=== PATIENT | male | born 1930 | race Two or more races ===

== ENCOUNTER 2017-05-11 15:54 | Inpatient (IN) | payer BC, MEDICARE ==
[2017-05-11] MEDS ORDERED: Sodium Chloride 0.9% 1,000 ML IV ONE (16:26)
--- NOTE | 2017-05-11 16:26 | ED Physician Chart ---
ED Chief Complaint/HPI - Patient Information Date Seen:: 05/11/17 Time Seen:: 16:00 Chief Complaint:: Syncope History of Present Illness:: onset x 3 days of syncope, frequent falls, poor oral intake, and hematochezia; no report of H/As, neck pain, C/P, SOB, Abd. Pain, cough, N/V/D/C, fever, chills , melena, hematemesis, or urinary s/s Allergies:: Allergies Allergy/AdvReac Type Severity Reaction Status Date / Time No Known Allergies Allergy Verified 05/11/17 16:00 Vitals:: Vital Signs - 8 hr 05/11/17 16:01 Temp 97.4 F HR 94 RR 17 BP 125/62 O2 Sat % 95 Historian:: Patient, Family Member Review:: Nurse's Note Reviewed ED Review of Systems - Review of Systems General/Constitutional: No fever, No chills, No weight loss, No weakness, No diaphoresis, No edema, No loss of appetite Skin: No skin lesions, No rash, No bruising Head: No headache, No light-headedness Eyes: No loss of vision, No pain, No diplopia ENT: No earache, No nasal drainage, No sore throat, No tinnitus Neck: No neck pain, No swelling, No thyromegaly, No stiffness, No mass noted Cardio Vascular: No chest pain, No palpitations, No PND, No orthopnea, No edema Pulmonary: No SOB, No cough, No sputum, No wheezing GI: No nausea, No vomiting, No diarrhea, No pain, Melena, Hematochezia, No constipation, No hematemesis G/U: No dysuria, No frequency, No hematuria, No nacturia Musculoskeletal: No bone or joint pain, No back pain, No muscle pain Endocrine: No polyuria, No polydipsia Psychiatric: No prior psych history, No depression, No anxiety, No suicidal ideation, No homicidal ideation, No auditory hallucination, No visual hallucination Hematopoietic: No bruising, No lymphadenopathy Allergic/Immuno: No urticaria, No angioedema Neurological: Syncope, No focal symptoms, No weakness, No paresthesia, No headache, No seizure, Dizziness, No confusion, Vertigo ED Past Medical History - Past Medical History Obtainable: Yes Past Medical History: HTN, Asthma/COPD, Dyslipidemia, Arthritis Family History: HTN Social History: Non Smoker, No Alcohol, No Drug Use, Single Surgical History: None Psychiatricy History: None Medication: Reviewed ED Physical Exam - Physical Examination General/Constitutional: Awake, Well-developed, well-nourished, Alert, No distress, GCS 15, Non-toxic appearing, Ambulatory Head: Atraumatic Eyes: Lids, conjuctiva normal, PERRL, EOMI Skin: Nl inspection, No rash, No skin lesions, No ecchymosis, Well hydrated, No lymphadenopathy ENMT: External ears, nose nl, Nasal exam nl, Lips, teeth, gums nl Neck: Nontender, Full ROM w/o pain, No JVD, No nuchal rigidity, No bruit, No mass, No stridor Respiratory: Nl effort/Exclusion Other Respiratory comments:: Lungs: + Rales and Rhonchi Cardio Vascular: RRR, No murmur, gallop, rubs, NL S1 S2, Carotid/Femoral/Distal pulses equal bilaterally GI: No tenderness/rebounding/guarding, No organomegaly, No hernia, Normal BS's, Nondistended, No mass/bruits, No McBurney tenderness : No CVA tenderness Extremities: No tenderness or effusion, Full ROM, normal strength in all extremities, No edema, Normal digits & nails Neuro/Psych: Alert/oriented, DTR's symmetric, Normal sensory exam, Normal motor strength, Judgement/insight normal, Mood normal, Normal gait, No focal deficits Misc: Normal back, No paraspinal tenderness ED Labs/Radiology/EKG Results - Lab Results Comments:: WBC: 15.0; Lipase: 109; - Radiology Results Comments:: CXR: + Patchy Infiltrate; COPD - EKG Interpretations EKG Time:: 16:44 Rate & Rhythm: 83; NSR Comments:: non-specific st-t changes ED Septic Shock - . Is Septic Shock (SBP<90, OR Lactate>4 mmol\L) present?: No - <6hrs of presentation: Vital Signs: Vital Signs - 8 hr 05/11/17 16:01 Temp 97.4 F HR 94 RR 17 BP 125/62 O2 Sat % 95 ED Reassessment (Disposition) - Reassessment Reassessment Condition:: Improved - Diagnosis Diagnosis:: Leukocytosis; Pancreatitis; PNA; Sepsis; Syncope; S/P Falls; Poor Oral Intake - Aftercare/Follow up Instructions Aftercare/Follow-Up Instructions:: Counseled pt regarding lab results/diagnosis & need follow up, Counseled pt & family regarding lab results/diagnosis & need follow up - Patient Disposition Discharge/Transfer:: Acute Care w/in this hosp Accepting Physician:: Dr. Cedeno Time Called:: [id number] Time Responded:: 17:50 Admitted to:: Med/Surg Spoke to:: Dr. Cedeno Admitting Medical Physician:: Dr. Cedeno Condition at Disposition:: Stable, Improved
[2017-05-11 16:41] LABS: % EOSINOPHILS 0.7 % (0.0-5.0); EOSINOPHILE ABSOLUTE 0.1 Th/cmm (0.1-0.4)
[2017-05-11 16:44] LABS: % BASOPHILS 2.5 % (0.0-2.0); % LYMPHOCYTES 5.2 % (20.0-50.0); % MONOCYTES 4.7 % (2.0-10.0); % NEUTROPHILS 86.9 % (40.0-80.0); BASOPHILE ABSOLUTE 0.4 Th/cumm (0-0.2); HEMATOCRIT 39.8 % (41.0-60); HEMOGLOBIN 13.5 gm/dL (12-16); LYMPHOCYTE ABSOLUTE 0.8 Th/cmm (1.5-3.0); MEAN CELL VOLUME 96.8 fl (80-99); MEAN CORPUSCULAR HEMOGLOBIN 32.9 pg (27.0-31.0); MEAN PLATELET VOLUME 8.1 fl; MONOCYTE ABSOLUTE 0.7 Th/cmm (0.3-1.0); PLATELET COUNT 257 Th/cmm (150-400); RED BLOOD COUNT 4.12 Mil/cmm (3.80-5.80)
[2017-05-11 16:54] LABS: INR 1.02 (0.5-1.4); PROTHROMBIN TIME (TEST) 10.6 SECONDS (9.5-11.5)
[2017-05-11 17:02] LABS: AMYLASE SERUM 70 U/L (29-103); LIPASE 109 U/L (11-82)
[2017-05-11 18:05] LABS: URINE MICROSCOPIC INDICATED? YES; URINE SOURCE CLEAN C
[2017-05-11 18:07] LABS: URINE BILIRUBIN MODERATE (NEGATIVE); URINE BLOOD TRACE (NEGATIVE); URINE GLUCOSE (UA) NEGATIVE (NEGATIVE); URINE KETONE >=80 mg/dL (NEGATIVE); URINE LEUKOCYTE ESTERASE NEGATIVE (NEGATIVE); URINE NITRATE NEGATIVE (NEGATIVE); URINE PROTEIN TRACE mg/dL (NEGATIVE)
[2017-05-11 18:27] LABS: URINE CLARITY CLEAR (CLEAR); URINE COLOR YELLOW
[2017-05-11 18:28] LABS: URINE BACTERIA NONE SEEN /hpf (NONE SEEN); URINE EPITHELIAL CELLS NONE SEEN /lpf (FEW); URINE WBC NONE SEEN /hpf (0-5)
[2017-05-11 18:39] LABS: SODIUM SERUM 136 mEq/L (136-145)
[2017-05-11 18:40] LABS: ANION GAP 17.3 (7.0-16.0); BUN - UREA NITROGEN 28 mg/dL (7-25); CALCIUM SERUM 8.8 mg/dL (8.6-10.3); CARBON DIOXIDE 27.5 mEq/L (21.0-31.0); CHLORIDE 94 mEq/L (98-107); CREATININE - SERUM 0.6 mg/dL (0.7-1.3); GLUCOSE 82 mg/dL (70-105); POTASSIUM SERUM 2.8 mEq/L (3.5-5.1)
[2017-05-11 18:41] LABS: ALB/GLOB RATIO 0.8 (1.0-1.8); ALBUMIN 2.9 gm/dL (4.2-5.5); ALKALINE PHOSPHATASE 82 U/L (34-104); BILIRUBIN,TOTAL 1.2 mg/dL (0.3-1.0); CHOLESTEROL 84 mg/dL (<200); SGOT 7 U/L (13-39); SGPT/ALT 3 U/L (7-52); TOTAL PROTEIN,SERUM 6.5 gm/dL (6.0-8.3); TRIGLYCERIDES 112 mg/dL (<150)
[2017-05-11] MEDS ORDERED: Levofloxacin 500mg/100mL 500 MG/100 ML BAG IV ONE ×2 (18:41→18:45)
[2017-05-11 18:42] LABS: CREATININE KINASE 34 U/L (30-223); HDL -HIGH DENSITY LIPOPROTEIN 18 mg/dL (23-92)
[2017-05-11] MEDS ORDERED: Morphine Sulfate 2 mg/mL 1mL Syr IVP PRN (18:42)
[2017-05-11] MEDS ORDERED: Mag Sulfate 2gm/50mL Premix 2 GM/50 ML BAG IV PRN (18:42)
[2017-05-11] MEDS ORDERED: Potassium Chloride 20 mEq ER Tab PO ONE ×2 (18:48→18:58)
[2017-05-11] MEDS ORDERED: IOHEXOL 300mgI/mL 100 ML VIAL ONE (20:14)
[2017-05-11] MEDS: Sodium Chloride 0.9% 1,000 ML IV SCH (21:06)
[2017-05-11 23:38] VITALS: BP 116/54
[2017-05-12] MEDS ORDERED: Pneumococcal Vaccine 0.5 mL Vial IM ONE (00:20)
[2017-05-12 06:46] LABS: EOSINOPHILE ABSOLUTE 0.1 Th/cmm (0.1-0.4); HEMATOCRIT 36.4 % (41.0-60); HEMOGLOBIN 12.1 gm/dL (12-16); LYMPHOCYTE ABSOLUTE 0.7 Th/cmm (1.5-3.0); MEAN CELL VOLUME 98.1 fl (80-99); MEAN CORPUSCULAR HEMOGLOBIN 32.5 pg (27.0-31.0); MEAN CORPUSCULAR HGB CONC 33.2 pg (28.0-36.0); MEAN PLATELET VOLUME 8.6 fl; MONOCYTE ABSOLUTE 0.5 Th/cmm (0.3-1.0); NEUTROPHILE ABSOLUTE 13.7 Th/cmm (1.8-8.0); PLATELET COUNT 231 Th/cmm (150-400); RED BLOOD COUNT 3.71 Mil/cmm (3.80-5.80); RED CELL DISTRIBUTION WIDTH 14.1 % (11.5-20.0)
[2017-05-12 06:57] LABS: % BASOPHILS 0.1 % (0.0-2.0); % LYMPHOCYTES 4.5 % (20.0-50.0); % MONOCYTES 3.4 % (2.0-10.0)
[2017-05-12 06:59] LABS: ANION GAP 15.3 (7.0-16.0); BUN - UREA NITROGEN 17 mg/dL (7-25); CALCIUM SERUM 8.1 mg/dL (8.6-10.3); CARBON DIOXIDE 24.8 mEq/L (21.0-31.0); CHLORIDE 102 mEq/L (98-107); CREATININE - SERUM 0.5 mg/dL (0.7-1.3); GLUCOSE 62 mg/dL (70-105); POTASSIUM SERUM 3.1 mEq/L (3.5-5.1); SODIUM SERUM 139 mEq/L (136-145)
--- NOTE | 2017-05-12 07:39 | Diagnostic Imaging Report ---
CHEST X-RAY: AP view INDICATION: pain COMPARISON: None FINDINGS: Extensive chronic lung changes are seen with emphysematous changes. There is interstitial chronic changes are most pronounced within the lung bases. No definite pneumothorax is identified. Heart size is normal. Tortuous aorta is noted. Atherosclerosis is noted. Degenerative changes of the spine are noted. IMPRESSION: Extensive chronic lung changes most pronounced within the left lower lung zone. Faint infiltrate is this region is considered less likely but cannot be completely excluded. Please correlate with clinical findings. Atherosclerotic vascular disease and tortuous aorta.
--- NOTE | 2017-05-12 07:48 | Diagnostic Imaging Report ---
Head CT with intravenous contrast Indication: pain Comparison: None Technique: Axial images were obtained from the vertex to the skull base following administration of IV contrast. Coronal reconstructions were made. Total DLP: 662, [id number] FINDINGS: Assessment for hemorrhage is limited due to contrast administration. No gross hemorrhage is identified. The sy-white matter differentiation is preserved. Mild atrophy noted. The ventricles and basal cisterns are patent. No mass effect or midline shift. No evidence of a skull fracture or focal soft tissue swelling. The visualized paranasal sinuses are clear. Atherosclerosis is noted. IMPRESSION: No evidence of acute intracranial abnormality. No enhancing mass lesions identified. Mild atrophy. Atherosclerotic vascular disease.
--- NOTE | 2017-05-12 08:59 | History & Physical ---
ADMIT DATE: 05/11/2017 CHIEF COMPLAINT: Confusion, falls, and syncope. HISTORY OF PRESENT ILLNESS: The patient is a confused 86-year-old male. He presents from home with episodes of falls. He has been experiencing multiple syncopal episodes apparently; however, they were unwitnessed. Also, there were reports of multiple falls, worsening confusion and decreased oral intake. The patient presents to the ER where he was found to have hypokalemia along with possible sepsis and pneumonia as well. PAST MEDICAL HISTORY: Significant for asthma, hypertension, dyslipidemia, arthritis. SOCIAL HISTORY: No history of alcohol, tobacco, or drug abuse. FAMILY HISTORY: Noncontributory. ALLERGIES: No known drug allergies. SOCIAL HISTORY: No documented history of alcohol, tobacco, or drug abuse. MEDICATIONS: Home medications reviewed and reconciled. REVIEW OF SYSTEMS: GENERAL: Positive recent fatigue, worsening confusion and decreased appetite. HEENT: No recent head trauma or change in vision, taste, hearing, or smell. NEUROLOGIC: Possibly syncopal episode x 3 in the last week or so. No history of stroke or seizure, but positive history of syncope and worsening confusion. NECK: No recent tracheal deviation. CARDIOVASCULAR: No history of chest pain. No recent palpitations. SKIN: No recent rashes. PSYCHIATRIC: No history of psychosis or hallucinations. MUSCULOSKELETAL: Positive for unsteady gait and falls recently. RESPIRATORY: Positive for asthma, shortness of breath, and decreased O2 saturations as well. GENITOURINARY: No recent dysuria or hematuria, but possibly increased urinary frequency. ABDOMEN: No recent pain or distention. PHYSICAL EXAMINATION: VITAL SIGNS: Temperature 97.9 degrees, heart rate , respirations 18, blood pressure 125/57. Currently, no pain. His O2 saturations have been in the low 90s. GENERAL: No acute distress. He is awake, but confused and looks very lethargic and almost cachectic appearing. HEENT: No acute issues. NECK: No JVD. CARDIOVASCULAR: Regular rate and rhythm. ABDOMEN: Nontender, nondistended. SKIN: No rashes. RESPIRATORY: Decreased breath sounds bilaterally with rales and congestions. EXTREMITIES: No edema. MUSCULOSKELETAL: The patient has decreased muscle strength and decreased muscle mass as well. NEUROLOGIC: No evidence of acute stroke or seizure activity. LABORATORY DATA: UA shows moderate bilirubin. Urobilinogen is 4.0. Ketones are greater than 80, rbc's 2-5, white count is 15, hemoglobin is 13.5, platelet count is 257,000. INR is 1.02. Sodium 136, potassium 2.8, chloride , bicarbonate 27.5, BUN 20 and creatinine 0.6, total bilirubin is 1.2, AST is 7, ALT is 3. Troponin less than 0.01. Chest x-ray shows left-sided infiltrate and severe COPD changes as well. ASSESSMENT: 1. Hypokalemia. 2. 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 3. Mechanical fall. 4. Unsteady gait. 5. Moderate malnutrition with decreased appetite and muscle wasting. 6. Asthma. 7. Metabolic encephalopathy. 8. Sepsis secondary to aspiration pneumonia. 9. Chronic obstructive pulmonary disease with exacerbation. PLAN: The patient will be placed on breathing treatments. I will follow up on the chest x-ray, but the initial report is infiltrate and extensive chronic lung changes as well. Continue regular diet. O2 has been set up. I will get an ABG on room air as well. CT of the head and ultrasound of the carotids has been ordered for the syncope. Abdominal ultrasound has been ordered for the very low LFTs. Continue heparin for DVT prophylaxis and IV fluids. Follow up on CBC and chemistry panel. I will start the patient on IV Zosyn for his aspiration pneumonia. Prognosis is guarded. JOB# [id number]
[2017-05-12] MEDS: Piperacillin/Tazobact 2.25 gm in 0.9% NS 50 ML IV SCH ×3 (09:17→17:27)
[2017-05-12 09:20] LABS: pH 7.38 (7.35-7.45)
[2017-05-12] MEDS: Albuterol/Ipratropium Neb 3 ML AERS HHN PRN ×2 (09:58→19:25)
[2017-05-12] MEDS: Sodium Chloride 0.9% 1,000 ML IV SCH (10:12)
--- NOTE | 2017-05-12 10:53 | Diagnostic Imaging Report ---
Bilateral carotid Doppler ultrasound exam HISTORY: Syncope Sonographic sector images were obtained to the carotid bifurcation regions bilaterally. Associated Doppler data was obtained. The exam of the right side demonstrates generalized intimal thickening through the bifurcation region. Mild diffuse atherosclerotic plaque extends from the carotid bulb region into the proximal portion of the right internal carotid artery. No significant narrowing or stenosis. Antegrade vertebral artery flow. The ICA/CCA flow ratio is normal (1.2). The left side demonstrates generalized intimal thickening. Mild diffuse plaque noted in the proximal portion of the left internal and sterile carotid arteries. The ICA/CCA flow is normal (1.2). IMPRESSION: 1. Evidence of mild bilateral atherosclerotic changes that do not appear to be hemodynamically significant.
[2017-05-12] MEDS: Potassium Chloride 40 MEQ, Lidocaine 1% 20mL Vial 25 MG in Sodium Chloride 0.9% 250 ML IV PRN (10:57)
--- NOTE | 2017-05-12 14:52 | Diagnostic Imaging Report ---
Ultrasound abdomen HISTORY: Abnormal liver function tests COMPARISON: None Technique: Sonography of the abdomen was performed in multiple planes. FINDINGS: Exam is limited due to bowel gas and body habitus. The liver demonstrates slight increased echogenicity and measures 17 cm. No evidence of focal lesions. There is distention of the gallbladder with diffuse gallbladder sludge. The gallbladder wall measures 5 mm. Echogenic foci are seen along the gallbladder wall. The common bile duct is difficult to visualize. The common bile duct measures 3 mm. Evaluation of the pancreas is limited due to bowel gas. The right kidney measures 10.5 x 4.1 cm. The left kidney measures 11.0 x 5.5 cm. No evidence of focal lesions or hydronephrosis. The spleen measures 10.6 cm. 5 mm echogenic focus of the spleen is noted possibly a calcification. The visualized portions of the abdominal aorta is grossly unremarkable. IMPRESSION: Limited exam due to body habitus and bowel gas. Distended gallbladder is seen with diffuse sludge and small echogenic foci adjacent to the gallbladder wall, possibly representing small stones. Gallbladder wall thickening is also noted. Please correlate clinically for possible cholecystitis. Recommend further assessment with nuclear medicine HIDA scan. Mild hepatomegaly with mild increased echogenicity which may reflect underlying hepatocellular disease. Questionable small nonspecific calcification of the spleen.
[2017-05-12 16:24] LABS: A1C % 4.9 % (4.0-6.0)
[2017-05-13] MEDS: Piperacillin/Tazobact 2.25 gm in 0.9% NS 50 ML IV SCH ×5 (00:23→23:25)
[2017-05-13 06:20] LABS: HEMATOCRIT 33.9 % (41.0-60); HEMOGLOBIN 11.6 gm/dL (12-16); MEAN CORPUSCULAR HEMOGLOBIN 33.1 pg (27.0-31.0); MEAN CORPUSCULAR HGB CONC 34.1 pg (28.0-36.0); MEAN PLATELET VOLUME 8.2 fl; PLATELET COUNT 230 Th/cmm (150-400); RED BLOOD COUNT 3.49 Mil/cmm (3.80-5.80); RED CELL DISTRIBUTION WIDTH 14.4 % (11.5-20.0)
[2017-05-13 06:24] LABS: MANUAL DIFF REQUIRED? YES; WHITE BLOOD COUNT 12.9 Th/cmm (4.8-10.8)
[2017-05-13] MEDS: Sodium Chloride 0.9% 1,000 ML IV SCH (06:37)
[2017-05-13 06:44] LABS: ANION GAP 12.8 (7.0-16.0); BUN - UREA NITROGEN 11 mg/dL (7-25); CALCIUM SERUM 7.9 mg/dL (8.6-10.3); CARBON DIOXIDE 25.4 mEq/L (21.0-31.0); CHLORIDE 106 mEq/L (98-107); CREATININE - SERUM 0.5 mg/dL (0.7-1.3); GLUCOSE 73 mg/dL (70-105); POTASSIUM SERUM 3.2 mEq/L (3.5-5.1); SODIUM SERUM 141 mEq/L (136-145)
[2017-05-13 07:22] LABS: BAND NEUTROPHILE 1 % (0-10); NEUTROPHILS 86 % (40-80); TOTAL CELLS COUNTED 100
[2017-05-13 07:23] LABS: EOSINOPHIL 2 % (0-5); LYMPHOCYTE 6 % (20-50); MONOCYTE 5 % (2-10); PLATELET ESTIMATE ADEQUATE (NORMAL)
--- NOTE | 2017-05-13 08:42 | General Progress Note ---
Subjective - Review of Systems Service Date: 05/13/17 Subjective: Pt seen and eval. In bed. Has some discomfort at times. No n,v,d or fevers. No chills. No cough. No dysuria. No falls or sz. No headaches. Objective - Results Result Diagrams: 05/13/17 06:05 05/13/17 06:05 Recent Labs: Laboratory Last Values WBC 12.9 Th/cmm (4.8-10.8) H 05/13/17 06:05 RBC 3.49 Mil/cmm (3.80-5.80) L 05/13/17 06:05 Hgb 11.6 gm/dL (12-16) L 05/13/17 06:05 Hct 33.9 % (41.0-60) L 05/13/17 06:05 MCV 97.0 fl (80-99) 05/13/17 06:05 MCH 33.1 pg (27.0-31.0) H 05/13/17 06:05 MCHC Differential 34.1 pg (28.0-36.0) 05/13/17 06:05 RDW 14.4 % (11.5-20.0) 05/13/17 06:05 Plt Count 230 Th/cmm (150-400) 05/13/17 06:05 MPV 8.2 fl 05/13/17 06:05 Neutrophils % 91.0 % (40.0-80.0) H 05/12/17 06:00 Band Neutrophils % 1 % (0-10) 05/13/17 06:05 Lymphocytes % 4.5 % (20.0-50.0) L 05/12/17 06:00 Monocytes % 3.4 % (2.0-10.0) 05/12/17 06:00 Eosinophils % 1.0 % (0.0-5.0) 05/12/17 06:00 Basophils % 0.1 % (0.0-2.0) 05/12/17 06:00 Neutrophils (Manual) 86 % (40-80) H 05/13/17 06:05 Lymphocytes 6 % (20-50) L 05/13/17 06:05 Monocytes 5 % (2-10) 05/13/17 06:05 Eosinophils 2 % (0-5) 05/13/17 06:05 Platelet Estimate ADEQUATE (NORMAL) 05/13/17 06:05 PT 10.6 SECONDS (9.5-11.5) 05/11/17 16:40 INR 1.02 (0.5-1.4) 05/11/17 16:40 Specimen Source Arterial 05/12/17 08:50 Sample Site RB 05/12/17 08:50 pH 7.38 (7.35-7.45) 05/12/17 08:50 pCO2 46.0 mmHg (35.0-45.0) H 05/12/17 08:50 pO2 86.0 mmHg (80.0-100.0) 05/12/17 08:50 HCO3 26.1 mEq/L (20.0-26.0) H 05/12/17 08:50 Base Excess 1.6 mEq/L (-3.0-3.0) 05/12/17 08:50 O2 Saturation 96.0 % (92.0-100.0) 05/12/17 08:50 Idris Test NA 05/12/17 08:50 Vent Rate NA 05/12/17 08:50 Inspired O2 28 05/12/17 08:50 Tidal Volume NA 05/12/17 08:50 PEEP NA 05/12/17 08:50 Pressure (ins/psv/peep) NA 05/12/17 08:50 Critical Value E.MCPHERSON 05/12/17 08:50 Sodium 141 mEq/L (136-145) 05/13/17 06:05 Potassium 3.2 mEq/L (3.5-5.1) L 05/13/17 06:05 Chloride 106 mEq/L (98-107) 05/13/17 06:05 Carbon Dioxide 25.4 mEq/L (21.0-31.0) 05/13/17 06:05 Anion Gap 12.8 (7.0-16.0) 05/13/17 06:05 BUN 11 mg/dL (7-25) 05/13/17 06:05 Creatinine 0.5 mg/dL (0.7-1.3) L 05/13/17 06:05 Est GFR ( Amer) TNP 05/13/17 06:05 Est GFR (Non-Af Amer) TNP 05/13/17 06:05 BUN/Creatinine Ratio 22.0 05/13/17 06:05 Glucose 73 mg/dL (70-105) 05/13/17 06:05 Hemoglobin A1c % 4.9 % (4.0-6.0) 05/11/17 16:40 Whole Bld Lactic Acid 1.00 mmol/L (0.60-1.99) 05/11/17 16:40 Calcium 7.9 mg/dL (8.6-10.3) L 05/13/17 06:05 Magnesium 1.9 mg/dL (1.9-2.7) 05/11/17 16:40 Total Bilirubin 1.2 mg/dL (0.3-1.0) H 05/11/17 16:40 AST 7 U/L (13-39) L 05/11/17 16:40 ALT 3 U/L (7-52) L 05/11/17 16:40 Alkaline Phosphatase 82 U/L (34-104) 05/11/17 16:40 Creatine Kinase 34 U/L (30-223) 05/11/17 16:40 Troponin I < 0.01 ng/mL (0.01-0.05) L 05/11/17 16:40 B-Natriuretic Peptide 120.0 pg/mL (5.0-100.0) H 05/11/17 16:40 Total Protein 6.5 gm/dL (6.0-8.3) 05/11/17 16:40 Albumin 2.9 gm/dL (4.2-5.5) L 05/11/17 16:40 Globulin 3.6 gm/dL 05/11/17 16:40 Albumin/Globulin Ratio 0.8 (1.0-1.8) L 05/11/17 16:40 Triglycerides 112 mg/dL (<150) 05/11/17 16:40 Cholesterol 84 mg/dL (<200) 05/11/17 16:40 LDL Cholesterol Direct 57 mg/dL (75-193) L 05/11/17 16:40 HDL Cholesterol 18 mg/dL (23-92) L 05/11/17 16:40 Amylase 70 U/L (29-103) 05/11/17 16:40 Lipase 109 U/L (11-82) H 05/11/17 16:40 Urine Source CLEAN C 05/11/17 17:15 Urine Color YELLOW 03/27/18 17:15 Urine Clarity CLEAR (CLEAR) 05/11/17 17:15 Urine pH 6.0 (4.6 - 8.0) 05/11/17 17:15 Ur Specific [place] 1.015 (1.005-1.030) 05/11/17 17:15 Urine Protein TRACE mg/dL (NEGATIVE) 05/11/17 17:15 Urine Glucose (UA) NEGATIVE mg/dL (NEGATIVE) 05/11/17 17:15 Urine Ketones >=80 mg/dL (NEGATIVE) H 05/11/17 17:15 Urine Blood TRACE (NEGATIVE) 05/11/17 17:15 Urine Nitrate NEGATIVE (NEGATIVE) 05/11/17 17:15 Urine Bilirubin MODERATE (NEGATIVE) H 05/11/17 17:15 Urine Urobilinogen 4.0 E.U./dL (0.2 - 1.0) H 05/11/17 17:15 Ur Leukocyte Esterase NEGATIVE (NEGATIVE) 05/11/17 17:15 Urine RBC 2-5 /hpf (0-5) H 05/11/17 17:15 Urine WBC NONE SEEN /hpf (0-5) 05/11/17 17:15 Ur Epithelial Cells NONE SEEN /lpf (FEW) 05/11/17 17:15 Urine Bacteria NONE SEEN /hpf (NONE SEEN) 05/11/17 17:15 - Physical Exam Vitals and I&O: Vital Signs Temp 97.6 F 05/13/17 04:00 Pulse 100 05/13/17 04:00 Resp 20 05/13/17 04:00 BP 112/80 05/13/17 04:00 Pulse Ox 100 05/13/17 04:00 Intake & Output 05/12/17 05/13/17 05/13/17 18:59 06:59 18:59 Intake Total 1372.5 1050 Balance 1372.5 1050 Weight (lbs) 48.081 kg 48.081 kg Intake: Intake, IV Amount 1132.5 1050 Piperacillin Sodium/ 150 50 Tazobact 2.25 gm In Sodium Chloride 0.9% 50 ml @ 100 mls/hr IV Q6HR [facility] Rx#:[id number] Sodium Chloride 0.9% 1, 982.5 1000 000 ml @ 75 mls/hr IV . [id number] [facility] Rx#:[id number] Oral 240 Other: # Voids 4 5 # Bowel Movements 0 Weight Source Estimated Bedscale Active Medications: Current Medications Acetaminophen (Tylenol) 650 mg PO Q6H PRN PRN Reason: HEADACHE/TEMP ABOVE 100F Stop: 07/10/17 18:41 Albuterol/Ipratropium (Duoneb Neb) 3 ml HHN Q4HRT PRN PRN Reason: sob Stop: 07/11/17 10:59 Last Admin: 05/12/17 19:25 Dose: 3 ml Docusate Sodium (Colace) 100 mg PO BID PRN PRN Reason: Constipation Stop: 07/10/17 18:41 Heparin Sodium (Porcine) (Heparin) 5,000 units SUBQ Q12HR [facility] Stop: 07/10/17 20:59 Last Admin: 05/12/17 20:55 Dose: 5,000 units Potassium Chloride 40 meq/Lidocaine HCl 25 mg/ Sodium Chloride 272.5 mls @ 68 mls/hr IV DAILY PRN PRN Reason: k level less than 3.2 Stop: 07/10/17 18:41 Last Admin: 05/12/17 10:57 Dose: 68 mls/hr Magnesium Sulfate (Magnesium Sulfate Premix) 2 gm in 50 mls @ 25 mls/hr IV DAILY PRN PRN Reason: Magnesium level less than 1.6 Stop: 07/10/17 18:41 Sodium Chloride (Nacl 0.9%) 1,000 mls @ 75 mls/hr IV .[id number] [facility] Stop: 07/10/17 18:44 Last Admin: 05/13/17 06:37 Dose: 75 mls/hr Piperacillin Sod/Tazobactam (Sod 2.25 gm/ Sodium Chloride) 50 mls @ 100 mls/hr IV Q6HR [facility] Stop: 07/11/17 08:44 Last Admin: 05/13/17 06:37 Dose: 100 mls/hr Lorazepam (Ativan) 1 mg IVP Q4HR PRN; Protocol PRN Reason: Anxiety Stop: 07/10/17 18:41 Magnesium Oxide (Mag-Oxide) 400 mg PO BID PRN PRN Reason: Mg less than 1.9 Stop: 07/10/17 18:41 Miscellaneous (Zosyn Iv Per Pharmacy) 1 ea MC PRN PRN PRN Reason: PROTOCOL Stop: 07/11/17 07:44 Morphine Sulfate (Morphine) 1 mg IVP Q4HR PRN PRN Reason: Severe Pain Stop: 07/10/17 18:41 Ondansetron HCl (Zofran) 4 mg IVP Q6H PRN PRN Reason: Nausea / Vomiting Stop: 07/10/17 18:41 Potassium Chloride (Klor-Con) 40 meq PO DAILY PRN PRN Reason: k level less than 3.5 Stop: 07/10/17 18:41 General: Cooperative, Mild distress HEENT: Atraumatic, PERRLA, EOMI Neck: Supple, no JVD, no Thyromegaly Cardiovascular: Regular rate, Normal S1, Normal S2 Lungs: Other (has rales bl) Abdomen: Soft, Other (has some tenderness) Assessment/Plan - Problem List Patient Problems: All Active Problems FREQUENT FALLS WITH POOR APPETITE (Acute) - Assessment Assessment: Asp PNA Possible Cholecystitis Hypokalemia D/O of ANS due to syncope Mech fall Mod malnut Asthma ME Sepsis due to Asp Pna COPD Exac - Plan Plan: Pt is on IV Zosyn and breathing tx. Replenish K today. Sx and GI consulted for possible cholecystitis. Fall prec. Nutritional Asmnt/Malnutr-PDOC - Dietary Evaluation Malnutrition Findings (Please click <Entered> for more info): Nutritional Asmnt/Malnutrition Start: 05/12/17 17: 42 Text: Status: Complete Freq: Document 05/12/17 17:43 LCHENG (Rec: 05/12/17 17:59 LCHENG [id number]) Nutritional Asmnt/Malnutrition Patient General Information Nutritional Screening High Risk Consult Diagnosis syncope Pertinent Medical Hx/Surgical Hx asthma, HTN, dyslipidemia, arthritis Subjective Information Consult received for no appetite to eat. Pt seen lying in bed at time of visit, awake and alert. Pt reported appetite has been poor d/t sick and it was little bit better today. Pt denied chewing problem. Food preference provided. Per RN, pt had no PO intake in the past 5 days, spited out food according to pt . Pt only had fruit and juice for breakfast. Pt was now on NPO during lunch time for U/S. Current Diet Order/ Nutrition Support regular Pertinent Medications colace, piperacillin, nacl 0.9 % Pertinent Labs 05/12 Na 139, K 3.1, Cl 102, BUN 17, Cr 0.5, glucose 62 Ca 8.1 05/11 a1c 4.9 Nutritional Hx/Data Height 1.65 m Height (Calculated Centimeters) 165.1 Current Weight (lbs) 48.081 kg Weight (Calculated Kilograms) 48.1 Weight (Calculated Grams) 51660.8 [place] Body Weight 136 Body Mass Index (BMI) 17.6 Weight Status Underweight GI Symptoms GI Symptoms None Last BM none Difficult in: None Skin Integrity/Comment: bruise to left hip and left upper arm Estimated Nutritional Goals BEE in Kcals: Using Current wt Calories/Kcals/Kg 30-35 Kcals Calculated 8221-1210 Protein: Using Current wt Protein g/k.2-1.4 Protein Calculated 58-67 Fluid: ml 1440-1680ml (1ml/kcal) Nutritional Problem 1. Problem Problem inadequate food intake Etiology poor appetite Signs/Symptoms: poor PO intake x 6 days Intervention/Recommendation Comments 1. Continue with current diet as ordered. If PO continue new , consider adding Boost BID to increased nutrition intake. 2. Monitor PO intake, wt, labs and skin integrity 3. F/U as high risk in 2-3 days, 05/14-05/15 Expected Outcomes/Goals Expected Outcomes/Goals 1. PO intake to meet at least 75% of nutritional needs. 2. Wt stability, skin to remain intact, labs to approach WNL.
[2017-05-13] MEDS: Potassium Chloride 20 mEq ER Tab PO PRN (08:50)
[2017-05-13 09:46] LABS: ALB/GLOB RATIO 0.8 (1.0-1.8); ALBUMIN 2.3 gm/dL (4.2-5.5); BILIRUBIN,DIRECT 0.44 mg/dL (0.0-0.2); BILIRUBIN,TOTAL 0.9 mg/dL (0.3-1.0); TOTAL PROTEIN,SERUM 5.2 gm/dL (6.0-8.3)
--- NOTE | 2017-05-13 12:53 | Consultation ---
DATE OF CONSULTATION: 05/12/[address] Cedeno. Thank you very much Dr. Cedeno for this consultation. HISTORY OF PRESENT ILLNESS: This is an 86-year-old male, who presented after a fall. Workup and neurological workup is in progress. The patient was found to have some wheezing and congestion. The patient has history of COPD, said he uses inhalers at home. He is a smoker for many years, quit years ago, cannot quantify the years or the amount of cigarettes he used. He denies any shortness of breath, some congestion on and off. PAST MEDICAL HISTORY: As above. SOCIAL HISTORY: As above. REVIEW OF SYSTEMS: GENERAL: Weakness and fatigue. CARDIOVASCULAR: No chest pain or palpitations. RESPIRATORY: No shortness of breath, minimal congestion. GASTROINTESTINAL: No nausea or vomiting. PHYSICAL EXAMINATION: GENERAL: Awake, alert, not in acute distress. VITAL SIGNS: Temperature 98.7, pulse 92, respirations are 18, blood pressure , saturation 99%. HEENT: Atraumatic, normocephalic. Pupils are reactive to light and accommodation. Ears, nose, and throat normal. NECK: Supple. No JVD. CHEST: There are rhonchi in bases, fair air entry, minimal wheezing. HEART: Regular rate and rhythm. ABDOMEN: Soft. EXTREMITIES: No edema. LABORATORY DATA AND DIAGNOSTIC STUDIES: ABGs: pH 7.38, pCO2 46, pO2 86, bicarb 26, saturation 96%. WBC is 15.0, hemoglobin 12.1, hematocrit 36.4, and platelets are 231. Sodium 139, potassium 3.1, BUN 17, and creatinine 0.5. Troponin is negative. BNP is 120. Chest x-ray; some hyperinflation, COPD changes. IMPRESSION: 1. This is an 86-year-old male with chronic obstructive pulmonary disease, was little bit symptomatic. 2. Status post fall. 3. Leukocytosis, rule out any infection. PLAN: 1. Nebulizer. 2. Antibiotics. 3. Add Pulmicort nebulizer. 4. Neurology workup in progress. We will follow the patient with you. JOB# [id number]
[2017-05-13] MEDS ORDERED: Probiotic Screen MC PRN (13:00)
--- NOTE | 2017-05-13 13:12 | Operative Report ---
DATE OF SURGERY: 05/13/2017 INPATIENT GI CONSULTATION CONSULTING PHYSICIAN: Dr. Cedeno. REASON FOR CONSULTATION: Vomiting, distended gallbladder on imaging. HISTORY OF PRESENT ILLNESS: The patient is an 86-year-old male who was admitted to the hospital with falls at home and possible syncopal episodes. However, the patient also notes that he has been vomiting for about a week now; most of the food that he has been trying to eat. He denies any abdominal pain with this, and he says he has had several bowel movements over the past week. Denies any bleeding or hematochezia or melena. On ER evaluation, he was seen to have a distended gallbladder with gallbladder wall thickening on the ultrasound and thus, GI consult was placed. PAST MEDICAL HISTORY: Asthma, hypertension, dyslipidemia, and arthritis. PAST SURGICAL HISTORY: The patient denies any abdominal surgeries. FAMILY HISTORY: Noncontributory. SOCIAL HISTORY: No documented history of alcohol or tobacco or drug use. ALLERGIES: No known drug allergies. CURRENT MEDICATIONS: Include Tylenol as needed, albuterol, Colace, heparin subcutaneously, Ativan as needed, magnesium oxide, and Zofran as needed. REVIEW OF SYSTEMS: A 12-point review of systems performed with the patient and is negative other than the pertinent positives are mentioned in the history of present illness. PHYSICAL EXAMINATION: VITAL SIGNS: Blood pressure is 112/88, pulse 100 beats per minute, temperature 97.6, and oxygenation 100%. GENERAL: The patient is lying in bed at 30 degrees. Alert and oriented x3. HEAD, EARS, EYES, NOSE, AND THROAT: Normocephalic, atraumatic-appearing head. Pupils are equal and reactive to light. Extraocular muscles are intact. Moist mucous membranes. NECK: Supple. No JVD or thyromegaly. CARDIOVASCULAR: S1, S2 present. Regular rate and rhythm. ABDOMEN: Soft. There is tenderness to deep palpation on the right side. No guarding, no rebound. Mild distention. EXTREMITIES: No pitting edema. Pulses are present. SKIN: No obvious jaundice or cyanosis. LABORATORY DATA: White blood cell count is 12.9, hemoglobin 11.6, and platelet count is 230. INR 1.02. AST is 9, ALT 4, total bilirubin 0.9. IMAGING: An abdominal ultrasound was performed and shows distended gallbladder with diffuse sludge and small echogenic foci adjacent to the gallbladder wall. The gallbladder wall thickening is noted. IMPRESSION: This is an 86-year-old male with asthma, hypertension, and dyslipidemia, who comes to the hospital with 1-week of vomiting and syncope and falls at home, found to have leukocytosis and distended gallbladder with thickening of the wall on imaging. 1. Thickened wall of the gallbladder. 2. Distended gallbladder. 3. Nausea and vomiting. 4. Leukocytosis. 5. Positive physical exam Cowan sign. DISCUSSION: It appears likely this patient has acute cholecystitis given the leukocytosis and ultrasound findings. A HIDA scan can be performed to help confirm this diagnosis. As always, acute cholecystitis is a surgical disease and the surgeon needs to be consulted to manage this as the appropriate therapy is cholecystectomy. RECOMMENDATIONS: 1. Surgical consultation for evaluation of acute cholecystectomy. 2. Follow up with the HIDA scan. 3. We will start the patient on antibiotics given that he is presenting with acute cholecystitis. We will continue Zosyn, which has already been started. 4. The patient can be n.p.o. for the HIDA scan, but then can likely be on clears after this until he is seen by surgeon and the plan is made. Thank you for allowing me to participate in the care of this patient. Please call with any further questions. JOB# [id number]
--- NOTE | 2017-05-13 15:31 | General Progress Note ---
Subjective - Review of Systems Service Date: 05/13/17 Events since last encounter: chart reviewed has GB stones HIDA in progress Objective - Results Result Diagrams: 05/13/17 06:05 05/13/17 06:05 Recent Labs: Laboratory Last Values WBC 12.9 Th/cmm (4.8-10.8) H 05/13/17 06:05 RBC 3.49 Mil/cmm (3.80-5.80) L 05/13/17 06:05 Hgb 11.6 gm/dL (12-16) L 05/13/17 06:05 Hct 33.9 % (41.0-60) L 05/13/17 06:05 MCV 97.0 fl (80-99) 05/13/17 06:05 MCH 33.1 pg (27.0-31.0) H 05/13/17 06:05 MCHC Differential 34.1 pg (28.0-36.0) 05/13/17 06:05 RDW 14.4 % (11.5-20.0) 05/13/17 06:05 Plt Count 230 Th/cmm (150-400) 05/13/17 06:05 MPV 8.2 fl 05/13/17 06:05 Neutrophils % 91.0 % (40.0-80.0) H 05/12/17 06:00 Band Neutrophils % 1 % (0-10) 05/13/17 06:05 Lymphocytes % 4.5 % (20.0-50.0) L 05/12/17 06:00 Monocytes % 3.4 % (2.0-10.0) 05/12/17 06:00 Eosinophils % 1.0 % (0.0-5.0) 05/12/17 06:00 Basophils % 0.1 % (0.0-2.0) 05/12/17 06:00 Neutrophils (Manual) 86 % (40-80) H 05/13/17 06:05 Lymphocytes 6 % (20-50) L 05/13/17 06:05 Monocytes 5 % (2-10) 05/13/17 06:05 Eosinophils 2 % (0-5) 05/13/17 06:05 Platelet Estimate ADEQUATE (NORMAL) 05/13/17 06:05 PT 10.6 SECONDS (9.5-11.5) 05/11/17 16:40 INR 1.02 (0.5-1.4) 05/11/17 16:40 Specimen Source Arterial 05/12/17 08:50 Sample Site RB 05/12/17 08:50 pH 7.38 (7.35-7.45) 05/12/17 08:50 pCO2 46.0 mmHg (35.0-45.0) H 05/12/17 08:50 pO2 86.0 mmHg (80.0-100.0) 05/12/17 08:50 HCO3 26.1 mEq/L (20.0-26.0) H 05/12/17 08:50 Base Excess 1.6 mEq/L (-3.0-3.0) 05/12/17 08:50 O2 Saturation 96.0 % (92.0-100.0) 05/12/17 08:50 Idris Test NA 05/12/17 08:50 Vent Rate NA 05/12/17 08:50 Inspired O2 28 05/12/17 08:50 Tidal Volume NA 05/12/17 08:50 PEEP NA 05/12/17 08:50 Pressure (ins/psv/peep) NA 05/12/17 08:50 Critical Value E.MCPHERSON 05/12/17 08:50 Sodium 141 mEq/L (136-145) 05/13/17 06:05 Potassium 3.2 mEq/L (3.5-5.1) L 05/13/17 06:05 Chloride 106 mEq/L (98-107) 05/13/17 06:05 Carbon Dioxide 25.4 mEq/L (21.0-31.0) 05/13/17 06:05 Anion Gap 12.8 (7.0-16.0) 05/13/17 06:05 BUN 11 mg/dL (7-25) 05/13/17 06:05 Creatinine 0.5 mg/dL (0.7-1.3) L 05/13/17 06:05 Est GFR ( Amer) TNP 05/13/17 06:05 Est GFR (Non-Af Amer) TNP 05/13/17 06:05 BUN/Creatinine Ratio 22.0 05/13/17 06:05 Glucose 73 mg/dL (70-105) 05/13/17 06:05 Hemoglobin A1c % 4.9 % (4.0-6.0) 05/11/17 16:40 Whole Bld Lactic Acid 1.00 mmol/L (0.60-1.99) 05/11/17 16:40 Calcium 7.9 mg/dL (8.6-10.3) L 05/13/17 06:05 Magnesium 1.9 mg/dL (1.9-2.7) 05/11/17 16:40 Total Bilirubin 0.9 mg/dL (0.3-1.0) 05/13/17 06:05 Direct Bilirubin 0.44 mg/dL (0.0-0.2) H 05/13/17 06:05 AST 9 U/L (13-39) L 05/13/17 06:05 ALT 4 U/L (7-52) L 05/13/17 06:05 Alkaline Phosphatase 66 U/L (34-104) 05/13/17 06:05 Creatine Kinase 34 U/L (30-223) 05/11/17 16:40 Troponin I < 0.01 ng/mL (0.01-0.05) L 05/11/17 16:40 B-Natriuretic Peptide 120.0 pg/mL (5.0-100.0) H 05/11/17 16:40 Total Protein 5.2 gm/dL (6.0-8.3) L 05/13/17 06:05 Albumin 2.3 gm/dL (4.2-5.5) L 05/13/17 06:05 Globulin 2.9 gm/dL 05/13/17 06:05 Albumin/Globulin Ratio 0.8 (1.0-1.8) L 05/13/17 06:05 Triglycerides 112 mg/dL (<150) 05/11/17 16:40 Cholesterol 84 mg/dL (<200) 05/11/17 16:40 LDL Cholesterol Direct 57 mg/dL (75-193) L 05/11/17 16:40 HDL Cholesterol 18 mg/dL (23-92) L 05/11/17 16:40 Amylase 70 U/L (29-103) 05/11/17 16:40 Lipase 109 U/L (11-82) H 05/11/17 16:40 Urine Source CLEAN C 05/11/17 17:15 Urine Color YELLOW 05/11/17 17:15 Urine Clarity CLEAR (CLEAR) 05/11/17 17:15 Urine pH 6.0 (4.6 - 8.0) 05/11/17 17:15 Ur Specific [place] 1.015 (1.005-1.030) 05/11/17 17:15 Urine Protein TRACE mg/dL (NEGATIVE) 05/11/17 17:15 Urine Glucose (UA) NEGATIVE mg/dL (NEGATIVE) 05/11/17 17:15 Urine Ketones >=80 mg/dL (NEGATIVE) H 05/11/17 17:15 Urine Blood TRACE (NEGATIVE) 05/11/17 17:15 Urine Nitrate NEGATIVE (NEGATIVE) 05/11/17 17:15 Urine Bilirubin MODERATE (NEGATIVE) H 05/11/17 17:15 Urine Urobilinogen 4.0 E.U./dL (0.2 - 1.0) H 05/11/17 17:15 Ur Leukocyte Esterase NEGATIVE (NEGATIVE) 05/11/17 17:15 Urine RBC 2-5 /hpf (0-5) H 05/11/17 17:15 Urine WBC NONE SEEN /hpf (0-5) 05/11/17 17:15 Ur Epithelial Cells NONE SEEN /lpf (FEW) 05/11/17 17:15 Urine Bacteria NONE SEEN /hpf (NONE SEEN) 05/11/17 17:15 - Physical Exam Vitals and I&O: Vital Signs Temp 98.1 F 05/13/17 08:00 Pulse 110 05/13/17 14:25 Resp 18 05/13/17 14:25 BP 102/56 05/13/17 08:00 Pulse Ox 98 05/13/17 14:25 Intake & Output 05/12/17 05/13/17 05/13/17 18:59 06:59 18:59 Intake Total 1372.5 1050 50 Balance 1372.5 1050 50 Weight (lbs) 48.081 kg 48.081 kg Intake: Intake, IV Amount 1132.5 1050 50 Piperacillin Sodium/ 150 50 50 Tazobact 2.25 gm In Sodium Chloride 0.9% 50 ml @ 100 mls/hr IV Q6HR [facility] Rx#:[id number] Sodium Chloride 0.9% 1, 982.5 1000 000 ml @ 75 mls/hr IV . [id number] [facility] Rx#:[id number] Oral 240 Other: # Voids 4 5 # Bowel Movements 0 Weight Source Estimated Bedscale Active Medications: Current Medications Acetaminophen (Tylenol) 650 mg PO Q6H PRN PRN Reason: HEADACHE/TEMP ABOVE 100F Stop: 07/10/17 18:41 Albuterol/Ipratropium (Duoneb Neb) 3 ml HHN Q4HRT PRN PRN Reason: sob Stop: 07/11/17 10:59 Last Admin: 05/12/17 19:25 Dose: 3 ml Docusate Sodium (Colace) 100 mg PO BID PRN PRN Reason: Constipation Stop: 07/10/17 18:41 Heparin Sodium (Porcine) (Heparin) 5,000 units SUBQ Q12HR [facility] Stop: 07/10/17 20:59 Last Admin: 05/13/17 08:50 Dose: 5,000 units Potassium Chloride 40 meq/Lidocaine HCl 25 mg/ Sodium Chloride 272.5 mls @ 68 mls/hr IV DAILY PRN PRN Reason: k level less than 3.2 Stop: 07/10/17 18:41 Last Admin: 05/12/17 10:57 Dose: 68 mls/hr Magnesium Sulfate (Magnesium Sulfate Premix) 2 gm in 50 mls @ 25 mls/hr IV DAILY PRN PRN Reason: Magnesium level less than 1.6 Stop: 07/10/17 18:41 Sodium Chloride (Nacl 0.9%) 1,000 mls @ 75 mls/hr IV .[id number] [facility] Stop: 07/10/17 18:44 Last Admin: 05/13/17 06:37 Dose: 75 mls/hr Piperacillin Sod/Tazobactam (Sod 2.25 gm/ Sodium Chloride) 50 mls @ 100 mls/hr IV Q6HR [facility] Stop: 07/11/17 08:44 Last Admin: 05/13/17 11:57 Dose: 100 mls/hr Lactobacillus Rhamnosus (Culturelle 15b) 1 each PO DAILY [facility] Stop: 07/13/17 08:59 Lorazepam (Ativan) 1 mg IVP Q4HR PRN; Protocol PRN Reason: Anxiety Stop: 07/10/17 18:41 Magnesium Oxide (Mag-Oxide) 400 mg PO BID PRN PRN Reason: Mg less than 1.9 Stop: 07/10/17 18:41 Miscellaneous (Zosyn Iv Per Pharmacy) 1 ea PRN PRN PRN Reason: PROTOCOL Stop: 07/11/17 07:44 Miscellaneous (Probiotic Screen) 1 ea PRN PRN PRN Reason: PROTOCOL Stop: 07/12/17 12:59 Morphine Sulfate (Morphine) 1 mg IVP Q4HR PRN PRN Reason: Severe Pain Stop: 07/10/17 18:41 Ondansetron HCl (Zofran) 4 mg IVP Q6H PRN PRN Reason: Nausea / Vomiting Stop: 07/10/17 18:41 Potassium Chloride (Klor-Con) 40 meq PO DAILY PRN PRN Reason: k level less than 3.5 Stop: 07/10/17 18:41 Last Admin: 05/13/17 08:50 Dose: 40 meq General: Cooperative, Mild distress HEENT: Atraumatic, PERRLA, EOMI Neck: Supple, no JVD, no Thyromegaly Cardiovascular: Regular rate, Normal S1, Normal S2 Lungs: Other (has rales bl) Abdomen: Soft, Other (has some tenderness) Assessment/Plan - Problem List Patient Problems: All Active Problems FREQUENT FALLS WITH POOR APPETITE (Acute) Nutritional Asmnt/Malnutr-PDOC - Dietary Evaluation Malnutrition Findings (Please click <Entered> for more info): Nutritional Asmnt/Malnutrition Start: 05/12/17 17: 42 Text: Status: Complete Freq: Document 05/12/17 17:43 LCHENG (Rec: 05/12/17 17:59 [email or web address] [id number]) Nutritional Asmnt/Malnutrition Patient General Information Nutritional Screening High Risk Consult Diagnosis syncope Pertinent Medical Hx/Surgical Hx asthma, HTN, dyslipidemia, arthritis Subjective Information Consult received for no appetite to eat. Pt seen lying in bed at time of visit, awake and alert. Pt reported appetite has been poor d/t sick and it was little bit better today. Pt denied chewing problem. Food preference provided. Per RN, pt had no PO intake in the past 5 days, spited out food according to pt . Pt only had fruit and juice for breakfast. Pt was now on NPO during lunch time for U/S. Current Diet Order/ Nutrition Support regular Pertinent Medications colace, piperacillin, nacl 0.9 % Pertinent Labs 05/12 Na 139, K 3.1, Cl 102, BUN 17, Cr 0.5, glucose 62 Ca 8.1 05/11 a1c 4.9 Nutritional Hx/Data Height 1.65 m Height (Calculated Centimeters) 165.1 Current Weight (lbs) 48.081 kg Weight (Calculated Kilograms) 48.1 Weight (Calculated Grams) 36338.8 [place] Body Weight 136 Body Mass Index (BMI) 17.6 Weight Status Underweight GI Symptoms GI Symptoms None Last BM none Difficult in: None Skin Integrity/Comment: bruise to left hip and left upper arm Estimated Nutritional Goals BEE in Kcals: Using Current wt Calories/Kcals/Kg 30-35 Kcals Calculated 4083-9222 Protein: Using Current wt Protein g/k.2-1.4 Protein Calculated 58-67 Fluid: ml 1440-1680ml (1ml/kcal) Nutritional Problem 1. Problem Problem inadequate food intake Etiology poor appetite Signs/Symptoms: poor PO intake x 6 days Intervention/Recommendation Comments 1. Continue with current diet as ordered. If PO continue new , consider adding Boost BID to increased nutrition intake. 2. Monitor PO intake, wt, labs and skin integrity 3. F/U as high risk in 2-3 days, 05/14-05/15 Expected Outcomes/Goals Expected Outcomes/Goals 1. PO intake to meet at least 75% of nutritional needs. 2. Wt stability, skin to remain intact, labs to approach WNL.
[2017-05-14] MEDS: Sodium Chloride 0.9% 1,000 ML IV SCH (03:36)
[2017-05-14 06:18] LABS: % EOSINOPHILS 2.3 % (0.0-5.0); % LYMPHOCYTES 6.6 % (20.0-50.0); % MONOCYTES 6.6 % (2.0-10.0); % NEUTROPHILS 84.5 % (40.0-80.0); EOSINOPHILE ABSOLUTE 0.3 Th/cmm (0.1-0.4); HEMOGLOBIN 11.2 gm/dL (12-16); LYMPHOCYTE ABSOLUTE 0.9 Th/cmm (1.5-3.0); MEAN CORPUSCULAR HEMOGLOBIN 33.1 pg (27.0-31.0); MEAN CORPUSCULAR HGB CONC 33.8 pg (28.0-36.0); MEAN PLATELET VOLUME 7.9 fl; MONOCYTE ABSOLUTE 0.9 Th/cmm (0.3-1.0); NEUTROPHILE ABSOLUTE 11.4 Th/cmm (1.8-8.0); PLATELET COUNT 250 Th/cmm (150-400); RED BLOOD COUNT 3.37 Mil/cmm (3.80-5.80); RED CELL DISTRIBUTION WIDTH 14.1 % (11.5-20.0); WHITE BLOOD COUNT 13.5 Th/cmm (4.8-10.8)
[2017-05-14] MEDS: Piperacillin/Tazobact 2.25 gm in 0.9% NS 50 ML IV SCH ×3 (06:49→17:09)
[2017-05-14 06:52] LABS: ANION GAP 12.4 (7.0-16.0); BUN - UREA NITROGEN 7 mg/dL (7-25); CALCIUM SERUM 7.7 mg/dL (8.6-10.3); CARBON DIOXIDE 28.7 mEq/L (21.0-31.0); CHLORIDE 103 mEq/L (98-107); CREATININE - SERUM 0.5 mg/dL (0.7-1.3); GLUCOSE 90 mg/dL (70-105); POTASSIUM SERUM 3.1 mEq/L (3.5-5.1); SODIUM SERUM 141 mEq/L (136-145)
--- NOTE | 2017-05-14 08:23 | GI Progress Note ---
Subjective - Review of Systems Service Date: 05/14/17 Subjective: No events, feels well this morning Objective - Results Result Diagrams: 05/14/17 06:00 05/14/17 06:00 Recent Labs: Laboratory Last Values WBC 13.5 Th/cmm (4.8-10.8) H 05/14/17 06:00 RBC 3.37 Mil/cmm (3.80-5.80) L 05/14/17 06:00 Hgb 11.2 gm/dL (12-16) L 05/14/17 06:00 Hct 33.0 % (41.0-60) L 05/14/17 06:00 MCV 98.0 fl (80-99) 05/14/17 06:00 MCH 33.1 pg (27.0-31.0) H 05/14/17 06:00 MCHC Differential 33.8 pg (28.0-36.0) 05/14/17 06:00 RDW 14.1 % (11.5-20.0) 05/14/17 06:00 Plt Count 250 Th/cmm (150-400) 05/14/17 06:00 MPV 7.9 fl 05/14/17 06:00 Neutrophils % 84.5 % (40.0-80.0) H 05/14/17 06:00 Band Neutrophils % 1 % (0-10) 05/13/17 06:05 Lymphocytes % 6.6 % (20.0-50.0) L 05/14/17 06:00 Monocytes % 6.6 % (2.0-10.0) 05/14/17 06:00 Eosinophils % 2.3 % (0.0-5.0) 05/14/17 06:00 Basophils % 0.0 % (0.0-2.0) 05/14/17 06:00 Neutrophils (Manual) 86 % (40-80) H 05/13/17 06:05 Lymphocytes 6 % (20-50) L 05/13/17 06:05 Monocytes 5 % (2-10) 05/13/17 06:05 Eosinophils 2 % (0-5) 05/13/17 06:05 Platelet Estimate ADEQUATE (NORMAL) 05/13/17 06:05 PT 10.6 SECONDS (9.5-11.5) 05/11/17 16:40 INR 1.02 (0.5-1.4) 05/11/17 16:40 Specimen Source Arterial 05/12/17 08:50 Sample Site RB 05/12/17 08:50 pH 7.38 (7.35-7.45) 05/12/17 08:50 pCO2 46.0 mmHg (35.0-45.0) H 05/12/17 08:50 pO2 86.0 mmHg (80.0-100.0) 05/12/17 08:50 HCO3 26.1 mEq/L (20.0-26.0) H 05/12/17 08:50 Base Excess 1.6 mEq/L (-3.0-3.0) 05/12/17 08:50 O2 Saturation 96.0 % (92.0-100.0) 05/12/17 08:50 Idris Test NA 05/12/17 08:50 Vent Rate NA 05/12/17 08:50 Inspired O2 28 05/12/17 08:50 Tidal Volume NA 05/12/17 08:50 PEEP NA 05/12/17 08:50 Pressure (ins/psv/peep) NA 05/12/17 08:50 Critical Value E.MCPHERSON 05/12/17 08:50 Sodium 141 mEq/L (136-145) 05/14/17 06:00 Potassium 3.1 mEq/L (3.5-5.1) L 05/14/17 06:00 Chloride 103 mEq/L (98-107) 05/14/17 06:00 Carbon Dioxide 28.7 mEq/L (21.0-31.0) 05/14/17 06:00 Anion Gap 12.4 (7.0-16.0) 05/14/17 06:00 BUN 7 mg/dL (7-25) 05/14/17 06:00 Creatinine 0.5 mg/dL (0.7-1.3) L 05/14/17 06:00 Est GFR ( Amer) TNP 05/14/17 06:00 Est GFR (Non-Af Amer) TNP 05/14/17 06:00 BUN/Creatinine Ratio 14.0 05/14/17 06:00 Glucose 90 mg/dL (70-105) 05/14/17 06:00 Hemoglobin A1c % 4.9 % (4.0-6.0) 05/11/17 16:40 Whole Bld Lactic Acid 1.00 mmol/L (0.60-1.99) 05/11/17 16:40 Calcium 7.7 mg/dL (8.6-10.3) L 05/14/17 06:00 Magnesium 1.9 mg/dL (1.9-2.7) 05/11/17 16:40 Total Bilirubin 0.9 mg/dL (0.3-1.0) 05/13/17 06:05 Direct Bilirubin 0.44 mg/dL (0.0-0.2) H 05/13/17 06:05 AST 9 U/L (13-39) L 05/13/17 06:05 ALT 4 U/L (7-52) L 05/13/17 06:05 Alkaline Phosphatase 66 U/L (34-104) 05/13/17 06:05 Creatine Kinase 34 U/L (30-223) 05/11/17 16:40 Troponin I < 0.01 ng/mL (0.01-0.05) L 05/11/17 16:40 B-Natriuretic Peptide 120.0 pg/mL (5.0-100.0) H 05/11/17 16:40 Total Protein 5.2 gm/dL (6.0-8.3) L 05/13/17 06:05 Albumin 2.3 gm/dL (4.2-5.5) L 05/13/17 06:05 Globulin 2.9 gm/dL 05/13/17 06:05 Albumin/Globulin Ratio 0.8 (1.0-1.8) L 05/13/17 06:05 Triglycerides 112 mg/dL (<150) 05/11/17 16:40 Cholesterol 84 mg/dL (<200) 05/11/17 16:40 LDL Cholesterol Direct 57 mg/dL (75-193) L 05/11/17 16:40 HDL Cholesterol 18 mg/dL (23-92) L 05/11/17 16:40 Amylase 70 U/L (29-103) 05/11/17 16:40 Lipase 109 U/L (11-82) H 05/11/17 16:40 Urine Source CLEAN C 05/11/17 17:15 Urine Color YELLOW 05/11/17 17:15 Urine Clarity CLEAR (CLEAR) 05/11/17 17:15 Urine pH 6.0 (4.6 - 8.0) 05/11/17 17:15 Ur Specific [place] 1.015 (1.005-1.030) 05/11/17 17:15 Urine Protein TRACE mg/dL (NEGATIVE) 05/11/17 17:15 Urine Glucose (UA) NEGATIVE mg/dL (NEGATIVE) 05/11/17 17:15 Urine Ketones >=80 mg/dL (NEGATIVE) H 05/11/17 17:15 Urine Blood TRACE (NEGATIVE) 05/11/17 17:15 Urine Nitrate NEGATIVE (NEGATIVE) 05/11/17 17:15 Urine Bilirubin MODERATE (NEGATIVE) H 05/11/17 17:15 Urine Urobilinogen 4.0 E.U./dL (0.2 - 1.0) H 05/11/17 17:15 Ur Leukocyte Esterase NEGATIVE (NEGATIVE) 05/11/17 17:15 Urine RBC 2-5 /hpf (0-5) H 05/11/17 17:15 Urine WBC NONE SEEN /hpf (0-5) 05/11/17 17:15 Ur Epithelial Cells NONE SEEN /lpf (FEW) 05/11/17 17:15 Urine Bacteria NONE SEEN /hpf (NONE SEEN) 05/11/17 17:15 - Physical Exam Vitals and I&O: Vital Signs Temp 98.5 F 05/13/17 16:00 Pulse 105 05/13/17 22:05 Resp 18 05/13/17 22:05 BP 116/64 05/13/17 16:00 Pulse Ox 98 05/13/17 22:05 Intake & Output 05/13/17 05/14/17 05/14/17 18:59 06:59 18:59 Intake Total 100 1100 Balance 100 1100 Weight (lbs) 48.081 kg Intake: Intake, IV Amount 100 1100 Piperacillin Sodium/ 100 100 Tazobact 2.25 gm In Sodium Chloride 0.9% 50 ml @ 100 mls/hr IV Q6HR [facility] Rx#:[id number] Sodium Chloride 0.9% 1, 1000 000 ml @ 75 mls/hr IV . [id number] [facility] Rx#:[id number] Other: # Voids 4 # Bowel Movements 0 Weight Source Estimated Active Medications: Current Medications Acetaminophen (Tylenol) 650 mg PO Q6H PRN PRN Reason: HEADACHE/TEMP ABOVE 100F Stop: 07/10/17 18:41 Albuterol/Ipratropium (Duoneb Neb) 3 ml HHN Q4HRT PRN PRN Reason: sob Stop: 07/11/17 10:59 Last Admin: 05/12/17 19:25 Dose: 3 ml Docusate Sodium (Colace) 100 mg PO BID PRN PRN Reason: Constipation Stop: 07/10/17 18:41 Heparin Sodium (Porcine) (Heparin) 5,000 units SUBQ Q12HR [facility] Stop: 07/10/17 20:59 Last Admin: 05/13/17 23:23 Dose: 5,000 units Potassium Chloride 40 meq/Lidocaine HCl 25 mg/ Sodium Chloride 272.5 mls @ 68 mls/hr IV DAILY PRN PRN Reason: k level less than 3.2 Stop: 07/10/17 18:41 Last Admin: 05/12/17 10:57 Dose: 68 mls/hr Magnesium Sulfate (Magnesium Sulfate Premix) 2 gm in 50 mls @ 25 mls/hr IV DAILY PRN PRN Reason: Magnesium level less than 1.6 Stop: 07/10/17 18:41 Sodium Chloride (Nacl 0.9%) 1,000 mls @ 75 mls/hr IV .[id number] [facility] Stop: 07/10/17 18:44 Last Admin: 05/14/17 03:36 Dose: 75 mls/hr Piperacillin Sod/Tazobactam (Sod 2.25 gm/ Sodium Chloride) 50 mls @ 100 mls/hr IV Q6HR [facility] Stop: 07/11/17 08:44 Last Admin: 05/14/17 06:49 Dose: 100 mls/hr Lactobacillus Rhamnosus (Culturelle 15b) 1 each PO DAILY [facility] Stop: 07/13/17 08:59 Lorazepam (Ativan) 1 mg IVP Q4HR PRN; Protocol PRN Reason: Anxiety Stop: 07/10/17 18:41 Magnesium Oxide (Mag-Oxide) 400 mg PO BID PRN PRN Reason: Mg less than 1.9 Stop: 07/10/17 18:41 Miscellaneous (Zosyn Iv Per Pharmacy) 1 ea [facility] PRN PRN PRN Reason: PROTOCOL Stop: 07/11/17 07:44 Miscellaneous (Probiotic Screen) 1 ea [facility] PRN PRN PRN Reason: PROTOCOL Stop: 07/12/17 12:59 Morphine Sulfate (Morphine) 1 mg IVP Q4HR PRN PRN Reason: Severe Pain Stop: 07/10/17 18:41 Ondansetron HCl (Zofran) 4 mg IVP Q6H PRN PRN Reason: Nausea / Vomiting Stop: 07/10/17 18:41 Potassium Chloride (Klor-Con) 40 meq PO DAILY PRN PRN Reason: k level less than 3.5 Stop: 07/10/17 18:41 Last Admin: 05/13/17 08:50 Dose: 40 meq General: Cooperative, Mild distress HEENT: Atraumatic, PERRLA, EOMI Neck: Supple, no JVD, no Thyromegaly Cardiovascular: Regular rate Lungs: Other (has rales bl) Abdomen: Soft, Other (has some tenderness, no guard or rebound) Neurological: Normal speech Assessment/Plan - Problem List Patient Problems: All Active Problems FREQUENT FALLS WITH POOR APPETITE (Acute) - Assessment Assessment: # Nausea # Abd pain # thickened GB wall on US # Cholelithiasis Likely acute or chronic cholecystitis based on US findings. Dr Marquez following, and awaiting HIDA scan Plan: - f/u HIDA scan, consider cholecystectomy if cystic duct obstruction - clears for now - abx
--- NOTE | 2017-05-14 08:52 | Diagnostic Imaging Report ---
Nuclear medicine HIDA scan HISTORY: Pain, , gallbladder wall thickening assess for possible cholecystitis COMPARISON: Ultrasound abdomen 05/12/2017 Technique/procedure: 5.3 mCi of technetium labeled Choletec was administered intravenously and multiple scintigraphic images were obtained for up to 2 hours FINDINGS: Prompt hepatic uptake is seen. Small bowel uptake is seen after 15 minutes. Images obtained from to 2 hours demonstrate no evidence of gallbladder uptake. IMPRESSION: No evidence of gallbladder uptake after 2 hours. Findings may be due to cystic duct obstruction and cholecystitis. Clinical correlation and follow-up is recommended.
[2017-05-14] MEDS: Lactobacillus Rhamnosus GG 15 Billion CFU CAP.SPRINK PO SCH (08:54)
--- NOTE | 2017-05-14 09:01 | General Progress Note ---
Subjective - Review of Systems Service Date: 05/14/17 Subjective: Pt seen and eval. In bed. Has some abd pain at times. No n,v,d or fevers. No chills. No cough. No dysuria. No falls or sz. No headaches. Objective - Results Result Diagrams: 05/14/17 06:00 05/14/17 06:00 Recent Labs: Laboratory Last Values WBC 13.5 Th/cmm (4.8-10.8) H 05/14/17 06:00 RBC 3.37 Mil/cmm (3.80-5.80) L 05/14/17 06:00 Hgb 11.2 gm/dL (12-16) L 05/14/17 06:00 Hct 33.0 % (41.0-60) L 05/14/17 06:00 MCV 98.0 fl (80-99) 05/14/17 06:00 MCH 33.1 pg (27.0-31.0) H 05/14/17 06:00 MCHC Differential 33.8 pg (28.0-36.0) 05/14/17 06:00 RDW 14.1 % (11.5-20.0) 05/14/17 06:00 Plt Count 250 Th/cmm (150-400) 05/14/17 06:00 MPV 7.9 fl 05/14/17 06:00 Neutrophils % 84.5 % (40.0-80.0) H 05/14/17 06:00 Band Neutrophils % 1 % (0-10) 05/13/17 06:05 Lymphocytes % 6.6 % (20.0-50.0) L 05/14/17 06:00 Monocytes % 6.6 % (2.0-10.0) 05/14/17 06:00 Eosinophils % 2.3 % (0.0-5.0) 05/14/17 06:00 Basophils % 0.0 % (0.0-2.0) 05/14/17 06:00 Neutrophils (Manual) 86 % (40-80) H 05/13/17 06:05 Lymphocytes 6 % (20-50) L 05/13/17 06:05 Monocytes 5 % (2-10) 05/13/17 06:05 Eosinophils 2 % (0-5) 05/13/17 06:05 Platelet Estimate ADEQUATE (NORMAL) 05/13/17 06:05 PT 10.6 SECONDS (9.5-11.5) 05/11/17 16:40 INR 1.02 (0.5-1.4) 05/11/17 16:40 Specimen Source Arterial 05/12/17 08:50 Sample Site RB 05/12/17 08:50 pH 7.38 (7.35-7.45) 05/12/17 08:50 pCO2 46.0 mmHg (35.0-45.0) H 05/12/17 08:50 pO2 86.0 mmHg (80.0-100.0) 05/12/17 08:50 HCO3 26.1 mEq/L (20.0-26.0) H 05/12/17 08:50 Base Excess 1.6 mEq/L (-3.0-3.0) 05/12/17 08:50 O2 Saturation 96.0 % (92.0-100.0) 05/12/17 08:50 Idris Test NA 05/12/17 08:50 Vent Rate NA 05/12/17 08:50 Inspired O2 28 05/12/17 08:50 Tidal Volume NA 05/12/17 08:50 PEEP NA 05/12/17 08:50 Pressure (ins/psv/peep) NA 05/12/17 08:50 Critical Value E.MCPHERSON 05/12/17 08:50 Sodium 141 mEq/L (136-145) 05/14/17 06:00 Potassium 3.1 mEq/L (3.5-5.1) L 05/14/17 06:00 Chloride 103 mEq/L (98-107) 05/14/17 06:00 Carbon Dioxide 28.7 mEq/L (21.0-31.0) 05/14/17 06:00 Anion Gap 12.4 (7.0-16.0) 05/14/17 06:00 BUN 7 mg/dL (7-25) 05/14/17 06:00 Creatinine 0.5 mg/dL (0.7-1.3) L 05/14/17 06:00 Est GFR ( Amer) TNP 05/14/17 06:00 Est GFR (Non-Af Amer) TNP 05/14/17 06:00 BUN/Creatinine Ratio 14.0 05/14/17 06:00 Glucose 90 mg/dL (70-105) 05/14/17 06:00 Hemoglobin A1c % 4.9 % (4.0-6.0) 05/11/17 16:40 Whole Bld Lactic Acid 1.00 mmol/L (0.60-1.99) 05/11/17 16:40 Calcium 7.7 mg/dL (8.6-10.3) L 05/14/17 06:00 Magnesium 1.9 mg/dL (1.9-2.7) 05/11/17 16:40 Total Bilirubin 0.9 mg/dL (0.3-1.0) 05/13/17 06:05 Direct Bilirubin 0.44 mg/dL (0.0-0.2) H 05/13/17 06:05 AST 9 U/L (13-39) L 05/13/17 06:05 ALT 4 U/L (7-52) L 05/13/17 06:05 Alkaline Phosphatase 66 U/L (34-104) 05/13/17 06:05 Creatine Kinase 34 U/L (30-223) 05/11/17 16:40 Troponin I < 0.01 ng/mL (0.01-0.05) L 05/11/17 16:40 B-Natriuretic Peptide 120.0 pg/mL (5.0-100.0) H 05/11/17 16:40 Total Protein 5.2 gm/dL (6.0-8.3) L 05/13/17 06:05 Albumin 2.3 gm/dL (4.2-5.5) L 05/13/17 06:05 Globulin 2.9 gm/dL 05/13/17 06:05 Albumin/Globulin Ratio 0.8 (1.0-1.8) L 05/13/17 06:05 Triglycerides 112 mg/dL (<150) 05/11/17 16:40 Cholesterol 84 mg/dL (<200) 05/11/17 16:40 LDL Cholesterol Direct 57 mg/dL (75-193) L 05/11/17 16:40 HDL Cholesterol 18 mg/dL (23-92) L 05/11/17 16:40 Amylase 70 U/L (29-103) 05/11/17 16:40 Lipase 109 U/L (11-82) H 05/11/17 16:40 Urine Source CLEAN C 05/11/17 17:15 Urine Color YELLOW 05/11/17 17:15 Urine Clarity CLEAR (CLEAR) 05/11/17 17:15 Urine pH 6.0 (4.6 - 8.0) 05/11/17 17:15 Ur Specific [place] 1.015 (1.005-1.030) 05/11/17 17:15 Urine Protein TRACE mg/dL (NEGATIVE) 05/11/17 17:15 Urine Glucose (UA) NEGATIVE mg/dL (NEGATIVE) 05/11/17 17:15 Urine Ketones >=80 mg/dL (NEGATIVE) H 05/11/17 17:15 Urine Blood TRACE (NEGATIVE) 05/11/17 17:15 Urine Nitrate NEGATIVE (NEGATIVE) 05/11/17 17:15 Urine Bilirubin MODERATE (NEGATIVE) H 05/11/17 17:15 Urine Urobilinogen 4.0 E.U./dL (0.2 - 1.0) H 05/11/17 17:15 Ur Leukocyte Esterase NEGATIVE (NEGATIVE) 05/11/17 17:15 Urine RBC 2-5 /hpf (0-5) H 05/11/17 17:15 Urine WBC NONE SEEN /hpf (0-5) 05/11/17 17:15 Ur Epithelial Cells NONE SEEN /lpf (FEW) 05/11/17 17:15 Urine Bacteria NONE SEEN /hpf (NONE SEEN) 05/11/17 17:15 - Physical Exam Vitals and I&O: Vital Signs Temp 98.5 F 05/13/17 16:00 Pulse 102 05/14/17 08:44 Resp 20 05/14/17 08:44 BP 116/64 05/13/17 16:00 Pulse Ox 97 05/14/17 08:44 Intake & Output 05/13/17 05/14/17 05/14/17 18:59 06:59 18:59 Intake Total 100 1100 Balance 100 1100 Weight (lbs) 48.081 kg Intake: Intake, IV Amount 100 1100 Piperacillin Sodium/ 100 100 Tazobact 2.25 gm In Sodium Chloride 0.9% 50 ml @ 100 mls/hr IV Q6HR [facility] Rx#:[id number] Sodium Chloride 0.9% 1, 1000 000 ml @ 75 mls/hr IV . [id number] [facility] Rx#:[id number] Other: # Voids 4 # Bowel Movements 0 Weight Source Estimated Active Medications: Current Medications Acetaminophen (Tylenol) 650 mg PO Q6H PRN PRN Reason: HEADACHE/TEMP ABOVE 100F Stop: 07/10/17 18:41 Albuterol/Ipratropium (Duoneb Neb) 3 ml HHN Q4HRT PRN PRN Reason: sob Stop: 07/11/17 10:59 Last Admin: 05/12/17 19:25 Dose: 3 ml Docusate Sodium (Colace) 100 mg PO BID PRN PRN Reason: Constipation Stop: 07/10/17 18:41 Heparin Sodium (Porcine) (Heparin) 5,000 units SUBQ Q12HR [facility] Stop: 07/10/17 20:59 Last Admin: 05/13/17 23:23 Dose: 5,000 units Potassium Chloride 40 meq/Lidocaine HCl 25 mg/ Sodium Chloride 272.5 mls @ 68 mls/hr IV DAILY PRN PRN Reason: k level less than 3.2 Stop: 07/10/17 18:41 Last Admin: 05/12/17 10:57 Dose: 68 mls/hr Magnesium Sulfate (Magnesium Sulfate Premix) 2 gm in 50 mls @ 25 mls/hr IV DAILY PRN PRN Reason: Magnesium level less than 1.6 Stop: 07/10/17 18:41 Sodium Chloride (Nacl 0.9%) 1,000 mls @ 75 mls/hr IV .[id number] [facility] Stop: 07/10/17 18:44 Last Admin: 05/14/17 03:36 Dose: 75 mls/hr Piperacillin Sod/Tazobactam (Sod 2.25 gm/ Sodium Chloride) 50 mls @ 100 mls/hr IV Q6HR [facility] Stop: 07/11/17 08:44 Last Admin: 05/14/17 06:49 Dose: 100 mls/hr Lactobacillus Rhamnosus (Culturelle 15b) 1 each PO DAILY [facility] Stop: 07/13/17 08:59 Last Admin: 05/14/17 08:54 Dose: 1 each Lorazepam (Ativan) 1 mg IVP Q4HR PRN; Protocol PRN Reason: Anxiety Stop: 07/10/17 18:41 Magnesium Oxide (Mag-Oxide) 400 mg PO BID PRN PRN Reason: Mg less than 1.9 Stop: 07/10/17 18:41 Miscellaneous (Zosyn Iv Per Pharmacy) 1 ea MC PRN PRN PRN Reason: PROTOCOL Stop: 07/11/17 07:44 Miscellaneous (Probiotic Screen) 1 ea MC PRN PRN PRN Reason: PROTOCOL Stop: 07/12/17 12:59 Morphine Sulfate (Morphine) 1 mg IVP Q4HR PRN PRN Reason: Severe Pain Stop: 07/10/17 18:41 Ondansetron HCl (Zofran) 4 mg IVP Q6H PRN PRN Reason: Nausea / Vomiting Stop: 07/10/17 18:41 Potassium Chloride (Klor-Con) 40 meq PO DAILY PRN PRN Reason: k level less than 3.5 Stop: 07/10/17 18:41 Last Admin: 05/13/17 08:50 Dose: 40 meq General: Alert, Cooperative, Mild distress HEENT: Atraumatic, PERRLA, EOMI Neck: Supple, no JVD, no Thyromegaly Cardiovascular: Regular rate, Normal S1 Lungs: Other (has rales bl) Abdomen: Soft, Other (has some tenderness, no guard or rebound) Neurological: Normal speech Assessment/Plan - Problem List Patient Problems: All Active Problems FREQUENT FALLS WITH POOR APPETITE (Acute) - Assessment Assessment: Asp PNA Acute Cholecystitis Hypokalemia D/O of ANS due to syncope Mech fall Mod malnut Asthma ME Sepsis due to Asp Pna COPD Exac - Plan Plan: Pt is on IV Zosyn and breathing tx. Replenish K today. Sx and GI consulted for cholecystitis. Fall prec. FU on cbc. HIDA done. Nutritional Asmnt/Malnutr-PDOC - Dietary Evaluation Malnutrition Findings (Please click <Entered> for more info): Nutritional Asmnt/Malnutrition Start: 05/12/17 17: 42 Text: Status: Complete Freq: Document 05/12/17 17:43 LCMAIRAG (Rec: 05/12/17 17:59 LCMAIRAG [id number]) Nutritional Asmnt/Malnutrition Patient General Information Nutritional Screening High Risk Consult Diagnosis syncope Pertinent Medical Hx/Surgical Hx asthma, HTN, dyslipidemia, arthritis Subjective Information Consult received for no appetite to eat. Pt seen lying in bed at time of visit, awake and alert. Pt reported appetite has been poor d/t sick and it was little bit better today. Pt denied chewing problem. Food preference provided. Per RN, pt had no PO intake in the past 5 days, spited out food according to pt . Pt only had fruit and juice for breakfast. Pt was now on NPO during lunch time for U/S. Current Diet Order/ Nutrition Support regular Pertinent Medications colace, piperacillin, nacl 0.9 % Pertinent Labs 05/12 Na 139, K 3.1, Cl 102, BUN 17, Cr 0.5, glucose 62 Ca 8.1 05/11 a1c 4.9 Nutritional Hx/Data Height 1.65 m Height (Calculated Centimeters) 165.1 Current Weight (lbs) 48.081 kg Weight (Calculated Kilograms) 48.1 Weight (Calculated Grams) 78601.8 [place] Body Weight 136 Body Mass Index (BMI) 17.6 Weight Status Underweight GI Symptoms GI Symptoms None Last BM none Difficult in: None Skin Integrity/Comment: bruise to left hip and left upper arm Estimated Nutritional Goals BEE in Kcals: Using Current wt Calories/Kcals/Kg 30-35 Kcals Calculated 0471-8632 Protein: Using Current wt Protein g/k.2-1.4 Protein Calculated 58-67 Fluid: ml 1440-1680ml (1ml/kcal) Nutritional Problem 1. Problem Problem inadequate food intake Etiology poor appetite Signs/Symptoms: poor PO intake x 6 days Intervention/Recommendation Comments 1. Continue with current diet as ordered. If PO continue new , consider adding Boost BID to increased nutrition intake. 2. Monitor PO intake, wt, labs and skin integrity 3. F/U as high risk in 2-3 days, 05/14-05/15 Expected Outcomes/Goals Expected Outcomes/Goals 1. PO intake to meet at least 75% of nutritional needs. 2. Wt stability, skin to remain intact, labs to approach WNL.
[2017-05-14] MEDS: Potassium Chloride 40 MEQ, Lidocaine 1% 20mL Vial 25 MG in Sodium Chloride 0.9% 250 ML IV PRN (12:03)
--- NOTE | 2017-05-14 12:33 | General Progress Note ---
Subjective - Review of Systems Service Date: 05/14/17 Events since last encounter: discussed informed consent with patient and Claus non-viz of [facility] OR on Wednesday Objective - Results Result Diagrams: 05/14/17 06:00 05/14/17 06:00 Recent Labs: Laboratory Last Values WBC 13.5 Th/cmm (4.8-10.8) H 05/14/17 06:00 RBC 3.37 Mil/cmm (3.80-5.80) L 05/14/17 06:00 Hgb 11.2 gm/dL (12-16) L 05/14/17 06:00 Hct 33.0 % (41.0-60) L 05/14/17 06:00 MCV 98.0 fl (80-99) 05/14/17 06:00 MCH 33.1 pg (27.0-31.0) H 05/14/17 06:00 MCHC Differential 33.8 pg (28.0-36.0) 05/14/17 06:00 RDW 14.1 % (11.5-20.0) 05/14/17 06:00 Plt Count 250 Th/cmm (150-400) 05/14/17 06:00 MPV 7.9 fl 05/14/17 06:00 Neutrophils % 84.5 % (40.0-80.0) H 05/14/17 06:00 Band Neutrophils % 1 % (0-10) 05/13/17 06:05 Lymphocytes % 6.6 % (20.0-50.0) L 05/14/17 06:00 Monocytes % 6.6 % (2.0-10.0) 05/14/17 06:00 Eosinophils % 2.3 % (0.0-5.0) 05/14/17 06:00 Basophils % 0.0 % (0.0-2.0) 05/14/17 06:00 Neutrophils (Manual) 86 % (40-80) H 05/13/17 06:05 Lymphocytes 6 % (20-50) L 05/13/17 06:05 Monocytes 5 % (2-10) 05/13/17 06:05 Eosinophils 2 % (0-5) 05/13/17 06:05 Platelet Estimate ADEQUATE (NORMAL) 05/13/17 06:05 PT 10.6 SECONDS (9.5-11.5) 05/11/17 16:40 INR 1.02 (0.5-1.4) 05/11/17 16:40 Specimen Source Arterial 05/12/17 08:50 Sample Site RB 05/12/17 08:50 pH 7.38 (7.35-7.45) 05/12/17 08:50 pCO2 46.0 mmHg (35.0-45.0) H 05/12/17 08:50 pO2 86.0 mmHg (80.0-100.0) 05/12/17 08:50 HCO3 26.1 mEq/L (20.0-26.0) H 05/12/17 08:50 Base Excess 1.6 mEq/L (-3.0-3.0) 05/12/17 08:50 O2 Saturation 96.0 % (92.0-100.0) 05/12/17 08:50 Idris Test NA 05/12/17 08:50 Vent Rate NA 05/12/17 08:50 Inspired O2 28 05/12/17 08:50 Tidal Volume NA 05/12/17 08:50 PEEP NA 05/12/17 08:50 Pressure (ins/psv/peep) NA 05/12/17 08:50 Critical Value E.MCPHERSON 05/12/17 08:50 Sodium 141 mEq/L (136-145) 05/14/17 06:00 Potassium 3.1 mEq/L (3.5-5.1) L 05/14/17 06:00 Chloride 103 mEq/L (98-107) 05/14/17 06:00 Carbon Dioxide 28.7 mEq/L (21.0-31.0) 05/14/17 06:00 Anion Gap 12.4 (7.0-16.0) 05/14/17 06:00 BUN 7 mg/dL (7-25) 05/14/17 06:00 Creatinine 0.5 mg/dL (0.7-1.3) L 05/14/17 06:00 Est GFR ( Amer) TNP 05/14/17 06:00 Est GFR (Non-Af Amer) TNP 05/14/17 06:00 BUN/Creatinine Ratio 14.0 05/14/17 06:00 Glucose 90 mg/dL (70-105) 05/14/17 06:00 Hemoglobin A1c % 4.9 % (4.0-6.0) 05/11/17 16:40 Whole Bld Lactic Acid 1.00 mmol/L (0.60-1.99) 05/11/17 16:40 Calcium 7.7 mg/dL (8.6-10.3) L 05/14/17 06:00 Magnesium 1.9 mg/dL (1.9-2.7) 05/11/17 16:40 Total Bilirubin 0.9 mg/dL (0.3-1.0) 05/13/17 06:05 Direct Bilirubin 0.44 mg/dL (0.0-0.2) H 05/13/17 06:05 AST 9 U/L (13-39) L 05/13/17 06:05 ALT 4 U/L (7-52) L 05/13/17 06:05 Alkaline Phosphatase 66 U/L (34-104) 05/13/17 06:05 Creatine Kinase 34 U/L (30-223) 05/11/17 16:40 Troponin I < 0.01 ng/mL (0.01-0.05) L 05/11/17 16:40 B-Natriuretic Peptide 120.0 pg/mL (5.0-100.0) H 05/11/17 16:40 Total Protein 5.2 gm/dL (6.0-8.3) L 05/13/17 06:05 Albumin 2.3 gm/dL (4.2-5.5) L 05/13/17 06:05 Globulin 2.9 gm/dL 05/13/17 06:05 Albumin/Globulin Ratio 0.8 (1.0-1.8) L 05/13/17 06:05 Triglycerides 112 mg/dL (<150) 05/11/17 16:40 Cholesterol 84 mg/dL (<200) 05/11/17 16:40 LDL Cholesterol Direct 57 mg/dL (75-193) L 05/11/17 16:40 HDL Cholesterol 18 mg/dL (23-92) L 05/11/17 16:40 Amylase 70 U/L (29-103) 05/11/17 16:40 Lipase 109 U/L (11-82) H 05/11/17 16:40 Urine Source CLEAN C 05/11/17 17:15 Urine Color YELLOW 05/11/17 17:15 Urine Clarity CLEAR (CLEAR) 05/11/17 17:15 Urine pH 6.0 (4.6 - 8.0) 05/11/17 17:15 Ur Specific [place] 1.015 (1.005-1.030) 05/11/17 17:15 Urine Protein TRACE mg/dL (NEGATIVE) 05/11/17 17:15 Urine Glucose (UA) NEGATIVE mg/dL (NEGATIVE) 05/11/17 17:15 Urine Ketones >=80 mg/dL (NEGATIVE) H 05/11/17 17:15 Urine Blood TRACE (NEGATIVE) 05/11/17 17:15 Urine Nitrate NEGATIVE (NEGATIVE) 05/11/17 17:15 Urine Bilirubin MODERATE (NEGATIVE) H 05/11/17 17:15 Urine Urobilinogen 4.0 E.U./dL (0.2 - 1.0) H 05/11/17 17:15 Ur Leukocyte Esterase NEGATIVE (NEGATIVE) 05/11/17 17:15 Urine RBC 2-5 /hpf (0-5) H 05/11/17 17:15 Urine WBC NONE SEEN /hpf (0-5) 05/11/17 17:15 Ur Epithelial Cells NONE SEEN /lpf (FEW) 05/11/17 17:15 Urine Bacteria NONE SEEN /hpf (NONE SEEN) 05/11/17 17:15 - Physical Exam Vitals and I&O: Vital Signs Temp 98.5 F 05/13/17 16:00 Pulse 102 05/14/17 08:44 Resp 20 05/14/17 08:44 BP 116/64 05/13/17 16:00 Pulse Ox 97 05/14/17 08:44 Intake & Output 05/13/17 05/14/17 05/14/17 18:59 06:59 18:59 Intake Total 100 1100 50 Balance 100 1100 50 Weight (lbs) 48.081 kg Intake: Intake, IV Amount 100 1100 50 Piperacillin Sodium/ 100 100 50 Tazobact 2.25 gm In Sodium Chloride 0.9% 50 ml @ 100 mls/hr IV Q6HR [facility] Rx#:[id number] Sodium Chloride 0.9% 1, 1000 000 ml @ 75 mls/hr IV . [id number] [facility] Rx#:[id number] Other: # Voids 4 # Bowel Movements 0 Weight Source Estimated Active Medications: Current Medications Acetaminophen (Tylenol) 650 mg PO Q6H PRN PRN Reason: HEADACHE/TEMP ABOVE 100F Stop: 07/10/17 18:41 Albuterol/Ipratropium (Duoneb Neb) 3 ml HHN Q4HRT PRN PRN Reason: sob Stop: 07/11/17 10:59 Last Admin: 05/12/17 19:25 Dose: 3 ml Docusate Sodium (Colace) 100 mg PO BID PRN PRN Reason: Constipation Stop: 07/10/17 18:41 Heparin Sodium (Porcine) (Heparin) 5,000 units SUBQ Q12HR [facility] Stop: 07/10/17 20:59 Last Admin: 05/14/17 08:54 Dose: 5,000 units Potassium Chloride 40 meq/Lidocaine HCl 25 mg/ Sodium Chloride 272.5 mls @ 68 mls/hr IV DAILY PRN PRN Reason: k level less than 3.2 Stop: 07/10/17 18:41 Last Admin: 05/14/17 12:03 Dose: 68 mls/hr Magnesium Sulfate (Magnesium Sulfate Premix) 2 gm in 50 mls @ 25 mls/hr IV DAILY PRN PRN Reason: Magnesium level less than 1.6 Stop: 07/10/17 18:41 Sodium Chloride (Nacl 0.9%) 1,000 mls @ 75 mls/hr IV .[id number] [facility] Stop: 07/10/17 18:44 Last Admin: 05/14/17 03:36 Dose: 75 mls/hr Piperacillin Sod/Tazobactam (Sod 2.25 gm/ Sodium Chloride) 50 mls @ 100 mls/hr IV Q6HR [facility] Stop: 07/11/17 08:44 Last Admin: 05/14/17 12:11 Dose: 100 mls/hr Lactobacillus Rhamnosus (Culturelle 15b) 1 each PO DAILY [facility] Stop: 07/13/17 08:59 Last Admin: 05/14/17 08:54 Dose: 1 each Lorazepam (Ativan) 1 mg IVP Q4HR PRN; Protocol PRN Reason: Anxiety Stop: 07/10/17 18:41 Magnesium Oxide (Mag-Oxide) 400 mg PO BID PRN PRN Reason: Mg less than 1.9 Stop: 07/10/17 18:41 Miscellaneous (Zosyn Iv Per Pharmacy) 1 ea PRN PRN PRN Reason: PROTOCOL Stop: 07/11/17 07:44 Miscellaneous (Probiotic Screen) 1 ea PRN PRN PRN Reason: PROTOCOL Stop: 07/12/17 12:59 Morphine Sulfate (Morphine) 1 mg IVP Q4HR PRN PRN Reason: Severe Pain Stop: 07/10/17 18:41 Ondansetron HCl (Zofran) 4 mg IVP Q6H PRN PRN Reason: Nausea / Vomiting Stop: 07/10/17 18:41 Potassium Chloride (Klor-Con) 40 meq PO DAILY PRN PRN Reason: k level less than 3.5 Stop: 07/10/17 18:41 Last Admin: 05/13/17 08:50 Dose: 40 meq General: Alert, Cooperative, Mild distress HEENT: Atraumatic, PERRLA, EOMI Neck: Supple, no JVD, no Thyromegaly Cardiovascular: Regular rate, Normal S1 Lungs: Other (has rales bl) Abdomen: Soft, Other (has some tenderness, no guard or rebound) Neurological: Normal speech Assessment/Plan - Problem List Patient Problems: All Active Problems FREQUENT FALLS WITH POOR APPETITE (Acute) Nutritional Asmnt/Malnutr-PDOC - Dietary Evaluation Malnutrition Findings (Please click <Entered> for more info): Nutritional Asmnt/Malnutrition Start: 05/12/17 17: 42 Text: Status: Complete Freq: Document 05/12/17 17:43 LCHENG (Rec: 05/12/17 17:59 LCHENG [facility] [email or web address]) Nutritional Asmnt/Malnutrition Patient General Information Nutritional Screening High Risk Consult Diagnosis syncope Pertinent Medical Hx/Surgical Hx asthma, HTN, dyslipidemia, arthritis Subjective Information Consult received for no appetite to eat. Pt seen lying in bed at time of visit, awake and alert. Pt reported appetite has been poor d/t sick and it was little bit better today. Pt denied chewing problem. Food preference provided. Per RN, pt had no PO intake in the past 5 days, spited out food according to pt . Pt only had fruit and juice for breakfast. Pt was now on NPO during lunch time for U/S. Current Diet Order/ Nutrition Support regular Pertinent Medications colace, piperacillin, nacl 0.9 % Pertinent Labs 05/12 Na 139, K 3.1, Cl 102, BUN 17, Cr 0.5, glucose 62 Ca 8.1 05/11 a1c 4.9 Nutritional Hx/Data Height 1.65 m Height (Calculated Centimeters) 165.1 Current Weight (lbs) 48.081 kg Weight (Calculated Kilograms) 48.1 Weight (Calculated Grams) 03627.8 [place] Body Weight 136 Body Mass Index (BMI) 17.6 Weight Status Underweight GI Symptoms GI Symptoms None Last BM none Difficult in: None Skin Integrity/Comment: bruise to left hip and left upper arm Estimated Nutritional Goals BEE in Kcals: Using Current wt Calories/Kcals/Kg 30-35 Kcals Calculated 0388-7071 Protein: Using Current wt Protein g/k.2-1.4 Protein Calculated 58-67 Fluid: ml 1440-1680ml (1ml/kcal) Nutritional Problem 1. Problem Problem inadequate food intake Etiology poor appetite Signs/Symptoms: poor PO intake x 6 days Intervention/Recommendation Comments 1. Continue with current diet as ordered. If PO continue new , consider adding Boost BID to increased nutrition intake. 2. Monitor PO intake, wt, labs and skin integrity 3. F/U as high risk in 2-3 days, 05/14-05/15 Expected Outcomes/Goals Expected Outcomes/Goals 1. PO intake to meet at least 75% of nutritional needs. 2. Wt stability, skin to remain intact, labs to approach WNL.
[2017-05-15] MEDS: Piperacillin/Tazobact 2.25 gm in 0.9% NS 50 ML IV SCH ×5 (00:11→23:28)
[2017-05-15 06:52] LABS: HEMOGLOBIN 10.8 gm/dL (12-16); MEAN CELL VOLUME 97.7 fl (80-99); MEAN CORPUSCULAR HGB CONC 33.8 pg (28.0-36.0); PLATELET COUNT 228 Th/cmm (150-400); RED BLOOD COUNT 3.27 Mil/cmm (3.80-5.80); RED CELL DISTRIBUTION WIDTH 13.8 % (11.5-20.0); WHITE BLOOD COUNT 11.6 Th/cmm (4.8-10.8)
[2017-05-15 06:57] LABS: ANION GAP 7.7 (7.0-16.0); BUN - UREA NITROGEN 6 mg/dL (7-25); CALCIUM SERUM 7.5 mg/dL (8.6-10.3); CARBON DIOXIDE 33.4 mEq/L (21.0-31.0); CHLORIDE 101 mEq/L (98-107); CREATININE - SERUM 0.4 mg/dL (0.7-1.3); GLUCOSE 81 mg/dL (70-105); POTASSIUM SERUM 3.1 mEq/L (3.5-5.1); SODIUM SERUM 139 mEq/L (136-145)
[2017-05-15 08:07] LABS: MANUAL DIFF REQUIRED? YES
[2017-05-15 08:08] LABS: EOSINOPHIL 1 % (0-5); LYMPHOCYTE 6 % (20-50); MONOCYTE 5 % (2-10); NEUTROPHILS 88 % (40-80); PLATELET ESTIMATE ADEQUATE (NORMAL); TOTAL CELLS COUNTED 100
[2017-05-15] MEDS: Potassium Chloride 40 MEQ, Lidocaine 1% 20mL Vial 25 MG in Sodium Chloride 0.9% 250 ML IV PRN (08:47)
--- NOTE | 2017-05-15 08:48 | GI Progress Note ---
Subjective - Review of Systems Subjective: HIDA is positive, scheduled for lap braden Wednesday Objective - Results Result Diagrams: 05/15/17 05:30 05/15/17 05:30 Recent Labs: Laboratory Last Values WBC 11.6 Th/cmm (4.8-10.8) H 05/15/17 05:30 RBC 3.27 Mil/cmm (3.80-5.80) L 05/15/17 05:30 Hgb 10.8 gm/dL (12-16) L 05/15/17 05:30 Hct 32.0 % (41.0-60) L 05/15/17 05:30 MCV 97.7 fl (80-99) 05/15/17 05:30 MCH 33.0 pg (27.0-31.0) H 05/15/17 05:30 MCHC Differential 33.8 pg (28.0-36.0) 05/15/17 05:30 RDW 13.8 % (11.5-20.0) 05/15/17 05:30 Plt Count 228 Th/cmm (150-400) 05/15/17 05:30 MPV 8.0 fl 05/15/17 05:30 Neutrophils % MARITIME GUARD 05/15/17 05:30 Band Neutrophils % 1 % (0-10) 05/13/17 06:05 Lymphocytes % MARITIME GUARD 05/15/17 05:30 Monocytes % MARITIME GUARD 05/15/17 05:30 Eosinophils % MARITIME GUARD 05/15/17 05:30 Basophils % MARITIME GUARD 05/15/17 05:30 Neutrophils (Manual) 88 % (40-80) H 05/15/17 05:30 Lymphocytes 6 % (20-50) L 05/15/17 05:30 Monocytes 5 % (2-10) 05/15/17 05:30 Eosinophils 1 % (0-5) 05/15/17 05:30 Platelet Estimate ADEQUATE (NORMAL) 05/15/17 05:30 PT 10.6 SECONDS (9.5-11.5) 05/11/17 16:40 INR 1.02 (0.5-1.4) 05/11/17 16:40 Specimen Source Arterial 05/12/17 08:50 Sample Site RB 05/12/17 08:50 pH 7.38 (7.35-7.45) 05/12/17 08:50 pCO2 46.0 mmHg (35.0-45.0) H 05/12/17 08:50 pO2 86.0 mmHg (80.0-100.0) 05/12/17 08:50 HCO3 26.1 mEq/L (20.0-26.0) H 05/12/17 08:50 Base Excess 1.6 mEq/L (-3.0-3.0) 05/12/17 08:50 O2 Saturation 96.0 % (92.0-100.0) 05/12/17 08:50 Idris Test NA 05/12/17 08:50 Vent Rate NA 05/12/17 08:50 Inspired O2 28 05/12/17 08:50 Tidal Volume NA 05/12/17 08:50 PEEP NA 05/12/17 08:50 Pressure (ins/psv/peep) NA 05/12/17 08:50 Critical Value E.MCPHERSON 05/12/17 08:50 Sodium 139 mEq/L (136-145) 05/15/17 05:30 Potassium 3.1 mEq/L (3.5-5.1) L 05/15/17 05:30 Chloride 101 mEq/L (98-107) 05/15/17 05:30 Carbon Dioxide 33.4 mEq/L (21.0-31.0) H 05/15/17 05:30 Anion Gap 7.7 (7.0-16.0) 05/15/17 05:30 BUN 6 mg/dL (7-25) L 05/15/17 05:30 Creatinine 0.4 mg/dL (0.7-1.3) L 05/15/17 05:30 Est GFR ( Amer) TNP 05/15/17 05:30 Est GFR (Non-Af Amer) TNP 05/15/17 05:30 BUN/Creatinine Ratio 15.0 05/15/17 05:30 Glucose 81 mg/dL (70-105) 05/15/17 05:30 Hemoglobin A1c % 4.9 % (4.0-6.0) 05/11/17 16:40 Whole Bld Lactic Acid 1.00 mmol/L (0.60-1.99) 05/11/17 16:40 Calcium 7.5 mg/dL (8.6-10.3) L 05/15/17 05:30 Magnesium 1.9 mg/dL (1.9-2.7) 05/11/17 16:40 Total Bilirubin 0.9 mg/dL (0.3-1.0) 05/13/17 06:05 Direct Bilirubin 0.44 mg/dL (0.0-0.2) H 05/13/17 06:05 AST 9 U/L (13-39) L 05/13/17 06:05 ALT 4 U/L (7-52) L 05/13/17 06:05 Alkaline Phosphatase 66 U/L (34-104) 05/13/17 06:05 Creatine Kinase 34 U/L (30-223) 05/11/17 16:40 Troponin I < 0.01 ng/mL (0.01-0.05) L 05/11/17 16:40 B-Natriuretic Peptide 120.0 pg/mL (5.0-100.0) H 05/11/17 16:40 Total Protein 5.2 gm/dL (6.0-8.3) L 05/13/17 06:05 Albumin 2.3 gm/dL (4.2-5.5) L 05/13/17 06:05 Globulin 2.9 gm/dL 05/13/17 06:05 Albumin/Globulin Ratio 0.8 (1.0-1.8) L 05/13/17 06:05 Triglycerides 112 mg/dL (<150) 05/11/17 16:40 Cholesterol 84 mg/dL (<200) 05/11/17 16:40 LDL Cholesterol Direct 57 mg/dL (75-193) L 05/11/17 16:40 HDL Cholesterol 18 mg/dL (23-92) L 05/11/17 16:40 Amylase 70 U/L (29-103) 05/11/17 16:40 Lipase 109 U/L (11-82) H 05/11/17 16:40 Urine Source CLEAN C 05/11/17 17:15 Urine Color YELLOW 05/11/17 17:15 Urine Clarity CLEAR (CLEAR) 05/11/17 17:15 Urine pH 6.0 (4.6 - 8.0) 05/11/17 17:15 Ur Specific [place] 1.015 (1.005-1.030) 05/11/17 17:15 Urine Protein TRACE mg/dL (NEGATIVE) 05/11/17 17:15 Urine Glucose (UA) NEGATIVE mg/dL (NEGATIVE) 05/11/17 17:15 Urine Ketones >=80 mg/dL (NEGATIVE) H 05/11/17 17:15 Urine Blood TRACE (NEGATIVE) 05/11/17 17:15 Urine Nitrate NEGATIVE (NEGATIVE) 05/11/17 17:15 Urine Bilirubin MODERATE (NEGATIVE) H 05/11/17 17:15 Urine Urobilinogen 4.0 E.U./dL (0.2 - 1.0) H 05/11/17 17:15 Ur Leukocyte Esterase NEGATIVE (NEGATIVE) 05/11/17 17:15 Urine RBC 2-5 /hpf (0-5) H 05/11/17 17:15 Urine WBC NONE SEEN /hpf (0-5) 05/11/17 17:15 Ur Epithelial Cells NONE SEEN /lpf (FEW) 05/11/17 17:15 Urine Bacteria NONE SEEN /hpf (NONE SEEN) 05/11/17 17:15 - Physical Exam Vitals and I&O: Vital Signs Temp 98.1 F 05/15/17 04:00 Pulse 80 05/15/17 04:00 Resp 20 05/15/17 04:00 BP 111/56 05/15/17 04:00 Pulse Ox 99 05/15/17 04:00 Intake & Output 05/14/17 05/15/17 05/15/17 18:59 06:59 18:59 Intake Total 950 150 Output Total 850 Balance 100 150 Weight (lbs) 48.081 kg 49.895 kg Intake: Intake, IV Amount 150 50 Piperacillin Sodium/ 150 50 Tazobact 2.25 gm In Sodium Chloride 0.9% 50 ml @ 100 mls/hr IV Q6HR REPLACED BY [facility] Rx#:[id number] Oral 800 100 Output: Urine 850 Other: # Voids 3 5 # Bowel Movements 1 0 Stool Characteristics Formed Weight Source Bedscale Bedscale Active Medications: Current Medications Acetaminophen (Tylenol) 650 mg PO Q6H PRN PRN Reason: HEADACHE/TEMP ABOVE 100F Stop: 07/10/17 18:41 Albuterol/Ipratropium (Duoneb Neb) 3 ml HHN Q4HRT PRN PRN Reason: sob Stop: 07/11/17 10:59 Last Admin: 05/12/17 19:25 Dose: 3 ml Docusate Sodium (Colace) 100 mg PO BID PRN PRN Reason: Constipation Stop: 07/10/17 18:41 Heparin Sodium (Porcine) (Heparin) 5,000 units SUBQ Q12HR REPLACED BY [facility] Stop: 07/10/17 20:59 Last Admin: 05/14/17 20:50 Dose: 5,000 units Potassium Chloride 40 meq/Lidocaine HCl 25 mg/ Sodium Chloride 272.5 mls @ 68 mls/hr IV DAILY PRN PRN Reason: k level less than 3.2 Stop: 07/10/17 18:41 Last Admin: 05/14/17 12:03 Dose: 68 mls/hr Magnesium Sulfate (Magnesium Sulfate Premix) 2 gm in 50 mls @ 25 mls/hr IV DAILY PRN PRN Reason: Magnesium level less than 1.6 Stop: 07/10/17 18:41 Sodium Chloride (Nacl 0.9%) 1,000 mls @ 75 mls/hr IV .[id number] REPLACED BY [facility] Stop: 07/10/17 18:44 Last Admin: 05/14/17 03:36 Dose: 75 mls/hr Piperacillin Sod/Tazobactam (Sod 2.25 gm/ Sodium Chloride) 50 mls @ 100 mls/hr IV Q6HR REPLACED BY [facility] Stop: 07/11/17 08:44 Last Admin: 05/15/17 05:37 Dose: 100 mls/hr Lactobacillus Rhamnosus (Culturelle 15b) 1 each PO DAILY REPLACED BY [facility] Stop: 07/13/17 08:59 Last Admin: 05/14/17 08:54 Dose: 1 each Lorazepam (Ativan) 1 mg IVP Q4HR PRN; Protocol PRN Reason: Anxiety Stop: 07/10/17 18:41 Magnesium Oxide (Mag-Oxide) 400 mg PO BID PRN PRN Reason: Mg less than 1.9 Stop: 07/10/17 18:41 Miscellaneous (Zosyn Iv Per Pharmacy) 1 ea PRN PRN PRN Reason: PROTOCOL Stop: 07/11/17 07:44 Miscellaneous (Probiotic Screen) 1 ea MC PRN PRN PRN Reason: PROTOCOL Stop: 07/12/17 12:59 Morphine Sulfate (Morphine) 1 mg IVP Q4HR PRN PRN Reason: Severe Pain Stop: 07/10/17 18:41 Ondansetron HCl (Zofran) 4 mg IVP Q6H PRN PRN Reason: Nausea / Vomiting Stop: 07/10/17 18:41 Potassium Chloride (Klor-Con) 40 meq PO DAILY PRN PRN Reason: k level less than 3.5 Stop: 07/10/17 18:41 Last Admin: 05/13/17 08:50 Dose: 40 meq General: Alert, Cooperative, Mild distress HEENT: Atraumatic, PERRLA, EOMI Neck: Supple, no JVD, no Thyromegaly Cardiovascular: Regular rate, Normal S1 Lungs: Other (has rales bl) Abdomen: Soft, Other (has some tenderness, no guard or rebound) Neurological: Normal speech Assessment/Plan - Problem List Patient Problems: All Active Problems FREQUENT FALLS WITH POOR APPETITE (Acute) - Assessment Assessment: # Nausea # Abd pain # thickened GB wall on US # Cholelithiasis Likely acute or chronic cholecystitis based on US findings. Dr Marquez following, HIDDandre positive. Oren feliciano scheduled for Wednesday with Dr Marquez Plan: - agree with oren feliciano with Dr Marquez Wednesday - post op care as per Dr Marquez - abx GI to see as needed, please call with questions
--- NOTE | 2017-05-15 09:05 | General Progress Note ---
Subjective - Review of Systems Service Date: 05/15/17 Subjective: Pt seen and eval. In bed. Has some abd pain at times. No n,v,d or fevers. No chills. No cough. No dysuria. No falls or sz. No headaches. Being seen by GI and Sx. Objective - Results Result Diagrams: 05/15/17 05:30 05/15/17 05:30 Recent Labs: Laboratory Last Values WBC 11.6 Th/cmm (4.8-10.8) H 05/15/17 05:30 RBC 3.27 Mil/cmm (3.80-5.80) L 05/15/17 05:30 Hgb 10.8 gm/dL (12-16) L 05/15/17 05:30 Hct 32.0 % (41.0-60) L 05/15/17 05:30 MCV 97.7 fl (80-99) 05/15/17 05:30 MCH 33.0 pg (27.0-31.0) H 05/15/17 05:30 MCHC Differential 33.8 pg (28.0-36.0) 05/15/17 05:30 RDW 13.8 % (11.5-20.0) 05/15/17 05:30 Plt Count 228 Th/cmm (150-400) 05/15/17 05:30 MPV 8.0 fl 05/15/17 05:30 Neutrophils % WIRE DRAWING MACHINE OPERATOR 05/15/17 05:30 Band Neutrophils % 1 % (0-10) 05/13/17 06:05 Lymphocytes % WIRE DRAWING MACHINE OPERATOR 05/15/17 05:30 Monocytes % WIRE DRAWING MACHINE OPERATOR 05/15/17 05:30 Eosinophils % WIRE DRAWING MACHINE OPERATOR 05/15/17 05:30 Basophils % WIRE DRAWING MACHINE OPERATOR 05/15/17 05:30 Neutrophils (Manual) 88 % (40-80) H 05/15/17 05:30 Lymphocytes 6 % (20-50) L 05/15/17 05:30 Monocytes 5 % (2-10) 05/15/17 05:30 Eosinophils 1 % (0-5) 05/15/17 05:30 Platelet Estimate ADEQUATE (NORMAL) 05/15/17 05:30 PT 10.6 SECONDS (9.5-11.5) 05/11/17 16:40 INR 1.02 (0.5-1.4) 05/11/17 16:40 Specimen Source Arterial 05/12/17 08:50 Sample Site RB 05/12/17 08:50 pH 7.38 (7.35-7.45) 05/12/17 08:50 pCO2 46.0 mmHg (35.0-45.0) H 05/12/17 08:50 pO2 86.0 mmHg (80.0-100.0) 05/12/17 08:50 HCO3 26.1 mEq/L (20.0-26.0) H 05/12/17 08:50 Base Excess 1.6 mEq/L (-3.0-3.0) 05/12/17 08:50 O2 Saturation 96.0 % (92.0-100.0) 05/12/17 08:50 Idris Test NA 05/12/17 08:50 Vent Rate NA 05/12/17 08:50 Inspired O2 28 05/12/17 08:50 Tidal Volume NA 05/12/17 08:50 PEEP NA 05/12/17 08:50 Pressure (ins/psv/peep) NA 05/12/17 08:50 Critical Value E.MCPHERSON 05/12/17 08:50 Sodium 139 mEq/L (136-145) 05/15/17 05:30 Potassium 3.1 mEq/L (3.5-5.1) L 05/15/17 05:30 Chloride 101 mEq/L (98-107) 05/15/17 05:30 Carbon Dioxide 33.4 mEq/L (21.0-31.0) H 05/15/17 05:30 Anion Gap 7.7 (7.0-16.0) 05/15/17 05:30 BUN 6 mg/dL (7-25) L 05/15/17 05:30 Creatinine 0.4 mg/dL (0.7-1.3) L 05/15/17 05:30 Est GFR ( Amer) TNP 05/15/17 05:30 Est GFR (Non-Af Amer) TNP 05/15/17 05:30 BUN/Creatinine Ratio 15.0 05/15/17 05:30 Glucose 81 mg/dL (70-105) 05/15/17 05:30 Hemoglobin A1c % 4.9 % (4.0-6.0) 05/11/17 16:40 Whole Bld Lactic Acid 1.00 mmol/L (0.60-1.99) 05/11/17 16:40 Calcium 7.5 mg/dL (8.6-10.3) L 05/15/17 05:30 Magnesium 1.9 mg/dL (1.9-2.7) 05/11/17 16:40 Total Bilirubin 0.9 mg/dL (0.3-1.0) 05/13/17 06:05 Direct Bilirubin 0.44 mg/dL (0.0-0.2) H 05/13/17 06:05 AST 9 U/L (13-39) L 05/13/17 06:05 ALT 4 U/L (7-52) L 05/13/17 06:05 Alkaline Phosphatase 66 U/L (34-104) 05/13/17 06:05 Creatine Kinase 34 U/L (30-223) 05/11/17 16:40 Troponin I < 0.01 ng/mL (0.01-0.05) L 05/11/17 16:40 B-Natriuretic Peptide 120.0 pg/mL (5.0-100.0) H 05/11/17 16:40 Total Protein 5.2 gm/dL (6.0-8.3) L 05/13/17 06:05 Albumin 2.3 gm/dL (4.2-5.5) L 05/13/17 06:05 Globulin 2.9 gm/dL 05/13/17 06:05 Albumin/Globulin Ratio 0.8 (1.0-1.8) L 05/13/17 06:05 Triglycerides 112 mg/dL (<150) 05/11/17 16:40 Cholesterol 84 mg/dL (<200) 05/11/17 16:40 LDL Cholesterol Direct 57 mg/dL (75-193) L 05/11/17 16:40 HDL Cholesterol 18 mg/dL (23-92) L 05/11/17 16:40 Amylase 70 U/L (29-103) 05/11/17 16:40 Lipase 109 U/L (11-82) H 05/11/17 16:40 Urine Source CLEAN C 05/11/17 17:15 Urine Color YELLOW 05/11/17 17:15 Urine Clarity CLEAR (CLEAR) 05/11/17 17:15 Urine pH 6.0 (4.6 - 8.0) 05/11/17 17:15 Ur Specific [place] 1.015 (1.005-1.030) 05/11/17 17:15 Urine Protein TRACE mg/dL (NEGATIVE) 05/11/17 17:15 Urine Glucose (UA) NEGATIVE mg/dL (NEGATIVE) 05/11/17 17:15 Urine Ketones >=80 mg/dL (NEGATIVE) H 05/11/17 17:15 Urine Blood TRACE (NEGATIVE) 05/11/17 17:15 Urine Nitrate NEGATIVE (NEGATIVE) 05/11/17 17:15 Urine Bilirubin MODERATE (NEGATIVE) H 05/11/17 17:15 Urine Urobilinogen 4.0 E.U./dL (0.2 - 1.0) H 05/11/17 17:15 Ur Leukocyte Esterase NEGATIVE (NEGATIVE) 05/11/17 17:15 Urine RBC 2-5 /hpf (0-5) H 05/11/17 17:15 Urine WBC NONE SEEN /hpf (0-5) 05/11/17 17:15 Ur Epithelial Cells NONE SEEN /lpf (FEW) 05/11/17 17:15 Urine Bacteria NONE SEEN /hpf (NONE SEEN) 05/11/17 17:15 - Physical Exam Vitals and I&O: Vital Signs Temp 98.1 F 05/15/17 04:00 Pulse 80 05/15/17 04:00 Resp 20 05/15/17 04:00 BP 111/56 05/15/17 04:00 Pulse Ox 99 05/15/17 04:00 Intake & Output 05/14/17 05/15/17 05/15/17 18:59 06:59 18:59 Intake Total 1222.5 150 Output Total 850 Balance 372.5 150 Weight (lbs) 48.081 kg 49.895 kg Intake: Intake, IV Amount 422.5 50 Piperacillin Sodium/ 150 50 Tazobact 2.25 gm In Sodium Chloride 0.9% 50 ml @ 100 mls/hr IV Q6HR [facility] Rx#:[id number] Potassium Chloride 40 meq 272.5 Lidocaine 1% 20mL Vial 25 mg In Sodium Chloride 0.9% 250 ml @ 68 mls/hr IV DAILY PRN Rx#: [id number] Oral 800 100 Output: Urine 850 Other: # Voids 3 5 # Bowel Movements 1 0 Stool Characteristics Formed Weight Source Bedscale Bedscale Active Medications: Current Medications Acetaminophen (Tylenol) 650 mg PO Q6H PRN PRN Reason: HEADACHE/TEMP ABOVE 100F Stop: 07/10/17 18:41 Albuterol/Ipratropium (Duoneb Neb) 3 ml HHN Q4HRT PRN PRN Reason: sob Stop: 07/11/17 10:59 Last Admin: 05/12/17 19:25 Dose: 3 ml Docusate Sodium (Colace) 100 mg PO BID PRN PRN Reason: Constipation Stop: 07/10/17 18:41 Heparin Sodium (Porcine) (Heparin) 5,000 units SUBQ Q12HR [facility] Stop: 07/10/17 20:59 Last Admin: 05/15/17 09:03 Dose: Not Given Potassium Chloride 40 meq/Lidocaine HCl 25 mg/ Sodium Chloride 272.5 mls @ 68 mls/hr IV DAILY PRN PRN Reason: k level less than 3.2 Stop: 07/10/17 18:41 Last Admin: 05/15/17 08:47 Dose: 68 mls/hr Magnesium Sulfate (Magnesium Sulfate Premix) 2 gm in 50 mls @ 25 mls/hr IV DAILY PRN PRN Reason: Magnesium level less than 1.6 Stop: 07/10/17 18:41 Sodium Chloride (Nacl 0.9%) 1,000 mls @ 75 mls/hr IV .[id number] [facility] Stop: 07/10/17 18:44 Last Admin: 05/14/17 03:36 Dose: 75 mls/hr Piperacillin Sod/Tazobactam (Sod 2.25 gm/ Sodium Chloride) 50 mls @ 100 mls/hr IV Q6HR [facility] Stop: 07/11/17 08:44 Last Admin: 05/15/17 05:37 Dose: 100 mls/hr Lactobacillus Rhamnosus (Culturelle 15b) 1 each PO DAILY [facility] Stop: 07/13/17 08:59 Last Admin: 05/14/17 08:54 Dose: 1 each Lorazepam (Ativan) 1 mg IVP Q4HR PRN; Protocol PRN Reason: Anxiety Stop: 07/10/17 18:41 Magnesium Oxide (Mag-Oxide) 400 mg PO BID PRN PRN Reason: Mg less than 1.9 Stop: 07/10/17 18:41 Miscellaneous (Zosyn Iv Per Pharmacy) 1 ea MC PRN PRN PRN Reason: PROTOCOL Stop: 07/11/17 07:44 Miscellaneous (Probiotic Screen) 1 ea MC PRN PRN PRN Reason: PROTOCOL Stop: 07/12/17 12:59 Morphine Sulfate (Morphine) 1 mg IVP Q4HR PRN PRN Reason: Severe Pain Stop: 07/10/17 18:41 Ondansetron HCl (Zofran) 4 mg IVP Q6H PRN PRN Reason: Nausea / Vomiting Stop: 07/10/17 18:41 Potassium Chloride (Klor-Con) 40 meq PO DAILY PRN PRN Reason: k level less than 3.5 Stop: 07/10/17 18:41 Last Admin: 05/13/17 08:50 Dose: 40 meq General: Alert, Cooperative, Mild distress HEENT: Atraumatic, PERRLA, EOMI Neck: Supple, no JVD, no Thyromegaly Cardiovascular: Regular rate, Normal S1 Lungs: Other (has rales bl) Abdomen: Soft, Other (has some tenderness, no guard or rebound) Neurological: Normal speech Assessment/Plan - Problem List Patient Problems: All Active Problems FREQUENT FALLS WITH POOR APPETITE (Acute) - Assessment Assessment: Asp PNA Acute Cholecystitis Hypokalemia D/O of ANS due to syncope Mech fall Mod malnut Asthma ME Sepsis due to Asp Pna COPD Exac - Plan Plan: Pt is on IV Zosyn and breathing tx. Replenish K today-Pt getting K rider now. Sx and GI consulted for cholecystitis. Possible Sx Wednesday. Fall prec. FU on cbc. HIDA done. Swallow eval. Nutritional Asmnt/Malnutr-PDOC - Dietary Evaluation Malnutrition Findings (Please click <Entered> for more info): Nutritional Asmnt/Malnutrition Start: 05/12/17 17: 42 Text: Status: Complete Freq: Document 05/12/17 17:43 LCMAIRAG (Rec: 05/12/17 17:59 [email or web address] [id number]) Nutritional Asmnt/Malnutrition Patient General Information Nutritional Screening High Risk Consult Diagnosis syncope Pertinent Medical Hx/Surgical Hx asthma, HTN, dyslipidemia, arthritis Subjective Information Consult received for no appetite to eat. Pt seen lying in bed at time of visit, awake and alert. Pt reported appetite has been poor d/t sick and it was little bit better today. Pt denied chewing problem. Food preference provided. Per RN, pt had no PO intake in the past 5 days, spited out food according to pt . Pt only had fruit and juice for breakfast. Pt was now on NPO during lunch time for U/S. Current Diet Order/ Nutrition Support regular Pertinent Medications colace, piperacillin, nacl 0.9 % Pertinent Labs 05/12 Na 139, K 3.1, Cl 102, BUN 17, Cr 0.5, glucose 62 Ca 8.1 05/11 a1c 4.9 Nutritional Hx/Data Height 1.65 m Height (Calculated Centimeters) 165.1 Current Weight (lbs) 48.081 kg Weight (Calculated Kilograms) 48.1 Weight (Calculated Grams) 80056.8 [place] Body Weight 136 Body Mass Index (BMI) 17.6 Weight Status Underweight GI Symptoms GI Symptoms None Last BM none Difficult in: None Skin Integrity/Comment: bruise to left hip and left upper arm Estimated Nutritional Goals BEE in Kcals: Using Current wt Calories/Kcals/Kg 30-35 Kcals Calculated [id number] Protein: Using Current wt Protein g/k.2-1.4 Protein Calculated 58-67 Fluid: ml 1440-1680ml (1ml/kcal) Nutritional Problem 1. Problem Problem inadequate food intake Etiology poor appetite Signs/Symptoms: poor PO intake x 6 days Intervention/Recommendation Comments 1. Continue with current diet as ordered. If PO continue new , consider adding Boost BID to increased nutrition intake. 2. Monitor PO intake, wt, labs and skin integrity 3. F/U as high risk in 2-3 days, 05/14-05/15 Expected Outcomes/Goals Expected Outcomes/Goals 1. PO intake to meet at least 75% of nutritional needs. 2. Wt stability, skin to remain intact, labs to approach WNL.
[2017-05-15] MEDS: Lactobacillus Rhamnosus GG 15 Billion CFU CAP.SPRINK PO SCH (09:46)
[2017-05-15] MEDS: Potassium Chloride 20 mEq ER Tab PO PRN (13:20)
--- NOTE | 2017-05-15 13:52 | General Progress Note ---
Subjective - Review of Systems Service Date: 05/15/17 Events since last encounter: had colon resection for CA years ago has midline scar might require open cholecystectomy Objective - Results Result Diagrams: 05/15/17 05:30 05/15/17 05:30 Recent Labs: Laboratory Last Values WBC 11.6 Th/cmm (4.8-10.8) H 05/15/17 05:30 RBC 3.27 Mil/cmm (3.80-5.80) L 05/15/17 05:30 Hgb 10.8 gm/dL (12-16) L 05/15/17 05:30 Hct 32.0 % (41.0-60) L 05/15/17 05:30 MCV 97.7 fl (80-99) 05/15/17 05:30 MCH 33.0 pg (27.0-31.0) H 05/15/17 05:30 MCHC Differential 33.8 pg (28.0-36.0) 05/15/17 05:30 RDW 13.8 % (11.5-20.0) 05/15/17 05:30 Plt Count 228 Th/cmm (150-400) 05/15/17 05:30 MPV 8.0 fl 05/15/17 05:30 Neutrophils % SOLUTIONS ARCHITECT 05/15/17 05:30 Band Neutrophils % 1 % (0-10) 05/13/17 06:05 Lymphocytes % SOLUTIONS ARCHITECT 05/15/17 05:30 Monocytes % SOLUTIONS ARCHITECT 05/15/17 05:30 Eosinophils % SOLUTIONS ARCHITECT 05/15/17 05:30 Basophils % SOLUTIONS ARCHITECT 05/15/17 05:30 Neutrophils (Manual) 88 % (40-80) H 05/15/17 05:30 Lymphocytes 6 % (20-50) L 05/15/17 05:30 Monocytes 5 % (2-10) 05/15/17 05:30 Eosinophils 1 % (0-5) 05/15/17 05:30 Platelet Estimate ADEQUATE (NORMAL) 05/15/17 05:30 PT 10.6 SECONDS (9.5-11.5) 05/11/17 16:40 INR 1.02 (0.5-1.4) 05/11/17 16:40 Specimen Source Arterial 05/12/17 08:50 Sample Site RB 05/12/17 08:50 pH 7.38 (7.35-7.45) 05/12/17 08:50 pCO2 46.0 mmHg (35.0-45.0) H 05/12/17 08:50 pO2 86.0 mmHg (80.0-100.0) 05/12/17 08:50 HCO3 26.1 mEq/L (20.0-26.0) H 05/12/17 08:50 Base Excess 1.6 mEq/L (-3.0-3.0) 05/12/17 08:50 O2 Saturation 96.0 % (92.0-100.0) 05/12/17 08:50 Idris Test NA 05/12/17 08:50 Vent Rate NA 05/12/17 08:50 Inspired O2 28 05/12/17 08:50 Tidal Volume NA 05/12/17 08:50 PEEP NA 05/12/17 08:50 Pressure (ins/psv/peep) NA 05/12/17 08:50 Critical Value E.MCPHERSON 05/12/17 08:50 Sodium 139 mEq/L (136-145) 05/15/17 05:30 Potassium 3.1 mEq/L (3.5-5.1) L 05/15/17 05:30 Chloride 101 mEq/L (98-107) 05/15/17 05:30 Carbon Dioxide 33.4 mEq/L (21.0-31.0) H 05/15/17 05:30 Anion Gap 7.7 (7.0-16.0) 05/15/17 05:30 BUN 6 mg/dL (7-25) L 05/15/17 05:30 Creatinine 0.4 mg/dL (0.7-1.3) L 05/15/17 05:30 Est GFR ( Amer) TNP 05/15/17 05:30 Est GFR (Non-Af Amer) TNP 05/15/17 05:30 BUN/Creatinine Ratio 15.0 05/15/17 05:30 Glucose 81 mg/dL (70-105) 05/15/17 05:30 Hemoglobin A1c % 4.9 % (4.0-6.0) 05/11/17 16:40 Whole Bld Lactic Acid 1.00 mmol/L (0.60-1.99) 05/11/17 16:40 Calcium 7.5 mg/dL (8.6-10.3) L 05/15/17 05:30 Magnesium 1.9 mg/dL (1.9-2.7) 05/11/17 16:40 Total Bilirubin 0.9 mg/dL (0.3-1.0) 05/13/17 06:05 Direct Bilirubin 0.44 mg/dL (0.0-0.2) H 05/13/17 06:05 AST 9 U/L (13-39) L 05/13/17 06:05 ALT 4 U/L (7-52) L 05/13/17 06:05 Alkaline Phosphatase 66 U/L (34-104) 05/13/17 06:05 Creatine Kinase 34 U/L (30-223) 05/11/17 16:40 Troponin I < 0.01 ng/mL (0.01-0.05) L 05/11/17 16:40 B-Natriuretic Peptide 120.0 pg/mL (5.0-100.0) H 05/11/17 16:40 Total Protein 5.2 gm/dL (6.0-8.3) L 05/13/17 06:05 Albumin 2.3 gm/dL (4.2-5.5) L 05/13/17 06:05 Globulin 2.9 gm/dL 05/13/17 06:05 Albumin/Globulin Ratio 0.8 (1.0-1.8) L 05/13/17 06:05 Triglycerides 112 mg/dL (<150) 05/11/17 16:40 Cholesterol 84 mg/dL (<200) 05/11/17 16:40 LDL Cholesterol Direct 57 mg/dL (75-193) L 05/11/17 16:40 HDL Cholesterol 18 mg/dL (23-92) L 05/11/17 16:40 Amylase 70 U/L (29-103) 05/11/17 16:40 Lipase 109 U/L (11-82) H 05/11/17 16:40 Urine Source CLEAN C 05/11/17 17:15 Urine Color YELLOW 05/11/17 17:15 Urine Clarity CLEAR (CLEAR) 05/11/17 17:15 Urine pH 6.0 (4.6 - 8.0) 05/11/17 17:15 Ur Specific [place] 1.015 (1.005-1.030) 05/11/17 17:15 Urine Protein TRACE mg/dL (NEGATIVE) 05/11/17 17:15 Urine Glucose (UA) NEGATIVE mg/dL (NEGATIVE) 05/11/17 17:15 Urine Ketones >=80 mg/dL (NEGATIVE) H 05/11/17 17:15 Urine Blood TRACE (NEGATIVE) 05/11/17 17:15 Urine Nitrate NEGATIVE (NEGATIVE) 05/11/17 17:15 Urine Bilirubin MODERATE (NEGATIVE) H 05/11/17 17:15 Urine Urobilinogen 4.0 E.U./dL (0.2 - 1.0) H 05/11/17 17:15 Ur Leukocyte Esterase NEGATIVE (NEGATIVE) 05/11/17 17:15 Urine RBC 2-5 /hpf (0-5) H 05/11/17 17:15 Urine WBC NONE SEEN /hpf (0-5) 05/11/17 17:15 Ur Epithelial Cells NONE SEEN /lpf (FEW) 05/11/17 17:15 Urine Bacteria NONE SEEN /hpf (NONE SEEN) 05/11/17 17:15 - Physical Exam Vitals and I&O: Vital Signs Temp 97.4 F 05/15/17 08:00 Pulse 83 05/15/17 09:30 Resp 20 05/15/17 09:35 BP 142/70 05/15/17 08:00 Pulse Ox 95 05/15/17 09:30 Intake & Output 05/14/17 05/15/17 05/15/17 18:59 06:59 18:59 Intake Total 1222.5 200 Output Total 850 Balance 372.5 200 Weight (lbs) 48.081 kg 49.895 kg Intake: Intake, IV Amount 422.5 100 Piperacillin Sodium/ 150 100 Tazobact 2.25 gm In Sodium Chloride 0.9% 50 ml @ 100 mls/hr IV Q6HR [facility] Rx#:[id number] Potassium Chloride 40 meq 272.5 Lidocaine 1% 20mL Vial 25 mg In Sodium Chloride 0.9% 250 ml @ 68 mls/hr IV DAILY PRN Rx#: [id number] Oral 800 100 Output: Urine 850 Other: # Voids 3 5 # Bowel Movements 1 0 Stool Characteristics Formed Weight Source Bedscale Bedscale Active Medications: Current Medications Acetaminophen (Tylenol) 650 mg PO Q6H PRN PRN Reason: HEADACHE/TEMP ABOVE 100F Stop: 07/10/17 18:41 Albuterol/Ipratropium (Duoneb Neb) 3 ml HHN Q4HRT PRN PRN Reason: sob Stop: 07/11/17 10:59 Last Admin: 05/12/17 19:25 Dose: 3 ml Docusate Sodium (Colace) 100 mg PO BID PRN PRN Reason: Constipation Stop: 07/10/17 18:41 Potassium Chloride 40 meq/Lidocaine HCl 25 mg/ Sodium Chloride 272.5 mls @ 68 mls/hr IV DAILY PRN PRN Reason: k level less than 3.2 Stop: 07/10/17 18:41 Last Admin: 05/15/17 08:47 Dose: 68 mls/hr Magnesium Sulfate (Magnesium Sulfate Premix) 2 gm in 50 mls @ 25 mls/hr IV DAILY PRN PRN Reason: Magnesium level less than 1.6 Stop: 07/10/17 18:41 Sodium Chloride (Nacl 0.9%) 1,000 mls @ 75 mls/hr IV .[id number] [facility] Stop: 07/10/17 18:44 Last Admin: 05/14/17 03:36 Dose: 75 mls/hr Piperacillin Sod/Tazobactam (Sod 2.25 gm/ Sodium Chloride) 50 mls @ 100 mls/hr IV Q6HR [facility] Stop: 07/11/17 08:44 Last Admin: 05/15/17 13:19 Dose: 100 mls/hr Lactobacillus Rhamnosus (Culturelle 15b) 1 each PO DAILY [facility] Stop: 07/13/17 08:59 Last Admin: 05/15/17 09:46 Dose: 1 each Lorazepam (Ativan) 1 mg IVP Q4HR PRN; Protocol PRN Reason: Anxiety Stop: 07/10/17 18:41 Magnesium Oxide (Mag-Oxide) 400 mg PO BID PRN PRN Reason: Mg less than 1.9 Stop: 07/10/17 18:41 Miscellaneous (Zosyn Iv Per Pharmacy) 1 ea PRN PRN PRN Reason: PROTOCOL Stop: 07/11/17 07:44 Miscellaneous (Probiotic Screen) 1 ea PRN PRN PRN Reason: PROTOCOL Stop: 07/12/17 12:59 Morphine Sulfate (Morphine) 1 mg IVP Q4HR PRN PRN Reason: Severe Pain Stop: 07/10/17 18:41 Ondansetron HCl (Zofran) 4 mg IVP Q6H PRN PRN Reason: Nausea / Vomiting Stop: 07/10/17 18:41 Potassium Chloride (Klor-Con) 40 meq PO DAILY PRN PRN Reason: k level less than 3.5 Stop: 07/10/17 18:41 Last Admin: 05/15/17 13:20 Dose: 40 meq General: Alert, Cooperative, Mild distress HEENT: Atraumatic, PERRLA, EOMI Neck: Supple, no JVD, no Thyromegaly Cardiovascular: Regular rate, Normal S1 Lungs: Other (has rales bl) Abdomen: Soft, Other (has some tenderness, no guard or rebound) Neurological: Normal speech Assessment/Plan - Problem List Patient Problems: All Active Problems FREQUENT FALLS WITH POOR APPETITE (Acute) Nutritional Asmnt/Malnutr-PDOC - Dietary Evaluation Malnutrition Findings (Please click <Entered> for more info): Nutritional Asmnt/Malnutrition Start: 05/12/17 17: 42 Text: Status: Complete Freq: Document 05/12/17 17:43 LCHENG (Rec: 05/12/17 17:59 LCHENG [id number]) Nutritional Asmnt/Malnutrition Patient General Information Nutritional Screening High Risk Consult Diagnosis syncope Pertinent Medical Hx/Surgical Hx asthma, HTN, dyslipidemia, arthritis Subjective Information Consult received for no appetite to eat. Pt seen lying in bed at time of visit, awake and alert. Pt reported appetite has been poor d/t sick and it was little bit better today. Pt denied chewing problem. Food preference provided. Per RN, pt had no PO intake in the past 5 days, spited out food according to pt . Pt only had fruit and juice for breakfast. Pt was now on NPO during lunch time for U/S. Current Diet Order/ Nutrition Support regular Pertinent Medications colace, piperacillin, nacl 0.9 % Pertinent Labs 05/12 Na 139, K 3.1, Cl 102, BUN 17, Cr 0.5, glucose 62 Ca 8.1 05/11 a1c 4.9 Nutritional Hx/Data Height 1.65 m Height (Calculated Centimeters) 165.1 Current Weight (lbs) 48.081 kg Weight (Calculated Kilograms) 48.1 Weight (Calculated Grams) 80344.8 [place] Body Weight 136 Body Mass Index (BMI) 17.6 Weight Status Underweight GI Symptoms GI Symptoms None Last BM none Difficult in: None Skin Integrity/Comment: bruise to left hip and left upper arm Estimated Nutritional Goals BEE in Kcals: Using Current wt Calories/Kcals/Kg 30-35 Kcals Calculated 0801-7522 Protein: Using Current wt Protein g/k.2-1.4 Protein Calculated 58-67 Fluid: ml 1440-1680ml (1ml/kcal) Nutritional Problem 1. Problem Problem inadequate food intake Etiology poor appetite Signs/Symptoms: poor PO intake x 6 days Intervention/Recommendation Comments 1. Continue with current diet as ordered. If PO continue new , consider adding Boost BID to increased nutrition intake. 2. Monitor PO intake, wt, labs and skin integrity 3. F/U as high risk in 2-3 days, 05/14-05/15 Expected Outcomes/Goals Expected Outcomes/Goals 1. PO intake to meet at least 75% of nutritional needs. 2. Wt stability, skin to remain intact, labs to approach WNL.
--- NOTE | 2017-05-15 16:18 | Consultation ---
DATE OF CONSULTATION: 05/14/2017 SURGICAL CONSULTATION REFERRING PHYSICIAN: Dr. Cedeno. REASON FOR CONSULTATION: Gallstones. Thank you for referring this patient to me. HISTORY OF PRESENT ILLNESS: This is an 86-year-old male admitted with syncopal episodes. Additionally, he had abdominal pain, nausea and vomiting about 1 week prior to admission. DIAGNOSTIC STUDIES: The head CT showed no evidence of acute intracranial abnormality. Carotid ultrasound was done and this did not show any significant hemodynamic stenosis. Ultrasound of the gallbladder showed stones and a HIDA scan showed nonvisualization of the gallbladder. The patient speaks Yi and understands well. The is at bedside. He has tenderness in the right upper quadrant. Abdomen is otherwise flat and soft. LABORATORY STUDIES: The WBC was 15,000 on admission. This has since gone down to 13,500 and hemoglobin is 11.2. The liver function tests are within normal limits. IMPRESSION: 1. Calculous cholecystitis. 2. No carotid stenosis. PLAN: We will need a medical clearance for surgery as patient has comorbidities, which is age related as well as chronic obstructive lung disease and metabolic encephalopathy. We will schedule for surgery. JOB# [id number]
[2017-05-16] MEDS: Piperacillin/Tazobact 2.25 gm in 0.9% NS 50 ML IV SCH ×3 (05:36→17:13)
[2017-05-16 06:44] LABS: % BASOPHILS 0.1 % (0.0-2.0); % EOSINOPHILS 2.6 % (0.0-5.0); % MONOCYTES 10.1 % (2.0-10.0); % NEUTROPHILS 75.2 % (40.0-80.0); EOSINOPHILE ABSOLUTE 0.2 Th/cmm (0.1-0.4); HEMATOCRIT 33.5 % (41.0-60); HEMOGLOBIN 11.3 gm/dL (12-16); LYMPHOCYTE ABSOLUTE 1.1 Th/cmm (1.5-3.0); MEAN CELL VOLUME 97.2 fl (80-99); MEAN CORPUSCULAR HEMOGLOBIN 32.8 pg (27.0-31.0); MEAN CORPUSCULAR HGB CONC 33.7 pg (28.0-36.0); MEAN PLATELET VOLUME 8.1 fl; MONOCYTE ABSOLUTE 0.9 Th/cmm (0.3-1.0); NEUTROPHILE ABSOLUTE 6.9 Th/cmm (1.8-8.0); PLATELET COUNT 243 Th/cmm (150-400); RED BLOOD COUNT 3.44 Mil/cmm (3.80-5.80); RED CELL DISTRIBUTION WIDTH 14.1 % (11.5-20.0); WHITE BLOOD COUNT 9.1 Th/cmm (4.8-10.8)
[2017-05-16 06:58] LABS: ALB/GLOB RATIO 0.7 (1.0-1.8); ALBUMIN 2.3 gm/dL (4.2-5.5); ALKALINE PHOSPHATASE 64 U/L (34-104); ANION GAP 9.1 (7.0-16.0); BILIRUBIN,TOTAL 0.7 mg/dL (0.3-1.0); BUN - UREA NITROGEN 5 mg/dL (7-25); CALCIUM SERUM 7.6 mg/dL (8.6-10.3); CARBON DIOXIDE 34.5 mEq/L (21.0-31.0); CHLORIDE 100 mEq/L (98-107); CREATININE - SERUM 0.5 mg/dL (0.7-1.3); GLUCOSE 86 mg/dL (70-105); POTASSIUM SERUM 3.6 mEq/L (3.5-5.1); SGOT 13 U/L (13-39); SGPT/ALT 4 U/L (7-52); SODIUM SERUM 140 mEq/L (136-145); TOTAL PROTEIN,SERUM 5.5 gm/dL (6.0-8.3)
[2017-05-16] MEDS: Lactobacillus Rhamnosus GG 15 Billion CFU CAP.SPRINK PO SCH (08:45)
--- NOTE | 2017-05-16 09:42 | General Progress Note ---
Subjective - Review of Systems Service Date: 05/16/17 Subjective: Pt seen and eval. In bed. Has some abd pain at times. No n,v,d or fevers. No chills. No cough. No dysuria. No falls or sz. No headaches. Being seen by GI and Sx. Objective - Results Result Diagrams: 05/16/17 05:49 05/16/17 05:49 Recent Labs: Laboratory Last Values WBC 9.1 Th/cmm (4.8-10.8) 05/16/17 05:49 RBC 3.44 Mil/cmm (3.80-5.80) L 05/16/17 05:49 Hgb 11.3 gm/dL (12-16) L 05/16/17 05:49 Hct 33.5 % (41.0-60) L 05/16/17 05:49 MCV 97.2 fl (80-99) 05/16/17 05:49 MCH 32.8 pg (27.0-31.0) H 05/16/17 05:49 MCHC Differential 33.7 pg (28.0-36.0) 05/16/17 05:49 RDW 14.1 % (11.5-20.0) 05/16/17 05:49 Plt Count 243 Th/cmm (150-400) 05/16/17 05:49 MPV 8.1 fl 05/16/17 05:49 Neutrophils % 75.2 % (40.0-80.0) 05/16/17 05:49 Band Neutrophils % 1 % (0-10) 05/13/17 06:05 Lymphocytes % 12.0 % (20.0-50.0) L 05/16/17 05:49 Monocytes % 10.1 % (2.0-10.0) H 05/16/17 05:49 Eosinophils % 2.6 % (0.0-5.0) 05/16/17 05:49 Basophils % 0.1 % (0.0-2.0) 05/16/17 05:49 Neutrophils (Manual) 88 % (40-80) H 05/15/17 05:30 Lymphocytes 6 % (20-50) L 05/15/17 05:30 Monocytes 5 % (2-10) 05/15/17 05:30 Eosinophils 1 % (0-5) 05/15/17 05:30 Platelet Estimate ADEQUATE (NORMAL) 05/15/17 05:30 PT 10.6 SECONDS (9.5-11.5) 05/11/17 16:40 INR 1.02 (0.5-1.4) 05/11/17 16:40 Specimen Source Arterial 05/12/17 08:50 Sample Site RB 05/12/17 08:50 pH 7.38 (7.35-7.45) 05/12/17 08:50 pCO2 46.0 mmHg (35.0-45.0) H 05/12/17 08:50 pO2 86.0 mmHg (80.0-100.0) 05/12/17 08:50 HCO3 26.1 mEq/L (20.0-26.0) H 05/12/17 08:50 Base Excess 1.6 mEq/L (-3.0-3.0) 05/12/17 08:50 O2 Saturation 96.0 % (92.0-100.0) 05/12/17 08:50 Idris Test NA 05/12/17 08:50 Vent Rate NA 05/12/17 08:50 Inspired O2 28 05/12/17 08:50 Tidal Volume NA 05/12/17 08:50 PEEP NA 05/12/17 08:50 Pressure (ins/psv/peep) NA 05/12/17 08:50 Critical Value E.MCPHERSON 05/12/17 08:50 Sodium 140 mEq/L (136-145) 05/16/17 05:49 Potassium 3.6 mEq/L (3.5-5.1) 05/16/17 05:49 Chloride 100 mEq/L (98-107) 05/16/17 05:49 Carbon Dioxide 34.5 mEq/L (21.0-31.0) H 05/16/17 05:49 Anion Gap 9.1 (7.0-16.0) 05/16/17 05:49 BUN 5 mg/dL (7-25) L 05/16/17 05:49 Creatinine 0.5 mg/dL (0.7-1.3) L 05/16/17 05:49 Est GFR ( Amer) TNP 05/16/17 05:49 Est GFR (Non-Af Amer) TNP 05/16/17 05:49 BUN/Creatinine Ratio 10.0 05/16/17 05:49 Glucose 86 mg/dL (70-105) 05/16/17 05:49 Hemoglobin A1c % 4.9 % (4.0-6.0) 05/11/17 16:40 Whole Bld Lactic Acid 1.00 mmol/L (0.60-1.99) 05/11/17 16:40 Calcium 7.6 mg/dL (8.6-10.3) L 05/16/17 05:49 Magnesium 1.9 mg/dL (1.9-2.7) 05/11/17 16:40 Total Bilirubin 0.7 mg/dL (0.3-1.0) 05/16/17 05:49 Direct Bilirubin 0.44 mg/dL (0.0-0.2) H 05/13/17 06:05 AST 13 U/L (13-39) 05/16/17 05:49 ALT 4 U/L (7-52) L 05/16/17 05:49 Alkaline Phosphatase 64 U/L (34-104) 05/16/17 05:49 Creatine Kinase 34 U/L (30-223) 05/11/17 16:40 Troponin I < 0.01 ng/mL (0.01-0.05) L 05/11/17 16:40 B-Natriuretic Peptide 120.0 pg/mL (5.0-100.0) H 05/11/17 16:40 Total Protein 5.5 gm/dL (6.0-8.3) L 05/16/17 05:49 Albumin 2.3 gm/dL (4.2-5.5) L 05/16/17 05:49 Globulin 3.2 gm/dL 05/16/17 05:49 Albumin/Globulin Ratio 0.7 (1.0-1.8) L 05/16/17 05:49 Triglycerides 112 mg/dL (<150) 05/11/17 16:40 Cholesterol 84 mg/dL (<200) 05/11/17 16:40 LDL Cholesterol Direct 57 mg/dL (75-193) L 05/11/17 16:40 HDL Cholesterol 18 mg/dL (23-92) L 05/11/17 16:40 Amylase 70 U/L (29-103) 05/11/17 16:40 Lipase 109 U/L (11-82) H 05/11/17 16:40 Urine Source CLEAN C 05/11/17 17:15 Urine Color YELLOW 05/11/17 17:15 Urine Clarity CLEAR (CLEAR) 05/11/17 17:15 Urine pH 6.0 (4.6 - 8.0) 05/11/17 17:15 Ur Specific [place] 1.015 (1.005-1.030) 05/11/17 17:15 Urine Protein TRACE mg/dL (NEGATIVE) 05/11/17 17:15 Urine Glucose (UA) NEGATIVE mg/dL (NEGATIVE) 05/11/17 17:15 Urine Ketones >=80 mg/dL (NEGATIVE) H 05/11/17 17:15 Urine Blood TRACE (NEGATIVE) 05/11/17 17:15 Urine Nitrate NEGATIVE (NEGATIVE) 05/11/17 17:15 Urine Bilirubin MODERATE (NEGATIVE) H 05/11/17 17:15 Urine Urobilinogen 4.0 E.U./dL (0.2 - 1.0) H 05/11/17 17:15 Ur Leukocyte Esterase NEGATIVE (NEGATIVE) 05/11/17 17:15 Urine RBC 2-5 /hpf (0-5) H 05/11/17 17:15 Urine WBC NONE SEEN /hpf (0-5) 05/11/17 17:15 Ur Epithelial Cells NONE SEEN /lpf (FEW) 05/11/17 17:15 Urine Bacteria NONE SEEN /hpf (NONE SEEN) 05/11/17 17:15 - Physical Exam Vitals and I&O: Vital Signs Temp 98.0 F 05/16/17 04:25 Pulse 76 05/16/17 07:30 Resp 20 05/16/17 07:30 BP 117/57 05/16/17 04:25 Pulse Ox 99 05/16/17 07:30 Intake & Output 05/15/17 05/16/17 05/16/17 18:59 06:59 18:59 Intake Total 100 50 Balance 100 50 Intake: Intake, IV Amount 100 50 Piperacillin Sodium/ 100 50 Tazobact 2.25 gm In Sodium Chloride 0.9% 50 ml @ 100 mls/hr IV Q6HR [facility] Rx#:[id number] Other: Stool Characteristics Soft Formed Active Medications: Current Medications Acetaminophen (Tylenol) 650 mg PO Q6H PRN PRN Reason: HEADACHE/TEMP ABOVE 100F Stop: 07/10/17 18:41 Albuterol/Ipratropium (Duoneb Neb) 3 ml HHN Q4HRT PRN PRN Reason: sob Stop: 07/11/17 10:59 Last Admin: 05/12/17 19:25 Dose: 3 ml Docusate Sodium (Colace) 100 mg PO BID PRN PRN Reason: Constipation Stop: 07/10/17 18:41 Potassium Chloride 40 meq/Lidocaine HCl 25 mg/ Sodium Chloride 272.5 mls @ 68 mls/hr IV DAILY PRN PRN Reason: k level less than 3.2 Stop: 07/10/17 18:41 Last Admin: 05/15/17 08:47 Dose: 68 mls/hr Magnesium Sulfate (Magnesium Sulfate Premix) 2 gm in 50 mls @ 25 mls/hr IV DAILY PRN PRN Reason: Magnesium level less than 1.6 Stop: 07/10/17 18:41 Sodium Chloride (Nacl 0.9%) 1,000 mls @ 75 mls/hr IV .[id number] [facility] Stop: 07/10/17 18:44 Last Admin: 05/14/17 03:36 Dose: 75 mls/hr Piperacillin Sod/Tazobactam (Sod 2.25 gm/ Sodium Chloride) 50 mls @ 100 mls/hr IV Q6HR [facility] Stop: 07/11/17 08:44 Last Admin: 05/16/17 05:36 Dose: 100 mls/hr Lactobacillus Rhamnosus (Culturelle 15b) 1 each PO DAILY [facility] Stop: 07/13/17 08:59 Last Admin: 05/16/17 08:45 Dose: 1 each Lorazepam (Ativan) 1 mg IVP Q4HR PRN; Protocol PRN Reason: Anxiety Stop: 07/10/17 18:41 Magnesium Oxide (Mag-Oxide) 400 mg PO BID PRN PRN Reason: Mg less than 1.9 Stop: 07/10/17 18:41 Miscellaneous (Zosyn Iv Per Pharmacy) 1 ea PRN PRN PRN Reason: PROTOCOL Stop: 07/11/17 07:44 Miscellaneous (Probiotic Screen) 1 ea PRN PRN PRN Reason: PROTOCOL Stop: 07/12/17 12:59 Morphine Sulfate (Morphine) 1 mg IVP Q4HR PRN PRN Reason: Severe Pain Stop: 07/10/17 18:41 Ondansetron HCl (Zofran) 4 mg IVP Q6H PRN PRN Reason: Nausea / Vomiting Stop: 07/10/17 18:41 Potassium Chloride (Klor-Con) 40 meq PO DAILY PRN PRN Reason: k level less than 3.5 Stop: 07/10/17 18:41 Last Admin: 05/15/17 13:20 Dose: 40 meq General: Alert, Cooperative, Mild distress HEENT: Atraumatic, PERRLA, EOMI Neck: Supple, no JVD, no Thyromegaly Cardiovascular: Regular rate, Normal S1 Lungs: Other (has rales bl) Abdomen: Soft, Other (has some tenderness, no guard or rebound) Neurological: Normal speech Assessment/Plan - Problem List Patient Problems: All Active Problems FREQUENT FALLS WITH POOR APPETITE (Acute) - Assessment Assessment: Asp PNA Acute Cholecystitis Hypokalemia D/O of ANS due to syncope Mech fall Mod malnut Asthma ME Sepsis due to Asp Pna COPD Exac - Plan Plan: Pt is on IV Zosyn and breathing tx. Replenish K today-Pt getting K rider now. Sx and GI consulted for cholecystitis. Possible Sx Wednesday. Fall prec. FU on cbc. HIDA done Swallow eval to be done on 05/17/17 Cardio consulted for sx clearance. Nutritional Asmnt/Malnutr-PDOC - Dietary Evaluation Malnutrition Findings (Please click <Entered> for more info): Nutritional Asmnt/Malnutrition Start: 05/12/17 17: 42 Text: Status: Complete Freq: Document 05/12/17 17:43 LCHENG (Rec: 05/12/17 17:59 LCHENG [id number]) Nutritional Asmnt/Malnutrition Patient General Information Nutritional Screening High Risk Consult Diagnosis syncope Pertinent Medical Hx/Surgical Hx asthma, HTN, dyslipidemia, arthritis Subjective Information Consult received for no appetite to eat. Pt seen lying in bed at time of visit, awake and alert. Pt reported appetite has been poor d/t sick and it was little bit better today. Pt denied chewing problem. Food preference provided. Per RN, pt had no PO intake in the past 5 days, spited out food according to pt . Pt only had fruit and juice for breakfast. Pt was now on NPO during lunch time for U/S. Current Diet Order/ Nutrition Support regular Pertinent Medications colace, piperacillin, nacl 0.9 % Pertinent Labs 05/12 Na 139, K 3.1, Cl 102, BUN 17, Cr 0.5, glucose 62 Ca 8.1 05/11 a1c 4.9 Nutritional Hx/Data Height 1.65 m Height (Calculated Centimeters) 165.1 Current Weight (lbs) 48.081 kg Weight (Calculated Kilograms) 48.1 Weight (Calculated Grams) 83019.8 [place] Body Weight 136 Body Mass Index (BMI) 17.6 Weight Status Underweight GI Symptoms GI Symptoms None Last BM none Difficult in: None Skin Integrity/Comment: bruise to left hip and left upper arm Estimated Nutritional Goals BEE in Kcals: Using Current wt Calories/Kcals/Kg 30-35 Kcals Calculated 9100-9442 Protein: Using Current wt Protein g/k.2-1.4 Protein Calculated 58-67 Fluid: ml 1440-1680ml (1ml/kcal) Nutritional Problem 1. Problem Problem inadequate food intake Etiology poor appetite Signs/Symptoms: poor PO intake x 6 days Intervention/Recommendation Comments 1. Continue with current diet as ordered. If PO continue new , consider adding Boost BID to increased nutrition intake. 2. Monitor PO intake, wt, labs and skin integrity 3. F/U as high risk in 2-3 days, 05/14-05/15 Expected Outcomes/Goals Expected Outcomes/Goals 1. PO intake to meet at least 75% of nutritional needs. 2. Wt stability, skin to remain intact, labs to approach WNL.
--- NOTE | 2017-05-16 09:55 | General Progress Note ---
Subjective - Review of Systems Service Date: 05/16/17 Events since last encounter: patient wants to proceed with surgery, minimal tenderness today previous colon resection could result in open cholecystectomy Objective - Results Result Diagrams: 05/16/17 05:49 05/16/17 05:49 Recent Labs: Laboratory Last Values WBC 9.1 Th/cmm (4.8-10.8) 05/16/17 05:49 RBC 3.44 Mil/cmm (3.80-5.80) L 05/16/17 05:49 Hgb 11.3 gm/dL (12-16) L 05/16/17 05:49 Hct 33.5 % (41.0-60) L 05/16/17 05:49 MCV 97.2 fl (80-99) 05/16/17 05:49 MCH 32.8 pg (27.0-31.0) H 05/16/17 05:49 MCHC Differential 33.7 pg (28.0-36.0) 05/16/17 05:49 RDW 14.1 % (11.5-20.0) 05/16/17 05:49 Plt Count 243 Th/cmm (150-400) 05/16/17 05:49 MPV 8.1 fl 05/16/17 05:49 Neutrophils % 75.2 % (40.0-80.0) 05/16/17 05:49 Band Neutrophils % 1 % (0-10) 05/13/17 06:05 Lymphocytes % 12.0 % (20.0-50.0) L 05/16/17 05:49 Monocytes % 10.1 % (2.0-10.0) H 05/16/17 05:49 Eosinophils % 2.6 % (0.0-5.0) 05/16/17 05:49 Basophils % 0.1 % (0.0-2.0) 05/16/17 05:49 Neutrophils (Manual) 88 % (40-80) H 05/15/17 05:30 Lymphocytes 6 % (20-50) L 05/15/17 05:30 Monocytes 5 % (2-10) 05/15/17 05:30 Eosinophils 1 % (0-5) 05/15/17 05:30 Platelet Estimate ADEQUATE (NORMAL) 05/15/17 05:30 PT 10.6 SECONDS (9.5-11.5) 05/11/17 16:40 INR 1.02 (0.5-1.4) 05/11/17 16:40 Specimen Source Arterial 05/12/17 08:50 Sample Site RB 05/12/17 08:50 pH 7.38 (7.35-7.45) 05/12/17 08:50 pCO2 46.0 mmHg (35.0-45.0) H 05/12/17 08:50 pO2 86.0 mmHg (80.0-100.0) 05/12/17 08:50 HCO3 26.1 mEq/L (20.0-26.0) H 05/12/17 08:50 Base Excess 1.6 mEq/L (-3.0-3.0) 05/12/17 08:50 O2 Saturation 96.0 % (92.0-100.0) 05/12/17 08:50 Idris Test NA 05/12/17 08:50 Vent Rate NA 05/12/17 08:50 Inspired O2 28 05/12/17 08:50 Tidal Volume NA 05/12/17 08:50 PEEP NA 05/12/17 08:50 Pressure (ins/psv/peep) NA 05/12/17 08:50 Critical Value E.MCPHERSON 05/12/17 08:50 Sodium 140 mEq/L (136-145) 05/16/17 05:49 Potassium 3.6 mEq/L (3.5-5.1) 05/16/17 05:49 Chloride 100 mEq/L (98-107) 05/16/17 05:49 Carbon Dioxide 34.5 mEq/L (21.0-31.0) H 05/16/17 05:49 Anion Gap 9.1 (7.0-16.0) 05/16/17 05:49 BUN 5 mg/dL (7-25) L 05/16/17 05:49 Creatinine 0.5 mg/dL (0.7-1.3) L 05/16/17 05:49 Est GFR ( Amer) TNP 05/16/17 05:49 Est GFR (Non-Af Amer) TNP 05/16/17 05:49 BUN/Creatinine Ratio 10.0 05/16/17 05:49 Glucose 86 mg/dL (70-105) 05/16/17 05:49 Hemoglobin A1c % 4.9 % (4.0-6.0) 05/11/17 16:40 Whole Bld Lactic Acid 1.00 mmol/L (0.60-1.99) 05/11/17 16:40 Calcium 7.6 mg/dL (8.6-10.3) L 05/16/17 05:49 Magnesium 1.9 mg/dL (1.9-2.7) 05/11/17 16:40 Total Bilirubin 0.7 mg/dL (0.3-1.0) 05/16/17 05:49 Direct Bilirubin 0.44 mg/dL (0.0-0.2) H 05/13/17 06:05 AST 13 U/L (13-39) 05/16/17 05:49 ALT 4 U/L (7-52) L 05/16/17 05:49 Alkaline Phosphatase 64 U/L (34-104) 05/16/17 05:49 Creatine Kinase 34 U/L (30-223) 05/11/17 16:40 Troponin I < 0.01 ng/mL (0.01-0.05) L 05/11/17 16:40 B-Natriuretic Peptide 120.0 pg/mL (5.0-100.0) H 05/11/17 16:40 Total Protein 5.5 gm/dL (6.0-8.3) L 05/16/17 05:49 Albumin 2.3 gm/dL (4.2-5.5) L 05/16/17 05:49 Globulin 3.2 gm/dL 05/16/17 05:49 Albumin/Globulin Ratio 0.7 (1.0-1.8) L 05/16/17 05:49 Triglycerides 112 mg/dL (<150) 05/11/17 16:40 Cholesterol 84 mg/dL (<200) 05/11/17 16:40 LDL Cholesterol Direct 57 mg/dL (75-193) L 05/11/17 16:40 HDL Cholesterol 18 mg/dL (23-92) L 05/11/17 16:40 Amylase 70 U/L (29-103) 05/11/17 16:40 Lipase 109 U/L (11-82) H 05/11/17 16:40 Urine Source CLEAN C 05/11/17 17:15 Urine Color YELLOW 05/11/17 17:15 Urine Clarity CLEAR (CLEAR) 05/11/17 17:15 Urine pH 6.0 (4.6 - 8.0) 05/11/17 17:15 Ur Specific [place] 1.015 (1.005-1.030) 05/11/17 17:15 Urine Protein TRACE mg/dL (NEGATIVE) 05/11/17 17:15 Urine Glucose (UA) NEGATIVE mg/dL (NEGATIVE) 05/11/17 17:15 Urine Ketones >=80 mg/dL (NEGATIVE) H 05/11/17 17:15 Urine Blood TRACE (NEGATIVE) 05/11/17 17:15 Urine Nitrate NEGATIVE (NEGATIVE) 05/11/17 17:15 Urine Bilirubin MODERATE (NEGATIVE) H 05/11/17 17:15 Urine Urobilinogen 4.0 E.U./dL (0.2 - 1.0) H 05/11/17 17:15 Ur Leukocyte Esterase NEGATIVE (NEGATIVE) 05/11/17 17:15 Urine RBC 2-5 /hpf (0-5) H 05/11/17 17:15 Urine WBC NONE SEEN /hpf (0-5) 05/11/17 17:15 Ur Epithelial Cells NONE SEEN /lpf (FEW) 05/11/17 17:15 Urine Bacteria NONE SEEN /hpf (NONE SEEN) 05/11/17 17:15 - Physical Exam Vitals and I&O: Vital Signs Temp 98.0 F 05/16/17 04:25 Pulse 76 05/16/17 07:30 Resp 20 05/16/17 07:30 BP 117/57 05/16/17 04:25 Pulse Ox 99 05/16/17 07:30 Intake & Output 05/15/17 05/16/17 05/16/17 18:59 06:59 18:59 Intake Total 100 50 Balance 100 50 Intake: Intake, IV Amount 100 50 Piperacillin Sodium/ 100 50 Tazobact 2.25 gm In Sodium Chloride 0.9% 50 ml @ 100 mls/hr IV Q6HR [facility] Rx#:[id number] Other: Stool Characteristics Soft Formed Active Medications: Current Medications Acetaminophen (Tylenol) 650 mg PO Q6H PRN PRN Reason: HEADACHE/TEMP ABOVE 100F Stop: 07/10/17 18:41 Albuterol/Ipratropium (Duoneb Neb) 3 ml HHN Q4HRT PRN PRN Reason: sob Stop: 07/11/17 10:59 Last Admin: 05/12/17 19:25 Dose: 3 ml Docusate Sodium (Colace) 100 mg PO BID PRN PRN Reason: Constipation Stop: 07/10/17 18:41 Potassium Chloride 40 meq/Lidocaine HCl 25 mg/ Sodium Chloride 272.5 mls @ 68 mls/hr IV DAILY PRN PRN Reason: k level less than 3.2 Stop: 07/10/17 18:41 Last Admin: 05/15/17 08:47 Dose: 68 mls/hr Magnesium Sulfate (Magnesium Sulfate Premix) 2 gm in 50 mls @ 25 mls/hr IV DAILY PRN PRN Reason: Magnesium level less than 1.6 Stop: 07/10/17 18:41 Sodium Chloride (Nacl 0.9%) 1,000 mls @ 75 mls/hr IV .[id number] [facility] Stop: 07/10/17 18:44 Last Admin: 05/14/17 03:36 Dose: 75 mls/hr Piperacillin Sod/Tazobactam (Sod 2.25 gm/ Sodium Chloride) 50 mls @ 100 mls/hr IV Q6HR [facility] Stop: 07/11/17 08:44 Last Admin: 05/16/17 05:36 Dose: 100 mls/hr Lactobacillus Rhamnosus (Culturelle 15b) 1 each PO DAILY [facility] Stop: 07/13/17 08:59 Last Admin: 05/16/17 08:45 Dose: 1 each Lorazepam (Ativan) 1 mg IVP Q4HR PRN; Protocol PRN Reason: Anxiety Stop: 07/10/17 18:41 Magnesium Oxide (Mag-Oxide) 400 mg PO BID PRN PRN Reason: Mg less than 1.9 Stop: 07/10/17 18:41 Miscellaneous (Zosyn Iv Per Pharmacy) 1 ea PRN PRN PRN Reason: PROTOCOL Stop: 07/11/17 07:44 Miscellaneous (Probiotic Screen) 1 ea PRN PRN PRN Reason: PROTOCOL Stop: 07/12/17 12:59 Morphine Sulfate (Morphine) 1 mg IVP Q4HR PRN PRN Reason: Severe Pain Stop: 07/10/17 18:41 Ondansetron HCl (Zofran) 4 mg IVP Q6H PRN PRN Reason: Nausea / Vomiting Stop: 07/10/17 18:41 Potassium Chloride (Klor-Con) 40 meq PO DAILY PRN PRN Reason: k level less than 3.5 Stop: 07/10/17 18:41 Last Admin: 05/15/17 13:20 Dose: 40 meq General: Alert, Cooperative, Mild distress HEENT: Atraumatic, PERRLA, EOMI Neck: Supple, no JVD, no Thyromegaly Cardiovascular: Regular rate, Normal S1 Lungs: Other (has rales bl) Abdomen: Soft, Other (has some tenderness, no guard or rebound) Neurological: Normal speech Assessment/Plan - Problem List Patient Problems: All Active Problems FREQUENT FALLS WITH POOR APPETITE (Acute) Nutritional Asmnt/Malnutr-PDOC - Dietary Evaluation Malnutrition Findings (Please click <Entered> for more info): Nutritional Asmnt/Malnutrition Start: 05/12/17 17: 42 Text: Status: Complete Freq: Document 05/12/17 17:43 [facility] (Rec: 05/12/17 17:59 LCHEN [email or web address]) Nutritional Asmnt/Malnutrition Patient General Information Nutritional Screening High Risk Consult Diagnosis syncope Pertinent Medical Hx/Surgical Hx asthma, HTN, dyslipidemia, arthritis Subjective Information Consult received for no appetite to eat. Pt seen lying in bed at time of visit, awake and alert. Pt reported appetite has been poor d/t sick and it was little bit better today. Pt denied chewing problem. Food preference provided. Per RN, pt had no PO intake in the past 5 days, spited out food according to pt . Pt only had fruit and juice for breakfast. Pt was now on NPO during lunch time for U/S. Current Diet Order/ Nutrition Support regular Pertinent Medications colace, piperacillin, nacl 0.9 % Pertinent Labs 05/12 Na 139, K 3.1, Cl 102, BUN 17, Cr 0.5, glucose 62 Ca 8.1 05/11 a1c 4.9 Nutritional Hx/Data Height 1.65 m Height (Calculated Centimeters) 165.1 Current Weight (lbs) 48.081 kg Weight (Calculated Kilograms) 48.1 Weight (Calculated Grams) 34962.8 Chloe Body Weight 136 Body Mass Index (BMI) 17.6 Weight Status Underweight GI Symptoms GI Symptoms None Last BM none Difficult in: None Skin Integrity/Comment: bruise to left hip and left upper arm Estimated Nutritional Goals BEE in Kcals: Using Current wt Calories/Kcals/Kg 30-35 Kcals Calculated 0923-4044 Protein: Using Current wt Protein g/k.2-1.4 Protein Calculated 58-67 Fluid: ml 1440-1680ml (1ml/kcal) Nutritional Problem 1. Problem Problem inadequate food intake Etiology poor appetite Signs/Symptoms: poor PO intake x 6 days Intervention/Recommendation Comments 1. Continue with current diet as ordered. If PO continue new , consider adding Boost BID to increased nutrition intake. 2. Monitor PO intake, wt, labs and skin integrity 3. F/U as high risk in 2-3 days, 05/14-05/15 Expected Outcomes/Goals Expected Outcomes/Goals 1. PO intake to meet at least 75% of nutritional needs. 2. Wt stability, skin to remain intact, labs to approach WNL.
[2017-05-16] MEDS: Sodium Chloride 0.9% 1,000 ML IV SCH (15:29)
[2017-05-17] MEDS: Piperacillin/Tazobact 2.25 gm in 0.9% NS 50 ML IV SCH ×4 (00:28→18:45)
[2017-05-17] MEDS: Sodium Chloride 0.9% 1,000 ML IV SCH (00:29)
--- NOTE | 2017-05-17 00:29 | Consultation ---
DATE OF CONSULTATION: 05/14/[address] Cedeno. HISTORY OF PRESENT ILLNESS: This is an 86-year-old male patient who has frequent falls. Following this, the patient was brought to the Emergency Room. The patient had a CT scan, which showed no intracranial hemorrhage. The patient developed abdominal pain and the patient had ultrasound, which showed calculus cholecystitis. The patient at the present time is seen by a surgical consult and medical clearance requested for surgery. PAST MEDICAL HISTORY: Dementia, COPD, nicotine dependence, hypertension, hyperlipidemia, arthritis, asthma, and protein calorie malnutrition. FAMILY HISTORY: Unremarkable. SOCIAL HISTORY: No history of smoking, alcohol abuse. ALLERGIES: No known allergies. PHYSICAL EXAMINATION: VITAL SIGNS: Blood pressure 130/80, pulse 70, and respirations 20. HEAD: Normocephalic. No lumps or bumps. EYES: Pupils equal, reactive to light. Fundi showing AV nicking, sclerae white, conjunctivae pink. NECK: Carotid 2+. Normal upstroke. JVD flat. Thyroid not palpable. Lymph nodes not palpable. CHEST: Shows increased AP diameter. No kyphosis, scoliosis. LUNGS: Bilateral bronchovesicular breath sounds. Occasional wheeze. No rales. HEART: PMI fifth intercostal space with lateral to midclavicular line. S1, S2. No S3, S4, soft systolic murmur. ABDOMEN: Soft. Liver, spleen not palpable. No organomegaly. Bowel sounds active. NEUROLOGIC: Unremarkable. EXTREMITIES: Peripheral pulses 2+. No pedal edema. CLINICAL IMPRESSION: Calculus cholecystitis, chronic obstructive pulmonary disease, nicotine dependence, hypertension, hyperlipidemia, arthritis, asthma, and protein calorie malnutrition. PLAN: The patient to continue present care. The patient is cleared for surgery. JOB# [id number]
[2017-05-17 06:12] LABS: % BASOPHILS 0.6 % (0.0-2.0); % EOSINOPHILS 2.2 % (0.0-5.0); % LYMPHOCYTES 7.8 % (20.0-50.0); % MONOCYTES 8.1 % (2.0-10.0); % NEUTROPHILS 81.3 % (40.0-80.0); BASOPHILE ABSOLUTE 0.1 Th/cumm (0-0.2); EOSINOPHILE ABSOLUTE 0.2 Th/cmm (0.1-0.4); HEMATOCRIT 34.7 % (41.0-60); HEMOGLOBIN 11.7 gm/dL (12-16); LYMPHOCYTE ABSOLUTE 0.8 Th/cmm (1.5-3.0); MEAN CELL VOLUME 96.4 fl (80-99); MEAN CORPUSCULAR HEMOGLOBIN 32.6 pg (27.0-31.0); MEAN CORPUSCULAR HGB CONC 33.8 pg (28.0-36.0); MEAN PLATELET VOLUME 7.9 fl; MONOCYTE ABSOLUTE 0.8 Th/cmm (0.3-1.0); NEUTROPHILE ABSOLUTE 7.9 Th/cmm (1.8-8.0); PLATELET COUNT 238 Th/cmm (150-400); RED CELL DISTRIBUTION WIDTH 13.9 % (11.5-20.0); WHITE BLOOD COUNT 9.8 Th/cmm (4.8-10.8)
[2017-05-17 06:19] LABS: ALB/GLOB RATIO 0.7 (1.0-1.8); ALBUMIN 2.3 gm/dL (4.2-5.5); ALKALINE PHOSPHATASE 61 U/L (34-104); ANION GAP 9.4 (7.0-16.0); BILIRUBIN,TOTAL 0.7 mg/dL (0.3-1.0); BUN - UREA NITROGEN 5 mg/dL (7-25); CALCIUM SERUM 7.2 mg/dL (8.6-10.3); CHLORIDE 98 mEq/L (98-107); CREATININE - SERUM 0.4 mg/dL (0.7-1.3); GLUCOSE 83 mg/dL (70-105); POTASSIUM SERUM 3.4 mEq/L (3.5-5.1); SGOT 18 U/L (13-39); SGPT/ALT 5 U/L (7-52); SODIUM SERUM 138 mEq/L (136-145); TOTAL PROTEIN,SERUM 5.5 gm/dL (6.0-8.3)
[2017-05-17 06:20] LABS: INR 1.05 (0.5-1.4); PROTHROMBIN TIME (TEST) 10.9 SECONDS (9.5-11.5)
[2017-05-17] MEDS: D5-0.9%NS 1,000 ML IV SCH (06:38)
[2017-05-17] MEDS ORDERED: Gelatin Sponge 100cm Spg TP ONE (07:15)
[2017-05-17] MEDS ORDERED: fentaNYL Citrate 100 mcg/2mL Vial ONE (07:46)
[2017-05-17] MEDS ORDERED: Propofol **SURGERY USE ONLY** 20 ML IV ONE (07:51)
[2017-05-17] MEDS ORDERED: Neostigmine 10mg/10mL Vial ONE (07:52)
[2017-05-17] MEDS ORDERED: Thrombin, Bovine 5,000 IU Vial TP ONE (08:54)
--- NOTE | 2017-05-17 09:03 | General Progress Note ---
Subjective - Review of Systems Service Date: 05/17/17 Subjective: Pt seen and eval. In bed. Has some abd pain at times. No n,v,d or fevers. No chills. No cough. No dysuria. No falls or sz. No headaches. Being seen by GI and Sx. Sx today. Had loose stools last night. On IV D5NS now, and C Diff test ordered. Objective - Results Result Diagrams: 05/17/17 05:45 05/17/17 05:45 Recent Labs: Laboratory Last Values WBC 9.8 Th/cmm (4.8-10.8) 05/17/17 05:45 RBC 3.60 Mil/cmm (3.80-5.80) L 05/17/17 05:45 Hgb 11.7 gm/dL (12-16) L 05/17/17 05:45 Hct 34.7 % (41.0-60) L 05/17/17 05:45 MCV 96.4 fl (80-99) 05/17/17 05:45 MCH 32.6 pg (27.0-31.0) H 05/17/17 05:45 MCHC Differential 33.8 pg (28.0-36.0) 05/17/17 05:45 RDW 13.9 % (11.5-20.0) 05/17/17 05:45 Plt Count 238 Th/cmm (150-400) 05/17/17 05:45 MPV 7.9 fl 05/17/17 05:45 Neutrophils % 81.3 % (40.0-80.0) H 05/17/17 05:45 Band Neutrophils % 1 % (0-10) 05/13/17 06:05 Lymphocytes % 7.8 % (20.0-50.0) L 05/17/17 05:45 Monocytes % 8.1 % (2.0-10.0) 05/17/17 05:45 Eosinophils % 2.2 % (0.0-5.0) 05/17/17 05:45 Basophils % 0.6 % (0.0-2.0) 05/17/17 05:45 Neutrophils (Manual) 88 % (40-80) H 05/15/17 05:30 Lymphocytes 6 % (20-50) L 05/15/17 05:30 Monocytes 5 % (2-10) 05/15/17 05:30 Eosinophils 1 % (0-5) 05/15/17 05:30 Platelet Estimate ADEQUATE (NORMAL) 05/15/17 05:30 PT 10.9 SECONDS (9.5-11.5) 05/17/17 05:45 INR 1.05 (0.5-1.4) 05/17/17 05:45 PTT (Actin FS) 29.6 SECONDS (26.0-38.0) 05/17/17 05:45 Specimen Source Arterial 05/12/17 08:50 Sample Site RB 05/12/17 08:50 pH 7.38 (7.35-7.45) 05/12/17 08:50 pCO2 46.0 mmHg (35.0-45.0) H 05/12/17 08:50 pO2 86.0 mmHg (80.0-100.0) 05/12/17 08:50 HCO3 26.1 mEq/L (20.0-26.0) H 05/12/17 08:50 Base Excess 1.6 mEq/L (-3.0-3.0) 05/12/17 08:50 O2 Saturation 96.0 % (92.0-100.0) 05/12/17 08:50 Idris Test NA 05/12/17 08:50 Vent Rate NA 05/12/17 08:50 Inspired O2 28 05/12/17 08:50 Tidal Volume NA 05/12/17 08:50 PEEP NA 05/12/17 08:50 Pressure (ins/psv/peep) NA 05/12/17 08:50 Critical Value E.MCPHERSON 05/12/17 08:50 Sodium 138 mEq/L (136-145) 05/17/17 05:45 Potassium 3.4 mEq/L (3.5-5.1) L 05/17/17 05:45 Chloride 98 mEq/L (98-107) 05/17/17 05:45 Carbon Dioxide 34.0 mEq/L (21.0-31.0) H 05/17/17 05:45 Anion Gap 9.4 (7.0-16.0) 05/17/17 05:45 BUN 5 mg/dL (7-25) L 05/17/17 05:45 Creatinine 0.4 mg/dL (0.7-1.3) L 05/17/17 05:45 Est GFR ( Amer) TNP 05/17/17 05:45 Est GFR (Non-Af Amer) TNP 05/17/17 05:45 BUN/Creatinine Ratio 12.5 05/17/17 05:45 Glucose 83 mg/dL (70-105) 05/17/17 05:45 POC Glucose 72 MG/DL (70 - 105) 05/17/17 06:31 Hemoglobin A1c % 4.9 % (4.0-6.0) 05/11/17 16:40 Whole Bld Lactic Acid 1.00 mmol/L (0.60-1.99) 05/11/17 16:40 Calcium 7.2 mg/dL (8.6-10.3) L 05/17/17 05:45 Magnesium 1.9 mg/dL (1.9-2.7) 05/11/17 16:40 Total Bilirubin 0.7 mg/dL (0.3-1.0) 05/17/17 05:45 Direct Bilirubin 0.44 mg/dL (0.0-0.2) H 05/13/17 06:05 AST 18 U/L (13-39) 05/17/17 05:45 ALT 5 U/L (7-52) L 05/17/17 05:45 Alkaline Phosphatase 61 U/L (34-104) 05/17/17 05:45 Creatine Kinase 34 U/L (30-223) 05/11/17 16:40 Troponin I < 0.01 ng/mL (0.01-0.05) L 05/11/17 16:40 B-Natriuretic Peptide 120.0 pg/mL (5.0-100.0) H 05/11/17 16:40 Total Protein 5.5 gm/dL (6.0-8.3) L 05/17/17 05:45 Albumin 2.3 gm/dL (4.2-5.5) L 05/17/17 05:45 Globulin 3.2 gm/dL 05/17/17 05:45 Albumin/Globulin Ratio 0.7 (1.0-1.8) L 05/17/17 05:45 Triglycerides 112 mg/dL (<150) 05/11/17 16:40 Cholesterol 84 mg/dL (<200) 05/11/17 16:40 LDL Cholesterol Direct 57 mg/dL (75-193) L 05/11/17 16:40 HDL Cholesterol 18 mg/dL (23-92) L 05/11/17 16:40 Amylase 70 U/L (29-103) 05/11/17 16:40 Lipase 109 U/L (11-82) H 05/11/17 16:40 Urine Source CLEAN C 05/11/17 17:15 Urine Color YELLOW 05/11/17 17:15 Urine Clarity CLEAR (CLEAR) 05/11/17 17:15 Urine pH 6.0 (4.6 - 8.0) 05/11/17 17:15 Ur Specific [place] 1.015 (1.005-1.030) 05/11/17 17:15 Urine Protein TRACE mg/dL (NEGATIVE) 05/11/17 17:15 Urine Glucose (UA) NEGATIVE mg/dL (NEGATIVE) 05/11/17 17:15 Urine Ketones >=80 mg/dL (NEGATIVE) H 05/11/17 17:15 Urine Blood TRACE (NEGATIVE) 05/11/17 17:15 Urine Nitrate NEGATIVE (NEGATIVE) 05/11/17 17:15 Urine Bilirubin MODERATE (NEGATIVE) H 05/11/17 17:15 Urine Urobilinogen 4.0 E.U./dL (0.2 - 1.0) H 05/11/17 17:15 Ur Leukocyte Esterase NEGATIVE (NEGATIVE) 05/11/17 17:15 Urine RBC 2-5 /hpf (0-5) H 05/11/17 17:15 Urine WBC NONE SEEN /hpf (0-5) 05/11/17 17:15 Ur Epithelial Cells NONE SEEN /lpf (FEW) 05/11/17 17:15 Urine Bacteria NONE SEEN /hpf (NONE SEEN) 05/11/17 17:15 - Physical Exam Vitals and I&O: Vital Signs Temp 97.8 F 05/17/17 04:00 Pulse 77 05/17/17 04:00 Resp 18 05/17/17 04:00 BP 126/60 05/17/17 04:00 Pulse Ox 98 05/17/17 04:00 Intake & Output 05/16/17 05/17/17 05/17/17 18:59 06:59 18:59 Intake Total 303.75 831.25 107.333 Output Total 700 Balance 303.75 131.25 107.333 Weight (lbs) 49.895 kg 49.895 kg Intake: Intake, IV Amount 303.75 571.25 107.333 D5-0.9%Ns 1,000 ml @ 70 107.333 mls/hr IV .[id number] [facility] Rx #:[id number] Piperacillin Sodium/ 100 100 Tazobact 2.25 gm In Sodium Chloride 0.9% 50 ml @ 100 mls/hr IV Q6HR [facility] Rx#:[id number] Sodium Chloride 0.9% 1, 203.75 471.25 000 ml @ 75 mls/hr IV . [id number] [facility] Rx#:[id number] Oral 200 Other 60 Output: Urine 700 Other: # Voids 5 # Bowel Movements 1 5 Stool Characteristics Soft Soft Brown Brown Weight Source Bedscale Bedscale Active Medications: Current Medications Acetaminophen (Tylenol) 650 mg PO Q6H PRN PRN Reason: HEADACHE/TEMP ABOVE 100F Stop: 07/10/17 18:41 Albuterol/Ipratropium (Duoneb Neb) 3 ml HHN Q4HRT PRN PRN Reason: sob Stop: 07/11/17 10:59 Last Admin: 05/12/17 19:25 Dose: 3 ml Docusate Sodium (Colace) 100 mg PO BID PRN PRN Reason: Constipation Stop: 07/10/17 18:41 Potassium Chloride 40 meq/Lidocaine HCl 25 mg/ Sodium Chloride 272.5 mls @ 68 mls/hr IV DAILY PRN PRN Reason: k level less than 3.2 Stop: 07/10/17 18:41 Last Admin: 05/15/17 08:47 Dose: 68 mls/hr Magnesium Sulfate (Magnesium Sulfate Premix) 2 gm in 50 mls @ 25 mls/hr IV DAILY PRN PRN Reason: Magnesium level less than 1.6 Stop: 07/10/17 18:41 Piperacillin Sod/Tazobactam (Sod 2.25 gm/ Sodium Chloride) 50 mls @ 100 mls/hr IV Q6HR [facility] Stop: 07/11/17 08:44 Last Infusion: 05/17/17 06:05 Dose: Infused Dextrose/Sodium Chloride (D5-0.9%Ns) 1,000 mls @ 70 mls/hr IV .[id number] [facility] Stop: 07/16/17 05:07 Last Infusion: 05/17/17 08:10 Dose: 0 mls/hr Lactobacillus Rhamnosus (Culturelle 15b) 1 each PO DAILY [facility] Stop: 07/13/17 08:59 Last Admin: 05/16/17 08:45 Dose: 1 each Lorazepam (Ativan) 1 mg IVP Q4HR PRN; Protocol PRN Reason: Anxiety Stop: 07/10/17 18:41 Magnesium Oxide (Mag-Oxide) 400 mg PO BID PRN PRN Reason: Mg less than 1.9 Stop: 07/10/17 18:41 Miscellaneous (Zosyn Iv Per Pharmacy) 1 ea PRN PRN PRN Reason: PROTOCOL Stop: 07/11/17 07:44 Miscellaneous (Probiotic Screen) 1 ea PRN PRN PRN Reason: PROTOCOL Stop: 07/12/17 12:59 Morphine Sulfate (Morphine) 1 mg IVP Q4HR PRN PRN Reason: Severe Pain Stop: 07/10/17 18:41 Ondansetron HCl (Zofran) 4 mg IVP Q6H PRN PRN Reason: Nausea / Vomiting Stop: 07/10/17 18:41 Potassium Chloride (Klor-Con) 40 meq PO DAILY PRN PRN Reason: k level less than 3.5 Stop: 07/10/17 18:41 Last Admin: 05/15/17 13:20 Dose: 40 meq General: Alert, Cooperative, Mild distress HEENT: Atraumatic, PERRLA, EOMI Neck: Supple, no JVD, no Thyromegaly Cardiovascular: Regular rate, Normal S1 Lungs: Other (has rales bl) Abdomen: Soft, Other (has some tenderness, no guard or rebound) Neurological: Normal speech Assessment/Plan - Problem List Patient Problems: All Active Problems FREQUENT FALLS WITH POOR APPETITE (Acute) - Assessment Assessment: Asp PNA Acute Cholecystitis Hypokalemia D/O of ANS due to syncope Mech fall Mod malnut Asthma ME Sepsis due to Asp Pna COPD Exac - Plan Plan: Pt is on IV Zosyn and breathing tx. Replenish K today-Pt getting K rider now. Sx and GI consulted for cholecystitis. Possible Sx Wednesday. Fall prec. FU on cbc. HIDA done Swallow eval to be done today, 05/17/17 Cardio consulted for sx clearance. Had loose stools last night. On IV D5NS now, and C Diff test ordered. Nutritional Asmnt/Malnutr-PDOC - Dietary Evaluation Malnutrition Findings (Please click <Entered> for more info): Nutritional Asmnt/Malnutrition Start: 05/12/17 17: 42 Text: Status: Complete Freq: Document 05/12/17 17:[address] [facility] (Rec: 05/12/17 17:59 LCHEN [id number]) Nutritional Asmnt/Malnutrition Patient General Information Nutritional Screening High Risk Consult Diagnosis syncope Pertinent Medical Hx/Surgical Hx asthma, HTN, dyslipidemia, arthritis Subjective Information Consult received for no appetite to eat. Pt seen lying in bed at time of visit, awake and alert. Pt reported appetite has been poor d/t sick and it was little bit better today. Pt denied chewing problem. Food preference provided. Per RN, pt had no PO intake in the past 5 days, spited out food according to pt . Pt only had fruit and juice for breakfast. Pt was now on NPO during lunch time for U/S. Current Diet Order/ Nutrition Support regular Pertinent Medications colace, piperacillin, nacl 0.9 % Pertinent Labs 05/12 Na 139, K 3.1, Cl 102, BUN 17, Cr 0.5, glucose 62 Ca 8.1 05/11 a1c 4.9 Nutritional Hx/Data Height 1.65 m Height (Calculated Centimeters) 165.1 Current Weight (lbs) 48.081 kg Weight (Calculated Kilograms) 48.1 Weight (Calculated Grams) 81410.8 Telephone Body Weight 136 Body Mass Index (BMI) 17.6 Weight Status Underweight GI Symptoms GI Symptoms None Last BM none Difficult in: None Skin Integrity/Comment: bruise to left hip and left upper arm Estimated Nutritional Goals BEE in Kcals: Using Current wt Calories/Kcals/Kg 30-35 Kcals Calculated 8572-7381 Protein: Using Current wt Protein g/k.2-1.4 Protein Calculated 58-67 Fluid: ml 1440-1680ml (1ml/kcal) Nutritional Problem 1. Problem Problem inadequate food intake Etiology poor appetite Signs/Symptoms: poor PO intake x 6 days Intervention/Recommendation Comments 1. Continue with current diet as ordered. If PO continue new , consider adding Boost BID to increased nutrition intake. 2. Monitor PO intake, wt, labs and skin integrity 3. F/U as high risk in 2-3 days, 05/14-05/15 Expected Outcomes/Goals Expected Outcomes/Goals 1. PO intake to meet at least 75% of nutritional needs. 2. Wt stability, skin to remain intact, labs to approach WNL.
--- NOTE | 2017-05-17 09:54 | Operative Report ---
DATE OF SURGERY: 05/17/2017 PREOPERATIVE DIAGNOSES: 1. Calculous cholecystitis. 2. Syncopal episode. 3. Hypertension. 4. Asthma. 5. Hyperlipidemia. 6. Status post colon resection for cancer. POSTOPERATIVE DIAGNOSES: 1. Gangrenous gallbladder. 2. Dense adhesions from previous surgery. SURGEON: Matt Marquez MD ANESTHESIA: General anesthesia. ANESTHESIOLOGIST: Pee. ESTIMATED BLOOD LOSS: 100 mL. OPERATION DONE: 1. Open cholecystectomy. 2. Lysis of dense adhesions. 3. Washout of infection, abdominal cavity. OPERATIVE FINDINGS: Gangrenous gallbladder with markedly dilated gallbladder and adhesions in the anterior abdominal wall and the gallbladder to the small bowel. DESCRIPTION OF PROCEDURE: The patient was given general anesthesia. The abdomen was prepped with ChloraPrep and draped in appropriate manner. Because of the previous colon surgery, it was decided to open the abdomen following the old scar. There were dense adhesions. These were lysed sharply with cautery. Exposure was then made. The gallbladder was markedly dilated and gangrenous with adhesions to the small bowel. These were lysed bluntly and sharply to finally exposed the gallbladder. Immediately on exposing the gallbladder, there was a leak of the gallbladder contents and cultures were taken. It was decided to remove the gallbladder in retrograde fashion leaving the serosa against the liver bed. This dissection was carried with blunt and sharp dissection until the infundibulum was reached. Because of the severe inflammatory response in this area, it was decided to amputate the gallbladder at the infundibulum. This was done and the stump was sutured, closed with 3-0 silk in a running fashion. Cautery was used for further hemostasis and irrigation with antibiotic solution was carried out. Gelfoam and thrombin was applied and Surgicel and finally the bleeding subsided. A Orion drain was then placed in the subhepatic space. The abdominal incision was closed with running suture of #1 PDS. Subcutaneous tissues were closed with 4-0 Vicryl. The patient tolerated the procedure well and will be sent to telemetry for further observation. JOB# [id number]
[2017-05-17] MEDS: Lactobacillus Rhamnosus GG 15 Billion CFU CAP.SPRINK PO SCH (10:15)
[2017-05-17] MEDS: Morphine Sulfate 4 mg/mL 1mL Syr IVP PRN ×2 (15:25→23:16)
[2017-05-17 19:15] LABS: HEMATOCRIT 33.7 % (41.0-60); HEMOGLOBIN 11.7 gm/dL (12-16); MANUAL DIFF REQUIRED? YES; MEAN CELL VOLUME 96.2 fl (80-99); MEAN CORPUSCULAR HEMOGLOBIN 33.4 pg (27.0-31.0); MEAN CORPUSCULAR HGB CONC 34.7 pg (28.0-36.0); MEAN PLATELET VOLUME 8.6 fl; RED CELL DISTRIBUTION WIDTH 13.9 % (11.5-20.0)
[2017-05-17 19:38] LABS: PLATELET COUNT 441 Th/cmm (150-400); WHITE BLOOD COUNT 47.2 Th/cmm (4.8-10.8)
[2017-05-17 19:44] LABS: BAND NEUTROPHILE 3 % (0-10); BASOPHIL 0 % (0-3); EOSINOPHIL 0 % (0-5); LYMPHOCYTE 2 % (20-50); MONOCYTE 2 % (2-10); NEUTROPHILS 93 % (40-80); TOTAL CELLS COUNTED 100
[2017-05-18] MEDS: Piperacillin/Tazobact 2.25 gm in 0.9% NS 50 ML IV SCH ×5 (00:28→23:11)
[2017-05-18] MEDS: D5-0.9%NS 1,000 ML IV SCH ×2 (04:57→23:00)
[2017-05-18 07:14] LABS: HEMATOCRIT 32.4 % (41.0-60); HEMOGLOBIN 11.1 gm/dL (12-16); LYMPHOCYTE ABSOLUTE 0.6 Th/cmm (1.5-3.0); MEAN CELL VOLUME 96.2 fl (80-99); MEAN CORPUSCULAR HEMOGLOBIN 32.9 pg (27.0-31.0); MEAN CORPUSCULAR HGB CONC 34.2 pg (28.0-36.0); MEAN PLATELET VOLUME 8.4 fl; MONOCYTE ABSOLUTE 1.3 Th/cmm (0.3-1.0); NEUTROPHILE ABSOLUTE 30.3 Th/cmm (1.8-8.0); RED BLOOD COUNT 3.36 Mil/cmm (3.80-5.80); RED CELL DISTRIBUTION WIDTH 14.6 % (11.5-20.0)
[2017-05-18 07:18] LABS: ALB/GLOB RATIO 0.7 (1.0-1.8); ALBUMIN 2.1 gm/dL (4.2-5.5); ALKALINE PHOSPHATASE 51 U/L (34-104); ANION GAP 11.3 (7.0-16.0); BILIRUBIN,TOTAL 0.8 mg/dL (0.3-1.0); BUN - UREA NITROGEN 10 mg/dL (7-25); CALCIUM SERUM 6.4 mg/dL (8.6-10.3); CHLORIDE 100 mEq/L (98-107); CREATININE - SERUM 0.7 mg/dL (0.7-1.3); GLUCOSE 183 mg/dL (70-105); POTASSIUM SERUM 3.3 mEq/L (3.5-5.1); SGOT 86 U/L (13-39); SGPT/ALT 26 U/L (7-52); SODIUM SERUM 139 mEq/L (136-145)
[2017-05-18 07:25] LABS: % EOSINOPHILS 0.1 % (0.0-5.0); % LYMPHOCYTES 1.9 % (20.0-50.0); % MONOCYTES 3.9 % (2.0-10.0); % NEUTROPHILS 94.1 % (40.0-80.0)
[2017-05-18 07:26] LABS: PLATELET COUNT 321 Th/cmm (150-400); WHITE BLOOD COUNT 32.2 Th/cmm (4.8-10.8)
--- NOTE | 2017-05-18 08:59 | Diagnostic Imaging Report ---
Portable chest x-ray HISTORY: Shortness of breath Compared with the prior exam of 05/11/2017, there has developed mild density in the right and left costophrenic angle regions consistent with small effusions. There remains generalized accentuation of the lower interstitial lung markings which appears chronic. The heart size remains normal. IMPRESSION: 1. Findings suggesting new small bilateral pleural effusions
--- NOTE | 2017-05-18 09:14 | General Progress Note ---
Subjective - Review of Systems Service Date: 05/18/17 Subjective: Pt seen and eval. In bed. Has some abd pain at times. No n,v,d or fevers. No chills. No cough. No dysuria. No falls or sz. No headaches. Being seen by GI and Sx. Loose stools resolved. Colace held. POD # 1 for gangrenous cholecycstitis-open braden. Objective - Results Result Diagrams: 05/18/17 06:30 05/18/17 06:30 Recent Labs: Laboratory Last Values WBC 32.2 Th/cmm (4.8-10.8) H* D 05/18/17 06:30 RBC 3.36 Mil/cmm (3.80-5.80) L 05/18/17 06:30 Hgb 11.1 gm/dL (12-16) L 05/18/17 06:30 Hct 32.4 % (41.0-60) L 05/18/17 06:30 MCV 96.2 fl (80-99) 05/18/17 06:30 MCH 32.9 pg (27.0-31.0) H 05/18/17 06:30 MCHC Differential 34.2 pg (28.0-36.0) 05/18/17 06:30 RDW 14.6 % (11.5-20.0) 05/18/17 06:30 Plt Count 321 Th/cmm (150-400) D 05/18/17 06:30 MPV 8.4 fl 05/18/17 06:30 Neutrophils % 94.1 % (40.0-80.0) H 05/18/17 06:30 Band Neutrophils % 3 % (0-10) 05/17/17 18:55 Lymphocytes % 1.9 % (20.0-50.0) L 05/18/17 06:30 Monocytes % 3.9 % (2.0-10.0) 05/18/17 06:30 Eosinophils % 0.1 % (0.0-5.0) 05/18/17 06:30 Basophils % 0.0 % (0.0-2.0) 05/18/17 06:30 Neutrophils (Manual) 93 % (40-80) H 05/17/17 18:55 Lymphocytes 2 % (20-50) L 05/17/17 18:55 Monocytes 2 % (2-10) 05/17/17 18:55 Eosinophils 0 % (0-5) 05/17/17 18:55 Basophils 0 % (0-3) 05/17/17 18:55 Platelet Estimate ADEQUATE (NORMAL) 05/15/17 05:30 PT 10.9 SECONDS (9.5-11.5) 05/17/17 05:45 INR 1.05 (0.5-1.4) 05/17/17 05:45 PTT (Actin FS) 29.6 SECONDS (26.0-38.0) 05/17/17 05:45 Specimen Source Arterial 05/12/17 08:50 Sample Site RB 05/12/17 08:50 pH 7.38 (7.35-7.45) 05/12/17 08:50 pCO2 46.0 mmHg (35.0-45.0) H 05/12/17 08:50 pO2 86.0 mmHg (80.0-100.0) 05/12/17 08:50 HCO3 26.1 mEq/L (20.0-26.0) H 05/12/17 08:50 Base Excess 1.6 mEq/L (-3.0-3.0) 05/12/17 08:50 O2 Saturation 96.0 % (92.0-100.0) 05/12/17 08:50 Idris Test NA 05/12/17 08:50 Vent Rate NA 05/12/17 08:50 Inspired O2 28 05/12/17 08:50 Tidal Volume NA 05/12/17 08:50 PEEP NA 05/12/17 08:50 Pressure (ins/psv/peep) NA 05/12/17 08:50 Critical Value E.MCPHERSON 05/12/17 08:50 Sodium 139 mEq/L (136-145) 05/18/17 06:30 Potassium 3.3 mEq/L (3.5-5.1) L 05/18/17 06:30 Chloride 100 mEq/L (98-107) 05/18/17 06:30 Carbon Dioxide 31.0 mEq/L (21.0-31.0) 05/18/17 06:30 Anion Gap 11.3 (7.0-16.0) 05/18/17 06:30 BUN 10 mg/dL (7-25) 05/18/17 06:30 Creatinine 0.7 mg/dL (0.7-1.3) 05/18/17 06:30 Est GFR ( Amer) TNP 05/18/17 06:30 Est GFR (Non-Af Amer) TNP 05/18/17 06:30 BUN/Creatinine Ratio 14.3 05/18/17 06:30 Glucose 183 mg/dL (70-105) H 05/18/17 06:30 POC Glucose 72 MG/DL (70 - 105) 05/17/17 06:31 Hemoglobin A1c % 4.9 % (4.0-6.0) 05/11/17 16:40 Whole Bld Lactic Acid 1.00 mmol/L (0.60-1.99) 05/11/17 16:40 Calcium 6.4 mg/dL (8.6-10.3) L 05/18/17 06:30 Magnesium 1.9 mg/dL (1.9-2.7) 05/11/17 16:40 Total Bilirubin 0.8 mg/dL (0.3-1.0) 05/18/17 06:30 Direct Bilirubin 0.44 mg/dL (0.0-0.2) H 05/13/17 06:05 AST 86 U/L (13-39) H 05/18/17 06:30 ALT 26 U/L (7-52) 05/18/17 06:30 Alkaline Phosphatase 51 U/L (34-104) 05/18/17 06:30 Creatine Kinase 34 U/L (30-223) 05/11/17 16:40 Troponin I < 0.01 ng/mL (0.01-0.05) L 05/11/17 16:40 B-Natriuretic Peptide 120.0 pg/mL (5.0-100.0) H 05/11/17 16:40 Total Protein 5.0 gm/dL (6.0-8.3) L 05/18/17 06:30 Albumin 2.1 gm/dL (4.2-5.5) L 05/18/17 06:30 Globulin 2.9 gm/dL 05/18/17 06:30 Albumin/Globulin Ratio 0.7 (1.0-1.8) L 05/18/17 06:30 Triglycerides 112 mg/dL (<150) 05/11/17 16:40 Cholesterol 84 mg/dL (<200) 05/11/17 16:40 LDL Cholesterol Direct 57 mg/dL (75-193) L 05/11/17 16:40 HDL Cholesterol 18 mg/dL (23-92) L 05/11/17 16:40 Amylase 70 U/L (29-103) 05/11/17 16:40 Lipase 109 U/L (11-82) H 05/11/17 16:40 Urine Source CLEAN C 05/11/17 17:15 Urine Color YELLOW 05/11/17 17:15 Urine Clarity CLEAR (CLEAR) 05/11/17 17:15 Urine pH 6.0 (4.6 - 8.0) 05/11/17 17:15 Ur Specific [place] 1.015 (1.005-1.030) 05/11/17 17:15 Urine Protein TRACE mg/dL (NEGATIVE) 05/11/17 17:15 Urine Glucose (UA) NEGATIVE mg/dL (NEGATIVE) 05/11/17 17:15 Urine Ketones >=80 mg/dL (NEGATIVE) H 05/11/17 17:15 Urine Blood TRACE (NEGATIVE) 05/11/17 17:15 Urine Nitrate NEGATIVE (NEGATIVE) 05/11/17 17:15 Urine Bilirubin MODERATE (NEGATIVE) H 05/11/17 17:15 Urine Urobilinogen 4.0 E.U./dL (0.2 - 1.0) H 05/11/17 17:15 Ur Leukocyte Esterase NEGATIVE (NEGATIVE) 05/11/17 17:15 Urine RBC 2-5 /hpf (0-5) H 05/11/17 17:15 Urine WBC NONE SEEN /hpf (0-5) 05/11/17 17:15 Ur Epithelial Cells NONE SEEN /lpf (FEW) 05/11/17 17:15 Urine Bacteria NONE SEEN /hpf (NONE SEEN) 05/11/17 17:15 - Physical Exam Vitals and I&O: Vital Signs Temp 97.3 F 05/18/17 04:00 Pulse 101 05/18/17 04:00 Resp 18 05/18/17 04:00 BP 110/73 05/18/17 04:00 Pulse Ox 95 05/18/17 04:00 Intake & Output 05/17/17 05/18/1718 18:59 06:59 18:59 Intake Total 429.256 5038.667 Output Total 275 Balance 157.333 767.667 Weight (lbs) 52.526 kg Intake: Intake, IV Amount 157.333 992.667 D5-0.9%Ns 1,000 ml @ 70 107.333 892.667 mls/hr IV .[id number] [facility] Rx #:[id number] Piperacillin Sodium/ 50 100 Tazobact 2.25 gm In Sodium Chloride 0.9% 50 ml @ 100 mls/hr IV Q6HR [facility] Rx#:[id number] Oral 50 Output: Drainage 275 Abdomen 275 Other: # Voids 1 Weight Source Bedscale Active Medications: Current Medications Acetaminophen (Tylenol) 650 mg PO Q6H PRN PRN Reason: HEADACHE/TEMP ABOVE 100F Stop: 07/10/17 18:41 Albuterol/Ipratropium (Duoneb Neb) 3 ml HHN Q4HRT PRN PRN Reason: sob Stop: 07/11/17 10:59 Last Admin: 05/12/17 19:25 Dose: 3 ml Potassium Chloride 40 meq/Lidocaine HCl 25 mg/ Sodium Chloride 272.5 mls @ 68 mls/hr IV DAILY PRN PRN Reason: k level less than 3.2 Stop: 07/10/17 18:41 Last Admin: 05/15/17 08:47 Dose: 68 mls/hr Piperacillin Sod/Tazobactam (Sod 2.25 gm/ Sodium Chloride) 50 mls @ 100 mls/hr IV Q6HR [facility] Stop: 07/11/17 08:44 Last Admin: 05/18/17 05:00 Dose: 100 mls/hr Dextrose/Sodium Chloride (D5-0.9%Ns) 1,000 mls @ 70 mls/hr IV .[id number] [facility] Stop: 07/16/17 05:07 Last Admin: 05/18/17 04:57 Dose: 70 mls/hr Lorazepam (Ativan) 1 mg IVP Q4HR PRN; Protocol PRN Reason: Anxiety Stop: 07/10/17 18:41 Magnesium Oxide (Mag-Oxide) 400 mg PO BID PRN PRN Reason: Mg less than 1.9 Stop: 07/10/17 18:41 Miscellaneous (Zosyn Iv Per Pharmacy) 1 ea PRN PRN PRN Reason: PROTOCOL Stop: 07/11/17 07:44 Miscellaneous (Probiotic Screen) 1 ea MC PRN PRN PRN Reason: PROTOCOL Stop: 07/12/17 12:59 Morphine Sulfate (Morphine) 1 mg IVP Q4HR PRN PRN Reason: Severe Pain Stop: 07/10/17 18:41 Last Admin: 05/17/17 23:16 Dose: 1 mg Ondansetron HCl (Zofran) 4 mg IVP Q6H PRN PRN Reason: Nausea / Vomiting Stop: 07/10/17 18:41 Last Admin: 05/17/17 23:16 Dose: 4 mg Potassium Chloride (Klor-Con) 40 meq PO DAILY PRN PRN Reason: k level less than 3.5 Stop: 07/10/17 18:41 Last Admin: 05/15/17 13:20 Dose: 40 meq General: Alert, Cooperative, Mild distress HEENT: Atraumatic, PERRLA, EOMI Neck: Supple, no JVD, no Thyromegaly Cardiovascular: Regular rate, Normal S1 Lungs: Other (has rales bl) Abdomen: Soft, Tender, Other (has some tenderness, no guard or rebound) Neurological: Normal speech - Procedures Procedures: Procedures Procedure Code Date REMOVAL OF GALLBLADDER 59155 05/11/17 RESECTION OF GALLBLADDER, OPEN APPROACH [id number] 05/11/17 Assessment/Plan - Problem List Patient Problems: All Active Problems FREQUENT FALLS WITH POOR APPETITE (Acute) - Assessment Assessment: Asp PNA Acute Cholecystitis-gangrenous Hypokalemia D/O of ANS due to syncope Mech fall Mod malnut Asthma ME Sepsis due to Asp Pna COPD Exac - Plan Plan: Pt is on IV Zosyn and breathing tx. Sx and GI consulted for cholecystitis. Pt is POD # 1, open cholecystectomy. Fall prec. FU on cbc. Cardio consulted for sx clearance. Loose stools resolved. Nutritional Asmnt/Malnutr-PDOC - Dietary Evaluation Malnutrition Findings (Please click <Entered> for more info): Nutritional Asmnt/Malnutrition Start: 05/12/17 17: 42 Text: Status: Complete Freq: Document 05/12/17 17:43 LCHENG (Rec: 05/12/17 17:59 LCHENG [email or web address]) Nutritional Asmnt/Malnutrition Patient General Information Nutritional Screening High Risk Consult Diagnosis syncope Pertinent Medical Hx/Surgical Hx asthma, HTN, dyslipidemia, arthritis Subjective Information Consult received for no appetite to eat. Pt seen lying in bed at time of visit, awake and alert. Pt reported appetite has been poor d/t sick and it was little bit better today. Pt denied chewing problem. Food preference provided. Per RN, pt had no PO intake in the past 5 days, spited out food according to pt . Pt only had fruit and juice for breakfast. Pt was now on NPO during lunch time for U/S. Current Diet Order/ Nutrition Support regular Pertinent Medications colace, piperacillin, nacl 0.9 % Pertinent Labs 05/12 Na 139, K 3.1, Cl 102, BUN 17, Cr 0.5, glucose 62 Ca 8.1 05/11 a1c 4.9 Nutritional Hx/Data Height 1.65 m Height (Calculated Centimeters) 165.1 Current Weight (lbs) 48.081 kg Weight (Calculated Kilograms) 48.1 Weight (Calculated Grams) 25050.8 [place] Body Weight 136 Body Mass Index (BMI) 17.6 Weight Status Underweight GI Symptoms GI Symptoms None Last BM none Difficult in: None Skin Integrity/Comment: bruise to left hip and left upper arm Estimated Nutritional Goals BEE in Kcals: Using Current wt Calories/Kcals/Kg 30-35 Kcals Calculated 6870-1155 Protein: Using Current wt Protein g/k.2-1.4 Protein Calculated 58-67 Fluid: ml 1440-1680ml (1ml/kcal) Nutritional Problem 1. Problem Problem inadequate food intake Etiology poor appetite Signs/Symptoms: poor PO intake x 6 days Intervention/Recommendation Comments 1. Continue with current diet as ordered. If PO continue new , consider adding Boost BID to increased nutrition intake. 2. Monitor PO intake, wt, labs and skin integrity 3. F/U as high risk in 2-3 days, 05/14-05/15 Expected Outcomes/Goals Expected Outcomes/Goals 1. PO intake to meet at least 75% of nutritional needs. 2. Wt stability, skin to remain intact, labs to approach WNL.
--- NOTE | 2017-05-18 10:44 | General Progress Note ---
Subjective - Review of Systems Service Date: 05/18/17 Events since last encounter: labs noted clear to full liquids Objective - Results Result Diagrams: 05/18/17 06:30 05/18/17 06:30 Recent Labs: Laboratory Last Values WBC 32.2 Th/cmm (4.8-10.8) H* D 05/18/17 06:30 RBC 3.36 Mil/cmm (3.80-5.80) L 05/18/17 06:30 Hgb 11.1 gm/dL (12-16) L 05/18/17 06:30 Hct 32.4 % (41.0-60) L 05/18/17 06:30 MCV 96.2 fl (80-99) 05/18/17 06:30 MCH 32.9 pg (27.0-31.0) H 05/18/17 06:30 MCHC Differential 34.2 pg (28.0-36.0) 05/18/17 06:30 RDW 14.6 % (11.5-20.0) 05/18/17 06:30 Plt Count 321 Th/cmm (150-400) D 05/18/17 06:30 MPV 8.4 fl 05/18/17 06:30 Neutrophils % 94.1 % (40.0-80.0) H 05/18/17 06:30 Band Neutrophils % 3 % (0-10) 05/17/17 18:55 Lymphocytes % 1.9 % (20.0-50.0) L 05/18/17 06:30 Monocytes % 3.9 % (2.0-10.0) 05/18/17 06:30 Eosinophils % 0.1 % (0.0-5.0) 05/18/17 06:30 Basophils % 0.0 % (0.0-2.0) 05/18/17 06:30 Neutrophils (Manual) 93 % (40-80) H 05/17/17 18:55 Lymphocytes 2 % (20-50) L 05/17/17 18:55 Monocytes 2 % (2-10) 05/17/17 18:55 Eosinophils 0 % (0-5) 05/17/17 18:55 Basophils 0 % (0-3) 05/17/17 18:55 Platelet Estimate ADEQUATE (NORMAL) 05/15/17 05:30 PT 10.9 SECONDS (9.5-11.5) 05/17/17 05:45 INR 1.05 (0.5-1.4) 05/17/17 05:45 PTT (Actin FS) 29.6 SECONDS (26.0-38.0) 05/17/17 05:45 Specimen Source Arterial 05/12/17 08:50 Sample Site RB 05/12/17 08:50 pH 7.38 (7.35-7.45) 05/12/17 08:50 pCO2 46.0 mmHg (35.0-45.0) H 05/12/17 08:50 pO2 86.0 mmHg (80.0-100.0) 05/12/17 08:50 HCO3 26.1 mEq/L (20.0-26.0) H 05/12/17 08:50 Base Excess 1.6 mEq/L (-3.0-3.0) 05/12/17 08:50 O2 Saturation 96.0 % (92.0-100.0) 05/12/17 08:50 Idris Test NA 05/12/17 08:50 Vent Rate NA 05/12/17 08:50 Inspired O2 28 05/12/17 08:50 Tidal Volume NA 05/12/17 08:50 PEEP NA 05/12/17 08:50 Pressure (ins/psv/peep) NA 05/12/17 08:50 Critical Value E.MCPHERSON 05/12/17 08:50 Sodium 139 mEq/L (136-145) 05/18/17 06:30 Potassium 3.3 mEq/L (3.5-5.1) L 05/18/17 06:30 Chloride 100 mEq/L (98-107) 05/18/17 06:30 Carbon Dioxide 31.0 mEq/L (21.0-31.0) 05/18/17 06:30 Anion Gap 11.3 (7.0-16.0) 05/18/17 06:30 BUN 10 mg/dL (7-25) 05/18/17 06:30 Creatinine 0.7 mg/dL (0.7-1.3) 05/18/17 06:30 Est GFR ( Amer) TNP 05/18/17 06:30 Est GFR (Non-Af Amer) TNP 05/18/17 06:30 BUN/Creatinine Ratio 14.3 05/18/17 06:30 Glucose 183 mg/dL (70-105) H 05/18/17 06:30 POC Glucose 72 MG/DL (70 - 105) 05/17/17 06:31 Hemoglobin A1c % 4.9 % (4.0-6.0) 05/11/17 16:40 Whole Bld Lactic Acid 1.00 mmol/L (0.60-1.99) 05/11/17 16:40 Calcium 6.4 mg/dL (8.6-10.3) L 05/18/17 06:30 Magnesium 1.9 mg/dL (1.9-2.7) 05/11/17 16:40 Total Bilirubin 0.8 mg/dL (0.3-1.0) 05/18/17 06:30 Direct Bilirubin 0.44 mg/dL (0.0-0.2) H 05/13/17 06:05 AST 86 U/L (13-39) H 05/18/17 06:30 ALT 26 U/L (7-52) 05/18/17 06:30 Alkaline Phosphatase 51 U/L (34-104) 05/18/17 06:30 Creatine Kinase 34 U/L (30-223) 05/11/17 16:40 Troponin I < 0.01 ng/mL (0.01-0.05) L 05/11/17 16:40 B-Natriuretic Peptide 120.0 pg/mL (5.0-100.0) H 05/11/17 16:40 Total Protein 5.0 gm/dL (6.0-8.3) L 05/18/17 06:30 Albumin 2.1 gm/dL (4.2-5.5) L 05/18/17 06:30 Globulin 2.9 gm/dL 05/18/17 06:30 Albumin/Globulin Ratio 0.7 (1.0-1.8) L 05/18/17 06:30 Triglycerides 112 mg/dL (<150) 05/11/17 16:40 Cholesterol 84 mg/dL (<200) 05/11/17 16:40 LDL Cholesterol Direct 57 mg/dL (75-193) L 05/11/17 16:40 HDL Cholesterol 18 mg/dL (23-92) L 05/11/17 16:40 Amylase 70 U/L (29-103) 05/11/17 16:40 Lipase 109 U/L (11-82) H 05/11/17 16:40 Urine Source CLEAN C 05/11/17 17:15 Urine Color YELLOW 05/11/17 17:15 Urine Clarity CLEAR (CLEAR) 05/11/17 17:15 Urine pH 6.0 (4.6 - 8.0) 05/11/17 17:15 Ur Specific [place] 1.015 (1.005-1.030) 05/11/17 17:15 Urine Protein TRACE mg/dL (NEGATIVE) 05/11/17 17:15 Urine Glucose (UA) NEGATIVE mg/dL (NEGATIVE) 05/11/17 17:15 Urine Ketones >=80 mg/dL (NEGATIVE) H 05/11/17 17:15 Urine Blood TRACE (NEGATIVE) 05/11/17 17:15 Urine Nitrate NEGATIVE (NEGATIVE) 05/11/17 17:15 Urine Bilirubin MODERATE (NEGATIVE) H 05/11/17 17:15 Urine Urobilinogen 4.0 E.U./dL (0.2 - 1.0) H 05/11/17 17:15 Ur Leukocyte Esterase NEGATIVE (NEGATIVE) 05/11/17 17:15 Urine RBC 2-5 /hpf (0-5) H 05/11/17 17:15 Urine WBC NONE SEEN /hpf (0-5) 05/11/17 17:15 Ur Epithelial Cells NONE SEEN /lpf (FEW) 05/11/17 17:15 Urine Bacteria NONE SEEN /hpf (NONE SEEN) 05/11/17 17:15 - Physical Exam Vitals and I&O: Vital Signs Temp 97.3 F 05/18/17 04:00 Pulse 101 05/18/17 04:00 Resp 18 05/18/17 04:00 BP 110/73 05/18/17 04:00 Pulse Ox 95 05/18/17 04:00 Intake & Output 05/17/17 05/18/17 05/18/17 18:59 06:59 18:59 Intake Total 755.423 7134.667 Output Total 275 Balance 157.333 767.667 Weight (lbs) 52.526 kg Intake: Intake, IV Amount 157.333 992.667 D5-0.9%Ns 1,000 ml @ 70 107.333 892.667 mls/hr IV .[id number] [facility] Rx #:[id number] Piperacillin Sodium/ 50 100 Tazobact 2.25 gm In Sodium Chloride 0.9% 50 ml @ 100 mls/hr IV Q6HR [facility] Rx#:[id number] Oral 50 Output: Drainage 275 Abdomen 275 Other: # Voids 1 Weight Source Bedscale Active Medications: Current Medications Acetaminophen (Tylenol) 650 mg PO Q6H PRN PRN Reason: HEADACHE/TEMP ABOVE 100F Stop: 07/10/17 18:41 Albuterol/Ipratropium (Duoneb Neb) 3 ml HHN Q4HRT PRN PRN Reason: sob Stop: 07/11/17 10:59 Last Admin: 05/12/17 19:25 Dose: 3 ml Potassium Chloride 40 meq/Lidocaine HCl 25 mg/ Sodium Chloride 272.5 mls @ 68 mls/hr IV DAILY PRN PRN Reason: k level less than 3.2 Stop: 07/10/17 18:41 Last Admin: 05/15/17 08:47 Dose: 68 mls/hr Piperacillin Sod/Tazobactam (Sod 2.25 gm/ Sodium Chloride) 50 mls @ 100 mls/hr IV Q6HR [facility] Stop: 07/11/17 08:44 Last Admin: 05/18/17 05:00 Dose: 100 mls/hr Dextrose/Sodium Chloride (D5-0.9%Ns) 1,000 mls @ 70 mls/hr IV .[id number] [facility] Stop: 07/16/17 05:07 Last Admin: 05/18/17 04:57 Dose: 70 mls/hr Lorazepam (Ativan) 1 mg IVP Q4HR PRN; Protocol PRN Reason: Anxiety Stop: 07/10/17 18:41 Magnesium Oxide (Mag-Oxide) 400 mg PO BID PRN PRN Reason: Mg less than 1.9 Stop: 07/10/17 18:41 Miscellaneous (Zosyn Iv Per Pharmacy) 1 ea MC PRN PRN PRN Reason: PROTOCOL Stop: 07/11/17 07:44 Miscellaneous (Probiotic Screen) 1 ea MC PRN PRN PRN Reason: PROTOCOL Stop: 07/12/17 12:59 Morphine Sulfate (Morphine) 1 mg IVP Q4HR PRN PRN Reason: Severe Pain Stop: 07/10/17 18:41 Last Admin: 05/17/17 23:16 Dose: 1 mg Ondansetron HCl (Zofran) 4 mg IVP Q6H PRN PRN Reason: Nausea / Vomiting Stop: 07/10/17 18:41 Last Admin: 05/17/17 23:16 Dose: 4 mg Potassium Chloride (Klor-Con) 40 meq PO DAILY PRN PRN Reason: k level less than 3.5 Stop: 07/10/17 18:41 Last Admin: 05/15/17 13:20 Dose: 40 meq General: Alert, Cooperative, Mild distress HEENT: Atraumatic, PERRLA, EOMI Neck: Supple, no JVD, no Thyromegaly Cardiovascular: Regular rate, Normal S1 Lungs: Other (has rales bl) Abdomen: Soft, Tender, Other (has some tenderness, no guard or rebound) Neurological: Normal speech - Procedures Procedures: Procedures Procedure Code Date REMOVAL OF GALLBLADDER 10496 05/11/17 RESECTION OF GALLBLADDER, OPEN APPROACH [id number] 05/11/17 Assessment/Plan - Problem List Patient Problems: All Active Problems FREQUENT FALLS WITH POOR APPETITE (Acute) Nutritional Asmnt/Malnutr-PDOC - Dietary Evaluation Malnutrition Findings (Please click <Entered> for more info): Nutritional Asmnt/Malnutrition Start: 05/12/17 17: 42 Text: Status: Complete Freq: Document 05/12/17 17:43 LCHENG (Rec: 05/12/17 17:59 LCHENG [email or web address]) Nutritional Asmnt/Malnutrition Patient General Information Nutritional Screening High Risk Consult Diagnosis syncope Pertinent Medical Hx/Surgical Hx asthma, HTN, dyslipidemia, arthritis Subjective Information Consult received for no appetite to eat. Pt seen lying in bed at time of visit, awake and alert. Pt reported appetite has been poor d/t sick and it was little bit better today. Pt denied chewing problem. Food preference provided. Per RN, pt had no PO intake in the past 5 days, spited out food according to pt . Pt only had fruit and juice for breakfast. Pt was now on NPO during lunch time for U/S. Current Diet Order/ Nutrition Support regular Pertinent Medications colace, piperacillin, nacl 0.9 % Pertinent Labs 05/12 Na 139, K 3.1, Cl 102, BUN 17, Cr 0.5, glucose 62 Ca 8.1 05/11 a1c 4.9 Nutritional Hx/Data Height 1.65 m Height (Calculated Centimeters) 165.1 Current Weight (lbs) 48.081 kg Weight (Calculated Kilograms) 48.1 Weight (Calculated Grams) 91273.8 [place] Body Weight 136 Body Mass Index (BMI) 17.6 Weight Status Underweight GI Symptoms GI Symptoms None Last BM none Difficult in: None Skin Integrity/Comment: bruise to left hip and left upper arm Estimated Nutritional Goals BEE in Kcals: Using Current wt Calories/Kcals/Kg 30-35 Kcals Calculated 4787-5240 Protein: Using Current wt Protein g/k.2-1.4 Protein Calculated 58-67 Fluid: ml 1440-1680ml (1ml/kcal) Nutritional Problem 1. Problem Problem inadequate food intake Etiology poor appetite Signs/Symptoms: poor PO intake x 6 days Intervention/Recommendation Comments 1. Continue with current diet as ordered. If PO continue new , consider adding Boost BID to increased nutrition intake. 2. Monitor PO intake, wt, labs and skin integrity 3. F/U as high risk in 2-3 days, 05/14-05/15 Expected Outcomes/Goals Expected Outcomes/Goals 1. PO intake to meet at least 75% of nutritional needs. 2. Wt stability, skin to remain intact, labs to approach WNL.
--- NOTE | 2017-05-18 15:33 | Pathology Report ---
[id number] Collection Date: 05/17/2017 Surgeon: Dr. Oliverio Marquez Specimen Description: Gallbladder Gross Description: Received in formalin is a 10 x 4.5 x 2.5 cm enlarged gallbladder showing fibrous adhesions on the outer surface of the specimen. Opening the gallbladder shows multiple dark green gallstones, measuring up to 0.6 cm. The gallbladder wall ranges from 0.4 to 1.2 cm in thickness and shows diffuse mucosal ulceration with inflammatory exudate. [employer] sections are submitted in two cassettes labeled A1 and A2. Microscopic Description: The histologic sections show gallbladder wall with extensive mucosal ulceration and acute and chronic inflammation, consisting of increased numbers of neutrophils admixed with lymphocytes and plasma cells, with areas of necrosis also appreciated. Diagnosis: Acute cholecystitis with extensive mucosal ulceration and necrosis. [facility]# [id number] [id number]
[2017-05-19] MEDS: Piperacillin/Tazobact 2.25 gm in 0.9% NS 50 ML IV SCH ×4 (06:01→23:57)
[2017-05-19 06:56] LABS: HEMATOCRIT 27.8 % (41.0-60); HEMOGLOBIN 9.4 gm/dL (12-16); MEAN CELL VOLUME 97.3 fl (80-99); MEAN CORPUSCULAR HEMOGLOBIN 32.9 pg (27.0-31.0); MEAN CORPUSCULAR HGB CONC 33.8 pg (28.0-36.0); MEAN PLATELET VOLUME 8.5 fl; PLATELET COUNT 328 Th/cmm (150-400); RED BLOOD COUNT 2.85 Mil/cmm (3.80-5.80); RED CELL DISTRIBUTION WIDTH 14.5 % (11.5-20.0)
[2017-05-19 07:06] LABS: % EOSINOPHILS 0.2 % (0.0-5.0); % MONOCYTES 4.1 % (2.0-10.0); % NEUTROPHILS 92.7 % (40.0-80.0); EOSINOPHILE ABSOLUTE 0.1 Th/cmm (0.1-0.4); LYMPHOCYTE ABSOLUTE 0.9 Th/cmm (1.5-3.0); MONOCYTE ABSOLUTE 1.2 Th/cmm (0.3-1.0); NEUTROPHILE ABSOLUTE 27.9 Th/cmm (1.8-8.0); WHITE BLOOD COUNT 30.1 Th/cmm (4.8-10.8)
[2017-05-19 07:16] LABS: ALB/GLOB RATIO 0.7 (1.0-1.8); ALBUMIN 2.1 gm/dL (4.2-5.5); ALKALINE PHOSPHATASE 61 U/L (34-104); ANION GAP 9.9 (7.0-16.0); BILIRUBIN,TOTAL 0.6 mg/dL (0.3-1.0); BUN - UREA NITROGEN 12 mg/dL (7-25); CALCIUM SERUM 6.5 mg/dL (8.6-10.3); CARBON DIOXIDE 31.2 mEq/L (21.0-31.0); CHLORIDE 102 mEq/L (98-107); CREATININE - SERUM 0.6 mg/dL (0.7-1.3); GLUCOSE 130 mg/dL (70-105); POTASSIUM SERUM 3.1 mEq/L (3.5-5.1); SGOT 33 U/L (13-39); SGPT/ALT 19 U/L (7-52); SODIUM SERUM 140 mEq/L (136-145)
[2017-05-19] MEDS: Potassium Chloride 40 MEQ, Lidocaine 1% 20mL Vial 25 MG in Sodium Chloride 0.9% 250 ML IV PRN (08:50)
--- NOTE | 2017-05-19 09:12 | General Progress Note ---
Subjective - Review of Systems Service Date: 05/19/17 Events since last encounter: WBC down, consult ID - DFam Avalos tolerating diet Objective - Results Result Diagrams: 05/19/17 06:30 05/19/17 06:30 Recent Labs: Laboratory Last Values WBC 30.1 Th/cmm (4.8-10.8) H* 05/19/17 06:30 RBC 2.85 Mil/cmm (3.80-5.80) L 05/19/17 06:30 Hgb 9.4 gm/dL (12-16) L 05/19/17 06:30 Hct 27.8 % (41.0-60) L 05/19/17 06:30 MCV 97.3 fl (80-99) 05/19/17 06:30 MCH 32.9 pg (27.0-31.0) H 05/19/17 06:30 MCHC Differential 33.8 pg (28.0-36.0) 05/19/17 06:30 RDW 14.5 % (11.5-20.0) 05/19/17 06:30 Plt Count 328 Th/cmm (150-400) 05/19/17 06:30 MPV 8.5 fl 05/19/17 06:30 Neutrophils % 92.7 % (40.0-80.0) H 05/19/17 06:30 Band Neutrophils % 3 % (0-10) 05/17/17 18:55 Lymphocytes % 3.0 % (20.0-50.0) L 05/19/17 06:30 Monocytes % 4.1 % (2.0-10.0) 05/19/17 06:30 Eosinophils % 0.2 % (0.0-5.0) 05/19/17 06:30 Basophils % 0.0 % (0.0-2.0) 05/19/17 06:30 Neutrophils (Manual) 93 % (40-80) H 05/17/17 18:55 Lymphocytes 2 % (20-50) L 05/17/17 18:55 Monocytes 2 % (2-10) 05/17/17 18:55 Eosinophils 0 % (0-5) 05/17/17 18:55 Basophils 0 % (0-3) 05/17/17 18:55 Platelet Estimate ADEQUATE (NORMAL) 05/15/17 05:30 PT 10.9 SECONDS (9.5-11.5) 05/17/17 05:45 INR 1.05 (0.5-1.4) 05/17/17 05:45 PTT (Actin FS) 29.6 SECONDS (26.0-38.0) 05/17/17 05:45 Specimen Source Arterial 05/12/17 08:50 Sample Site RB 05/12/17 08:50 pH 7.38 (7.35-7.45) 05/12/17 08:50 pCO2 46.0 mmHg (35.0-45.0) H 05/12/17 08:50 pO2 86.0 mmHg (80.0-100.0) 05/12/17 08:50 HCO3 26.1 mEq/L (20.0-26.0) H 05/12/17 08:50 Base Excess 1.6 mEq/L (-3.0-3.0) 05/12/17 08:50 O2 Saturation 96.0 % (92.0-100.0) 05/12/17 08:50 Idris Test NA 05/12/17 08:50 Vent Rate NA 05/12/17 08:50 Inspired O2 28 05/12/17 08:50 Tidal Volume NA 05/12/17 08:50 PEEP NA 05/12/17 08:50 Pressure (ins/psv/peep) NA 05/12/17 08:50 Critical Value E.MCPHERSON 05/12/17 08:50 Sodium 140 mEq/L (136-145) 05/19/17 06:30 Potassium 3.1 mEq/L (3.5-5.1) L 05/19/17 06:30 Chloride 102 mEq/L (98-107) 05/19/17 06:30 Carbon Dioxide 31.2 mEq/L (21.0-31.0) H 05/19/17 06:30 Anion Gap 9.9 (7.0-16.0) 05/19/17 06:30 BUN 12 mg/dL (7-25) 05/19/17 06:30 Creatinine 0.6 mg/dL (0.7-1.3) L 05/19/17 06:30 Est GFR ( Amer) TNP 05/19/17 06:30 Est GFR (Non-Af Amer) TNP 05/19/17 06:30 BUN/Creatinine Ratio 20.0 05/19/17 06:30 Glucose 130 mg/dL (70-105) H 05/19/17 06:30 POC Glucose 72 MG/DL (70 - 105) 05/17/17 06:31 Hemoglobin A1c % 4.9 % (4.0-6.0) 05/11/17 16:40 Whole Bld Lactic Acid 1.00 mmol/L (0.60-1.99) 05/11/17 16:40 Calcium 6.5 mg/dL (8.6-10.3) L 05/19/17 06:30 Magnesium 1.9 mg/dL (1.9-2.7) 05/11/17 16:40 Total Bilirubin 0.6 mg/dL (0.3-1.0) 05/19/17 06:30 Direct Bilirubin 0.44 mg/dL (0.0-0.2) H 05/13/17 06:05 AST 33 U/L (13-39) 05/19/17 06:30 ALT 19 U/L (7-52) 05/19/17 06:30 Alkaline Phosphatase 61 U/L (34-104) 05/19/17 06:30 Creatine Kinase 34 U/L (30-223) 05/11/17 16:40 Troponin I < 0.01 ng/mL (0.01-0.05) L 05/11/17 16:40 B-Natriuretic Peptide 120.0 pg/mL (5.0-100.0) H 05/11/17 16:40 Total Protein 5.0 gm/dL (6.0-8.3) L 05/19/17 06:30 Albumin 2.1 gm/dL (4.2-5.5) L 05/19/17 06:30 Globulin 2.9 gm/dL 05/19/17 06:30 Albumin/Globulin Ratio 0.7 (1.0-1.8) L 05/19/17 06:30 Triglycerides 112 mg/dL (<150) 05/11/17 16:40 Cholesterol 84 mg/dL (<200) 05/11/17 16:40 LDL Cholesterol Direct 57 mg/dL (75-193) L 05/11/17 16:40 HDL Cholesterol 18 mg/dL (23-92) L 05/11/17 16:40 Amylase 70 U/L (29-103) 05/11/17 16:40 Lipase 109 U/L (11-82) H 05/11/17 16:40 Urine Source CLEAN C 05/11/17 17:15 Urine Color YELLOW 05/11/17 17:15 Urine Clarity CLEAR (CLEAR) 05/11/17 17:15 Urine pH 6.0 (4.6 - 8.0) 05/11/17 17:15 Ur Specific [place] 1.015 (1.005-1.030) 05/11/17 17:15 Urine Protein TRACE mg/dL (NEGATIVE) 05/11/17 17:15 Urine Glucose (UA) NEGATIVE mg/dL (NEGATIVE) 05/11/17 17:15 Urine Ketones >=80 mg/dL (NEGATIVE) H 05/11/17 17:15 Urine Blood TRACE (NEGATIVE) 05/11/17 17:15 Urine Nitrate NEGATIVE (NEGATIVE) 05/11/17 17:15 Urine Bilirubin MODERATE (NEGATIVE) H 05/11/17 17:15 Urine Urobilinogen 4.0 E.U./dL (0.2 - 1.0) H 05/11/17 17:15 Ur Leukocyte Esterase NEGATIVE (NEGATIVE) 05/11/17 17:15 Urine RBC 2-5 /hpf (0-5) H 05/11/17 17:15 Urine WBC NONE SEEN /hpf (0-5) 05/11/17 17:15 Ur Epithelial Cells NONE SEEN /lpf (FEW) 05/11/17 17:15 Urine Bacteria NONE SEEN /hpf (NONE SEEN) 05/11/17 17:15 - Physical Exam Vitals and I&O: Vital Signs Temp 97.6 F 05/19/17 04:00 Pulse 99 05/19/17 07:38 Resp 20 05/19/17 07:38 BP 127/60 05/19/17 04:00 Pulse Ox 96 05/19/17 07:38 Intake & Output 05/18/17 05/19/17 05/19/17 18:59 06:59 18:59 Intake Total 100 1100 Output Total 25 Balance 100 1075 Weight (lbs) 52.163 kg Intake: Intake, IV Amount 100 1050 D5-0.9%Ns 1,000 ml @ 70 1000 mls/hr IV .[id number] [facility] Rx #:[id number] Piperacillin Sodium/ 100 50 Tazobact 2.25 gm In Sodium Chloride 0.9% 50 ml @ 100 mls/hr IV Q6HR [facility] Rx#:[id number] Oral 50 Output: Drainage 25 Abdomen 25 Other: # Voids 4 # Bowel Movements 0 Weight Source Bedscale Active Medications: Current Medications Acetaminophen (Tylenol) 650 mg PO Q6H PRN PRN Reason: HEADACHE/TEMP ABOVE 100F Stop: 07/10/17 18:41 Last Admin: 05/19/17 08:55 Dose: 650 mg Albuterol/Ipratropium (Duoneb Neb) 3 ml HHN Q4HRT PRN PRN Reason: sob Stop: 07/11/17 10:59 Last Admin: 05/12/17 19:25 Dose: 3 ml Potassium Chloride 40 meq/Lidocaine HCl 25 mg/ Sodium Chloride 272.5 mls @ 68 mls/hr IV DAILY PRN PRN Reason: k level less than 3.2 Stop: 07/10/17 18:41 Last Admin: 05/19/17 08:50 Dose: 68 mls/hr Piperacillin Sod/Tazobactam (Sod 2.25 gm/ Sodium Chloride) 50 mls @ 100 mls/hr IV Q6HR [facility] Stop: 07/11/17 08:44 Last Admin: 05/19/17 06:01 Dose: 100 mls/hr Dextrose/Sodium Chloride (D5-0.9%Ns) 1,000 mls @ 70 mls/hr IV .[id number] [facility] Stop: 07/16/17 05:07 Last Admin: 05/18/17 23:00 Dose: 70 mls/hr Magnesium Oxide (Mag-Oxide) 400 mg PO BID PRN PRN Reason: Mg less than 1.9 Stop: 07/10/17 18:41 Miscellaneous (Zosyn Iv Per Pharmacy) 1 ea PRN PRN PRN Reason: PROTOCOL Stop: 07/11/17 07:44 Miscellaneous (Probiotic Screen) 1 ea MC PRN PRN PRN Reason: PROTOCOL Stop: 07/12/17 12:59 Morphine Sulfate (Morphine) 1 mg IVP Q4HR PRN PRN Reason: Severe Pain Stop: 07/10/17 18:41 Last Admin: 05/17/17 23:16 Dose: 1 mg Ondansetron HCl (Zofran) 4 mg IVP Q6H PRN PRN Reason: Nausea / Vomiting Stop: 07/10/17 18:41 Last Admin: 05/17/17 23:16 Dose: 4 mg Potassium Chloride (Klor-Con) 40 meq PO DAILY PRN PRN Reason: k level less than 3.5 Stop: 07/10/17 18:41 Last Admin: 05/15/17 13:20 Dose: 40 meq General: Alert, Cooperative, Mild distress HEENT: Atraumatic, PERRLA, EOMI Neck: Supple, no JVD, no Thyromegaly Cardiovascular: Regular rate, Normal S1 Lungs: Other (has rales bl) Abdomen: Soft, Tender, Other (has some tenderness, no guard or rebound) Neurological: Normal speech - Procedures Procedures: Procedures Procedure Code Date REMOVAL OF GALLBLADDER 95008 05/11/17 RESECTION OF GALLBLADDER, OPEN APPROACH [id number] 05/11/17 Assessment/Plan - Problem List Patient Problems: All Active Problems FREQUENT FALLS WITH POOR APPETITE (Acute) Nutritional Asmnt/Malnutr-PDOC - Dietary Evaluation Malnutrition Findings (Please click <Entered> for more info): Nutritional Asmnt/Malnutrition Start: 05/12/17 17: 42 Text: Status: Complete Freq: Document 05/12/17 17:43 LCHENG (Rec: 05/12/17 17:59 LCHENG [email or web address]) Nutritional Asmnt/Malnutrition Patient General Information Nutritional Screening High Risk Consult Diagnosis syncope Pertinent Medical Hx/Surgical Hx asthma, HTN, dyslipidemia, arthritis Subjective Information Consult received for no appetite to eat. Pt seen lying in bed at time of visit, awake and alert. Pt reported appetite has been poor d/t sick and it was little bit better today. Pt denied chewing problem. Food preference provided. Per RN, pt had no PO intake in the past 5 days, spited out food according to pt . Pt only had fruit and juice for breakfast. Pt was now on NPO during lunch time for U/S. Current Diet Order/ Nutrition Support regular Pertinent Medications colace, piperacillin, nacl 0.9 % Pertinent Labs 05/12 Na 139, K 3.1, Cl 102, BUN 17, Cr 0.5, glucose 62 Ca 8.1 05/11 a1c 4.9 Nutritional Hx/Data Height 1.65 m Height (Calculated Centimeters) 165.1 Current Weight (lbs) 48.081 kg Weight (Calculated Kilograms) 48.1 Weight (Calculated Grams) 76350.8 [place] Body Weight 136 Body Mass Index (BMI) 17.6 Weight Status Underweight GI Symptoms GI Symptoms None Last BM none Difficult in: None Skin Integrity/Comment: bruise to left hip and left upper arm Estimated Nutritional Goals BEE in Kcals: Using Current wt Calories/Kcals/Kg 30-35 Kcals Calculated 3813-7788 Protein: Using Current wt Protein g/k.2-1.4 Protein Calculated 58-67 Fluid: ml 1440-1680ml (1ml/kcal) Nutritional Problem 1. Problem Problem inadequate food intake Etiology poor appetite Signs/Symptoms: poor PO intake x 6 days Intervention/Recommendation Comments 1. Continue with current diet as ordered. If PO continue new , consider adding Boost BID to increased nutrition intake. 2. Monitor PO intake, wt, labs and skin integrity 3. F/U as high risk in 2-3 days, 05/14-05/15 Expected Outcomes/Goals Expected Outcomes/Goals 1. PO intake to meet at least 75% of nutritional needs. 2. Wt stability, skin to remain intact, labs to approach WNL.
--- NOTE | 2017-05-19 09:32 | General Progress Note ---
Subjective - Review of Systems Service Date: 05/19/17 Subjective: Pt seen and eval. In bed. Has some abd pain at times. No n,v,d or fevers. No chills. No cough. No dysuria. No falls or sz. No headaches. Being seen by GI and Sx. Loose stools resolved. Colace held. POD # 2 for gangrenous cholecycstitis-open braden. Objective - Results Result Diagrams: 05/19/17 06:30 05/19/17 06:30 Recent Labs: Laboratory Last Values WBC 30.1 Th/cmm (4.8-10.8) H* 05/19/17 06:30 RBC 2.85 Mil/cmm (3.80-5.80) L 05/19/17 06:30 Hgb 9.4 gm/dL (12-16) L 05/19/17 06:30 Hct 27.8 % (41.0-60) L 05/19/17 06:30 MCV 97.3 fl (80-99) 05/19/17 06:30 MCH 32.9 pg (27.0-31.0) H 05/19/17 06:30 MCHC Differential 33.8 pg (28.0-36.0) 05/19/17 06:30 RDW 14.5 % (11.5-20.0) 05/19/17 06:30 Plt Count 328 Th/cmm (150-400) 05/19/17 06:30 MPV 8.5 fl 05/19/17 06:30 Neutrophils % 92.7 % (40.0-80.0) H 05/19/17 06:30 Band Neutrophils % 3 % (0-10) 05/17/17 18:55 Lymphocytes % 3.0 % (20.0-50.0) L 05/19/17 06:30 Monocytes % 4.1 % (2.0-10.0) 05/19/17 06:30 Eosinophils % 0.2 % (0.0-5.0) 05/19/17 06:30 Basophils % 0.0 % (0.0-2.0) 05/19/17 06:30 Neutrophils (Manual) 93 % (40-80) H 05/17/17 18:55 Lymphocytes 2 % (20-50) L 05/17/17 18:55 Monocytes 2 % (2-10) 05/17/17 18:55 Eosinophils 0 % (0-5) 05/17/17 18:55 Basophils 0 % (0-3) 05/17/17 18:55 Platelet Estimate ADEQUATE (NORMAL) 05/15/17 05:30 PT 10.9 SECONDS (9.5-11.5) 05/17/17 05:45 INR 1.05 (0.5-1.4) 05/17/17 05:45 PTT (Actin FS) 29.6 SECONDS (26.0-38.0) 05/17/17 05:45 Specimen Source Arterial 05/12/17 08:50 Sample Site RB 05/12/17 08:50 pH 7.38 (7.35-7.45) 05/12/17 08:50 pCO2 46.0 mmHg (35.0-45.0) H 05/12/17 08:50 pO2 86.0 mmHg (80.0-100.0) 05/12/17 08:50 HCO3 26.1 mEq/L (20.0-26.0) H 05/12/17 08:50 Base Excess 1.6 mEq/L (-3.0-3.0) 05/12/17 08:50 O2 Saturation 96.0 % (92.0-100.0) 05/12/17 08:50 Idris Test NA 05/12/17 08:50 Vent Rate NA 05/12/17 08:50 Inspired O2 28 05/12/17 08:50 Tidal Volume NA 05/12/17 08:50 PEEP NA 05/12/17 08:50 Pressure (ins/psv/peep) NA 05/12/17 08:50 Critical Value E.MCPHERSON 05/12/17 08:50 Sodium 140 mEq/L (136-145) 05/19/17 06:30 Potassium 3.1 mEq/L (3.5-5.1) L 05/19/17 06:30 Chloride 102 mEq/L (98-107) 05/19/17 06:30 Carbon Dioxide 31.2 mEq/L (21.0-31.0) H 05/19/17 06:30 Anion Gap 9.9 (7.0-16.0) 05/19/17 06:30 BUN 12 mg/dL (7-25) 05/19/17 06:30 Creatinine 0.6 mg/dL (0.7-1.3) L 05/19/17 06:30 Est GFR ( Amer) TNP 05/19/17 06:30 Est GFR (Non-Af Amer) TNP 05/19/17 06:30 BUN/Creatinine Ratio 20.0 05/19/17 06:30 Glucose 130 mg/dL (70-105) H 05/19/17 06:30 POC Glucose 72 MG/DL (70 - 105) 05/17/17 06:31 Hemoglobin A1c % 4.9 % (4.0-6.0) 05/11/17 16:40 Whole Bld Lactic Acid 1.00 mmol/L (0.60-1.99) 05/11/17 16:40 Calcium 6.5 mg/dL (8.6-10.3) L 05/19/17 06:30 Magnesium 1.9 mg/dL (1.9-2.7) 05/11/17 16:40 Total Bilirubin 0.6 mg/dL (0.3-1.0) 05/19/17 06:30 Direct Bilirubin 0.44 mg/dL (0.0-0.2) H 05/13/17 06:05 AST 33 U/L (13-39) 05/19/17 06:30 ALT 19 U/L (7-52) 05/19/17 06:30 Alkaline Phosphatase 61 U/L (34-104) 05/19/17 06:30 Creatine Kinase 34 U/L (30-223) 05/11/17 16:40 Troponin I < 0.01 ng/mL (0.01-0.05) L 05/11/17 16:40 B-Natriuretic Peptide 120.0 pg/mL (5.0-100.0) H 05/11/17 16:40 Total Protein 5.0 gm/dL (6.0-8.3) L 05/19/17 06:30 Albumin 2.1 gm/dL (4.2-5.5) L 05/19/17 06:30 Globulin 2.9 gm/dL 05/19/17 06:30 Albumin/Globulin Ratio 0.7 (1.0-1.8) L 05/19/17 06:30 Triglycerides 112 mg/dL (<150) 05/11/17 16:40 Cholesterol 84 mg/dL (<200) 05/11/17 16:40 LDL Cholesterol Direct 57 mg/dL (75-193) L 05/11/17 16:40 HDL Cholesterol 18 mg/dL (23-92) L 05/11/17 16:40 Amylase 70 U/L (29-103) 05/11/17 16:40 Lipase 109 U/L (11-82) H 05/11/17 16:40 Urine Source CLEAN C 05/11/17 17:15 Urine Color YELLOW 05/11/17 17:15 Urine Clarity CLEAR (CLEAR) 05/11/17 17:15 Urine pH 6.0 (4.6 - 8.0) 05/11/17 17:15 Ur Specific [place] 1.015 (1.005-1.030) 05/11/17 17:15 Urine Protein TRACE mg/dL (NEGATIVE) 05/11/17 17:15 Urine Glucose (UA) NEGATIVE mg/dL (NEGATIVE) 05/11/17 17:15 Urine Ketones >=80 mg/dL (NEGATIVE) H 05/11/17 17:15 Urine Blood TRACE (NEGATIVE) 05/11/17 17:15 Urine Nitrate NEGATIVE (NEGATIVE) 05/11/17 17:15 Urine Bilirubin MODERATE (NEGATIVE) H 05/11/17 17:15 Urine Urobilinogen 4.0 E.U./dL (0.2 - 1.0) H 05/11/17 17:15 Ur Leukocyte Esterase NEGATIVE (NEGATIVE) 05/11/17 17:15 Urine RBC 2-5 /hpf (0-5) H 05/11/17 17:15 Urine WBC NONE SEEN /hpf (0-5) 05/11/17 17:15 Ur Epithelial Cells NONE SEEN /lpf (FEW) 05/11/17 17:15 Urine Bacteria NONE SEEN /hpf (NONE SEEN) 05/11/17 17:15 - Physical Exam Vitals and I&O: Vital Signs Temp 97.6 F 05/19/17 04:00 Pulse 99 05/19/17 07:38 Resp 20 05/19/17 07:38 BP 127/60 05/19/17 04:00 Pulse Ox 96 05/19/17 07:38 Intake & Output 05/18/17 05/19/17 05/19/17 18:59 06:59 18:59 Intake Total 100 1100 Output Total 25 Balance 100 1075 Weight (lbs) 52.163 kg Intake: Intake, IV Amount 100 1050 D5-0.9%Ns 1,000 ml @ 70 1000 mls/hr IV .[id number] [facility] Rx #:[id number] Piperacillin Sodium/ 100 50 Tazobact 2.25 gm In Sodium Chloride 0.9% 50 ml @ 100 mls/hr IV Q6HR [facility] Rx#:[id number] Oral 50 Output: Drainage 25 Abdomen 25 Other: # Voids 4 # Bowel Movements 0 Weight Source Bedscale Active Medications: Current Medications Acetaminophen (Tylenol) 650 mg PO Q6H PRN PRN Reason: HEADACHE/TEMP ABOVE 100F Stop: 07/10/17 18:41 Last Admin: 05/19/17 08:55 Dose: 650 mg Albuterol/Ipratropium (Duoneb Neb) 3 ml HHN Q4HRT PRN PRN Reason: sob Stop: 07/11/17 10:59 Last Admin: 05/12/17 19:25 Dose: 3 ml Potassium Chloride 40 meq/Lidocaine HCl 25 mg/ Sodium Chloride 272.5 mls @ 68 mls/hr IV DAILY PRN PRN Reason: k level less than 3.2 Stop: 07/10/17 18:41 Last Admin: 05/19/17 08:50 Dose: 68 mls/hr Piperacillin Sod/Tazobactam (Sod 2.25 gm/ Sodium Chloride) 50 mls @ 100 mls/hr IV Q6HR [facility] Stop: 07/11/17 08:44 Last Admin: 05/19/17 06:01 Dose: 100 mls/hr Dextrose/Sodium Chloride (D5-0.9%Ns) 1,000 mls @ 70 mls/hr IV .[id number] [facility] Stop: 07/16/17 05:07 Last Admin: 05/18/17 23:00 Dose: 70 mls/hr Magnesium Oxide (Mag-Oxide) 400 mg PO BID PRN PRN Reason: Mg less than 1.9 Stop: 07/10/17 18:41 Miscellaneous (Zosyn Iv Per Pharmacy) 1 ea MC PRN PRN PRN Reason: PROTOCOL Stop: 07/11/17 07:44 Miscellaneous (Probiotic Screen) 1 ea PRN PRN PRN Reason: PROTOCOL Stop: 07/12/17 12:59 Miscellaneous (Vancomycin Iv Per Pharmacy) 1 ea PRN PRN PRN Reason: PROTOCOL Stop: 07/18/17 09:29 Morphine Sulfate (Morphine) 1 mg IVP Q4HR PRN PRN Reason: Severe Pain Stop: 07/10/17 18:41 Last Admin: 05/17/17 23:16 Dose: 1 mg Ondansetron HCl (Zofran) 4 mg IVP Q6H PRN PRN Reason: Nausea / Vomiting Stop: 07/10/17 18:41 Last Admin: 05/17/17 23:16 Dose: 4 mg Potassium Chloride (Klor-Con) 40 meq PO DAILY PRN PRN Reason: k level less than 3.5 Stop: 07/10/17 18:41 Last Admin: 05/15/17 13:20 Dose: 40 meq General: Alert, Cooperative, No acute distress HEENT: Atraumatic, PERRLA, EOMI Neck: Supple, no JVD, no Thyromegaly Cardiovascular: Regular rate, Normal S1 Lungs: Other (has rales bl) Abdomen: Soft, Tender, Other (has some tenderness, no guard or rebound) Neurological: Normal speech - Procedures Procedures: Procedures Procedure Code Date REMOVAL OF GALLBLADDER 01128 05/11/17 RESECTION OF GALLBLADDER, OPEN APPROACH [id number] 05/11/17 Assessment/Plan - Problem List Patient Problems: All Active Problems FREQUENT FALLS WITH POOR APPETITE (Acute) - Assessment Assessment: Asp PNA Acute Cholecystitis-gangrenous Hypokalemia D/O of ANS due to syncope Mech fall Mod malnut Asthma ME Sepsis due to Asp Pna and gangrenous cholecystitis COPD Exac - Plan Plan: Pt is on IV Zosyn. Added Vanco. Dr. Avalos consulted for ID. Continue breathing tx. Sx and GI consulted for cholecystitis. Pt is POD # 2, open cholecystectomy. Fall prec. FU on cbc. Cardio consulted for sx clearance. Loose stools resolved. Nutritional Asmnt/Malnutr-PDOC - Dietary Evaluation Malnutrition Findings (Please click <Entered> for more info): Nutritional Asmnt/Malnutrition Start: 05/12/17 17: 42 Text: Status: Complete Freq: Document 05/12/17 17:43 LCHENG (Rec: 03/28/18 17:59 [facility] [id number]) Nutritional Asmnt/Malnutrition Patient General Information Nutritional Screening High Risk Consult Diagnosis syncope Pertinent Medical Hx/Surgical Hx asthma, HTN, dyslipidemia, arthritis Subjective Information Consult received for no appetite to eat. Pt seen lying in bed at time of visit, awake and alert. Pt reported appetite has been poor d/t sick and it was little bit better today. Pt denied chewing problem. Food preference provided. Per RN, pt had no PO intake in the past 5 days, spited out food according to pt . Pt only had fruit and juice for breakfast. Pt was now on NPO during lunch time for U/S. Current Diet Order/ Nutrition Support regular Pertinent Medications colace, piperacillin, nacl 0.9 % Pertinent Labs 05/12 Na 139, K 3.1, Cl 102, BUN 17, Cr 0.5, glucose 62 Ca 8.1 05/11 a1c 4.9 Nutritional Hx/Data Height 1.65 m Height (Calculated Centimeters) 165.1 Current Weight (lbs) 48.081 kg Weight (Calculated Kilograms) 48.1 Weight (Calculated Grams) 91104.8 [place] Body Weight 136 Body Mass Index (BMI) 17.6 Weight Status Underweight GI Symptoms GI Symptoms None Last BM none Difficult in: None Skin Integrity/Comment: bruise to left hip and left upper arm Estimated Nutritional Goals BEE in Kcals: Using Current wt Calories/Kcals/Kg 30-35 Kcals Calculated 9711-4326 Protein: Using Current wt Protein g/k.2-1.4 Protein Calculated 58-67 Fluid: ml 1440-1680ml (1ml/kcal) Nutritional Problem 1. Problem Problem inadequate food intake Etiology poor appetite Signs/Symptoms: poor PO intake x 6 days Intervention/Recommendation Comments 1. Continue with current diet as ordered. If PO continue new , consider adding Boost BID to increased nutrition intake. 2. Monitor PO intake, wt, labs and skin integrity 3. F/U as high risk in 2-3 days, 05/14-05/15 Expected Outcomes/Goals Expected Outcomes/Goals 1. PO intake to meet at least 75% of nutritional needs. 2. Wt stability, skin to remain intact, labs to approach WNL.
--- NOTE | 2017-05-19 23:29 | Consultation ---
Consult Note - Consult Note Service Date: 05/19/17 Referring Physician: Genny Cedeno Consult Note: PHYSICIAN Consultation Note: Date of Admission: 05/11/17 Purpose of Consultation: leukocytosis. Chief Complaint: Patient WINDY NUNO was admitted to location Medical[facility] Unit I with SYNCOPE. History of Present Illness: 86 year old malw with history of Protein zaina malnutrition COPD, hyperlipidemia, presented to the the er for syncope and frequent falls for last few days. On initial evaluation, his temperature was 97.4 degree F and WBC Count was 15,000. Baseline study revealed abnormal liver function test, furhter radiological studies revealed cholecystitis. Open cholecystectomy was performed as he had gangrenous cholecystitis, and GB was was stuck to the liver. Next day of surgery, the WBC count went up 47,000. Antivbiotics were cahnged to vanco IV and Zosyn. ID copnsult was called for antibiotic management. Past Medical History: Protein zaina malnutrition COPD, hyperlipidemia Diagnoses SEPSIS, UNSPECIFIED ORGANISM (05/11/17) MODERATE PROTEIN-CALORIE MALNUTRITION (05/11/17) HYPERLIPIDEMIA, UNSPECIFIED (05/11/17) HYPOKALEMIA (05/11/17) NICOTINE DEPENDENCE, CIGARETTES, UNCOMPLICATED (05/11/17) METABOLIC ENCEPHALOPATHY (05/11/17) CHRONIC OBSTRUCTIVE PULMONARY DISEASE W (ACUTE) EXACERBATION (05/11/17) UNSPECIFIED ASTHMA, UNCOMPLICATED (05/11/17) PNEUMONITIS DUE TO INHALATION OF FOOD AND VOMIT (05/11/17) CALCULUS OF GALLBLADDER W ACUTE CHOLECYST W/O OBSTRUCTION (05/11/17) UNSPECIFIED OSTEOARTHRITIS, UNSPECIFIED SITE (05/11/17) UNSTEADINESS ON FEET (05/11/17) SYNCOPE AND COLLAPSE (05/11/17) UNSPECIFIED FALL, INITIAL ENCOUNTER (05/11/17) DO NOT RESUSCITATE (05/11/17) Allergies Allergy/AdvReac Type Severity Reaction Status Date / Time No Known Allergies Allergy Verified 05/11/17 16:00 Vital Signs Temp 97 F 05/19/17 20:08 Pulse 88 05/19/17 20:08 Resp 18 05/19/17 20:08 BP 123/62 05/19/17 20:08 Pulse Ox 95 05/19/17 20:08 Intake & Output 05/19/17 05/19/17 05/20/17 06:59 18:59 06:59 Intake Total 1150 1310.167 Output Total 25 Balance 1125 1310.167 Weight (lbs) 52.163 kg Intake: Intake, IV Amount 1100 1310.167 D5-0.9%Ns 1,000 ml @ 70 1000 960.167 mls/hr IV .[id number] [facility] Rx #:[id number] Piperacillin Sodium/ 100 100 Tazobact 2.25 gm In Sodium Chloride 0.9% 50 ml @ 100 mls/hr IV Q6HR [facility] Rx#:[id number] Vancomycin HCl 1 gm In 250 Sodium Chloride 0.9% 250 ml @ 165 mls/hr IV Q24H [facility] Rx#:[id number] Oral 50 Output: Drainage 25 Abdomen 25 Other: # Voids 4 # Bowel Movements 0 Weight Source Bedscale Laboratory Results - last 24 hr 05/19/17 05/19/17 06:30 06:30 WBC 30.1 H* RBC 2.85 L Hgb 9.4 L Hct 27.8 L MCV 97.3 MCH 32.9 H MCHC Differential 33.8 RDW 14.5 Plt Count 328 MPV 8.5 Neutrophils % 92.7 H Lymphocytes % 3.0 L Monocytes % 4.1 Eosinophils % 0.2 Basophils % 0.0 Sodium 140 Potassium 3.1 L Chloride 102 Carbon Dioxide 31.2 H Anion Gap 9.9 BUN 12 Creatinine 0.6 L Est GFR ( Amer) TNP Est GFR (Non-Af Amer) TNP BUN/Creatinine Ratio 20.0 Glucose 130 H Calcium 6.5 L Total Bilirubin 0.6 AST 33 ALT 19 Alkaline Phosphatase 61 Total Protein 5.0 L Albumin 2.1 L Globulin 2.9 Albumin/Globulin Ratio 0.7 L Home Medication Medication Instructions Recorded Type Antihypercholesterolemia 1 tab PO HS 05/11/17 History Antihypertensive 1 tab PO DAILY 05/11/17 History Current Medications Generic Name Dose Route Start Last Admin Trade Name Freq PRN Reason Stop Dose Admin Acetaminophen 650 mg 05/11/17 18:42 05/19/17 08:55 Tylenol PO 07/10/17 18:41 650 mg Q6H PRN Administration HEADACHE/TEMP ABOVE 100F Albuterol/Ipratropium 3 ml 05/12/17 07:45 05/12/17 19:25 Duoneb Neb HHN 07/11/17 10:59 3 ml Q4HRT PRN Administration sob Potassium Chloride 40 meq/ 272.5 mls @ 68 mls/hr 05/11/17 18:42 05/19/17 08: 50 Lidocaine HCl 25 mg/ Sodium IV 07/10/17 18:41 68 mls/hr Chloride DAILY PRN Administration k level less than 3.2 Piperacillin Sod/Tazobactam 50 mls @ 100 mls/hr 05/12/17 08:45 05/19/17 18:00 Sod 2.25 gm/ Sodium Chloride IV 07/11/17 08:44 Infused Q6HR [facility] Infusion Dextrose/Sodium Chloride 1,000 mls @ 70 mls/hr 05/17/17 05:08 05/19/17 12:43 D5-0.9%Ns IV 07/16/17 05:07 0 mls/hr .[id number] [facility] Infusion Vancomycin HCl 1 gm/ Sodium 250 mls @ 165 mls/hr 05/19/17 12:00 05/19/17 14: 15 Chloride IV 07/18/17 11:59 Infused Q24H [facility] In[facility] Magnesium Oxide 400 mg 05/11/17 18:42 Mag-Oxide PO 07/10/17 18:41 BID PRN Mg less than 1.9 Miscellaneous 1 05/12/17 07:45 Zosyn Iv Per Pharmacy 07/11/17 07:44 PRN PRN PROTOCOL Miscellaneous 1 05/13/17 13:00 Probiotic Screen 07/12/17 12:59 PRN PRN PROTOCOL Miscellaneous 1 05/19/17 09:30 Vancomycin Iv Per Pharmacy 07/18/17 09:29 PRN PRN PROTOCOL Morphine Sulfate 1 mg 05/17/17 15:07 05/17/17 23:16 Morphine IVP 07/10/17 18:41 1 mg Q4HR PRN Administration Severe Pain Ondansetron HCl 4 mg 05/11/17 18:42 05/19/17 11:51 Zofran IVP 07/10/17 18:41 4 mg Q6H PRN Administration Nausea / Vomiting Potassium Chloride 40 meq 05/11/17 18:42 05/15/17 13:20 Klor-Con PO 07/10/17 18:41 40 meq DAILY PRN Administration k level less than 3.5 Review of Systems: A 12 point ROS was reviewed with the pertinent positive and negatives noted in the HPI. Social History Smoking Status Unknown if ever smoked Drug Use No Alcohol Use No Family Medical History Family Medical History Start: 05/11/17 20: 47 Freq: ONCE Status: Active Document 05/11/17 20:47 ANDRÉS (Rec: 05/12/17 00:20 ANDRÉS [id number]) Family Medical History Mother History Unknown Yes Ethnicity Living Status Unknown Hx Family Cancer UNKNOWN Hx Family Coronary Artery Disease No: UNKNOWN Hx Family Congestive Heart Failure UNKNOWN Hx Family Hypertension UNKNOWN Hx Family Stroke UNKNOWN Hx Family Diabetes UNKNOWN Hx Family Seizures UNKNOWN Hx Family Dementia UNKNOWN Hx Family AIDS UNKNOWN Hx Family COPD UNKNOWN Hx Family Hepatitis UNKNOWN Hx Family Psychiatric Problems UNKNOWN Hx Family Tuberculosis UNKNOWN Other Medical History UNKNOWN Physical Exam: General: Comfortable. HEENT: Head: NC NT. Oral cavity moist pin tongue, Oral cavity moist pink tongue. Pupil PERRLA. EOMI. Neck: Supple, no JVD, no carotid bruit. Cardio: S1 and S2 WNL, regular rhythm. Genital/Urinary: Extremities: NCCE Neurological: AAOx3. Assessment: 1. peritonitis 2. sp cholecytitis, 3. Leukocytosis, likely reactive, sepsis, 3. Gangrenous Cholecystitis 5. E coli infection. Plan: CONITNUE ZOSYN AND VANCOMYCIN. If there is an improvement in his WBC Count will dc vancO IV and one or two days. Thank you, Dr Marquez and Dr Cedeno for involving in taking care of this patient. Luis Miguel, Joseph Avalos M.D. [id number]
[2017-05-19] MEDS: D5-0.9%NS 1,000 ML IV SCH (23:58)
[2017-05-20] MEDS: Piperacillin/Tazobact 2.25 gm in 0.9% NS 50 ML IV SCH ×3 (06:06→18:22)
[2017-05-20 07:14] LABS: BASOPHILE ABSOLUTE 0.1 Th/cumm (0-0.2); EOSINOPHILE ABSOLUTE 0.1 Th/cmm (0.1-0.4); HEMOGLOBIN 8.8 gm/dL (12-16); MANUAL DIFF REQUIRED? YES; MEAN CELL VOLUME 96.7 fl (80-99); MEAN CORPUSCULAR HEMOGLOBIN 32.8 pg (27.0-31.0); MEAN CORPUSCULAR HGB CONC 33.9 pg (28.0-36.0); MEAN PLATELET VOLUME 8.3 fl; MONOCYTE ABSOLUTE 0.9 Th/cmm (0.3-1.0); NEUTROPHILE ABSOLUTE 27.6 Th/cmm (1.8-8.0); PLATELET COUNT 343 Th/cmm (150-400); RED BLOOD COUNT 2.69 Mil/cmm (3.80-5.80); RED CELL DISTRIBUTION WIDTH 14.5 % (11.5-20.0)
[2017-05-20 07:22] LABS: ANION GAP 8.9 (7.0-16.0); BUN - UREA NITROGEN 12 mg/dL (7-25); CALCIUM SERUM 6.4 mg/dL (8.6-10.3); CARBON DIOXIDE 30.4 mEq/L (21.0-31.0); CHLORIDE 104 mEq/L (98-107); CREATININE - SERUM 0.6 mg/dL (0.7-1.3); GLUCOSE 114 mg/dL (70-105); POTASSIUM SERUM 3.3 mEq/L (3.5-5.1); SODIUM SERUM 140 mEq/L (136-145)
[2017-05-20 07:27] LABS: WHITE BLOOD COUNT 29.7 Th/cmm (4.8-10.8)
[2017-05-20 08:22] LABS: LYMPHOCYTE 5 % (20-50); MONOCYTE 1 % (2-10); NEUTROPHILS 94 % (40-80); PLATELET ESTIMATE ADEQUATE (NORMAL); TOTAL CELLS COUNTED 100
--- NOTE | 2017-05-20 08:31 | General Progress Note ---
Subjective - Review of Systems Service Date: 05/20/17 Subjective: Pt seen and eval. In bed. Has some abd pain at times. No n,v,d or fevers. No chills. No cough. No dysuria. No falls or sz. No headaches. Being seen by GI and Sx. Loose stools resolved. Colace held. POD # 3 for gangrenous cholecycstitis-open braden. On Vanco and Zosyn now. WBC trending down. Objective - Results Result Diagrams: 05/20/17 06:26 05/20/17 06:26 Recent Labs: Laboratory Last Values WBC 29.7 Th/cmm (4.8-10.8) H* 05/20/17 06:26 RBC 2.69 Mil/cmm (3.80-5.80) L 05/20/17 06:26 Hgb 8.8 gm/dL (12-16) L 05/20/17 06:26 Hct 26.0 % (41.0-60) L 05/20/17 06:26 MCV 96.7 fl (80-99) 05/20/17 06:26 MCH 32.8 pg (27.0-31.0) H 05/20/17 06:26 MCHC Differential 33.9 pg (28.0-36.0) 05/20/17 06:26 RDW 14.5 % (11.5-20.0) 05/20/17 06:26 Plt Count 343 Th/cmm (150-400) 05/20/17 06:26 MPV 8.3 fl 05/20/17 06:26 Neutrophils % 92.7 % (40.0-80.0) H 05/19/17 06:30 Band Neutrophils % 3 % (0-10) 05/17/17 18:55 Lymphocytes % 3.0 % (20.0-50.0) L 05/19/17 06:30 Monocytes % 4.1 % (2.0-10.0) 05/19/17 06:30 Eosinophils % 0.2 % (0.0-5.0) 05/19/17 06:30 Basophils % 0.0 % (0.0-2.0) 05/19/17 06:30 Neutrophils (Manual) 94 % (40-80) H 05/20/17 06:26 Lymphocytes 5 % (20-50) L 05/20/17 06:26 Monocytes 1 % (2-10) L 05/20/17 06:26 Eosinophils 0 % (0-5) 05/17/17 18:55 Basophils 0 % (0-3) 05/17/17 18:55 Platelet Estimate ADEQUATE (NORMAL) 05/20/17 06:26 PT 10.9 SECONDS (9.5-11.5) 05/17/17 05:45 INR 1.05 (0.5-1.4) 05/17/17 05:45 PTT (Actin FS) 29.6 SECONDS (26.0-38.0) 05/17/17 05:45 Specimen Source Arterial 05/12/17 08:50 Sample Site RB 05/12/17 08:50 pH 7.38 (7.35-7.45) 05/12/17 08:50 pCO2 46.0 mmHg (35.0-45.0) H 05/12/17 08:50 pO2 86.0 mmHg (80.0-100.0) 05/12/17 08:50 HCO3 26.1 mEq/L (20.0-26.0) H 05/12/17 08:50 Base Excess 1.6 mEq/L (-3.0-3.0) 05/12/17 08:50 O2 Saturation 96.0 % (92.0-100.0) 05/12/17 08:50 Idris Test NA 05/12/17 08:50 Vent Rate NA 05/12/17 08:50 Inspired O2 28 05/12/17 08:50 Tidal Volume NA 05/12/17 08:50 PEEP NA 05/12/17 08:50 Pressure (ins/psv/peep) NA 05/12/17 08:50 Critical Value E.MCPHERSON 05/12/17 08:50 Sodium 140 mEq/L (136-145) 05/20/17 06:26 Potassium 3.3 mEq/L (3.5-5.1) L 05/20/17 06:26 Chloride 104 mEq/L (98-107) 05/20/17 06:26 Carbon Dioxide 30.4 mEq/L (21.0-31.0) 05/20/17 06:26 Anion Gap 8.9 (7.0-16.0) 05/20/17 06:26 BUN 12 mg/dL (7-25) 05/20/17 06:26 Creatinine 0.6 mg/dL (0.7-1.3) L 05/20/17 06:26 Est GFR ( Amer) TNP 05/20/17 06:26 Est GFR (Non-Af Amer) TNP 05/20/17 06:26 BUN/Creatinine Ratio 20.0 05/20/17 06:26 Glucose 114 mg/dL (70-105) H 05/20/17 06:26 POC Glucose 72 MG/DL (70 - 105) 05/17/17 06:31 Hemoglobin A1c % 4.9 % (4.0-6.0) 05/11/17 16:40 Whole Bld Lactic Acid 1.00 mmol/L (0.60-1.99) 05/11/17 16:40 Calcium 6.4 mg/dL (8.6-10.3) L 05/20/17 06:26 Magnesium 1.9 mg/dL (1.9-2.7) 05/11/17 16:40 Total Bilirubin 0.6 mg/dL (0.3-1.0) 05/19/17 06:30 Direct Bilirubin 0.44 mg/dL (0.0-0.2) H 05/13/17 06:05 AST 33 U/L (13-39) 05/19/17 06:30 ALT 19 U/L (7-52) 05/19/17 06:30 Alkaline Phosphatase 61 U/L (34-104) 05/19/17 06:30 Creatine Kinase 34 U/L (30-223) 05/11/17 16:40 Troponin I < 0.01 ng/mL (0.01-0.05) L 05/11/17 16:40 B-Natriuretic Peptide 120.0 pg/mL (5.0-100.0) H 05/11/17 16:40 Total Protein 5.0 gm/dL (6.0-8.3) L 05/19/17 06:30 Albumin 2.1 gm/dL (4.2-5.5) L 05/19/17 06:30 Globulin 2.9 gm/dL 05/19/17 06:30 Albumin/Globulin Ratio 0.7 (1.0-1.8) L 05/19/17 06:30 Triglycerides 112 mg/dL (<150) 05/11/17 16:40 Cholesterol 84 mg/dL (<200) 05/11/17 16:40 LDL Cholesterol Direct 57 mg/dL (75-193) L 05/11/17 16:40 HDL Cholesterol 18 mg/dL (23-92) L 05/11/17 16:40 Amylase 70 U/L (29-103) 05/11/17 16:40 Lipase 109 U/L (11-82) H 05/11/17 16:40 Urine Source CLEAN C 05/11/17 17:15 Urine Color YELLOW 05/11/17 17:15 Urine Clarity CLEAR (CLEAR) 05/11/17 17:15 Urine pH 6.0 (4.6 - 8.0) 05/11/17 17:15 Ur Specific [place] 1.015 (1.005-1.030) 05/11/17 17:15 Urine Protein TRACE mg/dL (NEGATIVE) 05/11/17 17:15 Urine Glucose (UA) NEGATIVE mg/dL (NEGATIVE) 05/11/17 17:15 Urine Ketones >=80 mg/dL (NEGATIVE) H 05/11/17 17:15 Urine Blood TRACE (NEGATIVE) 05/11/17 17:15 Urine Nitrate NEGATIVE (NEGATIVE) 05/11/17 17:15 Urine Bilirubin MODERATE (NEGATIVE) H 05/11/17 17:15 Urine Urobilinogen 4.0 E.U./dL (0.2 - 1.0) H 05/11/17 17:15 Ur Leukocyte Esterase NEGATIVE (NEGATIVE) 05/11/17 17:15 Urine RBC 2-5 /hpf (0-5) H 05/11/17 17:15 Urine WBC NONE SEEN /hpf (0-5) 05/11/17 17:15 Ur Epithelial Cells NONE SEEN /lpf (FEW) 05/11/17 17:15 Urine Bacteria NONE SEEN /hpf (NONE SEEN) 05/11/17 17:15 - Physical Exam Vitals and I&O: Vital Signs Temp 97.3 F 05/20/17 04:00 Pulse 91 05/20/17 07:06 Resp 20 05/20/17 07:06 BP 127/60 05/20/17 04:00 Pulse Ox 94 05/20/17 07:06 Intake & Output 05/19/17 05/20/17 05/20/17 18:59 06:59 18:59 Intake Total 1310.167 70 Balance 1310.167 70 Weight (lbs) 52.163 kg Intake: Intake, IV Amount 1310.167 50 D5-0.9%Ns 1,000 ml @ 70 960.167 0 mls/hr IV .[id number] [facility] Rx #:[id number] Piperacillin Sodium/ 100 50 Tazobact 2.25 gm In Sodium Chloride 0.9% 50 ml @ 100 mls/hr IV Q6HR [facility] Rx#:[id number] Vancomycin HCl 1 gm In 250 Sodium Chloride 0.9% 250 ml @ 165 mls/hr IV Q24H [facility] Rx#:[id number] Oral 20 Other: # Voids 3 # Bowel Movements 0 Weight Source Bedscale Active Medications: Current Medications Acetaminophen (Tylenol) 650 mg PO Q6H PRN PRN Reason: HEADACHE/TEMP ABOVE 100F Stop: 07/10/17 18:41 Last Admin: 05/19/17 08:55 Dose: 650 mg Albuterol/Ipratropium (Duoneb Neb) 3 ml HHN Q4HRT PRN PRN Reason: sob Stop: 07/11/17 10:59 Last Admin: 05/12/17 19:25 Dose: 3 ml Potassium Chloride 40 meq/Lidocaine HCl 25 mg/ Sodium Chloride 272.5 mls @ 68 mls/hr IV DAILY PRN PRN Reason: k level less than 3.2 Stop: 07/10/17 18:41 Last Admin: 05/19/17 08:50 Dose: 68 mls/hr Piperacillin Sod/Tazobactam (Sod 2.25 gm/ Sodium Chloride) 50 mls @ 100 mls/hr IV Q6HR [facility] Stop: 07/11/17 08:44 Last Admin: 05/20/17 06:06 Dose: 100 mls/hr Dextrose/Sodium Chloride (D5-0.9%Ns) 1,000 mls @ 70 mls/hr IV .[id number] [facility] Stop: 07/16/17 05:07 Last Admin: 05/19/17 23:58 Dose: 70 mls/hr Vancomycin HCl 1 gm/ Sodium (Chloride) 250 mls @ 165 mls/hr IV Q24H [facility] Stop: 07/18/17 11:59 Last Infusion: 05/19/17 14:15 Dose: Infused Magnesium Oxide (Mag-Oxide) 400 mg PO BID PRN PRN Reason: Mg less than 1.9 Stop: 07/10/17 18:41 Miscellaneous (Zosyn Iv Per Pharmacy) 1 [facility] PRN PRN PRN Reason: PROTOCOL Stop: 07/11/17 07:44 Miscellaneous (Probiotic Screen) 1 ea PRN PRN PRN Reason: PROTOCOL Stop: 07/12/17 12:59 Miscellaneous (Vancomycin Iv Per Pharmacy) 1 [facility] PRN PRN PRN Reason: PROTOCOL Stop: 07/18/17 09:29 Morphine Sulfate (Morphine) 1 mg IVP Q4HR PRN PRN Reason: Severe Pain Stop: 07/10/17 18:41 Last Admin: 05/17/17 23:16 Dose: 1 mg Ondansetron HCl (Zofran) 4 mg IVP Q6H PRN PRN Reason: Nausea / Vomiting Stop: 07/10/17 18:41 Last Admin: 05/19/17 11:51 Dose: 4 mg Potassium Chloride (Klor-Con) 40 meq PO DAILY PRN PRN Reason: k level less than 3.5 Stop: 07/10/17 18:41 Last Admin: 05/15/17 13:20 Dose: 40 meq General: Alert, Cooperative, No acute distress HEENT: Atraumatic, PERRLA, EOMI Neck: Supple, no JVD, no Thyromegaly Cardiovascular: Regular rate, Normal S1 Lungs: Other (has rales bl) Abdomen: Soft, Tender, Other (has some tenderness, no guard or rebound) Neurological: Normal speech - Procedures Procedures: Procedures Procedure Code Date REMOVAL OF GALLBLADDER 54784 05/11/17 RESECTION OF GALLBLADDER, OPEN APPROACH [id number] 05/11/17 Assessment/Plan - Problem List Patient Problems: All Active Problems FREQUENT FALLS WITH POOR APPETITE (Acute) - Assessment Assessment: Asp PNA Acute Cholecystitis-gangrenous Hypokalemia D/O of ANS due to syncope Mech fall Mod malnut Asthma ME Sepsis due to Asp Pna and gangrenous cholecystitis COPD Exac - Plan Plan: Pt is on IV Zosyn. Added Vanco. Dr. Avalos consulted for ID. Continue breathing tx. Sx and GI consulted for cholecystitis. Pt is POD # 3, open cholecystectomy. Fall prec. FU on cbc. Cardio consulted for sx clearance. Loose stools resolved. Pt is on IV Zosyn and Vanco now. Nutritional Asmnt/Malnutr-PDOC - Dietary Evaluation Malnutrition Findings (Please click <Entered> for more info): Nutritional Asmnt/Malnutrition Start: 05/12/17 17: 42 Text: Status: Complete Freq: Document 05/12/17 17:43 HEN (Rec: 05/12/17 17:59 LCHENG [id number]) Nutritional Asmnt/Malnutrition Patient General Information Nutritional Screening High Risk Consult Diagnosis syncope Pertinent Medical Hx/Surgical Hx asthma, HTN, dyslipidemia, arthritis Subjective Information Consult received for no appetite to eat. Pt seen lying in bed at time of visit, awake and alert. Pt reported appetite has been poor d/t sick and it was little bit better today. Pt denied chewing problem. Food preference provided. Per RN, pt had no PO intake in the past 5 days, spited out food according to pt . Pt only had fruit and juice for breakfast. Pt was now on NPO during lunch time for U/S. Current Diet Order/ Nutrition Support regular Pertinent Medications colace, piperacillin, nacl 0.9 % Pertinent Labs 05/12 Na 139, K 3.1, Cl 102, BUN 17, Cr 0.5, glucose 62 Ca 8.1 05/11 a1c 4.9 Nutritional Hx/Data Height 1.65 m Height (Calculated Centimeters) 165.1 Current Weight (lbs) 48.081 kg Weight (Calculated Kilograms) 48.1 Weight (Calculated Grams) 68607.8 [place] Body Weight 136 Body Mass Index (BMI) 17.6 Weight Status Underweight GI Symptoms GI Symptoms None Last BM none Difficult in: None Skin Integrity/Comment: bruise to left hip and left upper arm Estimated Nutritional Goals BEE in Kcals: Using Current wt Calories/Kcals/Kg 30-35 Kcals Calculated 0583-2010 Protein: Using Current wt Protein g/k.2-1.4 Protein Calculated 58-67 Fluid: ml 1440-1680ml (1ml/kcal) Nutritional Problem 1. Problem Problem inadequate food intake Etiology poor appetite Signs/Symptoms: poor PO intake x 6 days Intervention/Recommendation Comments 1. Continue with current diet as ordered. If PO continue new , consider adding Boost BID to increased nutrition intake. 2. Monitor PO intake, wt, labs and skin integrity 3. F/U as high risk in 2-3 days, 05/14-05/15 Expected Outcomes/Goals Expected Outcomes/Goals 1. PO intake to meet at least 75% of nutritional needs. 2. Wt stability, skin to remain intact, labs to approach WNL.
--- NOTE | 2017-05-20 09:15 | General Progress Note ---
Subjective - Review of Systems Service Date: 05/20/17 Events since last encounter: nauseated, ELANA minimal ID consulted t o ambulate Objective - Results Result Diagrams: 05/20/17 06:26 05/20/17 06:26 Recent Labs: Laboratory Last Values WBC 29.7 Th/cmm (4.8-10.8) H* 05/20/17 06:26 RBC 2.69 Mil/cmm (3.80-5.80) L 05/20/17 06:26 Hgb 8.8 gm/dL (12-16) L 05/20/17 06:26 Hct 26.0 % (41.0-60) L 05/20/17 06:26 MCV 96.7 fl (80-99) 05/20/17 06:26 MCH 32.8 pg (27.0-31.0) H 05/20/17 06:26 MCHC Differential 33.9 pg (28.0-36.0) 05/20/17 06:26 RDW 14.5 % (11.5-20.0) 05/20/17 06:26 Plt Count 343 Th/cmm (150-400) 05/20/17 06:26 MPV 8.3 fl 05/20/17 06:26 Neutrophils % 92.7 % (40.0-80.0) H 05/19/17 06:30 Band Neutrophils % 3 % (0-10) 05/17/17 18:55 Lymphocytes % 3.0 % (20.0-50.0) L 05/19/17 06:30 Monocytes % 4.1 % (2.0-10.0) 05/19/17 06:30 Eosinophils % 0.2 % (0.0-5.0) 05/19/17 06:30 Basophils % 0.0 % (0.0-2.0) 05/19/17 06:30 Neutrophils (Manual) 94 % (40-80) H 05/20/17 06:26 Lymphocytes 5 % (20-50) L 05/20/17 06:26 Monocytes 1 % (2-10) L 05/20/17 06:26 Eosinophils 0 % (0-5) 05/17/17 18:55 Basophils 0 % (0-3) 05/17/17 18:55 Platelet Estimate ADEQUATE (NORMAL) 05/20/17 06:26 PT 10.9 SECONDS (9.5-11.5) 05/17/17 05:45 INR 1.05 (0.5-1.4) 05/17/17 05:45 PTT (Actin FS) 29.6 SECONDS (26.0-38.0) 05/17/17 05:45 Specimen Source Arterial 05/12/17 08:50 Sample Site RB 05/12/17 08:50 pH 7.38 (7.35-7.45) 05/12/17 08:50 pCO2 46.0 mmHg (35.0-45.0) H 05/12/17 08:50 pO2 86.0 mmHg (80.0-100.0) 05/12/17 08:50 HCO3 26.1 mEq/L (20.0-26.0) H 05/12/17 08:50 Base Excess 1.6 mEq/L (-3.0-3.0) 05/12/17 08:50 O2 Saturation 96.0 % (92.0-100.0) 05/12/17 08:50 Idris Test NA 05/12/17 08:50 Vent Rate NA 05/12/17 08:50 Inspired O2 28 05/12/17 08:50 Tidal Volume NA 05/12/17 08:50 PEEP NA 05/12/17 08:50 Pressure (ins/psv/peep) NA 05/12/17 08:50 Critical Value E.MCPHERSON 05/12/17 08:50 Sodium 140 mEq/L (136-145) 05/20/17 06:26 Potassium 3.3 mEq/L (3.5-5.1) L 05/20/17 06:26 Chloride 104 mEq/L (98-107) 05/20/17 06:26 Carbon Dioxide 30.4 mEq/L (21.0-31.0) 05/20/17 06:26 Anion Gap 8.9 (7.0-16.0) 05/20/17 06:26 BUN 12 mg/dL (7-25) 05/20/17 06:26 Creatinine 0.6 mg/dL (0.7-1.3) L 05/20/17 06:26 Est GFR ( Amer) TNP 05/20/17 06:26 Est GFR (Non-Af Amer) TNP 05/20/17 06:26 BUN/Creatinine Ratio 20.0 05/20/17 06:26 Glucose 114 mg/dL (70-105) H 05/20/17 06:26 POC Glucose 72 MG/DL (70 - 105) 05/17/17 06:31 Hemoglobin A1c % 4.9 % (4.0-6.0) 05/11/17 16:40 Whole Bld Lactic Acid 1.00 mmol/L (0.60-1.99) 05/11/17 16:40 Calcium 6.4 mg/dL (8.6-10.3) L 05/20/17 06:26 Magnesium 1.9 mg/dL (1.9-2.7) 05/11/17 16:40 Total Bilirubin 0.6 mg/dL (0.3-1.0) 05/19/17 06:30 Direct Bilirubin 0.44 mg/dL (0.0-0.2) H 05/13/17 06:05 AST 33 U/L (13-39) 05/19/17 06:30 ALT 19 U/L (7-52) 05/19/17 06:30 Alkaline Phosphatase 61 U/L (34-104) 05/19/17 06:30 Creatine Kinase 34 U/L (30-223) 05/11/17 16:40 Troponin I < 0.01 ng/mL (0.01-0.05) L 05/11/17 16:40 B-Natriuretic Peptide 120.0 pg/mL (5.0-100.0) H 05/11/17 16:40 Total Protein 5.0 gm/dL (6.0-8.3) L 05/19/17 06:30 Albumin 2.1 gm/dL (4.2-5.5) L 05/19/17 06:30 Globulin 2.9 gm/dL 05/19/17 06:30 Albumin/Globulin Ratio 0.7 (1.0-1.8) L 05/19/17 06:30 Triglycerides 112 mg/dL (<150) 05/11/17 16:40 Cholesterol 84 mg/dL (<200) 05/11/17 16:40 LDL Cholesterol Direct 57 mg/dL (75-193) L 05/11/17 16:40 HDL Cholesterol 18 mg/dL (23-92) L 05/11/17 16:40 Amylase 70 U/L (29-103) 05/11/17 16:40 Lipase 109 U/L (11-82) H 05/11/17 16:40 Urine Source CLEAN C 05/11/17 17:15 Urine Color YELLOW 05/11/17 17:15 Urine Clarity CLEAR (CLEAR) 05/11/17 17:15 Urine pH 6.0 (4.6 - 8.0) 05/11/17 17:15 Ur Specific [place] 1.015 (1.005-1.030) 05/11/17 17:15 Urine Protein TRACE mg/dL (NEGATIVE) 05/11/17 17:15 Urine Glucose (UA) NEGATIVE mg/dL (NEGATIVE) 05/11/17 17:15 Urine Ketones >=80 mg/dL (NEGATIVE) H 05/11/17 17:15 Urine Blood TRACE (NEGATIVE) 05/11/17 17:15 Urine Nitrate NEGATIVE (NEGATIVE) 05/11/17 17:15 Urine Bilirubin MODERATE (NEGATIVE) H 05/11/17 17:15 Urine Urobilinogen 4.0 E.U./dL (0.2 - 1.0) H 05/11/17 17:15 Ur Leukocyte Esterase NEGATIVE (NEGATIVE) 05/11/17 17:15 Urine RBC 2-5 /hpf (0-5) H 05/11/17 17:15 Urine WBC NONE SEEN /hpf (0-5) 05/11/17 17:15 Ur Epithelial Cells NONE SEEN /lpf (FEW) 05/11/17 17:15 Urine Bacteria NONE SEEN /hpf (NONE SEEN) 05/11/17 17:15 - Physical Exam Vitals and I&O: Vital Signs Temp 97.3 F 05/20/17 08:00 Pulse 92 05/20/17 08:00 Resp 18 05/20/17 08:00 BP 139/65 05/20/17 08:00 Pulse Ox 97 05/20/17 08:00 Intake & Output 05/19/17 05/20/17 05/20/17 18:59 06:59 18:59 Intake Total 1310.167 70 Balance 1310.167 70 Weight (lbs) 52.163 kg Intake: Intake, IV Amount 1310.167 50 D5-0.9%Ns 1,000 ml @ 70 960.167 0 mls/hr IV .[id number] [facility] Rx #:[id number] Piperacillin Sodium/ 100 50 Tazobact 2.25 gm In Sodium Chloride 0.9% 50 ml @ 100 mls/hr IV Q6HR [facility] Rx#:[id number] Vancomycin HCl 1 gm In 250 Sodium Chloride 0.9% 250 ml @ 165 mls/hr IV Q24H [facility] Rx#:[id number] Oral 20 Other: # Voids 3 # Bowel Movements 0 Weight Source Bedscale Active Medications: Current Medications Acetaminophen (Tylenol) 650 mg PO Q6H PRN PRN Reason: HEADACHE/TEMP ABOVE 100F Stop: 07/10/17 18:41 Last Admin: 05/19/17 08:55 Dose: 650 mg Albuterol/Ipratropium (Duoneb Neb) 3 ml HHN Q4HRT PRN PRN Reason: sob Stop: 07/11/17 10:59 Last Admin: 05/12/17 19:25 Dose: 3 ml Potassium Chloride 40 meq/Lidocaine HCl 25 mg/ Sodium Chloride 272.5 mls @ 68 mls/hr IV DAILY PRN PRN Reason: k level less than 3.2 Stop: 07/10/17 18:41 Last Admin: 05/19/17 08:50 Dose: 68 mls/hr Piperacillin Sod/Tazobactam (Sod 2.25 gm/ Sodium Chloride) 50 mls @ 100 mls/hr IV Q6HR [facility] Stop: 07/11/17 08:44 Last Admin: 05/20/17 06:06 Dose: 100 mls/hr Dextrose/Sodium Chloride (D5-0.9%Ns) 1,000 mls @ 70 mls/hr IV .[id number] [facility] Stop: 07/16/17 05:07 Last Admin: 05/19/17 23:58 Dose: 70 mls/hr Vancomycin HCl 1 gm/ Sodium (Chloride) 250 mls @ 165 mls/hr IV Q24H [facility] Stop: 07/18/17 11:59 Last Infusion: 05/19/17 14:15 Dose: Infused Magnesium Oxide (Mag-Oxide) 400 mg PO BID PRN PRN Reason: Mg less than 1.9 Stop: 07/10/17 18:41 Miscellaneous (Zosyn Iv Per Pharmacy) 1 ea [facility] PRN PRN PRN Reason: PROTOCOL Stop: 07/11/17 07:44 Miscellaneous (Probiotic Screen) 1 ea PRN PRN PRN Reason: PROTOCOL Stop: 07/12/17 12:59 Miscellaneous (Vancomycin Iv Per Pharmacy) 1 ea PRN PRN PRN Reason: PROTOCOL Stop: 07/18/17 09:29 Morphine Sulfate (Morphine) 1 mg IVP Q4HR PRN PRN Reason: Severe Pain Stop: 07/10/17 18:41 Last Admin: 05/17/17 23:16 Dose: 1 mg Ondansetron HCl (Zofran) 4 mg IVP Q6H PRN PRN Reason: Nausea / Vomiting Stop: 07/10/17 18:41 Last Admin: 05/19/17 11:51 Dose: 4 mg Potassium Chloride (Klor-Con) 40 meq PO DAILY PRN PRN Reason: k level less than 3.5 Stop: 07/10/17 18:41 Last Admin: 05/15/17 13:20 Dose: 40 meq General: Alert, Cooperative, No acute distress HEENT: Atraumatic, PERRLA, EOMI Neck: Supple, no JVD, no Thyromegaly Cardiovascular: Regular rate, Normal S1 Lungs: Other (has rales bl) Abdomen: Soft, Tender, Other (has some tenderness, no guard or rebound) Neurological: Normal speech - Procedures Procedures: Procedures Procedure Code Date REMOVAL OF GALLBLADDER 22930 05/11/17 RESECTION OF GALLBLADDER, OPEN APPROACH [id number] 05/11/17 Assessment/Plan - Problem List Patient Problems: All Active Problems FREQUENT FALLS WITH POOR APPETITE (Acute) Nutritional Asmnt/Malnutr-PDOC - Dietary Evaluation Malnutrition Findings (Please click <Entered> for more info): Nutritional Asmnt/Malnutrition Start: 05/12/17 17: 42 Text: Status: Complete Freq: Document 05/12/17 17:43 LACIE (Rec: 05/12/17 17:59 LCZANE [place] [id number]) Nutritional Asmnt/Malnutrition Patient General Information Nutritional Screening High Risk Consult Diagnosis syncope Pertinent Medical Hx/Surgical Hx asthma, HTN, dyslipidemia, arthritis Subjective Information Consult received for no appetite to eat. Pt seen lying in bed at time of visit, awake and alert. Pt reported appetite has been poor d/t sick and it was little bit better today. Pt denied chewing problem. Food preference provided. Per RN, pt had no PO intake in the past 5 days, spited out food according to pt . Pt only had fruit and juice for breakfast. Pt was now on NPO during lunch time for U/S. Current Diet Order/ Nutrition Support regular Pertinent Medications colace, piperacillin, nacl 0.9 % Pertinent Labs 05/12 Na 139, K 3.1, Cl 102, BUN 17, Cr 0.5, glucose 62 Ca 8.1 05/11 a1c 4.9 Nutritional Hx/Data Height 1.65 m Height (Calculated Centimeters) 165.1 Current Weight (lbs) 48.081 kg Weight (Calculated Kilograms) 48.1 Weight (Calculated Grams) 20420.8 [place] Body Weight 136 Body Mass Index (BMI) 17.6 Weight Status Underweight GI Symptoms GI Symptoms None Last BM none Difficult in: None Skin Integrity/Comment: bruise to left hip and left upper arm Estimated Nutritional Goals BEE in Kcals: Using Current wt Calories/Kcals/Kg 30-35 Kcals Calculated 5771-2718 Protein: Using Current wt Protein g/k.2-1.4 Protein Calculated 58-67 Fluid: ml 1440-1680ml (1ml/kcal) Nutritional Problem 1. Problem Problem inadequate food intake Etiology poor appetite Signs/Symptoms: poor PO intake x 6 days Intervention/Recommendation Comments 1. Continue with current diet as ordered. If PO continue new , consider adding Boost BID to increased nutrition intake. 2. Monitor PO intake, wt, labs and skin integrity 3. F/U as high risk in 2-3 days, 05/14-05/15 Expected Outcomes/Goals Expected Outcomes/Goals 1. PO intake to meet at least 75% of nutritional needs. 2. Wt stability, skin to remain intact, labs to approach WNL.
[2017-05-20] MEDS: D5-0.9%NS 1,000 ML IV SCH (15:21)
[2017-05-20] MEDS: Potassium Chloride 20 mEq ER Tab PO PRN (17:37)
[2017-05-20] MEDS: Albuterol/Ipratropium Neb 3 ML AERS HHN PRN (22:27)
--- NOTE | 2017-05-20 23:49 | Infectious Disease Prog Note ---
Infectious Disease Subjective - Review of Systems Service Date: 05/20/17 Subjective: There is no new change, no fever. Infectious Disease Objective - Results Result Diagrams: 05/24/17 05:48 05/24/17 05:48 Recent Labs: Laboratory Last Values WBC 29.7 Th/cmm (4.8-10.8) H* 05/20/17 06:26 RBC 2.69 Mil/cmm (3.80-5.80) L 05/20/17 06:26 Hgb 8.8 gm/dL (12-16) L 05/20/17 06:26 Hct 26.0 % (41.0-60) L 05/20/17 06:26 MCV 96.7 fl (80-99) 05/20/17 06:26 MCH 32.8 pg (27.0-31.0) H 05/20/17 06:26 MCHC Differential 33.9 pg (28.0-36.0) 05/20/17 06:26 RDW 14.5 % (11.5-20.0) 05/20/17 06:26 Plt Count 343 Th/cmm (150-400) 05/20/17 06:26 MPV 8.3 fl 05/20/17 06:26 Neutrophils % 92.7 % (40.0-80.0) H 05/19/17 06:30 Band Neutrophils % 3 % (0-10) 05/17/17 18:55 Lymphocytes % 3.0 % (20.0-50.0) L 05/19/17 06:30 Monocytes % 4.1 % (2.0-10.0) 05/19/17 06:30 Eosinophils % 0.2 % (0.0-5.0) 05/19/17 06:30 Basophils % 0.0 % (0.0-2.0) 05/19/17 06:30 Neutrophils (Manual) 94 % (40-80) H 05/20/17 06:26 Lymphocytes 5 % (20-50) L 05/20/17 06:26 Monocytes 1 % (2-10) L 05/20/17 06:26 Eosinophils 0 % (0-5) 05/17/17 18:55 Basophils 0 % (0-3) 05/17/17 18:55 Platelet Estimate ADEQUATE (NORMAL) 05/20/17 06:26 PT 10.9 SECONDS (9.5-11.5) 05/17/17 05:45 INR 1.05 (0.5-1.4) 05/17/17 05:45 PTT (Actin FS) 29.6 SECONDS (26.0-38.0) 05/17/17 05:45 Specimen Source Arterial 05/12/17 08:50 Sample Site RB 05/12/17 08:50 pH 7.38 (7.35-7.45) 05/12/17 08:50 pCO2 46.0 mmHg (35.0-45.0) H 05/12/17 08:50 pO2 86.0 mmHg (80.0-100.0) 05/12/17 08:50 HCO3 26.1 mEq/L (20.0-26.0) H 05/12/17 08:50 Base Excess 1.6 mEq/L (-3.0-3.0) 05/12/17 08:50 O2 Saturation 96.0 % (92.0-100.0) 05/12/17 08:50 Idris Test NA 05/12/17 08:50 Vent Rate NA 05/12/17 08:50 Inspired O2 28 05/12/17 08:50 Tidal Volume NA 05/12/17 08:50 PEEP NA 05/12/17 08:50 Pressure (ins/psv/peep) NA 05/12/17 08:50 Critical Value E.MCPHERSON 05/12/17 08:50 Sodium 140 mEq/L (136-145) 05/20/17 06:26 Potassium 3.3 mEq/L (3.5-5.1) L 05/20/17 06:26 Chloride 104 mEq/L (98-107) 05/20/17 06:26 Carbon Dioxide 30.4 mEq/L (21.0-31.0) 05/20/17 06:26 Anion Gap 8.9 (7.0-16.0) 05/20/17 06:26 BUN 12 mg/dL (7-25) 05/20/17 06:26 Creatinine 0.6 mg/dL (0.7-1.3) L 05/20/17 06:26 Est GFR ( Amer) TNP 05/20/17 06:26 Est GFR (Non-Af Amer) TNP 05/20/17 06:26 BUN/Creatinine Ratio 20.0 05/20/17 06:26 Glucose 114 mg/dL (70-105) H 05/20/17 06:26 POC Glucose 72 MG/DL (70 - 105) 05/17/17 06:31 Hemoglobin A1c % 4.9 % (4.0-6.0) 05/11/17 16:40 Whole Bld Lactic Acid 1.00 mmol/L (0.60-1.99) 05/11/17 16:40 Calcium 6.4 mg/dL (8.6-10.3) L 05/20/17 06:26 Magnesium 1.9 mg/dL (1.9-2.7) 05/11/17 16:40 Total Bilirubin 0.6 mg/dL (0.3-1.0) 05/19/17 06:30 Direct Bilirubin 0.44 mg/dL (0.0-0.2) H 05/13/17 06:05 AST 33 U/L (13-39) 05/19/17 06:30 ALT 19 U/L (7-52) 05/19/17 06:30 Alkaline Phosphatase 61 U/L (34-104) 05/19/17 06:30 Creatine Kinase 34 U/L (30-223) 05/11/17 16:40 Troponin I < 0.01 ng/mL (0.01-0.05) L 05/11/17 16:40 B-Natriuretic Peptide 120.0 pg/mL (5.0-100.0) H 05/11/17 16:40 Total Protein 5.0 gm/dL (6.0-8.3) L 05/19/17 06:30 Albumin 2.1 gm/dL (4.2-5.5) L 05/19/17 06:30 Globulin 2.9 gm/dL 05/19/17 06:30 Albumin/Globulin Ratio 0.7 (1.0-1.8) L 05/19/17 06:30 Triglycerides 112 mg/dL (<150) 05/11/17 16:40 Cholesterol 84 mg/dL (<200) 05/11/17 16:40 LDL Cholesterol Direct 57 mg/dL (75-193) L 05/11/17 16:40 HDL Cholesterol 18 mg/dL (23-92) L 05/11/17 16:40 Amylase 70 U/L (29-103) 05/11/17 16:40 Lipase 109 U/L (11-82) H 05/11/17 16:40 Urine Source CLEAN C 05/11/17 17:15 Urine Color YELLOW 05/11/17 17:15 Urine Clarity CLEAR (CLEAR) 05/11/17 17:15 Urine pH 6.0 (4.6 - 8.0) 05/11/17 17:15 Ur Specific [place] 1.015 (1.005-1.030) 05/11/17 17:15 Urine Protein TRACE mg/dL (NEGATIVE) 05/11/17 17:15 Urine Glucose (UA) NEGATIVE mg/dL (NEGATIVE) 05/11/17 17:15 Urine Ketones >=80 mg/dL (NEGATIVE) H 05/11/17 17:15 Urine Blood TRACE (NEGATIVE) 05/11/17 17:15 Urine Nitrate NEGATIVE (NEGATIVE) 05/11/17 17:15 Urine Bilirubin MODERATE (NEGATIVE) H 05/11/17 17:15 Urine Urobilinogen 4.0 E.U./dL (0.2 - 1.0) H 05/11/17 17:15 Ur Leukocyte Esterase NEGATIVE (NEGATIVE) 05/11/17 17:15 Urine RBC 2-5 /hpf (0-5) H 05/11/17 17:15 Urine WBC NONE SEEN /hpf (0-5) 05/11/17 17:15 Ur Epithelial Cells NONE SEEN /lpf (FEW) 05/11/17 17:15 Urine Bacteria NONE SEEN /hpf (NONE SEEN) 05/11/17 17:15 - Physical Exam Vitals and I&O: Vital Signs Temp 99.3 F 05/20/17 19:59 Pulse 124 05/20/17 22:27 Resp 28 05/20/17 22:27 BP 133/70 05/20/17 19:59 Pulse Ox 96 05/20/17 22:27 Intake & Output 05/20/17 05/20/17 05/21/17 06:59 18:59 06:59 Intake Total 120 1300.000 Output Total 20 Balance 120 1300.000 -20 Weight (lbs) 52.163 kg 52.163 kg Intake: Intake, IV Amount 100 1300.000 D5-0.9%Ns 1,000 ml @ 70 0 1000 mls/hr IV .[id number] [facility] Rx #:[id number] Piperacillin Sodium/ 100 50.000 Tazobact 2.25 gm In Sodium Chloride 0.9% 50 ml @ 100 mls/hr IV Q6HR [facility] Rx#:[id number] Vancomycin HCl 1 gm In 250 Sodium Chloride 0.9% 250 ml @ 165 mls/hr IV Q24H [facility] Rx#:[id number] Oral 20 Output: Drainage 20 Abdomen 20 Other: # Voids 3 # Bowel Movements 0 Weight Source Bedscale Bedscale Active Medications: Current Medications Acetaminophen (Tylenol) 650 mg PO Q6H PRN PRN Reason: HEADACHE/TEMP ABOVE 100F Stop: 07/10/17 18:41 Last Admin: 05/19/17 08:55 Dose: 650 mg Albuterol/Ipratropium (Duoneb Neb) 3 ml HHN Q4HRT PRN PRN Reason: sob Stop: 07/11/17 10:59 Last Admin: 05/20/17 22:27 Dose: 3 ml Potassium Chloride 40 meq/Lidocaine HCl 25 mg/ Sodium Chloride 272.5 mls @ 68 mls/hr IV DAILY PRN PRN Reason: k level less than 3.2 Stop: 07/10/17 18:41 Last Admin: 05/19/17 08:50 Dose: 68 mls/hr Piperacillin Sod/Tazobactam (Sod 2.25 gm/ Sodium Chloride) 50 mls @ 100 mls/hr IV Q6HR [facility] Stop: 07/11/17 08:44 Last Admin: 05/20/17 18:22 Dose: 100 mls/hr Dextrose/Sodium Chloride (D5-0.9%Ns) 1,000 mls @ 70 mls/hr IV .[id number] [facility] Stop: 07/16/17 05:07 Last Admin: 05/20/17 15:21 Dose: 70 mls/hr Vancomycin HCl 1 gm/ Sodium (Chloride) 250 mls @ 165 mls/hr IV Q24H [facility] Stop: 07/18/17 11:59 Last Infusion: 05/20/17 16:55 Dose: Infused Magnesium Oxide (Mag-Oxide) 400 mg PO BID PRN PRN Reason: Mg less than 1.9 Stop: 07/10/17 18:41 Miscellaneous (Zosyn Iv Per Pharmacy) 1 ea PRN PRN PRN Reason: PROTOCOL Stop: 07/11/17 07:44 Miscellaneous (Probiotic Screen) 1 ea PRN PRN PRN Reason: PROTOCOL Stop: 07/12/17 12:59 Miscellaneous (Vancomycin Iv Per Pharmacy) 1 [facility] PRN PRN PRN Reason: PROTOCOL Stop: 07/18/17 09:29 Morphine Sulfate (Morphine) 1 mg IVP Q4HR PRN PRN Reason: Severe Pain Stop: 07/10/17 18:41 Last Admin: 05/17/17 23:16 Dose: 1 mg Ondansetron HCl (Zofran) 4 mg IVP Q6H PRN PRN Reason: Nausea / Vomiting Stop: 07/10/17 18:41 Last Admin: 05/19/17 11:51 Dose: 4 mg Potassium Chloride (Klor-Con) 40 meq PO DAILY PRN PRN Reason: k level less than 3.5 Stop: 07/10/17 18:41 Last Admin: 05/20/17 17:37 Dose: 40 meq General: no acute distress, well developed, well nourished, cachectic HEENT: atraumatic, normocephalic, PERRLA Neck: supple, no thyromegaly Cardiovascular: S1S2, regular Lungs: clear to auscultation bilaterally, clear to percussion Abdomen: soft, drain (ELANA blood stained), no tender, no distended Extremities: no cyanosis, no clubbing, no edema Neurological: awake, alert, oriented Skin: intact - Procedures Procedures: Procedures Procedure Code Date REMOVAL OF GALLBLADDER 46995 05/11/17 RESECTION OF GALLBLADDER, OPEN APPROACH [id number] 05/11/17 Infectious Disease Assmt/Plan - Problem List Patient Problems: All Active Problems FREQUENT FALLS WITH POOR APPETITE (Acute) - Assessment Assessment: 1. peritonitis 2. sp cholecytitis, 3. Leukocytosis, likely reactive, sepsis, 3. Gangrenous Cholecystitis 5. E coli infection. - Plan Plan: Continue the same treatment. Nutritional Asmnt/Malnutr-PDOC - Dietary Evaluation Malnutrition Findings (Please click <Entered> for more info): Nutritional Asmnt/Malnutrition Start: 05/12/17 17: 42 Text: Status: Complete Freq: Document 05/12/17 17:43 LCHENG (Rec: 05/12/17 17:59 [email or web address] [id number]) Nutritional Asmnt/Malnutrition Patient General Information Nutritional Screening High Risk Consult Diagnosis syncope Pertinent Medical Hx/Surgical Hx asthma, HTN, dyslipidemia, arthritis Subjective Information Consult received for no appetite to eat. Pt seen lying in bed at time of visit, awake and alert. Pt reported appetite has been poor d/t sick and it was little bit better today. Pt denied chewing problem. Food preference provided. Per RN, pt had no PO intake in the past 5 days, spited out food according to pt . Pt only had fruit and juice for breakfast. Pt was now on NPO during lunch time for U/S. Current Diet Order/ Nutrition Support regular Pertinent Medications colace, piperacillin, nacl 0.9 % Pertinent Labs 05/12 Na 139, K 3.1, Cl 102, BUN 17, Cr 0.5, glucose 62 Ca 8.1 05/11 a1c 4.9 Nutritional Hx/Data Height 1.65 m Height (Calculated Centimeters) 165.1 Current Weight (lbs) 48.081 kg Weight (Calculated Kilograms) 48.1 Weight (Calculated Grams) 92225.8 [place] Body Weight 136 Body Mass Index (BMI) 17.6 Weight Status Underweight GI Symptoms GI Symptoms None Last BM none Difficult in: None Skin Integrity/Comment: bruise to left hip and left upper arm Estimated Nutritional Goals BEE in Kcals: Using Current wt Calories/Kcals/Kg 30-35 Kcals Calculated 2438-4249 Protein: Using Current wt Protein g/k.2-1.4 Protein Calculated 58-67 Fluid: ml 1440-1680ml (1ml/kcal) Nutritional Problem 1. Problem Problem inadequate food intake Etiology poor appetite Signs/Symptoms: poor PO intake x 6 days Intervention/Recommendation Comments 1. Continue with current diet as ordered. If PO continue new , consider adding Boost BID to increased nutrition intake. 2. Monitor PO intake, wt, labs and skin integrity 3. F/U as high risk in 2-3 days, 05/14-05/15 Expected Outcomes/Goals Expected Outcomes/Goals 1. PO intake to meet at least 75% of nutritional needs. 2. Wt stability, skin to remain intact, labs to approach WNL.
[2017-05-21] MEDS: Piperacillin/Tazobact 2.25 gm in 0.9% NS 50 ML IV SCH ×4 (00:20→17:01)
[2017-05-21] MEDS: D5-0.9%NS 1,000 ML IV SCH (00:33)
[2017-05-21] MEDS: Albuterol/Ipratropium Neb 3 ML AERS HHN SCH ×6 (02:15→23:01)
[2017-05-21 05:42] LABS: HEMATOCRIT 26.2 % (41.0-60); HEMOGLOBIN 8.8 gm/dL (12-16); MEAN CELL VOLUME 95.6 fl (80-99); MEAN CORPUSCULAR HEMOGLOBIN 32.2 pg (27.0-31.0); MEAN CORPUSCULAR HGB CONC 33.7 pg (28.0-36.0); PLATELET COUNT 363 Th/cmm (150-400); RED BLOOD COUNT 2.74 Mil/cmm (3.80-5.80); RED CELL DISTRIBUTION WIDTH 14.5 % (11.5-20.0)
[2017-05-21 05:54] LABS: ANION GAP 10.8 (7.0-16.0); BUN - UREA NITROGEN 11 mg/dL (7-25); CALCIUM SERUM 6.6 mg/dL (8.6-10.3); CARBON DIOXIDE 27.6 mEq/L (21.0-31.0); CHLORIDE 104 mEq/L (98-107); CREATININE - SERUM 0.6 mg/dL (0.7-1.3); GLUCOSE 121 mg/dL (70-105); POTASSIUM SERUM 3.4 mEq/L (3.5-5.1); SODIUM SERUM 139 mEq/L (136-145)
[2017-05-21 05:57] LABS: % EOSINOPHILS 0.1 % (0.0-5.0); % LYMPHOCYTES 2.5 % (20.0-50.0); % MONOCYTES 5.5 % (2.0-10.0); % NEUTROPHILS 91.4 % (40.0-80.0); WHITE BLOOD COUNT 29.2 Th/cmm (4.8-10.8)
[2017-05-21 05:58] LABS: % BASOPHILS 0.5 % (0.0-2.0); BASOPHILE ABSOLUTE 0.1 Th/cumm (0-0.2); LYMPHOCYTE ABSOLUTE 0.7 Th/cmm (1.5-3.0); MONOCYTE ABSOLUTE 1.5 Th/cmm (0.3-1.0); NEUTROPHILE ABSOLUTE 26.8 Th/cmm (1.8-8.0)
[2017-05-21] MEDS: Potassium Chloride 20 mEq ER Tab PO PRN (09:52)
--- NOTE | 2017-05-21 10:01 | General Progress Note ---
Subjective - Review of Systems Service Date: 05/21/17 Events since last encounter: Continue antibiotics, per ID. WBC improved. He complains of shortness of breath and has rales on examination. Respiratory support. DC to SN[facility] for PT and abx when stable. Subjective: Patient is resting comfortably in bed. Appears to be short of breath. Complains of sob and wheezing. Denies fevers or chills. Denies chest pain, abdominal pain , dysuria, falls, or dizziness Objective - Results Result Diagrams: 05/21/17 05:30 05/21/17 05:30 Recent Labs: Laboratory Last Values WBC 29.2 Th/cmm (4.8-10.8) H* 05/21/17 05:30 RBC 2.74 Mil/cmm (3.80-5.80) L 05/21/17 05:30 Hgb 8.8 gm/dL (12-16) L 05/21/17 05:30 Hct 26.2 % (41.0-60) L 05/21/17 05:30 MCV 95.6 fl (80-99) 05/21/17 05:30 MCH 32.2 pg (27.0-31.0) H 05/21/17 05:30 MCHC Differential 33.7 pg (28.0-36.0) 05/21/17 05:30 RDW 14.5 % (11.5-20.0) 05/21/17 05:30 Plt Count 363 Th/cmm (150-400) 05/21/17 05:30 MPV 8.0 fl 05/21/17 05:30 Neutrophils % 91.4 % (40.0-80.0) H 05/21/17 05:30 Band Neutrophils % 3 % (0-10) 05/17/17 18:55 Lymphocytes % 2.5 % (20.0-50.0) L 05/21/17 05:30 Monocytes % 5.5 % (2.0-10.0) 05/21/17 05:30 Eosinophils % 0.1 % (0.0-5.0) 05/21/17 05:30 Basophils % 0.5 % (0.0-2.0) 05/21/17 05:30 Neutrophils (Manual) 94 % (40-80) H 05/20/17 06:26 Lymphocytes 5 % (20-50) L 05/20/17 06:26 Monocytes 1 % (2-10) L 05/20/17 06:26 Eosinophils 0 % (0-5) 05/17/17 18:55 Basophils 0 % (0-3) 05/17/17 18:55 Platelet Estimate ADEQUATE (NORMAL) 05/20/17 06:26 PT 10.9 SECONDS (9.5-11.5) 05/17/17 05:45 INR 1.05 (0.5-1.4) 05/17/17 05:45 PTT (Actin FS) 29.6 SECONDS (26.0-38.0) 05/17/17 05:45 Specimen Source Arterial 05/12/17 08:50 Sample Site RB 05/12/17 08:50 pH 7.38 (7.35-7.45) 05/12/17 08:50 pCO2 46.0 mmHg (35.0-45.0) H 05/12/17 08:50 pO2 86.0 mmHg (80.0-100.0) 05/12/17 08:50 HCO3 26.1 mEq/L (20.0-26.0) H 05/12/17 08:50 Base Excess 1.6 mEq/L (-3.0-3.0) 05/12/17 08:50 O2 Saturation 96.0 % (92.0-100.0) 05/12/17 08:50 Idris Test NA 05/12/17 08:50 Vent Rate NA 05/12/17 08:50 Inspired O2 28 05/12/17 08:50 Tidal Volume NA 05/12/17 08:50 PEEP NA 05/12/17 08:50 Pressure (ins/psv/peep) NA 05/12/17 08:50 Critical Value E.MCPHERSON 05/12/17 08:50 Sodium 139 mEq/L (136-145) 05/21/17 05:30 Potassium 3.4 mEq/L (3.5-5.1) L 05/21/17 05:30 Chloride 104 mEq/L (98-107) 05/21/17 05:30 Carbon Dioxide 27.6 mEq/L (21.0-31.0) 05/21/17 05:30 Anion Gap 10.8 (7.0-16.0) 05/21/17 05:30 BUN 11 mg/dL (7-25) 05/21/17 05:30 Creatinine 0.6 mg/dL (0.7-1.3) L 05/21/17 05:30 Est GFR ( Amer) TNP 05/21/17 05:30 Est GFR (Non-Af Amer) TNP 05/21/17 05:30 BUN/Creatinine Ratio 18.3 05/21/17 05:30 Glucose 121 mg/dL (70-105) H 05/21/17 05:30 POC Glucose 72 MG/DL (70 - 105) 05/17/17 06:31 Hemoglobin A1c % 4.9 % (4.0-6.0) 05/11/17 16:40 Whole Bld Lactic Acid 1.00 mmol/L (0.60-1.99) 05/11/17 16:40 Calcium 6.6 mg/dL (8.6-10.3) L 05/21/17 05:30 Magnesium 1.9 mg/dL (1.9-2.7) 05/11/17 16:40 Total Bilirubin 0.6 mg/dL (0.3-1.0) 05/19/17 06:30 Direct Bilirubin 0.44 mg/dL (0.0-0.2) H 05/13/17 06:05 AST 33 U/L (13-39) 05/19/17 06:30 ALT 19 U/L (7-52) 05/19/17 06:30 Alkaline Phosphatase 61 U/L (34-104) 05/19/17 06:30 Creatine Kinase 34 U/L (30-223) 05/11/17 16:40 Troponin I < 0.01 ng/mL (0.01-0.05) L 05/11/17 16:40 B-Natriuretic Peptide 120.0 pg/mL (5.0-100.0) H 05/11/17 16:40 Total Protein 5.0 gm/dL (6.0-8.3) L 05/19/17 06:30 Albumin 2.1 gm/dL (4.2-5.5) L 05/19/17 06:30 Globulin 2.9 gm/dL 05/19/17 06:30 Albumin/Globulin Ratio 0.7 (1.0-1.8) L 05/19/17 06:30 Triglycerides 112 mg/dL (<150) 05/11/17 16:40 Cholesterol 84 mg/dL (<200) 05/11/17 16:40 LDL Cholesterol Direct 57 mg/dL (75-193) L 05/11/17 16:40 HDL Cholesterol 18 mg/dL (23-92) L 05/11/17 16:40 Amylase 70 U/L (29-103) 05/11/17 16:40 Lipase 109 U/L (11-82) H 05/11/17 16:40 Urine Source CLEAN C 05/11/17 17:15 Urine Color YELLOW 05/11/17 17:15 Urine Clarity CLEAR (CLEAR) 05/11/17 17:15 Urine pH 6.0 (4.6 - 8.0) 05/11/17 17:15 Ur Specific [place] 1.015 (1.005-1.030) 05/11/17 17:15 Urine Protein TRACE mg/dL (NEGATIVE) 05/11/17 17:15 Urine Glucose (UA) NEGATIVE mg/dL (NEGATIVE) 05/11/17 17:15 Urine Ketones >=80 mg/dL (NEGATIVE) H 05/11/17 17:15 Urine Blood TRACE (NEGATIVE) 05/11/17 17:15 Urine Nitrate NEGATIVE (NEGATIVE) 05/11/17 17:15 Urine Bilirubin MODERATE (NEGATIVE) H 05/11/17 17:15 Urine Urobilinogen 4.0 E.U./dL (0.2 - 1.0) H 05/11/17 17:15 Ur Leukocyte Esterase NEGATIVE (NEGATIVE) 05/11/17 17:15 Urine RBC 2-5 /hpf (0-5) H 05/11/17 17:15 Urine WBC NONE SEEN /hpf (0-5) 05/11/17 17:15 Ur Epithelial Cells NONE SEEN /lpf (FEW) 05/11/17 17:15 Urine Bacteria NONE SEEN /hpf (NONE SEEN) 05/11/17 17:15 - Physical Exam Vitals and I&O: Vital Signs Temp 98.2 F 05/21/17 04:00 Pulse 96 05/21/17 07:32 Resp 24 05/21/17 07:32 BP 108/43 05/21/17 04:00 Pulse Ox 99 05/21/17 07:32 Intake & Output 05/20/17 05/21/17 05/21/17 18:59 06:59 18:59 Intake Total 1350.000 50 Output Total 20 31 Balance 1350.000 30 -31 Weight (lbs) 52.163 kg 52.163 kg Intake: Intake, IV Amount 1350.000 50 D5-0.9%Ns 1,000 ml @ 70 1000 mls/hr IV .[id number] [facility] Rx #:[id number] Piperacillin Sodium/ 100.000 50 Tazobact 2.25 gm In Sodium Chloride 0.9% 50 ml @ 100 mls/hr IV Q6HR [facility] Rx#:[id number] Vancomycin HCl 1 gm In 250 Sodium Chloride 0.9% 250 ml @ 165 mls/hr IV Q24H [facility] Rx#:[id number] Output: Drainage 20 30 Abdomen 20 30 Urine/Stool Mix 1 Other: # Voids 4 # Bowel Movements 1 Weight Source Bedscale Bedscale Active Medications: Current Medications Acetaminophen (Tylenol) 650 mg PO Q6H PRN PRN Reason: HEADACHE/TEMP ABOVE 100F Stop: 07/10/17 18:41 Last Admin: 05/19/17 08:55 Dose: 650 mg Albuterol/Ipratropium (Duoneb Neb) 3 ml HHN Q4HRT [facility] Stop: 07/20/17 02:59 Last Admin: 05/21/17 07:32 Dose: 3 ml Potassium Chloride 40 meq/Lidocaine HCl 25 mg/ Sodium Chloride 272.5 mls @ 68 mls/hr IV DAILY PRN PRN Reason: k level less than 3.2 Stop: 07/10/17 18:41 Last Admin: 05/19/17 08:50 Dose: 68 mls/hr Piperacillin Sod/Tazobactam (Sod 2.25 gm/ Sodium Chloride) 50 mls @ 100 mls/hr IV Q6HR [facility] Stop: 07/11/17 08:44 Last Admin: 05/21/17 05:41 Dose: 100 mls/hr Vancomycin HCl 1 gm/ Sodium (Chloride) 250 mls @ 165 mls/hr IV Q24H [facility] Stop: 07/18/17 11:59 Last Infusion: 05/20/17 16:55 Dose: Infused Dextrose/Sodium Chloride (D5-0.9%Ns) 1,000 mls @ 30 mls/hr IV .Q24H [facility] Stop: 07/20/17 00:10 Last Admin: 05/21/17 00:33 Dose: 30 mls/hr Magnesium Oxide (Mag-Oxide) 400 mg PO BID PRN PRN Reason: Mg less than 1.9 Stop: 07/10/17 18:41 Miscellaneous (Zosyn Iv Per Pharmacy) 1 ea PRN PRN PRN Reason: PROTOCOL Stop: 07/11/17 07:44 Miscellaneous (Probiotic Screen) 1 ea PRN PRN PRN Reason: PROTOCOL Stop: 07/12/17 12:59 Miscellaneous (Vancomycin Iv Per Pharmacy) 1 [facility] PRN PRN PRN Reason: PROTOCOL Stop: 07/18/17 09:29 Morphine Sulfate (Morphine) 1 mg IVP Q4HR PRN PRN Reason: Severe Pain Stop: 07/10/17 18:41 Last Admin: 05/17/17 23:16 Dose: 1 mg Ondansetron HCl (Zofran) 4 mg IVP Q6H PRN PRN Reason: Nausea / Vomiting Stop: 07/10/17 18:41 Last Admin: 05/19/17 11:51 Dose: 4 mg Potassium Chloride (Klor-Con) 40 meq PO DAILY PRN PRN Reason: k level less than 3.5 Stop: 07/10/17 18:41 Last Admin: 05/21/17 09:52 Dose: 40 meq General: Alert, Cooperative, No acute distress, Other (cachexic ) HEENT: Atraumatic, PERRLA, EOMI Neck: Supple, no JVD, no Thyromegaly Cardiovascular: Regular rate, Normal S1 Lungs: Other (has rales bl) Abdomen: Soft, Tender, Other (ELANA in place with bloody discharge) Neurological: Normal speech Psych/Mental Status: Other (ms str 3/5) - Procedures Procedures: Procedures Procedure Code Date REMOVAL OF GALLBLADDER 08324 05/11/17 RESECTION OF GALLBLADDER, OPEN APPROACH [id number] 05/11/17 Assessment/Plan - Problem List Patient Problems: All Active Problems FREQUENT FALLS WITH POOR APPETITE (Acute) - Assessment Assessment: Sepsis 2/2 gangrenous cholecystitis s/p open cholecystectomy with lysis of adhesions asp pna Hypokalemia D/O of ANS due to syncope Mech fall severe malnutrition ME COPD Exac anemia of chronic illness - Plan Plan: Pt is on IV Zosyn. Added Vanco. Dr. Avalos consulted for ID. Continue breathing tx. Sx and GI consulted for cholecystitis. Pt is POD #4, open cholecystectomy. Fall prec. FU on cbc. Loose stools resolved. Pt is on IV Zosyn and Vanco now. steroids and lasix were added Nutritional Asmnt/Malnutr-PDOC - Dietary Evaluation Malnutrition Findings (Please click <Entered> for more info): Nutritional Asmnt/Malnutrition Start: 05/12/17 17: 42 Text: Status: Complete Freq: Document 05/12/17 17:43 HENG (Rec: 05/12/17 17:59 LCHENG [id number]) Nutritional Asmnt/Malnutrition Patient General Information Nutritional Screening High Risk Consult Diagnosis syncope Pertinent Medical Hx/Surgical Hx asthma, HTN, dyslipidemia, arthritis Subjective Information Consult received for no appetite to eat. Pt seen lying in bed at time of visit, awake and alert. Pt reported appetite has been poor d/t sick and it was little bit better today. Pt denied chewing problem. Food preference provided. Per RN, pt had no PO intake in the past 5 days, spited out food according to pt . Pt only had fruit and juice for breakfast. Pt was now on NPO during lunch time for U/S. Current Diet Order/ Nutrition Support regular Pertinent Medications colace, piperacillin, nacl 0.9 % Pertinent Labs 05/12 Na 139, K 3.1, Cl 102, BUN 17, Cr 0.5, glucose 62 Ca 8.1 05/11 a1c 4.9 Nutritional Hx/Data Height 1.65 m Height (Calculated Centimeters) 165.1 Current Weight (lbs) 48.081 kg Weight (Calculated Kilograms) 48.1 Weight (Calculated Grams) 81461.8 [place] Body Weight 136 Body Mass Index (BMI) 17.6 Weight Status Underweight GI Symptoms GI Symptoms None Last BM none Difficult in: None Skin Integrity/Comment: bruise to left hip and left upper arm Estimated Nutritional Goals BEE in Kcals: Using Current wt Calories/Kcals/Kg 30-35 Kcals Calculated 7331-5450 Protein: Using Current wt Protein g/k.2-1.4 Protein Calculated 58-67 Fluid: ml 1440-1680ml (1ml/kcal) Nutritional Problem 1. Problem Problem inadequate food intake Etiology poor appetite Signs/Symptoms: poor PO intake x 6 days Intervention/Recommendation Comments 1. Continue with current diet as ordered. If PO continue new , consider adding Boost BID to increased nutrition intake. 2. Monitor PO intake, wt, labs and skin integrity 3. F/U as high risk in 2-3 days, 05/14-05/15 Expected Outcomes/Goals Expected Outcomes/Goals 1. PO intake to meet at least 75% of nutritional needs. 2. Wt stability, skin to remain intact, labs to approach WNL.
--- NOTE | 2017-05-21 12:01 | General Progress Note ---
Subjective - Review of Systems Service Date: 05/21/17 Events since last encounter: no appetite WBC remains high, on 3 antibiotics incision clean, minimal ELANA drainage Objective - Results Result Diagrams: 05/21/17 05:30 05/21/17 05:30 Recent Labs: Laboratory Last Values WBC 29.2 Th/cmm (4.8-10.8) H* 05/21/17 05:30 RBC 2.74 Mil/cmm (3.80-5.80) L 05/21/17 05:30 Hgb 8.8 gm/dL (12-16) L 05/21/17 05:30 Hct 26.2 % (41.0-60) L 05/21/17 05:30 MCV 95.6 fl (80-99) 05/21/17 05:30 MCH 32.2 pg (27.0-31.0) H 05/21/17 05:30 MCHC Differential 33.7 pg (28.0-36.0) 05/21/17 05:30 RDW 14.5 % (11.5-20.0) 05/21/17 05:30 Plt Count 363 Th/cmm (150-400) 05/21/17 05:30 MPV 8.0 fl 05/21/17 05:30 Neutrophils % 91.4 % (40.0-80.0) H 05/21/17 05:30 Band Neutrophils % 3 % (0-10) 05/17/17 18:55 Lymphocytes % 2.5 % (20.0-50.0) L 05/21/17 05:30 Monocytes % 5.5 % (2.0-10.0) 05/21/17 05:30 Eosinophils % 0.1 % (0.0-5.0) 05/21/17 05:30 Basophils % 0.5 % (0.0-2.0) 05/21/17 05:30 Neutrophils (Manual) 94 % (40-80) H 05/20/17 06:26 Lymphocytes 5 % (20-50) L 05/20/17 06:26 Monocytes 1 % (2-10) L 05/20/17 06:26 Eosinophils 0 % (0-5) 05/17/17 18:55 Basophils 0 % (0-3) 05/17/17 18:55 Platelet Estimate ADEQUATE (NORMAL) 05/20/17 06:26 PT 10.9 SECONDS (9.5-11.5) 05/17/17 05:45 INR 1.05 (0.5-1.4) 05/17/17 05:45 PTT (Actin FS) 29.6 SECONDS (26.0-38.0) 05/17/17 05:45 Specimen Source Arterial 05/12/17 08:50 Sample Site RB 05/12/17 08:50 pH 7.38 (7.35-7.45) 05/12/17 08:50 pCO2 46.0 mmHg (35.0-45.0) H 05/12/17 08:50 pO2 86.0 mmHg (80.0-100.0) 05/12/17 08:50 HCO3 26.1 mEq/L (20.0-26.0) H 05/12/17 08:50 Base Excess 1.6 mEq/L (-3.0-3.0) 05/12/17 08:50 O2 Saturation 96.0 % (92.0-100.0) 05/12/17 08:50 Idris Test NA 05/12/17 08:50 Vent Rate NA 05/12/17 08:50 Inspired O2 28 05/12/17 08:50 Tidal Volume NA 05/12/17 08:50 PEEP NA 05/12/17 08:50 Pressure (ins/psv/peep) NA 05/12/17 08:50 Critical Value E.MCPHERSON 05/12/17 08:50 Sodium 139 mEq/L (136-145) 05/21/17 05:30 Potassium 3.4 mEq/L (3.5-5.1) L 05/21/17 05:30 Chloride 104 mEq/L (98-107) 05/21/17 05:30 Carbon Dioxide 27.6 mEq/L (21.0-31.0) 05/21/17 05:30 Anion Gap 10.8 (7.0-16.0) 05/21/17 05:30 BUN 11 mg/dL (7-25) 05/21/17 05:30 Creatinine 0.6 mg/dL (0.7-1.3) L 05/21/17 05:30 Est GFR ( Amer) TNP 05/21/17 05:30 Est GFR (Non-Af Amer) TNP 05/21/17 05:30 BUN/Creatinine Ratio 18.3 05/21/17 05:30 Glucose 121 mg/dL (70-105) H 05/21/17 05:30 POC Glucose 72 MG/DL (70 - 105) 05/17/17 06:31 Hemoglobin A1c % 4.9 % (4.0-6.0) 05/11/17 16:40 Whole Bld Lactic Acid 1.00 mmol/L (0.60-1.99) 05/11/17 16:40 Calcium 6.6 mg/dL (8.6-10.3) L 05/21/17 05:30 Magnesium 1.9 mg/dL (1.9-2.7) 05/11/17 16:40 Total Bilirubin 0.6 mg/dL (0.3-1.0) 05/19/17 06:30 Direct Bilirubin 0.44 mg/dL (0.0-0.2) H 05/13/17 06:05 AST 33 U/L (13-39) 05/19/17 06:30 ALT 19 U/L (7-52) 05/19/17 06:30 Alkaline Phosphatase 61 U/L (34-104) 05/19/17 06:30 Creatine Kinase 34 U/L (30-223) 05/11/17 16:40 Troponin I < 0.01 ng/mL (0.01-0.05) L 05/11/17 16:40 B-Natriuretic Peptide 120.0 pg/mL (5.0-100.0) H 05/11/17 16:40 Total Protein 5.0 gm/dL (6.0-8.3) L 05/19/17 06:30 Albumin 2.1 gm/dL (4.2-5.5) L 05/19/17 06:30 Globulin 2.9 gm/dL 05/19/17 06:30 Albumin/Globulin Ratio 0.7 (1.0-1.8) L 05/19/17 06:30 Triglycerides 112 mg/dL (<150) 05/11/17 16:40 Cholesterol 84 mg/dL (<200) 05/11/17 16:40 LDL Cholesterol Direct 57 mg/dL (75-193) L 05/11/17 16:40 HDL Cholesterol 18 mg/dL (23-92) L 05/11/17 16:40 Amylase 70 U/L (29-103) 05/11/17 16:40 Lipase 109 U/L (11-82) H 05/11/17 16:40 Urine Source CLEAN C 05/11/17 17:15 Urine Color YELLOW 05/11/17 17:15 Urine Clarity CLEAR (CLEAR) 05/11/17 17:15 Urine pH 6.0 (4.6 - 8.0) 05/11/17 17:15 Ur Specific [place] 1.015 (1.005-1.030) 05/11/17 17:15 Urine Protein TRACE mg/dL (NEGATIVE) 05/11/17 17:15 Urine Glucose (UA) NEGATIVE mg/dL (NEGATIVE) 05/11/17 17:15 Urine Ketones >=80 mg/dL (NEGATIVE) H 05/11/17 17:15 Urine Blood TRACE (NEGATIVE) 05/11/17 17:15 Urine Nitrate NEGATIVE (NEGATIVE) 05/11/17 17:15 Urine Bilirubin MODERATE (NEGATIVE) H 05/11/17 17:15 Urine Urobilinogen 4.0 E.U./dL (0.2 - 1.0) H 05/11/17 17:15 Ur Leukocyte Esterase NEGATIVE (NEGATIVE) 05/11/17 17:15 Urine RBC 2-5 /hpf (0-5) H 05/11/17 17:15 Urine WBC NONE SEEN /hpf (0-5) 05/11/17 17:15 Ur Epithelial Cells NONE SEEN /lpf (FEW) 05/11/17 17:15 Urine Bacteria NONE SEEN /hpf (NONE SEEN) 05/11/17 17:15 - Physical Exam Vitals and I&O: Vital Signs Temp 96.7 F 05/21/17 08:00 Pulse 101 05/21/17 10:50 Resp 24 05/21/17 10:50 BP 116/60 05/21/17 08:00 Pulse Ox 99 05/21/17 10:50 Intake & Output 05/20/17 05/21/17 05/21/17 18:59 06:59 18:59 Intake Total 1350.000 50 Output Total 20 31 Balance 1350.000 30 -31 Weight (lbs) 52.163 kg 52.072 kg Intake: Intake, IV Amount 1350.000 50 D5-0.9%Ns 1,000 ml @ 70 1000 mls/hr IV .[id number] [facility] Rx #:[id number] Piperacillin Sodium/ 100.000 50 Tazobact 2.25 gm In Sodium Chloride 0.9% 50 ml @ 100 mls/hr IV Q6HR [facility] Rx#:[id number] Vancomycin HCl 1 gm In 250 Sodium Chloride 0.9% 250 ml @ 165 mls/hr IV Q24H [facility] Rx#:[id number] Output: Drainage 20 30 Abdomen 20 30 Urine/Stool Mix 1 Other: # Voids 4 # Bowel Movements 1 Weight Source Bedscale Bedscale Active Medications: Current Medications Acetaminophen (Tylenol) 650 mg PO Q6H PRN PRN Reason: HEADACHE/TEMP ABOVE 100F Stop: 07/10/17 18:41 Last Admin: 05/19/17 08:55 Dose: 650 mg Albuterol/Ipratropium (Duoneb Neb) 3 ml HHN Q4HRT [facility] Stop: 07/20/17 02:59 Last Admin: 05/21/17 10:49 Dose: 3 ml Furosemide (Lasix) 20 mg IVP DAILY [facility] Stop: 07/21/17 08:59 Potassium Chloride 40 meq/Lidocaine HCl 25 mg/ Sodium Chloride 272.5 mls @ 68 mls/hr IV DAILY PRN PRN Reason: k level less than 3.2 Stop: 07/10/17 18:41 Last Admin: 05/19/17 08:50 Dose: 68 mls/hr Piperacillin Sod/Tazobactam (Sod 2.25 gm/ Sodium Chloride) 50 mls @ 100 mls/hr IV Q6HR [facility] Stop: 07/11/17 08:44 Last Admin: 05/21/17 05:41 Dose: 100 mls/hr Vancomycin HCl 1 gm/ Sodium (Chloride) 250 mls @ 165 mls/hr IV Q24H [facility] Stop: 07/18/17 11:59 Last Infusion: 05/20/17 16:55 Dose: Infused Dextrose/Sodium Chloride (D5-0.9%Ns) 1,000 mls @ 30 mls/hr IV .Q24H [facility] Stop: 07/20/17 00:10 Last Admin: 05/21/17 00:33 Dose: 30 mls/hr Magnesium Oxide (Mag-Oxide) 400 mg PO BID PRN PRN Reason: Mg less than 1.9 Stop: 07/10/17 18:41 Methylprednisolone Sodium Succinate (Solu-Medrol) 40 mg IVP BID [facility] Stop: 07/20/17 10:29 Miscellaneous (Zosyn Iv Per Pharmacy) 1 ea PRN PRN PRN Reason: PROTOCOL Stop: 07/11/17 07:44 Miscellaneous (Probiotic Screen) 1 ea PRN PRN PRN Reason: PROTOCOL Stop: 07/12/17 12:59 Miscellaneous (Vancomycin Iv Per Pharmacy) 1 ea PRN PRN PRN Reason: PROTOCOL Stop: 07/18/17 09:29 Morphine Sulfate (Morphine) 1 mg IVP Q4HR PRN PRN Reason: Severe Pain Stop: 07/10/17 18:41 Last Admin: 05/17/17 23:16 Dose: 1 mg Ondansetron HCl (Zofran) 4 mg IVP Q6H PRN PRN Reason: Nausea / Vomiting Stop: 07/10/17 18:41 Last Admin: 05/19/17 11:51 Dose: 4 mg Potassium Chloride (Klor-Con) 40 meq PO DAILY PRN PRN Reason: k level less than 3.5 Stop: 07/10/17 18:41 Last Admin: 05/21/17 09:52 Dose: 40 meq General: Alert, Cooperative, No acute distress, Other (cachexic ) HEENT: Atraumatic, PERRLA, EOMI Neck: Supple, no JVD, no Thyromegaly Cardiovascular: Regular rate, Normal S1 Lungs: Other (has rales bl) Abdomen: Soft, Tender, Other (ELANA in place with bloody discharge) Neurological: Normal speech Psych/Mental Status: Other (ms str 3/5) - Procedures Procedures: Procedures Procedure Code Date REMOVAL OF GALLBLADDER 81069 05/11/17 RESECTION OF GALLBLADDER, OPEN APPROACH [id number] 05/11/17 Assessment/Plan - Problem List Patient Problems: All Active Problems FREQUENT FALLS WITH POOR APPETITE (Acute) Nutritional Asmnt/Malnutr-PDOC - Dietary Evaluation Malnutrition Findings (Please click <Entered> for more info): Nutritional Asmnt/Malnutrition Start: 05/12/17 17: 42 Text: Status: Complete Freq: Document 05/12/17 17:43 [email or web address] (Rec: 05/12/17 17:59 LCHENG [email or web address]) Nutritional Asmnt/Malnutrition Patient General Information Nutritional Screening High Risk Consult Diagnosis syncope Pertinent Medical Hx/Surgical Hx asthma, HTN, dyslipidemia, arthritis Subjective Information Consult received for no appetite to eat. Pt seen lying in bed at time of visit, awake and alert. Pt reported appetite has been poor d/t sick and it was little bit better today. Pt denied chewing problem. Food preference provided. Per RN, pt had no PO intake in the past 5 days, spited out food according to pt . Pt only had fruit and juice for breakfast. Pt was now on NPO during lunch time for U/S. Current Diet Order/ Nutrition Support regular Pertinent Medications colace, piperacillin, nacl 0.9 % Pertinent Labs 05/12 Na 139, K 3.1, Cl 102, BUN 17, Cr 0.5, glucose 62 Ca 8.1 05/11 a1c 4.9 Nutritional Hx/Data Height 1.65 m Height (Calculated Centimeters) 165.1 Current Weight (lbs) 48.081 kg Weight (Calculated Kilograms) 48.1 Weight (Calculated Grams) 82893.8 [place] Body Weight 136 Body Mass Index (BMI) 17.6 Weight Status Underweight GI Symptoms GI Symptoms None Last BM none Difficult in: None Skin Integrity/Comment: bruise to left hip and left upper arm Estimated Nutritional Goals BEE in Kcals: Using Current wt Calories/Kcals/Kg 30-35 Kcals Calculated 9222-9245 Protein: Using Current wt Protein g/k.2-1.4 Protein Calculated 58-67 Fluid: ml 1440-1680ml (1ml/kcal) Nutritional Problem 1. Problem Problem inadequate food intake Etiology poor appetite Signs/Symptoms: poor PO intake x 6 days Intervention/Recommendation Comments 1. Continue with current diet as ordered. If PO continue new , consider adding Boost BID to increased nutrition intake. 2. Monitor PO intake, wt, labs and skin integrity 3. F/U as high risk in 2-3 days, 05/14-05/15 Expected Outcomes/Goals Expected Outcomes/Goals 1. PO intake to meet at least 75% of nutritional needs. 2. Wt stability, skin to remain intact, labs to approach WNL.
[2017-05-21] MEDS: methylPREDNISolone SS 40 mg Vial IVP SCH ×2 (12:18→17:01)
--- NOTE | 2017-05-21 15:11 | Infectious Disease Prog Note ---
Infectious Disease Subjective - Review of Systems Service Date: 05/21/17 Subjective: patient has no new change, no fever. Infectious Disease Objective - Results Result Diagrams: 05/21/17 05:30 05/21/17 05:30 Recent Labs: Laboratory Last Values WBC 29.2 Th/cmm (4.8-10.8) H* 05/21/17 05:30 RBC 2.74 Mil/cmm (3.80-5.80) L 05/21/17 05:30 Hgb 8.8 gm/dL (12-16) L 05/21/17 05:30 Hct 26.2 % (41.0-60) L 05/21/17 05:30 MCV 95.6 fl (80-99) 05/21/17 05:30 MCH 32.2 pg (27.0-31.0) H 05/21/17 05:30 MCHC Differential 33.7 pg (28.0-36.0) 05/21/17 05:30 RDW 14.5 % (11.5-20.0) 05/21/17 05:30 Plt Count 363 Th/cmm (150-400) 05/21/17 05:30 MPV 8.0 fl 05/21/17 05:30 Neutrophils % 91.4 % (40.0-80.0) H 05/21/17 05:30 Band Neutrophils % 3 % (0-10) 05/17/17 18:55 Lymphocytes % 2.5 % (20.0-50.0) L 05/21/17 05:30 Monocytes % 5.5 % (2.0-10.0) 05/21/17 05:30 Eosinophils % 0.1 % (0.0-5.0) 05/21/17 05:30 Basophils % 0.5 % (0.0-2.0) 05/21/17 05:30 Neutrophils (Manual) 94 % (40-80) H 05/20/17 06:26 Lymphocytes 5 % (20-50) L 05/20/17 06:26 Monocytes 1 % (2-10) L 05/20/17 06:26 Eosinophils 0 % (0-5) 05/17/17 18:55 Basophils 0 % (0-3) 05/17/17 18:55 Platelet Estimate ADEQUATE (NORMAL) 05/20/17 06:26 PT 10.9 SECONDS (9.5-11.5) 05/17/17 05:45 INR 1.05 (0.5-1.4) 05/17/17 05:45 PTT (Actin FS) 29.6 SECONDS (26.0-38.0) 05/17/17 05:45 Specimen Source Arterial 05/12/17 08:50 Sample Site RB 05/12/17 08:50 pH 7.38 (7.35-7.45) 05/12/17 08:50 pCO2 46.0 mmHg (35.0-45.0) H 05/12/17 08:50 pO2 86.0 mmHg (80.0-100.0) 05/12/17 08:50 HCO3 26.1 mEq/L (20.0-26.0) H 05/12/17 08:50 Base Excess 1.6 mEq/L (-3.0-3.0) 05/12/17 08:50 O2 Saturation 96.0 % (92.0-100.0) 05/12/17 08:50 Idris Test NA 05/12/17 08:50 Vent Rate NA 05/12/17 08:50 Inspired O2 28 05/12/17 08:50 Tidal Volume NA 05/12/17 08:50 PEEP NA 05/12/17 08:50 Pressure (ins/psv/peep) NA 05/12/17 08:50 Critical Value E.MCPHERSON 05/12/17 08:50 Sodium 139 mEq/L (136-145) 05/21/17 05:30 Potassium 3.4 mEq/L (3.5-5.1) L 05/21/17 05:30 Chloride 104 mEq/L (98-107) 05/21/17 05:30 Carbon Dioxide 27.6 mEq/L (21.0-31.0) 05/21/17 05:30 Anion Gap 10.8 (7.0-16.0) 05/21/17 05:30 BUN 11 mg/dL (7-25) 05/21/17 05:30 Creatinine 0.6 mg/dL (0.7-1.3) L 05/21/17 05:30 Est GFR ( Amer) TNP 05/21/17 05:30 Est GFR (Non-Af Amer) TNP 05/21/17 05:30 BUN/Creatinine Ratio 18.3 05/21/17 05:30 Glucose 121 mg/dL (70-105) H 05/21/17 05:30 POC Glucose 72 MG/DL (70 - 105) 05/17/17 06:31 Hemoglobin A1c % 4.9 % (4.0-6.0) 05/11/17 16:40 Whole Bld Lactic Acid 1.00 mmol/L (0.60-1.99) 05/11/17 16:40 Calcium 6.6 mg/dL (8.6-10.3) L 05/21/17 05:30 Magnesium 1.9 mg/dL (1.9-2.7) 05/11/17 16:40 Total Bilirubin 0.6 mg/dL (0.3-1.0) 05/19/17 06:30 Direct Bilirubin 0.44 mg/dL (0.0-0.2) H 05/13/17 06:05 AST 33 U/L (13-39) 05/19/17 06:30 ALT 19 U/L (7-52) 05/19/17 06:30 Alkaline Phosphatase 61 U/L (34-104) 05/19/17 06:30 Creatine Kinase 34 U/L (30-223) 05/11/17 16:40 Troponin I < 0.01 ng/mL (0.01-0.05) L 05/11/17 16:40 B-Natriuretic Peptide 120.0 pg/mL (5.0-100.0) H 05/11/17 16:40 Total Protein 5.0 gm/dL (6.0-8.3) L 05/19/17 06:30 Albumin 2.1 gm/dL (4.2-5.5) L 05/19/17 06:30 Globulin 2.9 gm/dL 05/19/17 06:30 Albumin/Globulin Ratio 0.7 (1.0-1.8) L 05/19/17 06:30 Triglycerides 112 mg/dL (<150) 05/11/17 16:40 Cholesterol 84 mg/dL (<200) 05/11/17 16:40 LDL Cholesterol Direct 57 mg/dL (75-193) L 05/11/17 16:40 HDL Cholesterol 18 mg/dL (23-92) L 05/11/17 16:40 Amylase 70 U/L (29-103) 05/11/17 16:40 Lipase 109 U/L (11-82) H 05/11/17 16:40 Urine Source CLEAN C 05/11/17 17:15 Urine Color YELLOW 05/11/17 17:15 Urine Clarity CLEAR (CLEAR) 05/11/17 17:15 Urine pH 6.0 (4.6 - 8.0) 05/11/17 17:15 Ur Specific [place] 1.015 (1.005-1.030) 05/11/17 17:15 Urine Protein TRACE mg/dL (NEGATIVE) 05/11/17 17:15 Urine Glucose (UA) NEGATIVE mg/dL (NEGATIVE) 05/11/17 17:15 Urine Ketones >=80 mg/dL (NEGATIVE) H 05/11/17 17:15 Urine Blood TRACE (NEGATIVE) 05/11/17 17:15 Urine Nitrate NEGATIVE (NEGATIVE) 05/11/17 17:15 Urine Bilirubin MODERATE (NEGATIVE) H 05/11/17 17:15 Urine Urobilinogen 4.0 E.U./dL (0.2 - 1.0) H 05/11/17 17:15 Ur Leukocyte Esterase NEGATIVE (NEGATIVE) 05/11/17 17:15 Urine RBC 2-5 /hpf (0-5) H 05/11/17 17:15 Urine WBC NONE SEEN /hpf (0-5) 05/11/17 17:15 Ur Epithelial Cells NONE SEEN /lpf (FEW) 05/11/17 17:15 Urine Bacteria NONE SEEN /hpf (NONE SEEN) 05/11/17 17:15 Vancomycin Trough 8.9 ug/mL (5-10) 05/21/17 11:00 - Physical Exam Vitals and I&O: Vital Signs Temp 97 F 05/21/17 12:00 Pulse 99 05/21/17 14:26 Resp 24 05/21/17 14:26 BP 112/68 05/21/17 12:00 Pulse Ox 99 05/21/17 14:26 Intake & Output 05/20/17 05/21/17 05/21/17 18:59 06:59 18:59 Intake Total 1350.000 100 Output Total 20 31 Balance 1350.000 80 -31 Weight (lbs) 52.163 kg 52.072 kg Intake: Intake, IV Amount 1350.000 100 D5-0.9%Ns 1,000 ml @ 70 1000 mls/hr IV .[id number] [facility] Rx #:[id number] Piperacillin Sodium/ 100.000 100 Tazobact 2.25 gm In Sodium Chloride 0.9% 50 ml @ 100 mls/hr IV Q6HR [facility] Rx#:[id number] Vancomycin HCl 1 gm In 250 Sodium Chloride 0.9% 250 ml @ 165 mls/hr IV Q24H [facility] Rx#:[id number] Output: Drainage 20 30 Abdomen 20 30 Urine/Stool Mix 1 Other: # Voids 4 # Bowel Movements 1 Weight Source Bedscale Bedscale Active Medications: Current Medications Acetaminophen (Tylenol) 650 mg PO Q6H PRN PRN Reason: HEADACHE/TEMP ABOVE 100F Stop: 07/10/17 18:41 Last Admin: 05/19/17 08:55 Dose: 650 mg Albuterol/Ipratropium (Duoneb Neb) 3 ml HHN Q4HRT [facility] Stop: 07/20/17 02:59 Last Admin: 05/21/17 14:26 Dose: 3 ml Furosemide (Lasix) 20 mg IVP DAILY [facility] Stop: 07/21/17 08:59 Potassium Chloride 40 meq/Lidocaine HCl 25 mg/ Sodium Chloride 272.5 mls @ 68 mls/hr IV DAILY PRN PRN Reason: k level less than 3.2 Stop: 07/10/17 18:41 Last Admin: 05/19/17 08:50 Dose: 68 mls/hr Piperacillin Sod/Tazobactam (Sod 2.25 gm/ Sodium Chloride) 50 mls @ 100 mls/hr IV Q6HR [facility] Stop: 07/11/17 08:44 Last Admin: 05/21/17 12:20 Dose: 100 mls/hr Dextrose/Sodium Chloride (D5-0.9%Ns) 1,000 mls @ 30 mls/hr IV .Q24H [facility] Stop: 07/20/17 00:10 Last Admin: 05/21/17 00:33 Dose: 30 mls/hr Vancomycin HCl 1 gm/ Sodium (Chloride) 250 mls @ 165 mls/hr IV Q18H [facility] Stop: 07/21/17 05:59 Magnesium Oxide (Mag-Oxide) 400 mg PO BID PRN PRN Reason: Mg less than 1.9 Stop: 07/10/17 18:41 Methylprednisolone Sodium Succinate (Solu-Medrol) 40 mg IVP BID [facility] Stop: 07/20/17 10:29 Last Admin: 05/21/17 12:18 Dose: 40 mg Miscellaneous (Zosyn Iv Per Pharmacy) 1 [facility] PRN PRN PRN Reason: PROTOCOL Stop: 07/11/17 07:44 Miscellaneous (Probiotic Screen) 1 ea PRN PRN PRN Reason: PROTOCOL Stop: 07/12/17 12:59 Miscellaneous (Vancomycin Iv Per Pharmacy) 1 [facility] PRN PRN PRN Reason: PROTOCOL Stop: 07/18/17 09:29 Morphine Sulfate (Morphine) 1 mg IVP Q4HR PRN PRN Reason: Severe Pain Stop: 07/10/17 18:41 Last Admin: 05/17/17 23:16 Dose: 1 mg Ondansetron HCl (Zofran) 4 mg IVP Q6H PRN PRN Reason: Nausea / Vomiting Stop: 07/10/17 18:41 Last Admin: 05/19/17 11:51 Dose: 4 mg Potassium Chloride (Klor-Con) 40 meq PO DAILY PRN PRN Reason: k level less than 3.5 Stop: 07/10/17 18:41 Last Admin: 05/21/17 09:52 Dose: 40 meq General: no acute distress, well developed, well nourished HEENT: atraumatic, normocephalic, PERRLA Neck: supple, no thyromegaly Cardiovascular: S1S2, regular Lungs: clear to auscultation bilaterally, clear to percussion Abdomen: soft, no tender, no distended Extremities: no cyanosis, no clubbing Neurological: awake, alert, oriented - Procedures Procedures: Procedures Procedure Code Date REMOVAL OF GALLBLADDER 34518 05/11/17 RESECTION OF GALLBLADDER, OPEN APPROACH [id number] 05/11/17 Infectious Disease Assmt/Plan - Problem List Patient Problems: All Active Problems FREQUENT FALLS WITH POOR APPETITE (Acute) - Assessment Assessment: 1. peritonitis 2. sp cholecytitis, 3. Leukocytosis, likely reactive, sepsis, 3. Gangrenous Cholecystitis 5. E coli infection. - Plan Plan: Continue zosyn. Nutritional Asmnt/Malnutr-PDOC - Dietary Evaluation Malnutrition Findings (Please click <Entered> for more info): Nutritional Asmnt/Malnutrition Start: 05/12/17 17: 42 Text: Status: Complete Freq: Document 05/12/17 17:43 LCMAIRAG (Rec: 05/12/17 17:59 [email or web address] [email or web address]) Nutritional Asmnt/Malnutrition Patient General Information Nutritional Screening High Risk Consult Diagnosis syncope Pertinent Medical Hx/Surgical Hx asthma, HTN, dyslipidemia, arthritis Subjective Information Consult received for no appetite to eat. Pt seen lying in bed at time of visit, awake and alert. Pt reported appetite has been poor d/t sick and it was little bit better today. Pt denied chewing problem. Food preference provided. Per RN, pt had no PO intake in the past 5 days, spited out food according to pt . Pt only had fruit and juice for breakfast. Pt was now on NPO during lunch time for U/S. Current Diet Order/ Nutrition Support regular Pertinent Medications colace, piperacillin, nacl 0.9 % Pertinent Labs 05/12 Na 139, K 3.1, Cl 102, BUN 17, Cr 0.5, glucose 62 Ca 8.1 05/11 a1c 4.9 Nutritional Hx/Data Height 1.65 m Height (Calculated Centimeters) 165.1 Current Weight (lbs) 48.081 kg Weight (Calculated Kilograms) 48.1 Weight (Calculated Grams) 66024.8 [place] Body Weight 136 Body Mass Index (BMI) 17.6 Weight Status Underweight GI Symptoms GI Symptoms None Last BM none Difficult in: None Skin Integrity/Comment: bruise to left hip and left upper arm Estimated Nutritional Goals BEE in Kcals: Using Current wt Calories/Kcals/Kg 30-35 Kcals Calculated 0064-1409 Protein: Using Current wt Protein g/k.2-1.4 Protein Calculated 58-67 Fluid: ml 1440-1680ml (1ml/kcal) Nutritional Problem 1. Problem Problem inadequate food intake Etiology poor appetite Signs/Symptoms: poor PO intake x 6 days Intervention/Recommendation Comments 1. Continue with current diet as ordered. If PO continue new , consider adding Boost BID to increased nutrition intake. 2. Monitor PO intake, wt, labs and skin integrity 3. F/U as high risk in 2-3 days, 05/14-05/15 Expected Outcomes/Goals Expected Outcomes/Goals 1. PO intake to meet at least 75% of nutritional needs. 2. Wt stability, skin to remain intact, labs to approach WNL.
[2017-05-22] MEDS: Piperacillin/Tazobact 2.25 gm in 0.9% NS 50 ML IV SCH ×4 (00:50→17:01)
[2017-05-22] MEDS: D5-0.9%NS 1,000 ML IV SCH (01:43)
[2017-05-22] MEDS: Albuterol/Ipratropium Neb 3 ML AERS HHN SCH ×6 (02:27→22:53)
[2017-05-22 07:34] LABS: LYMPHOCYTE ABSOLUTE 0.4 Th/cmm (1.5-3.0); MONOCYTE ABSOLUTE 0.5 Th/cmm (0.3-1.0); RED CELL DISTRIBUTION WIDTH 14.8 % (11.5-20.0)
[2017-05-22 07:36] LABS: ANION GAP 8.9 (7.0-16.0); BUN - UREA NITROGEN 13 mg/dL (7-25); CALCIUM SERUM 6.7 mg/dL (8.6-10.3); CARBON DIOXIDE 29.7 mEq/L (21.0-31.0); CHLORIDE 108 mEq/L (98-107); CREATININE - SERUM 0.6 mg/dL (0.7-1.3); GLUCOSE 151 mg/dL (70-105); POTASSIUM SERUM 3.6 mEq/L (3.5-5.1); SODIUM SERUM 143 mEq/L (136-145)
[2017-05-22 07:41] LABS: RED BLOOD COUNT 2.31 Mil/cmm (3.80-5.80); WHITE BLOOD COUNT 16.4 Th/cmm (4.8-10.8)
[2017-05-22 07:42] LABS: HEMATOCRIT 22.5 % (41.0-60); HEMOGLOBIN 7.6 gm/dL (12-16); MEAN CELL VOLUME 97.6 fl (80-99)
[2017-05-22 07:43] LABS: % EOSINOPHILS 0.1 % (0.0-5.0); % LYMPHOCYTES 2.3 % (20.0-50.0); % MONOCYTES 3.2 % (2.0-10.0); % NEUTROPHILS 94.4 % (40.0-80.0); MEAN CORPUSCULAR HEMOGLOBIN 32.7 pg (27.0-31.0); MEAN CORPUSCULAR HGB CONC 33.5 pg (28.0-36.0); MEAN PLATELET VOLUME 8.1 fl; NEUTROPHILE ABSOLUTE 15.5 Th/cmm (1.8-8.0); PLATELET COUNT 277 Th/cmm (150-400)
--- NOTE | 2017-05-22 09:10 | Infectious Disease Prog Note ---
Infectious Disease Subjective - Review of Systems Service Date: 05/22/17 Events since last encounter: blood transfusion for anemia. Subjective: patient has no new change, no fever. sob. Infectious Disease Objective - Results Result Diagrams: 05/22/17 06:21 05/22/17 06:21 Recent Labs: Laboratory Last Values WBC 16.4 Th/cmm (4.8-10.8) H 05/22/17 06:21 RBC 2.31 Mil/cmm (3.80-5.80) L 05/22/17 06:21 Hgb 7.6 gm/dL (12-16) L* 05/22/17 06:21 Hct 22.5 % (41.0-60) L 05/22/17 06:21 MCV 97.6 fl (80-99) 05/22/17 06:21 MCH 32.7 pg (27.0-31.0) H 05/22/17 06:21 MCHC Differential 33.5 pg (28.0-36.0) 05/22/17 06:21 RDW 14.8 % (11.5-20.0) 05/22/17 06:21 Plt Count 277 Th/cmm (150-400) 05/22/17 06:21 MPV 8.1 fl 05/22/17 06:21 Neutrophils % 94.4 % (40.0-80.0) H 05/22/17 06:21 Band Neutrophils % 3 % (0-10) 05/17/17 18:55 Lymphocytes % 2.3 % (20.0-50.0) L 05/22/17 06:21 Monocytes % 3.2 % (2.0-10.0) 05/22/17 06:21 Eosinophils % 0.1 % (0.0-5.0) 05/22/17 06:21 Basophils % 0.0 % (0.0-2.0) 05/22/17 06:21 Neutrophils (Manual) 94 % (40-80) H 05/20/17 06:26 Lymphocytes 5 % (20-50) L 05/20/17 06:26 Monocytes 1 % (2-10) L 05/20/17 06:26 Eosinophils 0 % (0-5) 05/17/17 18:55 Basophils 0 % (0-3) 05/17/17 18:55 Platelet Estimate ADEQUATE (NORMAL) 05/20/17 06:26 PT 10.9 SECONDS (9.5-11.5) 05/17/17 05:45 INR 1.05 (0.5-1.4) 05/17/17 05:45 PTT (Actin FS) 29.6 SECONDS (26.0-38.0) 05/17/17 05:45 Specimen Source Arterial 05/12/17 08:50 Sample Site RB 05/12/17 08:50 pH 7.38 (7.35-7.45) 05/12/17 08:50 pCO2 46.0 mmHg (35.0-45.0) H 05/12/17 08:50 pO2 86.0 mmHg (80.0-100.0) 05/12/17 08:50 HCO3 26.1 mEq/L (20.0-26.0) H 05/12/17 08:50 Base Excess 1.6 mEq/L (-3.0-3.0) 05/12/17 08:50 O2 Saturation 96.0 % (92.0-100.0) 05/12/17 08:50 Idris Test NA 05/12/17 08:50 Vent Rate NA 05/12/17 08:50 Inspired O2 28 05/12/17 08:50 Tidal Volume NA 05/12/17 08:50 PEEP NA 05/12/17 08:50 Pressure (ins/psv/peep) NA 05/12/17 08:50 Critical Value E.MCPHERSON 05/12/17 08:50 Sodium 143 mEq/L (136-145) 05/22/17 06:21 Potassium 3.6 mEq/L (3.5-5.1) 05/22/17 06:21 Chloride 108 mEq/L (98-107) H 05/22/17 06:21 Carbon Dioxide 29.7 mEq/L (21.0-31.0) 05/22/17 06:21 Anion Gap 8.9 (7.0-16.0) 05/22/17 06:21 BUN 13 mg/dL (7-25) 05/22/17 06:21 Creatinine 0.6 mg/dL (0.7-1.3) L 05/22/17 06:21 Est GFR ( Amer) TNP 05/22/17 06:21 Est GFR (Non-Af Amer) TNP 05/22/17 06:21 BUN/Creatinine Ratio 21.7 05/22/17 06:21 Glucose 151 mg/dL (70-105) H 05/22/17 06:21 POC Glucose 72 MG/DL (70 - 105) 05/17/17 06:31 Hemoglobin A1c % 4.9 % (4.0-6.0) 05/11/17 16:40 Whole Bld Lactic Acid 1.00 mmol/L (0.60-1.99) 05/11/17 16:40 Calcium 6.7 mg/dL (8.6-10.3) L 05/22/17 06:21 Magnesium 1.9 mg/dL (1.9-2.7) 05/11/17 16:40 Total Bilirubin 0.6 mg/dL (0.3-1.0) 05/19/17 06:30 Direct Bilirubin 0.44 mg/dL (0.0-0.2) H 05/13/17 06:05 AST 33 U/L (13-39) 05/19/17 06:30 ALT 19 U/L (7-52) 05/19/17 06:30 Alkaline Phosphatase 61 U/L (34-104) 05/19/17 06:30 Creatine Kinase 34 U/L (30-223) 05/11/17 16:40 Troponin I < 0.01 ng/mL (0.01-0.05) L 05/11/17 16:40 B-Natriuretic Peptide 135.0 pg/mL (5.0-100.0) H 05/21/17 05:35 Total Protein 5.0 gm/dL (6.0-8.3) L 05/19/17 06:30 Albumin 2.1 gm/dL (4.2-5.5) L 05/19/17 06:30 Globulin 2.9 gm/dL 05/19/17 06:30 Albumin/Globulin Ratio 0.7 (1.0-1.8) L 05/19/17 06:30 Triglycerides 112 mg/dL (<150) 05/11/17 16:40 Cholesterol 84 mg/dL (<200) 05/11/17 16:40 LDL Cholesterol Direct 57 mg/dL (75-193) L 05/11/17 16:40 HDL Cholesterol 18 mg/dL (23-92) L 05/11/17 16:40 Amylase 70 U/L (29-103) 05/11/17 16:40 Lipase 109 U/L (11-82) H 05/11/17 16:40 Urine Source CLEAN C 05/11/17 17:15 Urine Color YELLOW 05/11/17 17:15 Urine Clarity CLEAR (CLEAR) 05/11/17 17:15 Urine pH 6.0 (4.6 - 8.0) 05/11/17 17:15 Ur Specific [place] 1.015 (1.005-1.030) 05/11/17 17:15 Urine Protein TRACE mg/dL (NEGATIVE) 05/11/17 17:15 Urine Glucose (UA) NEGATIVE mg/dL (NEGATIVE) 05/11/17 17:15 Urine Ketones >=80 mg/dL (NEGATIVE) H 05/11/17 17:15 Urine Blood TRACE (NEGATIVE) 05/11/17 17:15 Urine Nitrate NEGATIVE (NEGATIVE) 05/11/17 17:15 Urine Bilirubin MODERATE (NEGATIVE) H 05/11/17 17:15 Urine Urobilinogen 4.0 E.U./dL (0.2 - 1.0) H 05/11/17 17:15 Ur Leukocyte Esterase NEGATIVE (NEGATIVE) 05/11/17 17:15 Urine RBC 2-5 /hpf (0-5) H 05/11/17 17:15 Urine WBC NONE SEEN /hpf (0-5) 05/11/17 17:15 Ur Epithelial Cells NONE SEEN /lpf (FEW) 05/11/17 17:15 Urine Bacteria NONE SEEN /hpf (NONE SEEN) 05/11/17 17:15 Vancomycin Trough 8.9 ug/mL (5-10) 05/21/17 11:00 - Physical Exam Vitals and I&O: Vital Signs Temp 98 F 05/22/17 04:00 Pulse 90 05/22/17 04:00 Resp 18 05/22/17 04:00 BP 110/43 05/22/17 04:00 Pulse Ox 99 05/22/17 04:00 Intake & Output 05/21/17 05/22/17 05/22/17 18:59 06:59 18:59 Intake Total 1038.5 266.5 Output Total 81 Balance 957.5 266.5 Weight (lbs) 52.072 kg 51.71 kg Intake: Intake, IV Amount 888.5 266.5 D5-0.9%Ns 1,000 ml @ 30 538.5 216.5 mls/hr IV .Q24H [facility] Rx#: [id number] Piperacillin Sodium/ 100 50 Tazobact 2.25 gm In Sodium Chloride 0.9% 50 ml @ 100 mls/hr IV Q6HR [facility] Rx#:[id number] Oral 150 Output: Drainage 80 Abdomen 80 Urine/Stool Mix 1 Other: # Voids 4 # Bowel Movements 1 1 Weight Source Bedscale Bedscale Active Medications: Current Medications Acetaminophen (Tylenol) 650 mg PO Q6H PRN PRN Reason: HEADACHE/TEMP ABOVE 100F Stop: 07/10/17 18:41 Last Admin: 05/19/17 08:55 Dose: 650 mg Albuterol/Ipratropium (Duoneb Neb) 3 ml HHN Q4HRT [facility] Stop: 07/20/17 02:59 Last Admin: 05/22/17 07:11 Dose: 3 ml Furosemide (Lasix) 20 mg IVP DAILY [facility] Stop: 07/21/17 08:59 Potassium Chloride 40 meq/Lidocaine HCl 25 mg/ Sodium Chloride 272.5 mls @ 68 mls/hr IV DAILY PRN PRN Reason: k level less than 3.2 Stop: 07/10/17 18:41 Last Admin: 05/19/17 08:50 Dose: 68 mls/hr Piperacillin Sod/Tazobactam (Sod 2.25 gm/ Sodium Chloride) 50 mls @ 100 mls/hr IV Q6HR [facility] Stop: 07/11/17 08:44 Last Admin: 05/22/17 06:21 Dose: 100 mls/hr Dextrose/Sodium Chloride (D5-0.9%Ns) 1,000 mls @ 30 mls/hr IV .Q24H [facility] Stop: 07/20/17 00:10 Last Admin: 05/22/17 01:43 Dose: 30 mls/hr Magnesium Oxide (Mag-Oxide) 400 mg PO BID PRN PRN Reason: Mg less than 1.9 Stop: 07/10/17 18:41 Methylprednisolone Sodium Succinate (Solu-Medrol) 40 mg IVP BID [facility] Stop: 07/20/17 10:29 Last Admin: 05/21/17 17:01 Dose: 40 mg Miscellaneous (Zosyn Iv Per Pharmacy) 1 [facility]a [facility] PRN PRN PRN Reason: PROTOCOL Stop: 07/11/17 07:44 Miscellaneous (Probiotic Screen) 1 ea [facility] PRN PRN PRN Reason: PROTOCOL Stop: 07/12/17 12:59 Morphine Sulfate (Morphine) 1 mg IVP Q4HR PRN PRN Reason: Severe Pain Stop: 07/10/17 18:41 Last Admin: 05/17/17 23:16 Dose: 1 mg Ondansetron HCl (Zofran) 4 mg IVP Q6H PRN PRN Reason: Nausea / Vomiting Stop: 07/10/17 18:41 Last Admin: 05/19/17 11:51 Dose: 4 mg Potassium Chloride (Klor-Con) 40 meq PO DAILY PRN PRN Reason: k level less than 3.5 Stop: 07/10/17 18:41 Last Admin: 05/21/17 09:52 Dose: 40 meq General: no acute distress, well developed, well nourished HEENT: atraumatic, normocephalic, PERRLA, EOMI Neck: supple, no thyromegaly Cardiovascular: S1S2, regular Lungs: clear to auscultation bilaterally, clear to percussion Abdomen: soft, tender, drain (ELANA x1 wirh bloody discharge.) Extremities: no cyanosis, no clubbing, no edema Neurological: awake, alert, oriented Skin: intact - Procedures Procedures: Procedures Procedure Code Date REMOVAL OF GALLBLADDER 11092 05/11/17 RESECTION OF GALLBLADDER, OPEN APPROACH [id number] 05/11/17 Infectious Disease Assmt/Plan - Problem List Patient Problems: All Active Problems FREQUENT FALLS WITH POOR APPETITE (Acute) - Assessment Assessment: 1. peritonitis 2. sp cholecytitis, 3. Leukocytosis, likely reactive, sepsis, 3. Gangrenous Cholecystitis 5. E coli infection. - Plan Plan: Continue zosyn. monitor closely. cxr, breathing treatment. Nutritional Asmnt/Malnutr-PDOC - Dietary Evaluation Malnutrition Findings (Please click <Entered> for more info): Nutritional Asmnt/Malnutrition Start: 05/12/17 17: 42 Text: Status: Complete Freq: Document 05/12/17 17:43 LCHENG (Rec: 05/12/17 17:59 LCZANE [email or web address]) Nutritional Asmnt/Malnutrition Patient General Information Nutritional Screening High Risk Consult Diagnosis syncope Pertinent Medical Hx/Surgical Hx asthma, HTN, dyslipidemia, arthritis Subjective Information Consult received for no appetite to eat. Pt seen lying in bed at time of visit, awake and alert. Pt reported appetite has been poor d/t sick and it was little bit better today. Pt denied chewing problem. Food preference provided. Per RN, pt had no PO intake in the past 5 days, spited out food according to pt . Pt only had fruit and juice for breakfast. Pt was now on NPO during lunch time for U/S. Current Diet Order/ Nutrition Support regular Pertinent Medications colace, piperacillin, nacl 0.9 % Pertinent Labs 05/12 Na 139, K 3.1, Cl 102, BUN 17, Cr 0.5, glucose 62 Ca 8.1 05/11 a1c 4.9 Nutritional Hx/Data Height 1.65 m Height (Calculated Centimeters) 165.1 Current Weight (lbs) 48.081 kg Weight (Calculated Kilograms) 48.1 Weight (Calculated Grams) 44401.8 [place] Body Weight 136 Body Mass Index (BMI) 17.6 Weight Status Underweight GI Symptoms GI Symptoms None Last BM none Difficult in: None Skin Integrity/Comment: bruise to left hip and left upper arm Estimated Nutritional Goals BEE in Kcals: Using Current wt Calories/Kcals/Kg 30-35 Kcals Calculated 9934-7583 Protein: Using Current wt Protein g/k.2-1.4 Protein Calculated 58-67 Fluid: ml 1440-1680ml (1ml/kcal) Nutritional Problem 1. Problem Problem inadequate food intake Etiology poor appetite Signs/Symptoms: poor PO intake x 6 days Intervention/Recommendation Comments 1. Continue with current diet as ordered. If PO continue new , consider adding Boost BID to increased nutrition intake. 2. Monitor PO intake, wt, labs and skin integrity 3. F/U as high risk in 2-3 days, 05/14-05/15 Expected Outcomes/Goals Expected Outcomes/Goals 1. PO intake to meet at least 75% of nutritional needs. 2. Wt stability, skin to remain intact, labs to approach WNL.
[2017-05-22] MEDS: methylPREDNISolone SS 40 mg Vial IVP SCH ×2 (09:14→17:02)
--- NOTE | 2017-05-22 09:58 | Diagnostic Imaging Report ---
Exam: Chest portable HISTORY: Shortness of breath. Findings: Portable examination of the chest at 1543 hours reviewed and compared to the prior study of 05/18/2017 demonstrates increase in the basilar infiltrates bilaterally with superimposed right pleural effusion. Mediastinal structures midline the heart is not enlarged bony thorax is intact IMPRESSION: Bilateral basilar infiltrates, superimposed right pleural effusion, follow-up examination recommended.
--- NOTE | 2017-05-22 11:28 | General Progress Note ---
Subjective - Review of Systems Service Date: 05/22/17 Events since last encounter: WBC down, has pneumonia ELANA drain out redressed, incision clean and healing given 1 unit PRBC Objective - Results Result Diagrams: 05/22/17 06:21 05/22/17 06:21 Recent Labs: Laboratory Last Values WBC 16.4 Th/cmm (4.8-10.8) H 05/22/17 06:21 RBC 2.31 Mil/cmm (3.80-5.80) L 05/22/17 06:21 Hgb 7.6 gm/dL (12-16) L* 05/22/17 06:21 Hct 22.5 % (41.0-60) L 05/22/17 06:21 MCV 97.6 fl (80-99) 05/22/17 06:21 MCH 32.7 pg (27.0-31.0) H 05/22/17 06:21 MCHC Differential 33.5 pg (28.0-36.0) 05/22/17 06:21 RDW 14.8 % (11.5-20.0) 05/22/17 06:21 Plt Count 277 Th/cmm (150-400) 05/22/17 06:21 MPV 8.1 fl 05/22/17 06:21 Neutrophils % 94.4 % (40.0-80.0) H 05/22/17 06:21 Band Neutrophils % 3 % (0-10) 05/17/17 18:55 Lymphocytes % 2.3 % (20.0-50.0) L 05/22/17 06:21 Monocytes % 3.2 % (2.0-10.0) 05/22/17 06:21 Eosinophils % 0.1 % (0.0-5.0) 05/22/17 06:21 Basophils % 0.0 % (0.0-2.0) 05/22/17 06:21 Neutrophils (Manual) 94 % (40-80) H 05/20/17 06:26 Lymphocytes 5 % (20-50) L 05/20/17 06:26 Monocytes 1 % (2-10) L 05/20/17 06:26 Eosinophils 0 % (0-5) 05/17/17 18:55 Basophils 0 % (0-3) 05/17/17 18:55 Platelet Estimate ADEQUATE (NORMAL) 05/20/17 06:26 PT 10.9 SECONDS (9.5-11.5) 05/17/17 05:45 INR 1.05 (0.5-1.4) 05/17/17 05:45 PTT (Actin FS) 29.6 SECONDS (26.0-38.0) 05/17/17 05:45 Specimen Source Arterial 05/12/17 08:50 Sample Site RB 05/12/17 08:50 pH 7.38 (7.35-7.45) 05/12/17 08:50 pCO2 46.0 mmHg (35.0-45.0) H 05/12/17 08:50 pO2 86.0 mmHg (80.0-100.0) 05/12/17 08:50 HCO3 26.1 mEq/L (20.0-26.0) H 05/12/17 08:50 Base Excess 1.6 mEq/L (-3.0-3.0) 05/12/17 08:50 O2 Saturation 96.0 % (92.0-100.0) 05/12/17 08:50 Idris Test NA 05/12/17 08:50 Vent Rate NA 05/12/17 08:50 Inspired O2 28 05/12/17 08:50 Tidal Volume NA 05/12/17 08:50 PEEP NA 05/12/17 08:50 Pressure (ins/psv/peep) NA 05/12/17 08:50 Critical Value E.MCPHERSON 05/12/17 08:50 Sodium 143 mEq/L (136-145) 05/22/17 06:21 Potassium 3.6 mEq/L (3.5-5.1) 05/22/17 06:21 Chloride 108 mEq/L (98-107) H 05/22/17 06:21 Carbon Dioxide 29.7 mEq/L (21.0-31.0) 05/22/17 06:21 Anion Gap 8.9 (7.0-16.0) 05/22/17 06:21 BUN 13 mg/dL (7-25) 05/22/17 06:21 Creatinine 0.6 mg/dL (0.7-1.3) L 05/22/17 06:21 Est GFR ( Amer) TNP 05/22/17 06:21 Est GFR (Non-Af Amer) TNP 05/22/17 06:21 BUN/Creatinine Ratio 21.7 05/22/17 06:21 Glucose 151 mg/dL (70-105) H 05/22/17 06:21 POC Glucose 72 MG/DL (70 - 105) 05/17/17 06:31 Hemoglobin A1c % 4.9 % (4.0-6.0) 05/11/17 16:40 Whole Bld Lactic Acid 1.00 mmol/L (0.60-1.99) 05/11/17 16:40 Calcium 6.7 mg/dL (8.6-10.3) L 05/22/17 06:21 Magnesium 1.9 mg/dL (1.9-2.7) 05/11/17 16:40 Total Bilirubin 0.6 mg/dL (0.3-1.0) 05/19/17 06:30 Direct Bilirubin 0.44 mg/dL (0.0-0.2) H 05/13/17 06:05 AST 33 U/L (13-39) 05/19/17 06:30 ALT 19 U/L (7-52) 05/19/17 06:30 Alkaline Phosphatase 61 U/L (34-104) 05/19/17 06:30 Creatine Kinase 34 U/L (30-223) 05/11/17 16:40 Troponin I < 0.01 ng/mL (0.01-0.05) L 05/11/17 16:40 B-Natriuretic Peptide 135.0 pg/mL (5.0-100.0) H 05/21/17 05:35 Total Protein 5.0 gm/dL (6.0-8.3) L 05/19/17 06:30 Albumin 2.1 gm/dL (4.2-5.5) L 05/19/17 06:30 Globulin 2.9 gm/dL 05/19/17 06:30 Albumin/Globulin Ratio 0.7 (1.0-1.8) L 05/19/17 06:30 Triglycerides 112 mg/dL (<150) 05/11/17 16:40 Cholesterol 84 mg/dL (<200) 05/11/17 16:40 LDL Cholesterol Direct 57 mg/dL (75-193) L 03/27/18 16:40 HDL Cholesterol 18 mg/dL (23-92) L 05/11/17 16:40 Amylase 70 U/L (29-103) 05/11/17 16:40 Lipase 109 U/L (11-82) H 05/11/17 16:40 Urine Source CLEAN C 05/11/17 17:15 Urine Color YELLOW 05/11/17 17:15 Urine Clarity CLEAR (CLEAR) 05/11/17 17:15 Urine pH 6.0 (4.6 - 8.0) 05/11/17 17:15 Ur Specific [place] 1.015 (1.005-1.030) 05/11/17 17:15 Urine Protein TRACE mg/dL (NEGATIVE) 05/11/17 17:15 Urine Glucose (UA) NEGATIVE mg/dL (NEGATIVE) 05/11/17 17:15 Urine Ketones >=80 mg/dL (NEGATIVE) H 05/11/17 17:15 Urine Blood TRACE (NEGATIVE) 05/11/17 17:15 Urine Nitrate NEGATIVE (NEGATIVE) 05/11/17 17:15 Urine Bilirubin MODERATE (NEGATIVE) H 05/11/17 17:15 Urine Urobilinogen 4.0 E.U./dL (0.2 - 1.0) H 05/11/17 17:15 Ur Leukocyte Esterase NEGATIVE (NEGATIVE) 05/11/17 17:15 Urine RBC 2-5 /hpf (0-5) H 05/11/17 17:15 Urine WBC NONE SEEN /hpf (0-5) 05/11/17 17:15 Ur Epithelial Cells NONE SEEN /lpf (FEW) 05/11/17 17:15 Urine Bacteria NONE SEEN /hpf (NONE SEEN) 05/11/17 17:15 Vancomycin Trough 8.9 ug/mL (5-10) 05/21/17 11:00 Blood Type A POSITIVE 05/22/17 08:54 Antibody Screen NEGATIVE 05/22/17 08:54 Crossmatch See Detail 05/22/17 08:54 - Physical Exam Vitals and I&O: Vital Signs Temp 98 F 05/22/17 04:00 Pulse 73 05/22/17 07:15 Resp 14 05/22/17 07:15 BP 102/56 05/22/17 09:14 Pulse Ox 96 05/22/17 07:15 Intake & Output 05/21/17 05/22/17 05/22/17 18:59 06:59 18:59 Intake Total 1038.5 266.5 Output Total 81 Balance 957.5 266.5 Weight (lbs) 52.072 kg 51.71 kg Intake: Intake, IV Amount 888.5 266.5 D5-0.9%Ns 1,000 ml @ 30 538.5 216.5 mls/hr IV .Q24H [facility] Rx#: [id number] Piperacillin Sodium/ 100 50 Tazobact 2.25 gm In Sodium Chloride 0.9% 50 ml @ 100 mls/hr IV Q6HR [facility] Rx#:[id number] Oral 150 Output: Drainage 80 Abdomen 80 Urine/Stool Mix 1 Other: # Voids 4 # Bowel Movements 1 1 Weight Source Bedscale Bedscale Active Medications: Current Medications Acetaminophen (Tylenol) 650 mg PO Q6H PRN PRN Reason: HEADACHE/TEMP ABOVE 100F Stop: 07/10/17 18:41 Last Admin: 05/19/17 08:55 Dose: 650 mg Albuterol/Ipratropium (Duoneb Neb) 3 ml HHN Q4HRT [facility] Stop: 07/20/17 02:59 Last Admin: 05/22/17 07:11 Dose: 3 ml Furosemide (Lasix) 20 mg IVP DAILY [facility] Stop: 07/21/17 08:59 Last Admin: 05/22/17 09:14 Dose: 20 mg Potassium Chloride 40 meq/Lidocaine HCl 25 mg/ Sodium Chloride 272.5 mls @ 68 mls/hr IV DAILY PRN PRN Reason: k level less than 3.2 Stop: 07/10/17 18:41 Last Admin: 05/19/17 08:50 Dose: 68 mls/hr Piperacillin Sod/Tazobactam (Sod 2.25 gm/ Sodium Chloride) 50 mls @ 100 mls/hr IV Q6HR [facility] Stop: 07/11/17 08:44 Last Admin: 05/22/17 06:21 Dose: 100 mls/hr Dextrose/Sodium Chloride (D5-0.9%Ns) 1,000 mls @ 30 mls/hr IV .Q24H [facility] Stop: 07/20/17 00:10 Last Admin: 05/22/17 01:43 Dose: 30 mls/hr Magnesium Oxide (Mag-Oxide) 400 mg PO BID PRN PRN Reason: Mg less than 1.9 Stop: 07/10/17 18:41 Methylprednisolone Sodium Succinate (Solu-Medrol) 40 mg IVP BID BLANCA Stop: 07/20/17 10:29 Last Admin: 05/22/17 09:14 Dose: 40 mg Miscellaneous (Zosyn Iv Per Pharmacy) 1 ea PRN PRN PRN Reason: PROTOCOL Stop: 07/11/17 07:44 Miscellaneous (Probiotic Screen) 1 ea PRN PRN PRN Reason: PROTOCOL Stop: 07/12/17 12:59 Morphine Sulfate (Morphine) 1 mg IVP Q4HR PRN PRN Reason: Severe Pain Stop: 07/10/17 18:41 Last Admin: 05/17/17 23:16 Dose: 1 mg Ondansetron HCl (Zofran) 4 mg IVP Q6H PRN PRN Reason: Nausea / Vomiting Stop: 07/10/17 18:41 Last Admin: 05/19/17 11:51 Dose: 4 mg Potassium Chloride (Klor-Con) 40 meq PO DAILY PRN PRN Reason: k level less than 3.5 Stop: 07/10/17 18:41 Last Admin: 05/21/17 09:52 Dose: 40 meq General: Alert, Cooperative, No acute distress, Other (cachexic ) HEENT: Atraumatic, PERRLA, EOMI Neck: Supple, no JVD, no Thyromegaly Cardiovascular: Regular rate, Normal S1 Lungs: Other (has rales bl) Abdomen: Soft, Tender, Other (ELANA in place with bloody discharge) Neurological: Normal speech Psych/Mental Status: Other (ms str 3/5) - Procedures Procedures: Procedures Procedure Code Date REMOVAL OF GALLBLADDER 89038 05/11/17 RESECTION OF GALLBLADDER, OPEN APPROACH [id number] 05/11/17 Assessment/Plan - Problem List Patient Problems: All Active Problems FREQUENT FALLS WITH POOR APPETITE (Acute) Nutritional Asmnt/Malnutr-PDOC - Dietary Evaluation Malnutrition Findings (Please click <Entered> for more info): Nutritional Asmnt/Malnutrition Start: 05/12/17 17: 42 Text: Status: Complete Freq: Document 05/12/17 17:43 LACIE (Rec: 05/12/17 17:59 LACIE [id number]) Nutritional Asmnt/Malnutrition Patient General Information Nutritional Screening High Risk Consult Diagnosis syncope Pertinent Medical Hx/Surgical Hx asthma, HTN, dyslipidemia, arthritis Subjective Information Consult received for no appetite to eat. Pt seen lying in bed at time of visit, awake and alert. Pt reported appetite has been poor d/t sick and it was little bit better today. Pt denied chewing problem. Food preference provided. Per RN, pt had no PO intake in the past 5 days, spited out food according to pt . Pt only had fruit and juice for breakfast. Pt was now on NPO during lunch time for U/S. Current Diet Order/ Nutrition Support regular Pertinent Medications colace, piperacillin, nacl 0.9 % Pertinent Labs 05/12 Na 139, K 3.1, Cl 102, BUN 17, Cr 0.5, glucose 62 Ca 8.1 05/11 a1c 4.9 Nutritional Hx/Data Height 1.65 m Height (Calculated Centimeters) 165.1 Current Weight (lbs) 48.081 kg Weight (Calculated Kilograms) 48.1 Weight (Calculated Grams) 89797.8 [place] Body Weight 136 Body Mass Index (BMI) 17.6 Weight Status Underweight GI Symptoms GI Symptoms None Last BM none Difficult in: None Skin Integrity/Comment: bruise to left hip and left upper arm Estimated Nutritional Goals BEE in Kcals: Using Current wt Calories/Kcals/Kg 30-35 Kcals Calculated 0650-0339 Protein: Using Current wt Protein g/k.2-1.4 Protein Calculated 58-67 Fluid: ml 1440-1680ml (1ml/kcal) Nutritional Problem 1. Problem Problem inadequate food intake Etiology poor appetite Signs/Symptoms: poor PO intake x 6 days Intervention/Recommendation Comments 1. Continue with current diet as ordered. If PO continue new , consider adding Boost BID to increased nutrition intake. 2. Monitor PO intake, wt, labs and skin integrity 3. F/U as high risk in 2-3 days, 05/14-05/15 Expected Outcomes/Goals Expected Outcomes/Goals 1. PO intake to meet at least 75% of nutritional needs. 2. Wt stability, skin to remain intact, labs to approach WNL.
[2017-05-23] MEDS: Piperacillin/Tazobact 2.25 gm in 0.9% NS 50 ML IV SCH ×5 (00:18→23:05)
[2017-05-23] MEDS: D5-0.9%NS 1,000 ML IV SCH (02:24)
[2017-05-23] MEDS: Albuterol/Ipratropium Neb 3 ML AERS HHN SCH ×6 (02:50→23:22)
[2017-05-23 07:02] LABS: % LYMPHOCYTES 2.1 % (20.0-50.0); % MONOCYTES 4.1 % (2.0-10.0); % NEUTROPHILS 93.7 % (40.0-80.0); HEMATOCRIT 25.7 % (41.0-60); HEMOGLOBIN 8.6 gm/dL (12-16); LYMPHOCYTE ABSOLUTE 0.3 Th/cmm (1.5-3.0); MEAN CELL VOLUME 95.9 fl (80-99); MEAN CORPUSCULAR HGB CONC 33.4 pg (28.0-36.0); MONOCYTE ABSOLUTE 0.6 Th/cmm (0.3-1.0); NEUTROPHILE ABSOLUTE 13.6 Th/cmm (1.8-8.0); PLATELET COUNT 265 Th/cmm (150-400); RED BLOOD COUNT 2.68 Mil/cmm (3.80-5.80); RED CELL DISTRIBUTION WIDTH 16.4 % (11.5-20.0); WHITE BLOOD COUNT 14.5 Th/cmm (4.8-10.8)
[2017-05-23 07:03] LABS: % EOSINOPHILS 0.1 % (0.0-5.0)
[2017-05-23 07:29] LABS: BUN - UREA NITROGEN 14 mg/dL (7-25); CALCIUM SERUM 6.8 mg/dL (8.6-10.3); CARBON DIOXIDE 32.9 mEq/L (21.0-31.0); CHLORIDE 106 mEq/L (98-107); CREATININE - SERUM 0.6 mg/dL (0.7-1.3); GLUCOSE 146 mg/dL (70-105); SODIUM SERUM 144 mEq/L (136-145)
[2017-05-23 07:32] LABS: POTASSIUM SERUM 2.9 mEq/L (3.5-5.1)
[2017-05-23] MEDS: methylPREDNISolone SS 40 mg Vial IVP SCH ×2 (09:06→16:18)
[2017-05-23] MEDS: KCL 20mEq/100mL Premix 40 MEQ/200 ML PIGGYBACK IV PRN (09:06)
--- NOTE | 2017-05-23 09:24 | General Progress Note ---
Subjective - Review of Systems Service Date: 05/23/17 Events since last encounter: labs noted' feeling better today, tolerating oral intake minimal ELANA drainage labs in AM Objective - Results Result Diagrams: 05/23/17 06:01 05/23/17 06:01 Recent Labs: Laboratory Last Values WBC 14.5 Th/cmm (4.8-10.8) H 05/23/17 06:01 RBC 2.68 Mil/cmm (3.80-5.80) L 05/23/17 06:01 Hgb 8.6 gm/dL (12-16) L 05/23/17 06:01 Hct 25.7 % (41.0-60) L 05/23/17 06:01 MCV 95.9 fl (80-99) 05/23/17 06:01 MCH 32.0 pg (27.0-31.0) H 05/23/17 06:01 MCHC Differential 33.4 pg (28.0-36.0) 05/23/17 06:01 RDW 16.4 % (11.5-20.0) 05/23/17 06:01 Plt Count 265 Th/cmm (150-400) 05/23/17 06:01 MPV 8.0 fl 05/23/17 06:01 Neutrophils % 93.7 % (40.0-80.0) H 05/23/17 06:01 Band Neutrophils % 3 % (0-10) 05/17/17 18:55 Lymphocytes % 2.1 % (20.0-50.0) L 05/23/17 06:01 Monocytes % 4.1 % (2.0-10.0) 05/23/17 06:01 Eosinophils % 0.1 % (0.0-5.0) 05/23/17 06:01 Basophils % 0.0 % (0.0-2.0) 05/23/17 06:01 Neutrophils (Manual) 94 % (40-80) H 05/20/17 06:26 Lymphocytes 5 % (20-50) L 05/20/17 06:26 Monocytes 1 % (2-10) L 05/20/17 06:26 Eosinophils 0 % (0-5) 05/17/17 18:55 Basophils 0 % (0-3) 05/17/17 18:55 Platelet Estimate ADEQUATE (NORMAL) 05/20/17 06:26 PT 10.9 SECONDS (9.5-11.5) 05/17/17 05:45 INR 1.05 (0.5-1.4) 05/17/17 05:45 PTT (Actin FS) 29.6 SECONDS (26.0-38.0) 05/17/17 05:45 Specimen Source Arterial 05/12/17 08:50 Sample Site RB 05/12/17 08:50 pH 7.38 (7.35-7.45) 05/12/17 08:50 pCO2 46.0 mmHg (35.0-45.0) H 05/12/17 08:50 pO2 86.0 mmHg (80.0-100.0) 05/12/17 08:50 HCO3 26.1 mEq/L (20.0-26.0) H 05/12/17 08:50 Base Excess 1.6 mEq/L (-3.0-3.0) 05/12/17 08:50 O2 Saturation 96.0 % (92.0-100.0) 05/12/17 08:50 Idris Test NA 05/12/17 08:50 Vent Rate NA 05/12/17 08:50 Inspired O2 28 05/12/17 08:50 Tidal Volume NA 05/12/17 08:50 PEEP NA 05/12/17 08:50 Pressure (ins/psv/peep) NA 05/12/17 08:50 Critical Value E.MCPHERSON 05/12/17 08:50 Sodium 144 mEq/L (136-145) 05/23/17 06:01 Potassium 2.9 mEq/L (3.5-5.1) L* 05/23/17 06:01 Chloride 106 mEq/L (98-107) 05/23/17 06:01 Carbon Dioxide 32.9 mEq/L (21.0-31.0) H 05/23/17 06:01 Anion Gap 8.0 (7.0-16.0) 05/23/17 06:01 BUN 14 mg/dL (7-25) 05/23/17 06:01 Creatinine 0.6 mg/dL (0.7-1.3) L 05/23/17 06:01 Est GFR ( Amer) TNP 05/23/17 06:01 Est GFR (Non-Af Amer) TNP 05/23/17 06:01 BUN/Creatinine Ratio 23.3 05/23/17 06:01 Glucose 146 mg/dL (70-105) H 05/23/17 06:01 POC Glucose 72 MG/DL (70 - 105) 05/17/17 06:31 Hemoglobin A1c % 4.9 % (4.0-6.0) 05/11/17 16:40 Whole Bld Lactic Acid 1.00 mmol/L (0.60-1.99) 05/11/17 16:40 Calcium 6.8 mg/dL (8.6-10.3) L 05/23/17 06:01 Magnesium 1.9 mg/dL (1.9-2.7) 05/11/17 16:40 Total Bilirubin 0.6 mg/dL (0.3-1.0) 05/19/17 06:30 Direct Bilirubin 0.44 mg/dL (0.0-0.2) H 05/13/17 06:05 AST 33 U/L (13-39) 05/19/17 06:30 ALT 19 U/L (7-52) 05/19/17 06:30 Alkaline Phosphatase 61 U/L (34-104) 05/19/17 06:30 Creatine Kinase 34 U/L (30-223) 05/11/17 16:40 Troponin I < 0.01 ng/mL (0.01-0.05) L 05/11/17 16:40 B-Natriuretic Peptide 135.0 pg/mL (5.0-100.0) H 05/21/17 05:35 Total Protein 5.0 gm/dL (6.0-8.3) L 05/19/17 06:30 Albumin 2.1 gm/dL (4.2-5.5) L 05/19/17 06:30 Globulin 2.9 gm/dL 05/19/17 06:30 Albumin/Globulin Ratio 0.7 (1.0-1.8) L 05/19/17 06:30 Triglycerides 112 mg/dL (<150) 05/11/17 16:40 Cholesterol 84 mg/dL (<200) 05/11/17 16:40 LDL Cholesterol Direct 57 mg/dL (75-193) L 05/11/17 16:40 HDL Cholesterol 18 mg/dL (23-92) L 05/11/17 16:40 Amylase 70 U/L (29-103) 05/11/17 16:40 Lipase 109 U/L (11-82) H 05/11/17 16:40 Urine Source CLEAN C 05/11/17 17:15 Urine Color YELLOW 05/11/17 17:15 Urine Clarity CLEAR (CLEAR) 05/11/17 17:15 Urine pH 6.0 (4.6 - 8.0) 05/11/17 17:15 Ur Specific [place] 1.015 (1.005-1.030) 05/11/17 17:15 Urine Protein TRACE mg/dL (NEGATIVE) 05/11/17 17:15 Urine Glucose (UA) NEGATIVE mg/dL (NEGATIVE) 05/11/17 17:15 Urine Ketones >=80 mg/dL (NEGATIVE) H 05/11/17 17:15 Urine Blood TRACE (NEGATIVE) 05/11/17 17:15 Urine Nitrate NEGATIVE (NEGATIVE) 05/11/17 17:15 Urine Bilirubin MODERATE (NEGATIVE) H 05/11/17 17:15 Urine Urobilinogen 4.0 E.U./dL (0.2 - 1.0) H 05/11/17 17:15 Ur Leukocyte Esterase NEGATIVE (NEGATIVE) 05/11/17 17:15 Urine RBC 2-5 /hpf (0-5) H 05/11/17 17:15 Urine WBC NONE SEEN /hpf (0-5) 05/11/17 17:15 Ur Epithelial Cells NONE SEEN /lpf (FEW) 05/11/17 17:15 Urine Bacteria NONE SEEN /hpf (NONE SEEN) 05/11/17 17:15 Stool Occult Blood NEGATIVE (NEGATIVE) 05/22/17 09:50 Vancomycin Trough 8.9 ug/mL (5-10) 05/21/17 11:00 Blood Type A POSITIVE 05/22/17 08:54 Antibody Screen NEGATIVE 05/22/17 08:54 Crossmatch See Detail 05/22/17 08:54 - Physical Exam Vitals and I&O: Vital Signs Temp 97.0 F 05/23/17 04:00 Pulse 84 05/23/17 07:04 Resp 18 05/23/17 07:04 BP 117/51 05/23/17 09:06 Pulse Ox 96 05/23/17 07:04 Intake & Output 05/22/17 05/23/17 05/23/17 18:59 06:59 18:59 Intake Total 1021.000 319.5 Output Total 15 Balance 1006.000 319.5 Weight (lbs) 51.936 kg 53.666 kg Intake: Intake, IV Amount 571.000 319.5 D5-0.9%Ns 1,000 ml @ 30 471 269.5 mls/hr IV .Q24H [facility] Rx#: [id number] Piperacillin Sodium/ 100.000 50 Tazobact 2.25 gm In Sodium Chloride 0.9% 50 ml @ 100 mls/hr IV Q6HR [facility] Rx#:[id number] Oral 450 Output: Drainage 15 Abdomen 15 Other: # Voids 3 # Bowel Movements 2 Stool Characteristics Black Black Green Weight Source Bedscale Bedscale Active Medications: Current Medications Acetaminophen (Tylenol) 650 mg PO Q6H PRN PRN Reason: HEADACHE/TEMP ABOVE 100F Stop: 07/10/17 18:41 Last Admin: 05/19/17 08:55 Dose: 650 mg Albuterol/Ipratropium (Duoneb Neb) 3 ml HHN Q4HRT [facility] Stop: 07/20/17 02:59 Last Admin: 05/23/17 07:02 Dose: 3 ml Furosemide (Lasix) 20 mg IVP DAILY [facility] Stop: 07/21/17 08:59 Last Admin: 05/23/17 09:06 Dose: 20 mg Piperacillin Sod/Tazobactam (Sod 2.25 gm/ Sodium Chloride) 50 mls @ 100 mls/hr IV Q6HR [facility] Stop: 07/11/17 08:44 Last Admin: 05/23/17 05:09 Dose: 100 mls/hr Dextrose/Sodium Chloride (D5-0.9%Ns) 1,000 mls @ 30 mls/hr IV .Q24H [facility] Stop: 07/20/17 00:10 Last Admin: 05/23/17 02:24 Dose: 30 mls/hr Potassium Chloride (Potassium Chloride) 40 meq in 200 mls @ 68 mls/hr IV DAILY PRN PRN Reason: k level less than 3.2 Stop: 07/10/17 18:41 Last Admin: 05/23/17 09:06 Dose: 68 mls/hr Magnesium Oxide (Mag-Oxide) 400 mg PO BID PRN PRN Reason: Mg less than 1.9 Stop: 07/10/17 18:41 Methylprednisolone Sodium Succinate (Solu-Medrol) 40 mg IVP BID [facility] Stop: 07/20/17 10:29 Last Admin: 05/23/17 09:06 Dose: 40 mg Miscellaneous (Zosyn Iv Per Pharmacy) 1 ea PRN PRN PRN Reason: PROTOCOL Stop: 07/11/17 07:44 Miscellaneous (Probiotic Screen) 1 ea PRN PRN PRN Reason: PROTOCOL Stop: 07/12/17 12:59 Morphine Sulfate (Morphine) 1 mg IVP Q4HR PRN PRN Reason: Severe Pain Stop: 07/10/17 18:41 Last Admin: 05/17/17 23:16 Dose: 1 mg Ondansetron HCl (Zofran) 4 mg IVP Q6H PRN PRN Reason: Nausea / Vomiting Stop: 07/10/17 18:41 Last Admin: 05/19/17 11:51 Dose: 4 mg Potassium Chloride (Klor-Con) 40 meq PO DAILY PRN PRN Reason: k level less than 3.5 Stop: 07/10/17 18:41 Last Admin: 05/21/17 09:52 Dose: 40 meq General: Alert, Cooperative, No acute distress, Other (cachexic ) HEENT: Atraumatic, PERRLA, EOMI Neck: Supple, no JVD, no Thyromegaly Cardiovascular: Regular rate, Normal S1 Lungs: Other (has rales bl) Abdomen: Soft, Tender, Other (ELANA in place with bloody discharge) Neurological: Normal speech Psych/Mental Status: Other (ms str 3/5) - Procedures Procedures: Procedures Procedure Code Date REMOVAL OF GALLBLADDER 73500 05/11/17 RESECTION OF GALLBLADDER, OPEN APPROACH [id number] 05/11/17 Assessment/Plan - Problem List Patient Problems: All Active Problems FREQUENT FALLS WITH POOR APPETITE (Acute) Nutritional Asmnt/Malnutr-PDOC - Dietary Evaluation Malnutrition Findings (Please click <Entered> for more info): Nutritional Asmnt/Malnutrition Start: 05/12/17 17: 42 Text: Status: Complete Freq: Document 05/12/17 17:43 LCHENG (Rec: 05/12/17 17:59 LCHENG [email or web address]) Nutritional Asmnt/Malnutrition Patient General Information Nutritional Screening High Risk Consult Diagnosis syncope Pertinent Medical Hx/Surgical Hx asthma, HTN, dyslipidemia, arthritis Subjective Information Consult received for no appetite to eat. Pt seen lying in bed at time of visit, awake and alert. Pt reported appetite has been poor d/t sick and it was little bit better today. Pt denied chewing problem. Food preference provided. Per RN, pt had no PO intake in the past 5 days, spited out food according to pt . Pt only had fruit and juice for breakfast. Pt was now on NPO during lunch time for U/S. Current Diet Order/ Nutrition Support regular Pertinent Medications colace, piperacillin, nacl 0.9 % Pertinent Labs 05/12 Na 139, K 3.1, Cl 102, BUN 17, Cr 0.5, glucose 62 Ca 8.1 05/11 a1c 4.9 Nutritional Hx/Data Height 1.65 m Height (Calculated Centimeters) 165.1 Current Weight (lbs) 48.081 kg Weight (Calculated Kilograms) 48.1 Weight (Calculated Grams) 14414.8 [place] Body Weight 136 Body Mass Index (BMI) 17.6 Weight Status Underweight GI Symptoms GI Symptoms None Last BM none Difficult in: None Skin Integrity/Comment: bruise to left hip and left upper arm Estimated Nutritional Goals BEE in Kcals: Using Current wt Calories/Kcals/Kg 30-35 Kcals Calculated 3367-6254 Protein: Using Current wt Protein g/k.2-1.4 Protein Calculated 58-67 Fluid: ml 1440-1680ml (1ml/kcal) Nutritional Problem 1. Problem Problem inadequate food intake Etiology poor appetite Signs/Symptoms: poor PO intake x 6 days Intervention/Recommendation Comments 1. Continue with current diet as ordered. If PO continue new , consider adding Boost BID to increased nutrition intake. 2. Monitor PO intake, wt, labs and skin integrity 3. F/U as high risk in 2-3 days, 05/14-05/15 Expected Outcomes/Goals Expected Outcomes/Goals 1. PO intake to meet at least 75% of nutritional needs. 2. Wt stability, skin to remain intact, labs to approach WNL.
--- NOTE | 2017-05-23 09:49 | Diagnostic Imaging Report ---
Exam: Portable chest x-ray HISTORY: Shortness of breath. Findings: Portable examination of the chest at 0820 hours reviewed in comparison to prior study 05/22/2017 demonstrates unchanged appearance of right lower lobe pneumonia and effusion. Mild left basilar infiltrate and pleural thickening appreciated. COPD changes are noted. Aorta is calcified. Bony thorax is intact. IMPRESSION: Right lower lobe pneumonia and effusion unchanged compared to prior examination. Follow-up examination is recommended.
--- NOTE | 2017-05-23 10:02 | Diagnostic Imaging Report ---
Exam: chest portable HISTORY: Pneumonia. Findings: Portable exam of the chest at 1038 reviewed compared to prior study of 05/21/2017 demonstrates right lobe pneumonia and effusion increasing since prior examination. Mild left basilar infiltrate is noted. Mediastinal structures midline bony thorax is intact. IMPRESSION: increase in right basilar infiltrate and effusion. Follow-up exam is recommended
--- NOTE | 2017-05-23 23:11 | Infectious Disease Prog Note ---
Infectious Disease Subjective - Review of Systems Service Date: 05/23/17 Subjective: patient has no new change, no fever. sob. ELANA drain was removed. Infectious Disease Objective - Results Result Diagrams: 05/23/17 06:01 05/23/17 06:01 Recent Labs: Laboratory Last Values WBC 14.5 Th/cmm (4.8-10.8) H 05/23/17 06:01 RBC 2.68 Mil/cmm (3.80-5.80) L 05/23/17 06:01 Hgb 8.6 gm/dL (12-16) L 05/23/17 06:01 Hct 25.7 % (41.0-60) L 05/23/17 06:01 MCV 95.9 fl (80-99) 05/23/17 06:01 MCH 32.0 pg (27.0-31.0) H 05/23/17 06:01 MCHC Differential 33.4 pg (28.0-36.0) 05/23/17 06:01 RDW 16.4 % (11.5-20.0) 05/23/17 06:01 Plt Count 265 Th/cmm (150-400) 05/23/17 06:01 MPV 8.0 fl 05/23/17 06:01 Neutrophils % 93.7 % (40.0-80.0) H 05/23/17 06:01 Band Neutrophils % 3 % (0-10) 05/17/17 18:55 Lymphocytes % 2.1 % (20.0-50.0) L 05/23/17 06:01 Monocytes % 4.1 % (2.0-10.0) 05/23/17 06: Eosinophils % 0.1 % (0.0-5.0) 05/23/17 06:01 Basophils % 0.0 % (0.0-2.0) 05/23/17 06:01 Neutrophils (Manual) 94 % (40-80) H 05/20/17 06:26 Lymphocytes 5 % (20-50) L 05/20/17 06:26 Monocytes 1 % (2-10) L 05/20/17 06:26 Eosinophils 0 % (0-5) 05/17/17 18:55 Basophils 0 % (0-3) 05/17/17 18:55 Platelet Estimate ADEQUATE (NORMAL) 05/20/17 06:26 PT 10.9 SECONDS (9.5-11.5) 05/17/17 05:45 INR 1.05 (0.5-1.4) 05/17/17 05:45 PTT (Actin FS) 29.6 SECONDS (26.0-38.0) 05/17/17 05:45 Specimen Source Arterial 05/12/17 08:50 Sample Site RB 05/12/17 08:50 pH 7.38 (7.35-7.45) 05/12/17 08:50 pCO2 46.0 mmHg (35.0-45.0) H 05/12/17 08:50 pO2 86.0 mmHg (80.0-100.0) 05/12/17 08:50 HCO3 26.1 mEq/L (20.0-26.0) H 05/12/17 08:50 Base Excess 1.6 mEq/L (-3.0-3.0) 05/12/17 08:50 O2 Saturation 96.0 % (92.0-100.0) 05/12/17 08:50 Idris Test NA 05/12/17 08:50 Vent Rate NA 05/12/17 08:50 Inspired O2 28 05/12/17 08:50 Tidal Volume NA 05/12/17 08:50 PEEP NA 05/12/17 08:50 Pressure (ins/psv/peep) NA 05/12/17 08:50 Critical Value E.MCPHERSON 05/12/17 08:50 Sodium 144 mEq/L (136-145) 05/23/17 06:01 Potassium 2.9 mEq/L (3.5-5.1) L* 05/23/17 06:01 Chloride 106 mEq/L (98-107) 05/23/17 06:01 Carbon Dioxide 32.9 mEq/L (21.0-31.0) H 05/23/17 06:01 Anion Gap 8.0 (7.0-16.0) 05/23/17 06:01 BUN 14 mg/dL (7-25) 05/23/17 06:01 Creatinine 0.6 mg/dL (0.7-1.3) L 05/23/17 06:01 Est GFR ( Amer) TNP 05/23/17 06:01 Est GFR (Non-Af Amer) TNP 05/23/17 06:01 BUN/Creatinine Ratio 23.3 05/23/17 06:01 Glucose 146 mg/dL (70-105) H 05/23/17 06:01 POC Glucose 72 MG/DL (70 - 105) 05/17/17 06:31 Hemoglobin A1c % 4.9 % (4.0-6.0) 05/11/17 16:40 Whole Bld Lactic Acid 1.00 mmol/L (0.60-1.99) 05/11/17 16:40 Calcium 6.8 mg/dL (8.6-10.3) L 05/23/17 06:01 Magnesium 1.9 mg/dL (1.9-2.7) 05/11/17 16:40 Total Bilirubin 0.6 mg/dL (0.3-1.0) 05/19/17 06:30 Direct Bilirubin 0.44 mg/dL (0.0-0.2) H 05/13/17 06:05 AST 33 U/L (13-39) 05/19/17 06:30 ALT 19 U/L (7-52) 05/19/17 06:30 Alkaline Phosphatase 61 U/L (34-104) 05/19/17 06:30 Creatine Kinase 34 U/L (30-223) 05/11/17 16:40 Troponin I < 0.01 ng/mL (0.01-0.05) L 05/11/17 16:40 B-Natriuretic Peptide 135.0 pg/mL (5.0-100.0) H 05/21/17 05:35 Total Protein 5.0 gm/dL (6.0-8.3) L 05/19/17 06:30 Albumin 2.1 gm/dL (4.2-5.5) L 05/19/17 06:30 Globulin 2.9 gm/dL 05/19/17 06:30 Albumin/Globulin Ratio 0.7 (1.0-1.8) L 05/19/17 06:30 Triglycerides 112 mg/dL (<150) 05/11/17 16:40 Cholesterol 84 mg/dL (<200) 05/11/17 16:40 LDL Cholesterol Direct 57 mg/dL (75-193) L 05/11/17 16:40 HDL Cholesterol 18 mg/dL (23-92) L 05/11/17 16:40 Amylase 70 U/L (29-103) 05/11/17 16:40 Lipase 109 U/L (11-82) H 05/11/17 16:40 Urine Source CLEAN C 05/11/17 17:15 Urine Color YELLOW 05/11/17 17:15 Urine Clarity CLEAR (CLEAR) 05/11/17 17:15 Urine pH 6.0 (4.6 - 8.0) 05/11/17 17:15 Ur Specific [place] 1.015 (1.005-1.030) 05/11/17 17:15 Urine Protein TRACE mg/dL (NEGATIVE) 05/11/17 17:15 Urine Glucose (UA) NEGATIVE mg/dL (NEGATIVE) 05/11/17 17:15 Urine Ketones >=80 mg/dL (NEGATIVE) H 05/11/17 17:15 Urine Blood TRACE (NEGATIVE) 05/11/17 17:15 Urine Nitrate NEGATIVE (NEGATIVE) 05/11/17 17:15 Urine Bilirubin MODERATE (NEGATIVE) H 05/11/17 17:15 Urine Urobilinogen 4.0 E.U./dL (0.2 - 1.0) H 05/11/17 17:15 Ur Leukocyte Esterase NEGATIVE (NEGATIVE) 05/11/17 17:15 Urine RBC 2-5 /hpf (0-5) H 05/11/17 17:15 Urine WBC NONE SEEN /hpf (0-5) 05/11/17 17:15 Ur Epithelial Cells NONE SEEN /lpf (FEW) 05/11/17 17:15 Urine Bacteria NONE SEEN /hpf (NONE SEEN) 05/11/17 17:15 Stool Occult Blood NEGATIVE (NEGATIVE) 05/23/17 18:20 Vancomycin Trough 8.9 ug/mL (5-10) 05/21/17 11:00 Blood Type A POSITIVE 05/22/17 08:54 Antibody Screen NEGATIVE 05/22/17 08:54 Crossmatch See Detail 05/22/17 08:54 - Physical Exam Vitals and I&O: Vital Signs Temp 97.9 F 05/23/17 19:52 Pulse 85 05/23/17 19:52 Resp 18 05/23/17 20:00 BP 106/50 05/23/17 19:52 Pulse Ox 97 05/23/17 19:52 Intake & Output 05/23/17 05/23/17 05/24/17 06:59 18:59 06:59 Intake Total 369.5 350 Balance 369.5 350 Weight (lbs) 53.666 kg 53.66 kg Intake: Intake, IV Amount 369.5 100 D5-0.9%Ns 1,000 ml @ 30 269.5 mls/hr IV .Q24H [facility] Rx#: [id number] Piperacillin Sodium/ 100 100 Tazobact 2.25 gm In Sodium Chloride 0.9% 50 ml @ 100 mls/hr IV Q6HR [facility] Rx#:[id number] Oral 250 Other: # Voids 4 # Bowel Movements 2 Stool Characteristics Black Black Weight Source Bedscale Bedscale Active Medications: Current Medications Acetaminophen (Tylenol) 650 mg PO Q6H PRN PRN Reason: HEADACHE/TEMP ABOVE 100F Stop: 07/10/17 18:41 Last Admin: 05/19/17 08:55 Dose: 650 mg Albuterol/Ipratropium (Duoneb Neb) 3 ml HHN Q4HRT [facility] Stop: 07/20/17 02:59 Last Admin: 05/23/17 19:18 Dose: 3 ml Furosemide (Lasix) 20 mg IVP DAILY [facility] Stop: 07/21/17 08:59 Last Admin: 05/23/17 09:06 Dose: 20 mg Piperacillin Sod/Tazobactam (Sod 2.25 gm/ Sodium Chloride) 50 mls @ 100 mls/hr IV Q6HR [facility] Stop: 07/11/17 08:44 Last Admin: 05/23/17 23:05 Dose: 100 mls/hr Dextrose/Sodium Chloride (D5-0.9%Ns) 1,000 mls @ 30 mls/hr IV .Q24H [facility] Stop: 07/20/17 00:10 Last Admin: 05/23/17 02:24 Dose: 30 mls/hr Potassium Chloride (Potassium Chloride) 40 meq in 200 mls @ 68 mls/hr IV DAILY PRN PRN Reason: k level less than 3.2 Stop: 07/10/17 18:41 Last Admin: 05/23/17 09:06 Dose: 68 mls/hr Magnesium Oxide (Mag-Oxide) 400 mg PO BID PRN PRN Reason: Mg less than 1.9 Stop: 07/10/17 18:41 Methylprednisolone Sodium Succinate (Solu-Medrol) 40 mg IVP BID [facility] Stop: 07/20/17 10:29 Last Admin: 05/23/17 16:18 Dose: 40 mg Miscellaneous (Zosyn Iv Per Pharmacy) 1 [facility] PRN PRN PRN Reason: PROTOCOL Stop: 07/11/17 07:44 Miscellaneous (Probiotic Screen) 1 [facility] PRN PRN PRN Reason: PROTOCOL Stop: 07/12/17 12:59 Morphine Sulfate (Morphine) 1 mg IVP Q4HR PRN PRN Reason: Severe Pain Stop: 07/10/17 18:41 Last Admin: 05/17/17 23:16 Dose: 1 mg Ondansetron HCl (Zofran) 4 mg IVP Q6H PRN PRN Reason: Nausea / Vomiting Stop: 07/10/17 18:41 Last Admin: 05/19/17 11:51 Dose: 4 mg Potassium Chloride (Klor-Con) 40 meq PO DAILY PRN PRN Reason: k level less than 3.5 Stop: 07/10/17 18:41 Last Admin: 05/21/17 09:52 Dose: 40 meq General: no acute distress, well developed, well nourished HEENT: atraumatic, normocephalic, PERRLA, EOMI Neck: supple, no thyromegaly Cardiovascular: S1S2, regular Lungs: clear to auscultation bilaterally, clear to percussion Abdomen: soft, no tender, no distended, no mass Extremities: no cyanosis, no clubbing, no edema Neurological: awake, alert, oriented Skin: intact - Procedures Procedures: Procedures Procedure Code Date REMOVAL OF GALLBLADDER 42314 05/11/17 RESECTION OF GALLBLADDER, OPEN APPROACH [id number] 05/11/17 Infectious Disease Assmt/Plan - Problem List Patient Problems: All Active Problems FREQUENT FALLS WITH POOR APPETITE (Acute) - Assessment Assessment: 1. peritonitis 2. sp cholecytitis, 3. Leukocytosis, likely reactive, sepsis, 3. Gangrenous Cholecystitis 5. E coli infection. 6. Pneumonia. - Plan Plan: Continue zosyn. monitor closely. cxr, breathing treatment. Nutritional Asmnt/Malnutr-PDOC - Dietary Evaluation Malnutrition Findings (Please click <Entered> for more info): Nutritional Asmnt/Malnutrition Start: 05/12/17 17: 42 Text: Status: Complete Freq: Document 05/12/17 17:43 [id number] (Rec: 05/12/17 17:59 LACIE [id number]) Nutritional Asmnt/Malnutrition Patient General Information Nutritional Screening High Risk Consult Diagnosis syncope Pertinent Medical Hx/Surgical Hx asthma, HTN, dyslipidemia, arthritis Subjective Information Consult received for no appetite to eat. Pt seen lying in bed at time of visit, awake and alert. Pt reported appetite has been poor d/t sick and it was little bit better today. Pt denied chewing problem. Food preference provided. Per RN, pt had no PO intake in the past 5 days, spited out food according to pt . Pt only had fruit and juice for breakfast. Pt was now on NPO during lunch time for U/S. Current Diet Order/ Nutrition Support regular Pertinent Medications colace, piperacillin, nacl 0.9 % Pertinent Labs 05/12 Na 139, K 3.1, Cl 102, BUN 17, Cr 0.5, glucose 62 Ca 8.1 05/11 a1c 4.9 Nutritional Hx/Data Height 1.65 m Height (Calculated Centimeters) 165.1 Current Weight (lbs) 48.081 kg Weight (Calculated Kilograms) 48.1 Weight (Calculated Grams) 71068.8 [place] Body Weight 136 Body Mass Index (BMI) 17.6 Weight Status Underweight GI Symptoms GI Symptoms None Last BM none Difficult in: None Skin Integrity/Comment: bruise to left hip and left upper arm Estimated Nutritional Goals BEE in Kcals: Using Current wt Calories/Kcals/Kg 30-35 Kcals Calculated 3768-8304 Protein: Using Current wt Protein g/k.2-1.4 Protein Calculated 58-67 Fluid: ml 1440-1680ml (1ml/kcal) Nutritional Problem 1. Problem Problem inadequate food intake Etiology poor appetite Signs/Symptoms: poor PO intake x 6 days Intervention/Recommendation Comments 1. Continue with current diet as ordered. If PO continue new , consider adding Boost BID to increased nutrition intake. 2. Monitor PO intake, wt, labs and skin integrity 3. F/U as high risk in 2-3 days, 05/14-05/15 Expected Outcomes/Goals Expected Outcomes/Goals 1. PO intake to meet at least 75% of nutritional needs. 2. Wt stability, skin to remain intact, labs to approach WNL.
[2017-05-24] MEDS: Albuterol/Ipratropium Neb 3 ML AERS HHN SCH ×6 (03:16→22:07)
[2017-05-24] MEDS: Piperacillin/Tazobact 2.25 gm in 0.9% NS 50 ML IV SCH (05:26)
[2017-05-24 06:06] LABS: HEMOGLOBIN 8.8 gm/dL (12-16); LYMPHOCYTE ABSOLUTE 0.3 Th/cmm (1.5-3.0); MEAN CELL VOLUME 95.5 fl (80-99); MONOCYTE ABSOLUTE 0.4 Th/cmm (0.3-1.0); NEUTROPHILE ABSOLUTE 8.6 Th/cmm (1.8-8.0)
[2017-05-24 06:17] LABS: % BASOPHILS 0.4 % (0.0-2.0); % EOSINOPHILS 0.1 % (0.0-5.0); % MONOCYTES 4.1 % (2.0-10.0); HEMATOCRIT 26.1 % (41.0-60); MEAN CORPUSCULAR HEMOGLOBIN 32.2 pg (27.0-31.0); MEAN CORPUSCULAR HGB CONC 33.8 pg (28.0-36.0); MEAN PLATELET VOLUME 7.8 fl; PLATELET COUNT 231 Th/cmm (150-400); RED BLOOD COUNT 2.73 Mil/cmm (3.80-5.80); RED CELL DISTRIBUTION WIDTH 15.7 % (11.5-20.0)
[2017-05-24 06:25] LABS: % NEUTROPHILS 92.4 % (40.0-80.0); WHITE BLOOD COUNT 9.3 Th/cmm (4.8-10.8)
[2017-05-24 06:32] LABS: BUN - UREA NITROGEN 15 mg/dL (7-25); CALCIUM SERUM 7.1 mg/dL (8.6-10.3); CHLORIDE 102 mEq/L (98-107); CREATININE - SERUM 0.6 mg/dL (0.7-1.3); GLUCOSE 135 mg/dL (70-105); SODIUM SERUM 141 mEq/L (136-145)
[2017-05-24] MEDS: KCL 20mEq/100mL Premix 40 MEQ/200 ML PIGGYBACK IV PRN (08:23)
[2017-05-24] MEDS: D5-0.9%NS 1,000 ML IV SCH (08:23)
[2017-05-24] MEDS: methylPREDNISolone SS 40 mg Vial IVP SCH ×2 (08:23→16:43)
--- NOTE | 2017-05-24 08:48 | Discharge Progress Note ---
Discharge Progress Notes Is this patient being discharged home?: No Admitting Diagnoses: Diagnoses SEPSIS, UNSPECIFIED ORGANISM 05/11/17 MODERATE PROTEIN-CALORIE MALNUTRITION 05/11/17 HYPERLIPIDEMIA, UNSPECIFIED 05/11/17 HYPOKALEMIA 05/11/17 NICOTINE DEPENDENCE, CIGARETTES, UNCOMPLICATED 05/11/17 METABOLIC ENCEPHALOPATHY 05/11/17 CHRONIC OBSTRUCTIVE PULMONARY DISEASE W (ACUTE) EXACERBATION 05/11/17 UNSPECIFIED ASTHMA, UNCOMPLICATED 05/11/17 PNEUMONITIS DUE TO INHALATION OF FOOD AND VOMIT 05/11/17 CALCULUS OF GALLBLADDER W ACUTE CHOLECYST W/O OBSTRUCTION 05/11/17 UNSPECIFIED OSTEOARTHRITIS, UNSPECIFIED SITE 05/11/17 UNSTEADINESS ON FEET 05/11/17 SYNCOPE AND COLLAPSE 05/11/17 UNSPECIFIED FALL, INITIAL ENCOUNTER 05/11/17 DO NOT RESUSCITATE 05/11/17 Discharge Diagnoses: Sepsis 2/2 gangrenous cholecystitis s/p open cholecystectomy with lysis of adhesions asp pna Hypokalemia D/O of ANS due to syncope Mech fall severe malnutrition ME COPD Exac anemia of chronic illness Disposition: Discharge/Transfered to SNF Procedures Performed: 05/11/17 16:40 A1C PANEL Routine MAGNESIUM Routine 05/11/17 18:14 Transfer Order Routine 05/11/17 18:15 ADMIT ORDERS ONCE 05/11/17 18:41 CT HEAD W/CONTRAST [CT] Routine Levofloxacin 500mg/100mL [Levaquin PB] 500 mg in 100 ml IV X1 05/11/17 18:42 Acetaminophen [Tylenol] 650 mg PO Q6H PRN Docusate Sodium [Colace] 100 mg PO BID PRN Lorazepam [Ativan] 1 mg IVP Q4HR PRN Mag Sulfate 2gm/50mL Premix [Magnesium Sulfate Premix] 2 gm in 50 ml IV DAILY Magnesium Oxide [Mag-Oxide] 400 mg PO BID PRN Morphine Sulfate [Morphine] 1 mg IVP Q4HR PRN Ondansetron HCl [Zofran] 4 mg IVP Q6H PRN Potassium Chloride 40 meq Lidocaine 1% 20mL Vial [Xylocaine 1% 20mL Vial] 25 mg Sodium Chloride 0.9% [NaCL 0.9%] 250 ml IV DAILY Potassium Chloride ER [Klor-Con] 40 meq PO DAILY PRN 05/11/17 18:45 Levofloxacin 500mg/100mL [Levaquin PB] 500 mg in 100 ml IV .STK-MED Sodium Chloride 0.9% [NaCL 0.9%] 1,000 ml IV 75 mls/hr 05/11/17 18:48 Potassium Chloride ER [Klor-Con] 40 meq PO X1 ONE 05/11/17 18:58 Potassium Chloride ER [Klor-Con] 20 meq PO .STK-MED ONE 05/11/17 20:14 Iohexol [OMNIPAQUE 300mgI/mL 100mL] 100 ml .ROUTE .STK-MED ONE 05/11/17 21:00 Heparin Sodium [Heparin] 5,000 units SUBQ Q12HR 05/11/17 Breakfast REGULAR [DIET] 05/12/17 PULSE OXIMETRY CHECK [RT] Routine 05/12/17 00:20 Sequential Compression Device ONCE DIETARY/NUTRITION [CONS] ONCE Pneumococcal Vaccine [Pneumovax] 0.5 ml IM .ONCE ONE 05/12/17 06:00 BMP (BASIC METABOLIC) DAILY CBC /W AUTO DIFF DAILY CBC WITH MANUAL DIFF Routine 05/12/17 07:36 U/S ABDOMEN, COMPLETE [US] Routine 05/12/17 07:39 OXYGEN SET UP INITIAL [RT] Routine PT EVALUATION CONSULT [PT] Routine 05/12/17 07:45 Albuterol/Ipratropium Neb [Duoneb Neb] 3 ml HHN Q4HRT PRN Zosyn IV Per Pharmacy 1 ea MC PRN PRN 05/12/17 07:46 PHYSICIAN [CONS] ONCE 05/12/17 07:52 PULSE OXIMETRY CHECK [RT] DAILY 05/12/17 08:45 Piperacillin Sodium/Tazobact [Zosyn] 2.25 gm Sodium Chloride 0.9% [NaCL 0.9%] 50 ml IV Q6HR 05/12/17 08:50 ABG (ARTERIAL BLOOD GAS) Routine 05/12/17 10:00 U/S CAROTID DUPLEX [US] Routine 05/12/17 19:05 PHYSICIAN [CONS] ONCE 05/12/17 19:07 PHYSICIAN [CONS] ONCE 05/13/17 PULSE OXIMETRY CHECK [RT] Routine PULSE OXIMETRY CHECK [RT] Routine 05/13/17 06:05 BMP (BASIC METABOLIC) DAILY CBC /W AUTO DIFF DAILY CBC WITH MANUAL DIFF Routine LIVER FUNCTION PANEL [LIVER FUNCTIONS PANEL] Routine 05/13/17 07:52 PULSE OXIMETRY CHECK [RT] DAILY 05/13/17 09:12 GALL BLADDER (HIDA SCAN) Routine 05/13/17 13:00 Probiotic Screen 1 ea MC PRN PRN 05/13/17 Lunch NPO [NOTHING BY MOUTH] [DIET] 05/14/17 PULSE OXIMETRY CHECK [RT] Routine PULSE OXIMETRY CHECK [RT] Routine 05/14/17 06:00 BMP (BASIC METABOLIC) DAILY CBC /W AUTO DIFF DAILY CBC WITH MANUAL DIFF Routine 05/14/17 07:52 PULSE OXIMETRY CHECK [RT] DAILY 05/14/17 09:00 Lactobacillus Rhamnosus GG 15B [Culturelle 15B] 1 each PO DAILY 05/14/17 Dinner LOW CHOLESTEROL (300 MG) [DIET] 05/15/17 PULSE OXIMETRY CHECK [RT] Routine PULSE OXIMETRY CHECK [RT] Routine 05/15/17 05:30 BMP (BASIC METABOLIC) DAILY CBC /W AUTO DIFF DAILY CBC WITH MANUAL DIFF Routine 05/15/17 07:52 PULSE OXIMETRY CHECK [RT] DAILY 05/15/17 11:16 PHYSICIAN [CONS] ONCE 05/15/17 13:31 Obtain consent for procedure ONCE 05/15/17 Lunch PUREED [DIET] 05/16/17 PULSE OXIMETRY CHECK [RT] Routine 05/16/17 05:49 CBC /W AUTO DIFF DAILY CMP (COMPLETE METABOLIC) Routine 05/16/17 07:52 PULSE OXIMETRY CHECK [RT] DAILY 05/17/17 PULSE OXIMETRY CHECK [RT] Routine PULSE OXIMETRY CHECK [RT] Routine 05/17/17 05:08 D5-0.9%Ns 1,000 ml IV 70 mls/hr 05/17/17 05:45 CBC /W AUTO DIFF Urgent CBC WITH MANUAL DIFF Urgent CMP (COMPLETE METABOLIC) Urgent PT [PROTIME WITH INR] Urgent PTT Urgent 05/17/17 06:31 GLUCOSE ACCUCHECK NOVA Routine 05/17/17 07:15 Gelatin Sponge [Gelfoam] 100 spg TP .STK-MED ONE Sevoflurane 250 ml INH .STK-MED ONE 05/17/17 07:46 fentaNYL Citrate [Sublimaze] 100 mcg .ROUTE .STK-MED ONE 05/17/17 07:48 Transfer Order Routine 05/17/17 07:51 Lidocaine 1% Vial [Xylocaine 1% 20mL Vial] 20 ml .ROUTE .STK-MED ONE Propofol SURGERY USE ONLY [Diprivan SURGERY USE ONLY] 20 ml IV .STK-MED 05/17/17 07:52 Glycopyrrolate [Robinul] 0.2 mg IVP .STK-MED ONE Glycopyrrolate [Robinul] 0.2 mg IVP .STK-MED ONE Neostigmine [Prostigmin] 10 mg .ROUTE .STK-MED ONE Ondansetron HCl [Zofran] 4 mg .ROUTE .STK-MED ONE Rocuronium [place] [Zemuron] 100 mg IVP .STK-MED ONE PULSE OXIMETRY CHECK [RT] DAILY 05/17/17 08:34 Bacitracin [Baciim] 50,000 units .ROUTE .STK-MED ONE 05/17/17 08:54 Thrombin, Bovine [Thrombin] 5,000 iu TP .STK-MED ONE 05/17/17 15:07 Morphine Sulfate [Morphine] 1 mg IVP Q4HR PRN 05/17/17 18:55 CBC /W AUTO DIFF Stat CBC WITH MANUAL DIFF Stat 05/18/17 PULSE OXIMETRY CHECK [RT] Routine PULSE OXIMETRY CHECK [RT] Routine 05/18/17 06:30 CBC /W AUTO DIFF Routine CBC WITH MANUAL DIFF Routine CMP (COMPLETE METABOLIC) Routine 05/18/17 07:52 PULSE OXIMETRY CHECK [RT] DAILY 05/18/17 09:00 CHEST, 1 VIEW [RAD] Routine 05/18/17 09:38 PT EVALUATION CONSULT [PT] Stat 05/18/17 Dinner FULL LIQUID [DIET] 05/19/17 PULSE OXIMETRY CHECK [RT] Routine PULSE OXIMETRY CHECK [RT] Routine 05/19/17 06:30 CBC /W AUTO DIFF Routine CBC WITH MANUAL DIFF Routine CMP (COMPLETE METABOLIC) Routine 05/19/17 09:07 PHYSICIAN [CONS] ONCE 05/19/17 09:30 Vancomycin IV per Pharmacy 1 ea MC PRN PRN 05/19/17 12:00 Vancomycin HCl [Vancomycin] 1 gm Sodium Chloride 0.9% [NaCL 0.9%] 250 ml IV Q24H 05/20/17 PULSE OXIMETRY CHECK [RT] Routine PULSE OXIMETRY CHECK [RT] Routine 05/20/17 06:26 BMP (BASIC METABOLIC) DAILY CBC /W AUTO DIFF DAILY CBC WITH MANUAL DIFF Routine 05/21/17 PULSE OXIMETRY CHECK [RT] Routine 05/21/17 00:08 Furosemide [Lasix] 40 mg IVP X1 ONE 05/21/17 00:11 D5-0.9%Ns 1,000 ml IV 30 mls/hr 05/21/17 03:00 Albuterol/Ipratropium Neb [Duoneb Neb] 3 ml HHN Q4HRT 05/21/17 05:30 BMP (BASIC METABOLIC) DAILY CBC /W AUTO DIFF DAILY CBC WITH MANUAL DIFF Routine 05/21/17 05:35 BNP Stat 05/21/17 10:30 methylPREDNISolone SS [Solu-Medrol] 40 mg IVP BID 05/21/17 11:00 VANCOMYCIN TROUGH Routine 05/21/17 15:33 CHEST, 1 VIEW [RAD] Stat 05/22/17 PULSE OXIMETRY CHECK [RT] Routine PULSE OXIMETRY CHECK [RT] Routine PULSE OXIMETRY CHECK [RT] Routine 05/22/17 06:00 Vancomycin HCl [Vancomycin] 1 gm Sodium Chloride 0.9% [NaCL 0.9%] 250 ml IV Q18H 05/22/17 06:21 BMP (BASIC METABOLIC) DAILY CBC /W AUTO DIFF DAILY CBC WITH MANUAL DIFF Routine 05/22/17 08:32 OCCULT BLD # 3 Routine 05/22/17 08:54 ABO/RH PATIENT RETYPE Stat PACKED RBC NO ACTIVE BLEEDING Routine TYPE AND SCREEN Stat 05/22/17 09:00 Furosemide [Lasix] 20 mg IVP DAILY 05/22/17 09:50 OCCULT BLD # 1 Routine 05/22/17 10:41 CXR [CHEST, 1 VIEW] [RAD] Routine 05/22/17 13:06 DISCHARGE PATIENT ONCE 05/23/17 PULSE OXIMETRY CHECK [RT] Routine PULSE OXIMETRY CHECK [RT] Routine 05/23/17 06:01 BMP (BASIC METABOLIC) DAILY CBC /W AUTO DIFF DAILY CBC WITH MANUAL DIFF Routine 05/23/17 08:23 KCL 20mEq/100mL Premix [Potassium Chloride] 40 meq in 200 ml IV DAILY 05/23/17 09:00 CHEST, 1 VIEW [RAD] Routine 05/23/17 18:20 OCCULT BLD # 2 Routine 05/24/17 05:48 BMP (BASIC METABOLIC) DAILY CBC /W AUTO DIFF DAILY CBC WITH MANUAL DIFF Routine 05/25/17 06:00 BMP (BASIC METABOLIC) DAILY CBC /W AUTO DIFF DAILY 05/11/17 16:40 A1C PANEL Routine MAGNESIUM Routine 05/12/17 06:00 BMP (BASIC METABOLIC) DAILY CBC /W AUTO DIFF DAILY CBC WITH MANUAL DIFF Routine 05/12/17 08:50 ABG (ARTERIAL BLOOD GAS) Routine 05/13/17 06:05 BMP (BASIC METABOLIC) DAILY CBC /W AUTO DIFF DAILY CBC WITH MANUAL DIFF Routine LIVER FUNCTION PANEL [LIVER FUNCTIONS PANEL] Routine 05/14/17 06:00 BMP (BASIC METABOLIC) DAILY CBC /W AUTO DIFF DAILY CBC WITH MANUAL DIFF Routine 05/15/17 05:30 BMP (BASIC METABOLIC) DAILY CBC /W AUTO DIFF DAILY CBC WITH MANUAL DIFF Routine 05/16/17 05:49 CBC /W AUTO DIFF DAILY CMP (COMPLETE METABOLIC) Routine 05/17/17 05:45 CBC /W AUTO DIFF Urgent CBC WITH MANUAL DIFF Urgent CMP (COMPLETE METABOLIC) Urgent PT [PROTIME WITH INR] Urgent PTT Urgent 05/17/17 06:31 GLUCOSE ACCUCHECK NOVA Routine 05/17/17 18:55 CBC /W AUTO DIFF Stat CBC WITH MANUAL DIFF Stat 05/18/17 06:30 CBC /W AUTO DIFF Routine CBC WITH MANUAL DIFF Routine CMP (COMPLETE METABOLIC) Routine 05/19/17 06:30 CBC /W AUTO DIFF Routine CBC WITH MANUAL DIFF Routine CMP (COMPLETE METABOLIC) Routine 05/20/17 06:26 BMP (BASIC METABOLIC) DAILY CBC /W AUTO DIFF DAILY CBC WITH MANUAL DIFF Routine 05/21/17 05:30 BMP (BASIC METABOLIC) DAILY CBC /W AUTO DIFF DAILY CBC WITH MANUAL DIFF Routine 05/21/17 05:35 BNP Stat 05/21/17 11:00 VANCOMYCIN TROUGH Routine 05/22/17 06:21 BMP (BASIC METABOLIC) DAILY CBC /W AUTO DIFF DAILY CBC WITH MANUAL DIFF Routine 05/22/17 08:32 OCCULT BLD # 3 Routine 05/22/17 09:50 OCCULT BLD # 1 Routine 05/23/17 06:01 BMP (BASIC METABOLIC) DAILY CBC /W AUTO DIFF DAILY CBC WITH MANUAL DIFF Routine 05/23/17 18:20 OCCULT BLD # 2 Routine 05/24/17 05:48 BMP (BASIC METABOLIC) DAILY CBC /W AUTO DIFF DAILY CBC WITH MANUAL DIFF Routine 05/25/17 06:00 BMP (BASIC METABOLIC) DAILY CBC /W AUTO DIFF DAILY 05/24/17 06:04 Nurse Notes by Morales Burgos RN closing note Patient remained stable throughout shift; no changes in mentation. No episodes of labored breaths or pain. IV remained patent and infusing; dressing intact. Abdominal dressing remained intact. Safety precautions remained in place; no incidents of falls. All orders acknowledged and SBAR communication sheets updated. Pending transfer of care to am shift nurse at bedside. Initialized on 05/24/17 06:04 - END OF NOTE 05/24/17 01:31 Nurse Notes by Morales Burgos RN physician rounding note Patient assessed by Dr.D. Avalos. Provided MD with updates on patient's condition. MD stated no new orders. Will update am shift nurse. Initialized on 05/24/17 01:31 - END OF NOTE 05/23/17 19:16 Nurse Notes by Chanel Bello End Notes: Patient was stable throughout shift. No sign of acute distress, pain, or labored /uneven breathing. VSS. Patient is on 3L of nasal cannula at this time O2 sat is 96% at 16:30pm. There is a discharge order from Dr. Maria but Dr. Paulson reported that patient is not ready to discharge yet. IV remains intact on left wrist #22G and D5NS is running at 30ml/hr. K was 2.9 today and K-rider 40meq IV was given accordingly. Stool was collected to rule out occult blood #2. Dressings on abdomen were changed today. Call light is within reach and bed is in low position. Will endorse patient to PM nurse. Initialized on 05/23/17 19:16 - END OF NOTE 05/23/17 19:10 (created 05/23/17 21:22) Nurse Notes by Morales Burgos RN open note 1910- Received bedside report from am shift nurse Chanel. Patient alert and oriented resting in bed with family at bedside. No signs/symptoms or complaints of pain, labored breaths or distress. IV patent and infusing; dressing clean dry and intact. 2 RN skin check preformed; abdominal dressing clean dry and intact. Safety precautions in place; call light within reach. Reviewed labs orders and medications. Will continue to monitor. Initialized on 05/23/17 21:22 - END OF NOTE 05/23/17 18:34 Nurse Notes by Chanel Bello Nurse's Notes: Collected stool at 18:00pm to rule out occult blood #2 and handed in the lab. Will continue to monitor patient. Initialized on 05/23/17 18:34 - END OF NOTE 05/23/17 16:02 Nurse Notes by Chanel Bello Nurse's Notes: Changed dressings on surgical sites on midline abdomen area and right quadrants abdomen area at 15:50pm. Initialized on 05/23/17 16:02 - END OF NOTE 05/23/17 13:09 Nurse Notes by Chanel Bello Nurse's Note: Dr. Paulson came in and saw the patient at 13:00pm. Doctor said that patient is not ready to discharge today. Will continue to monitor patient. Initialized on 05/23/17 13:09 - END OF NOTE 05/23/17 11:48 Nurse Notes by Chanel Bello Nurse's notes: Faxed H&P, medication lists, facesheet to [facility] at 11: 50am. Initialized on 05/23/17 11:48 - END OF NOTE 05/23/17 11:17 Nurse Notes by Chanel Bello Nurse's Notes: At 11;15am, received a call from Lashawn at [facility]. She wants us to fax H&P, recent medlists, and facesheet to her to find a placement for discharge. Fax numbers are [phone]. Phone numbers are [phone]. Will continue to monitor patient. Initialized on 05/23/17 11:17 - END OF NOTE 05/23/17 10:16 Nurse Notes by Chanel Bello Initial Notes: Received a report from PM nurse at bedside. Patient is alert and oriented x3. No sign of acute distress, pain, or labored breathing. VSS. Patient's K level is 2.9 and K-rider 40meq PRN was given in the morning accordingly. WBC went down from 16.4 to 14.5. Hgb went up from 7.6 to 8.6. IV remains intact on left wrist #22G and D5NS is running at 30ml/hr at this time. Still edematous all extremities pitting +1. Bleachable redness on perianal area. Z-guard were applied. Call light is within reach and bed is in low position. Will continue to monitor patient. Initialized on 05/23/17 10:16 - END OF NOTE 05/23/17 06:47 Nurse Notes by Paige Patton May END OF SHIFT NOTES: PATIENT STABLE DURING THE SHIFT, SLEEPING COMFORTABLY AT THIS TIME, BREATHING LABORED, DENIES DISTRESS OR PAIN. PATIENT ON 3LPM O2 VIA NASAL CANULA O2 SAT 98- 100%. WOUND DRESSING CLEAN AND INTACT. IV PATENT AND INTACT. PATIENT MAINTAINED ON FULL LIQUID DIET. HAD SMALL BM GREENISH BROWNISH. OCCULT STOOL #2 NEEDS TO BE COLLECTED TODAY. SAFETY KEPT IN PLACE, BED LOCKED IN LOWEST POSITION , SIDERALS UP, CALL LIGHT WITHIN REACH. WILL ENDORSE TO ONCOMING NURSE. Initialized on 05/23/17 06:47 - END OF NOTE 05/23/17 04:44 Nurse Notes by Paige Patton May Provided patient care, surgical wound cleaned with NS, pat dry, wiped with povidine iodine covered with abdominal pads. Will continue to monitor. Initialized on 05/23/17 04:44 - END OF NOTE 05/23/17 00:18 Nurse Notes by Paige Patton May New IV inserted on left wrist 22g, with good blood return, flushed with 10cc NS. IV antibiotics infusing well, no adverse reaction noted. Will continue to monitor. Initialized on 05/23/17 00:18 - END OF NOTE 05/22/17 19:54 Nurse Notes by Paige Patton May Received patient in bed, awake, alert, oriented x4, breathing labored but patient states, he's ok, on 02 3lpm via nasal canula. No distress, no pain, skin warm and dry to touch. Surgical dressing intact, dry and clean. IV intact and patent. Safety kept in place, will continue to monitor. Initialized on 05/22/17 19:54 - END OF NOTE 05/22/17 18:02 Nurse Notes by Chanel Bello End Notes: Patient was stable throughout shift. No sign of acute distress, or pain at this time. Labored breathing noted but patient verbalized that he feels much better than yesterday. VSS. Hgb was 7.6 in the morning and patient received 1 pack of RBC during shift. No adverse effects noted. IV remains intact on left FA #22G. Surgical dressings on abdomen were changed by Dr. Marquez and newspaper writer. Call light is within reach and bed is in low position. Will endorse patient to PM nurse. Initialized on 05/22/17 18:02 - END OF NOTE 05/22/17 13:08 Nurse Notes by Chanel Bello Nurse's Notes: 1 pack of RBC transfusion was done at 12:20pm. No sign of adverse effects noted. VSS. 101/45, Pulse 88, RR 17, T 97.7F, O2 99%. Will continue to monitor patient. Initialized on 05/22/17 13:08 - END OF NOTE 05/22/17 11:39 Nurse Notes by Chanel Bello Nurse's Notes: Collected stool at 9:50am for C.diff and Occult blood at handed in the lab at 10 :07am. Will continue to monitor patient. Initialized on 05/22/17 11:39 - END OF NOTE 05/22/17 11:33 Nurse Notes by Chanel Bello Nurse's Notes: Dr. Marquez came in at 11:30am. Removed ELANA drain (output was 15ml) and changed the 1st surgical dressing. Reported him that output last night was 30ml. Will continue to monitor patient. Initialized on 05/22/17 11:33 - END OF NOTE 05/22/17 10:58 Nurse Notes by Chanel Bello Initial Notes: Received a report from PM nurse at bedside. Patient is alert and oriented x3. No sign of acute distress, or pain. Labored breathing noted. O2 sat is 97% at this time. Lung sounds are crackles and diminished throughout lobes. PM nurse verbalized that patient had 3 times of greenish/blackish loose stool during shift. Hgb level is 7.6 and WBC is 16.4. Occult blood and c.diff are ordered to rule out internal bleeding. Dr. Marquez ordered 1 pack of RBC in the morning patient is receiving it at this time. No sign of adverse effects noted. IV remains intact on left FA #22G. ELANA drain on right abdomen area and surgical wound on midline abdomen. Call light is within reach and bed is in low position. Will continue to monitor patient. Initialized on 05/22/17 10:58 - END OF NOTE 05/22/17 10:55 Nurse Notes by Chanel Bello Nurse's Notes: Brought a pack of RBC after verifying with a engineer geophysical laboratory. Verified with a charge nurse at the bedside. Blood transfusion started at 10:25am. VSS. 110/52, 97.3F, 96, 18, 99% at 10:20am. No sign of adverse effects or pain noted. Rechecked vital sign at 10:40am. VSS. 132/56, 97.6F, 89, 18, 99%. Patient is asleep. Will continue to monitor patient. Initialized on 05/22/17 10:55 - END OF NOTE 05/22/17 08:36 Nurse Notes by Chanel Bello Nurse's Notes: Called Dr. Marquez at 8:36am regarding patient's condition that hgb is 7.6, loose blackish/greenish bowel movement 3times last night, pneumonia on RLL, and O2 sat is 88% without nasal cannula. Doctor ordered 1 PRBC. Will follow doctor's order. Initialized on 05/22/17 08:36 - END OF NOTE 05/22/17 08:30 Nurse Notes by Chanel Bello Nurse's Notes: Dr. Franco came in and ordered stool OB and C.diff at 8:30am. Will follow an order. Initialized on 05/22/17 08:30 - END OF NOTE 05/22/17 08:23 Nurse Notes by Chanel Bello Nurse's Notes: Paged Dr. Villalba at 8:23am regarding hgb 7.6 and loose BM 3 times last night. Will wait for a call from doctor. Initialized on 05/22/17 08:23 - END OF NOTE 05/22/17 08:12 Nurse Notes by Chanel Bello Addendum entered by Chanel Bello 05/22/17 08:31: Also reported that patient's blood pressure is on the lower side about 105/60. Doctor said it's ok to give medication. Original Note: Nurse's Notes: Called Dr. Maria at 8:10am and reported that patient's Hgb level went down from 8.8 to 7.6 today. Also reported that patient had 3 times of loose greenish/ blackish stools during chrome cleaner. Also reported that patient's O2 level is 88 % without nasal cannula. Doctor said titrate O2 level as 92%. [employer] asked Dr. Maria regarding an order for Hgb and doctor said not right now. Will continue to monitor patient. Initialized on 05/22/17 08:12 - END OF NOTE 05/22/17 07:48 Nurse Notes by Paige Patton June END OF SHIFT NOTES: PATIENT IN BED, AWAKE, ALERT, ORIENTED X 4, APPEARS TO BE SHORT OF BREATH, COMPLAINS OF SOB, WHEEZING AUDIBLE. DENIES PAIN. PATIENT SEEMS VERY WEAK, UNABLE TO USE INCENTIVE SPIROMETRY. WOUND DRESSING INTACT, ELANA DRAIN BLOOD DISCHARGE 30CC. PATIENT HAD 3 BM SOFT, GREENISH BLACK IN COLOR. PATIENT STILL EDEMATOUS, IV INTACT AND PATENT INFUSING WELL, ALL DUE MEDICATIONS GIVEN. ALL NEEDS MADE KNOWN. SAFETY KEPT ON PLACE, CALL LIGHT WITHIN REACH, SIDERAILS UP, BED LOCKED IN LOWEST POSITION. ENDORSED CARE TO ONCOMING NURSE. Initialized on 05/22/17 07:48 - END OF NOTE 05/22/17 03:18 Nurse Notes by Paige Patton June 19:30 received report from chanel, patient resting in bed AA)x3. Appears to be short of breath, c/o of SOB and wheezing.Denies pain, Abdomen soft and tender, wound dressing intact, ELANA drain minimal blood discharge. IV intact and patent. Safety kept in place, will continue to monitor, Initialized on 05/22/17 03:18 - END OF NOTE 05/21/17 18:56 Nurse Notes by Chanel Bello End Notes: Patient had shortness of breath throughout the day. Provided oral suctions 4times and requested RT to provide deep suctioning twice. O2 sat is 97% at 16: 00.pm. CXR came out RLL pneumonia/effusion and notified Dr. Paulson regarding result. No pain noted. ELANA drain output is 50ml during day shift. Patient's K was 3.4 and Klor-con 40meq was given. Patient had poor appetite during day shift. Call light is within reach and bed is in low position. Will endorse patient to PM nurse. Initialized on 05/21/17 18:56 - END OF NOTE 05/21/17 18:26 Nurse Notes by Chanel Bello Nurse's Notes: Empty ELANA drainage at 18:25pm and output was 50ml during day shift. Initialized on 05/21/17 18:26 - END OF NOTE 05/21/17 18:05 Nurse Notes by Chanel Bello Nurse's Notes: Received a call from Dr. Paulson at 18:05pm. Let him know CXR result came out RLL pnemonia/effusion. Doctor asked that patient is on antibiotics and newspaper writer said yes. Doctor said ok and hung up the phone. Will continue to monitor patient. Initialized on 05/21/17 18:05 - END OF NOTE 05/21/17 17:58 Nurse Notes by Chanel Bello Nurse's Notes: Paged Dr. Paulson at 17:57pm to let him know regarding CXR results. Will continue to monitor patient. Initialized on 05/21/17 17:58 - END OF NOTE 05/21/17 10:22 Nurse Notes by Chanel Bello Initial Notes: Received a report from PM nurse at bedside. Patient is alert and oriented x3. Patient has shortness of breath and labored breathing. Patient has 3L of nasal cannula. Lung sounds are crackles throughout. Patient had poor appetite and had only couple of sips for breakfast. Patient doesn't want to advance diet from full liquid to pureed. Patient has ELANA drain s/p cholecystectomy on 05/17/17. Output during chrome cleaner was 40ml. IV remains intact on right wrist 22G and left FA #22G and D5NS is running at 30ml/hr. Dr. Maria came in the morning and ordered slou-medrol 40mg IVP BID and Lasix 20mg IVP tomorrow due to edema on bilateral lower legs. Call light is within reach and bed is in low position. Will continue to monitor patient. Initialized on 05/21/17 10:22 - END OF NOTE 05/21/17 07:48 Nurse Notes by Chuck Cheney Closing Notes: 702: Patient awake, alert, coherent and verbally responsive. Condition improved , saturating at 99% on O2 at 3lpm. Latest v/s taken as folows:JL=410/64, FY=226 , R=21, T=97.4. Able to sleep and rest. Breathing treatment provided as ordered. Suctioned gently by RT. Due meds given and tolerated. Kept HOB elevated. Full bedside report given to lizet Frances. Initialized on 05/21/17 07:48 - END OF NOTE 05/21/17 05:51 Nurse Notes by Chuck Cheney RN Notes: Patient asleep but arousable. Suctioned by RT, tolerated well. O2 saturation at 97-98% on 3lpm via nasal cannula. Condition improved but still with frothy secretions and crackles still audible,noted. Will continue to monitor. Initialized on 05/21/17 05:51 - END OF NOTE 05/21/17 03:31 Nurse Notes by Chuck Cheney RN Notes: Build up of frothy whitish secretions still noted. Patient feels better after suctioning and breathing treatment given per patient statement. Kept in upright position. Continuous O2 inhalation administered via nasal cannula at 3lpm. Kept clean and comfortable. All needs anticipated and attended. kept monitored. Initialized on 05/21/17 03:31 - END OF NOTE 05/21/17 02:41 Nurse Notes by Chuck Cheney Initial Notes: 1930: Patient received awake,alert, orientedx4, verbally responsive. Weak looking ut able to participate in ADL'S and total assistance of one staff nurse. Not in distress with O2 inhalation at 3lpm via nasal cannula, tolerating well. Noted patient coughing up of frothy whitish secretions. Respirations even and non-labored. IV patent and intact. Noted with surgical incision to abdomen, ELANA drain with minimal amounts of serosanguinous fuid. Skin warm, dry and intact. Immediate needs provided. Bed locked, in lowest position with side rails upx3 for safety and bed mobility. Encouraged to call for assistance when needed. Call light within reach. Will conitnue to monitor. 2200: Patient noted with shortness of breath on exertion, crackles heard on both upper lung torres, episode of low O2 saturation. Breathing treatment given as ordered, suctioning done by RT, tolerated well. Placed patient on upright position, gentle back rub done. Called and spoke to Yodit (gerry) and Paged Dr. Paulson regarding patient change of condition, awaiting for call back, noted. Initialized on 05/21/17 02:41 - END OF NOTE 05/21/17 00:03 Nurse Notes by Chuck Cheney RN Notes: [id number]: Spoke to Dr. Paulson regarding patient shortness of breath on exertion, crackles bilaterally and sticky, whitish frothy sputum with episode of low O2 saruration at 88%, with orders made, current IV fluid to 30cc/hr, Lasix 40mg IVPX1 dose, Douneb inhalation Q4H schedule, noted and carried out. Will continue to monitor. Initialized on 05/21/17 00:03 - END OF NOTE 05/20/17 19:41 Nurse Notes by Reina Roy RN REPORT GIVEN TO BHARATH JEFFERSON @ BEDSIDE, MID ABDOMEN SURGICAL SITE CLEAR AND INTACT, ELANA TO RLQ INTACT, PT. IN NO DISTRESS, SIGNING OFF. Initialized on 05/20/17 19:41 - END OF NOTE 05/20/17 18:49 Nurse Notes by Reina Roy RN FREQUENTLY CHECKED, ALL NEEDS ATTENDED, ROUTINE CARE RENDERED, STILL WITH POOR PO INTAKE, ENCOURAGED BUT REFUSED ON IVF ORDERED, SITE CLEAR AND INTACT, RESTING @ THIS TIME, IN NO DISTRESS. Initialized on 05/20/17 18:49 - END OF NOTE 05/20/17 17:48 Nurse Notes by Reina Roy RN K LEVEL 3.3 , K PO GIVEN ORDERED. Initialized on 05/20/17 17:48 - END OF NOTE 05/20/17 15:29 Nurse Notes by Reina Roy RN, DR. @ BEDSIDE EXAMINING PT. Initialized on 05/20/17 15:29 - END OF NOTE 05/20/17 11:07 Nurse Notes by Reina Roy RN LATE ENNRTY FOR 0900 DR. MARQUEZ @ BEDSIDE EXAMINING PT. NO COMPLAINTS @ THIS TIME. Initialized on 05/20/17 11:07 - END OF NOTE 05/20/17 11:04 Nurse Notes by Reina Roy RN-OEPENING NOTES LATE ENTRY FOR 0730 ASSUMED CARE, PT. AWAKE @ THIS TIME, NO SIGNS OF DISTRESS, IVF INFUSING ORDERED, SITE CLEAR AND INTACT, ELANA TO RIGHT LOWER QUADRANT DRAINING SEROSAGUINOUS FLUID, REPOSITIONED, ORIENTED TO STAFF, REVIEW PLAN OF CARE AND UNIT ROUTINE, VERBALIZED UNDDERSTANDING. Initialized on 05/20/17 11:04 - END OF NOTE 05/20/17 07:17 Nurse Notes by Leesa Lanier seen by dr celestin at night ,. pt slept on and off. refused pain meds, due meds given. , , iv is sintact and patent, drain is intact a, dressing is dry and intact, will continue monitoring and endorse to day shift nurse Initialized on 05/20/17 07:17 - END OF NOTE 05/19/17 19:30 (created 05/20/17 07:14) Nurse Notes by Leesa Lanier Bedside report received from Brenna Sinha, pt is alert awake. not in pain or distress according to the pt, iv is intact and patent on both wrists, , pt has dressing in the middle of abdomen which is dry and intact, ELANA drain intact and draining serosanginous output on right lower abdomen, and is on suction, safety measures ensuredd, call light within reach, will continu emonitoring Initialized on 05/20/17 07:14 - END OF NOTE 05/19/17 18:32 Nurse Notes by Wolf Flores Addendum entered by Wolf Flores 05/19/17 18:43: End Of Shift Note Original Note: RN Note: Post Op day 3 for Laparoscpoic VS Open Cholecystectomy. ELANA drain in place and drain out 50 c.c during the day shift. Dressing on abdomen clean and intact. IV on right hand infusing well. SL on left hand flushed with 10c.c NS. Pt resting at this time, denied pain. No acute distress during the shift. Will endorse oncoming nurse. Initialized on 05/19/17 18:32 - END OF NOTE 05/19/17 07:37 Nurse Notes by Wolf Flores RN Initial Note: Received patient and bedside report from Leesa RN. Pt awake and respond to verbal stimuli. AAOX to person, place and situation. Pt appears calm and relaxed. ELANA drain in place and drain properly with serosanguineous drainage. Oxygen at 2L/min via NC. IV site on left hand 20 gauge and right wrist 22 gauge ; patent and intact. Surgical dressing on abdomen clean and intact. Instructed on safety measures, medication management, and pain management. Call light within reach. Bed at lowest position possible. Will continue to monitor. Continue plan of care. Initialized on 05/19/17 07:37 - END OF NOTE 05/19/17 06:59 Nurse Notes by Leesa Lanier due meds given, not in pain ior distress, iv is intact and opatyent, dressing is dry and intact elana ezra drain 25cc serosanginous output, , morning car egiven, positioned comfortably. afety measure sensured, call light within reach , tolerating full fluid diet, will continu eremonitoring and endorse to day shift nures Initialized on 05/19/17 06:59 - END OF NOTE 05/19/17 00:57 (created 05/19/17 06:57) Nurse Notes by Leesa Lanier due meds given, pt had tylenol for pain ,positioned comfortably, , , cleaned him , will continue monitoring Initialized on 05/19/17 06:57 - END OF NOTE 05/18/17 19:30 (created 05/19/17 06:55) Nurse Notes by Leesa Lanier Bedside report received from Brenna Sinha, pt is alert awake. not in pain or distress according to the pt, iv is intact and patent on both wrists, , pt has dressing in the middle of abdomen which is dry and intacta, ELANA dtrain intact and draining serosanginous output on right lower vabdomen, and is on suction, safet measure sneusred, call light within reach, will continu emonitoring Initialized on 05/19/17 06:55 - END OF NOTE 05/18/17 18:33 Nurse Notes by Wolf Flores End Of Shift Note: Post Op day 2 for Laparoscpoic VS Open Cholecystectomy. ELANA drain in place and drain out 70 c.c during the day shift. Dressing on abdomen clean and intact. IV on right hand infusing well. SL on left hand flushed with 10c.c NS. Pt resting at this time, denied pain. No acute distress during the shift. Will endorse oncoming nurse. Initialized on 05/18/17 18:33 - END OF NOTE 05/18/17 11:27 Nurse Notes by Wolf Flores RN Initial Note: Received patient and bedside report from Elvin SINHA. Pt resting at this time, and arouse by verbal stimuli. Pt appears calm and relaxed. ELANA drain in place and drain properly with serosanguineous drainage. Oxygen at 2L/min via NC. IV site on left hand 20 gauge and right wrist 22 gauge; patent and intact. Surgical dressing on abdomen clean and intact. Instructed on safety measures, medication management, and pain management. Call light within reach. Bed at lowest position possible. Will continue to monitor. Continue plan of care. Initialized on 05/18/17 11:27 - END OF NOTE 05/18/17 10:54 Nurse Notes by Elvin Henao RN NOTE/TRANSFER OF CARE Patient in bed. Awake, alert, and able to make needs known. No signs/symptoms of pain, shortness of breath, or distress at this time. IV site on left hand 20 gauge and right wrist 22 gauge; patent and intact. IVF infusing as ordered. Morphine and Zofran given at 23:16PM; effective. Continues on ATB therapy of Zosyn; afebrile, no adverse reaction noted. Continues on Oxygen at 2L/min via NC for SOB. Still noted with ELANA drain; output of 275cc of serosanguineous drainage. Instructed on safety measures, medication management, and pain management. Call light within reach. Bed at lowest position possible. Will continue to monitor. Continue plan of care. Will endorse to Brenna SINHA for follow up. Initialized on 05/18/17 10:54 - END OF NOTE 05/17/17 22:53 Nurse Notes by Elvin Henao RN NOTE/INITIAL Received patient in bed; Albanian-speaking and uses hand gestures. Able to make needs known. Noted with nausea and generalized pain. Will give PRN medications as ordered. Continue to monitor. Continue plan of care. Initialized on 05/17/17 22:53 - END OF NOTE 05/17/17 21:26 Nurse Notes by Wolf Flores End Of Shift Note: Post Op day 1 for Laparoscpoic VS Open Cholecystectomy. ELANA drain in place and drain out 200c.c during the day shift. Dressing on abdomen clean and intact. IV on right hand infusing well. SL on left hand flushed with 10c.c NS. Pt resting at this time, denied pain. No acute distress during the shift. Will endorse oncoming nurse. Initialized on 05/17/17 21:26 - END OF NOTE 05/17/17 19:38 Nurse Notes by Wolf Flores CRITICAL LAB: Laboratory called with critical lab value [WBC 47.2 ]. Medical record number and patient name verified. Read back of values done. Dr. Marquez notified of value. Physician was notified within [5] min. No order given at this time. Initialized on 05/17/17 19:38 - END OF NOTE 04/02/18 12:29 Nurse Notes by Wolf Flores RN Note: Late entry: Pt back from Laparoscopic VS open Cholecytectomy at 1130. Pt stable and breathing even and unlaboted. BP was 98/52, HR 85. Temp 96.5, RR 16 and O2 sat was 100 on2LPM via NC. ELANA drain noted on right abdomen. Will continue to monitor and care. Bed in lowest position, call light in reach, and side rails up X 2 for pt safety. Initialized on 05/17/17 12:29 - END OF NOTE 05/17/17 08:06 Nurse Notes by Wolf Flores RN Initial Note: Received patient and bedside report from night nurse Paige. Pt awake and alert to name and place. Pt appears calm and relaxed. OR nurse took pt to procedure for Laparoscpoic VS open cholecystectomy. IV intact on left hand and right wrist. Initialized on 05/17/17 08:06 - END OF NOTE 05/17/17 07:07 Nurse Notes by Paige Patton May END OF SHIFT NOTES: PATIENT STABLE DURING THE SHIFT, NO DISTRESS, NO C/O PAIN, BREATHING EVEN AND UNLABORED, ON 02 2LPM NASAL CANULA. IV INTACT AND PATENT. PRE-OP CHECKLIST COMPLETED, PATIENT IS HAVING LAP VS OPEN CHOLECYSTECTOMY BY DR. MARQUEZ. VSS, STABLE, CHG WIPES PROVIDED , ACCUCHECK 72. PATIENT HAD LBM 5X FOR THW WHOLE SHIFT. SAFETY KEPT IN PLACE, SIDERAILS UP, CALL LIGHT WITHIN REACH. WILL ENDORSE CARE TO ONCOMING NURSE. Initialized on 05/17/17 07:07 - END OF NOTE 05/17/17 05:51 Nurse Notes by Paige Patton Provided new IV on left hand 20g inserted with good blood return, flushed with 10cc NS. IV inserted for procedure this morning. Initialized on 05/17/17 05:51 - END OF NOTE 05/17/17 05:09 Nurse Notes by Paige Patton Patient had 4x LBM with bloody mucoid, called this morning, ordered c.diff test and change IV fluid to D5 NS @70cc/hr. Will continue to monitor. Initialized on 05/17/17 05:09 - END OF NOTE 05/16/17 19:43 Nurse Notes by Paige Patton INITIAL NOTES: RECEIVED PATIENT IN BED, AWAKE, ALERT ORIENTED X2 WITH EPISODES OF FORGETFULNESS. PATIENT NOT IN DISTRESS, NO C/O PAIN, BREATHING EVEN AND UNLABORED. IV INTACT AND PATENT INFUSING WELL. PATIENT WILL BE PLACE ON NPO POST MIDNIGHT, WILL HAVE SURGERY TOMORROW MORNING; LAP OR OPEN CHOLECYSTECTOMY. HEAD TO TOE ASSESSMENT DONE, SKIN DRY AND WARM TO OTUCH, INTACT BUT HAS A BIG ECCHYMOSIS ON HIS ARMS. ALL NEEDS MADE KNOWN, SAFETY KEPT IN PLACE, WILL CONTINUE TO MONITOR. Initialized on 05/16/17 19:43 - END OF NOTE 05/16/17 18:14 Nurse Notes by Mackenzie Lee END OF SHIFT NOTE PT IN BED, AWAKE, ALERT, NO DISTRESS OR PAIN. IV INTACT, PATENT. INSTRUCTED PT THAT HE CANNOT EAT OR DRINK AFTER MIDNIGHT DUE TO THE PROCEDURE. PT IS AWARE AND VERBALIZED UNDERSTANDING. PT REMAINED STABLE THROUGHOUT THE SHIFT. ALL ORDERS ACKNOWLEDGED AND CARRIED OUT. BED AT LOWEST POSITION WITH SIDE RAILS UP X2, LOCKED, AND ALARM ON FOR SAFETY. WILL ENDORSE TO NIGHT NURSE. Initialized on 05/16/17 18:14 - END OF NOTE 05/16/17 10:15 (created 05/16/17 15:53) Nurse Notes by Mackenzie Lee RN NOTE DR. MARQUEZ CAME AND SAW PT. PT IS TO HAVE A LAPAROSCOPIC VS OPEN CHOLECYSTECTOMY PROCEDURE SCHEDULED FOR Wednesday05/17/17 AND PT AWARE. WITNESSED CONSENT BEING SIGNED. PT IS TO BE NPO AFTER MIDNIGHT. Initialized on 05/16/17 15:53 - END OF NOTE 05/16/17 07:51 Nurse Notes by Mackenzie Lee INITIAL NOTE RECEIVED BEDSIDE REPORT FROM BHARATH VAZQUEZ. PT IN BED, ASLEEP, CALM. NO SIGNS OF PAIN OR DISTRESS AT THIS TIME. IV INTACT, PATENT, WITH IVF INFUSING WELL. BED AT LOWEST POSITION WITH SIDE RAILS UP X3, LOCKED, CALL LIGHT WITHIN REACH, AND ALARM ON FOR SAFETY. WILL CONTINUE CARE OF PT. Initialized on 05/16/17 07:51 - END OF NOTE 05/16/17 06:35 Nurse Notes by Dexter Bui Closing Note Patient slept for majority of shift, no complaints of pain or distress. Patient had one BM. Vitals have been stable. Will endorse to am nurse. Initialized on 05/16/17 06:35 - END OF NOTE 05/15/17 21:28 Nurse Notes by Dexter Bui Initial Note Patient is resting in bed at this time. Alert/oriented x4, able to make needs known. No complaints of pain or distress at this time. No noted troubled breathing or shortness of breath. Call light is within reach, bed alarm is on. Will continue to monitor closely. Initialized on 05/15/17 21:28 - END OF NOTE 05/15/17 20:39 Nurse Notes by Mackenzie Lee END OF SHIFT NOTE PT IN BED, ASLEEP, CALM, NO DISTRESS OR PAIN. PT REMAINED STABLE THROUGHOUT SHIFT. DR. MARQUEZ CAME AND SAW PT AND INFORMED HIM OF THE LAPROSCOPIC VERSUS OPEN CHOLECYSTECTOMY PROCEDURE ON WEDNESDAY. CONSENT PREPARED, BUT NOT SIGNED YET. SPOKE WITH PT'S , BUT SHE SAID SHE WILL COME TOMORROW. ENDORSED TO BHARATH VAZQUEZ. Initialized on 05/15/17 20:39 - END OF NOTE 05/15/17 11:25 (created 05/15/17 11:34) Nurse Notes by Mackenzie Lee RN NOTE SPOKE WITH DR. MARQUIS, MADE HIM AWARE THAT SPEECH THERAPIST UNAVAILABLE OVER THE WEEKEND FOR THE SWALLOW EVAL. OBTAINED TORB FOR PUREED DIET AND CONSULT WITH DR. SANCHEZ AVALOS FOR CARDIAC CLEARANCE FOR PROCEDURE ON WEDNESDAY, DR. SANCHEZ AVALOS AWARE. Initialized on 05/15/17 11:34 - END OF NOTE 05/15/17 09:06 Nurse Notes by Mackenzie Lee RN NOTE DR. MARQUIS CAME AND SAW PT. INFORMED HIM THAT PT'S POTASSIUM LEVEL WAS 3.1 AND WAS CHOKING ON HIS BREAKFAST. ORDERED SWALLOW EVAL AND TO GIVE PO KCL 40 MEQ AFTER SWALLOW EVAL. DONISETTE PAGED, WAITING FOR HER TO CALL BACK. ALSO, SAID IT IS OK TO NOT ADM HEPARIN DUE TO THE PROCEDURE FOR WEDNESDAY AND TO HAVE PT ON SCD'S. Initialized on 05/15/17 09:06 - END OF NOTE 05/15/17 07:56 Nurse Notes by Mackenzie Lee INITIAL NOTE RECEIVED BEDSIDE REPORT FROM BHARATH NEAL. PT IN BED, AWAKE, ALERT. NO SIGNS OF PAIN , RESPIRATORY DISTRESS, OR DISCOMFORT NOTED. IV INTACT, PATENT, WITH IV FLUIDS INFUSING WELL. 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 PER VAL, PT AWARE HE MAY HAVE SURGERY ON WEDNESDAY. BED AT LOWEST POSITION, LOCKED, AND ALARM ON FOR SAFETY. WILL CONTINUE CARE OF PT. Initialized on 05/15/17 07:56 - END OF NOTE 05/15/17 06:32 Nurse Notes by Mayuri Beyer End of shift AM care done. Responsive verbally and able to use urinal in small amount of urine. IVF infusing well on right hand. No complaints of pain this time. Initialized on 05/15/17 06:32 - END OF NOTE 05/14/17 20:00 (created 05/14/17 22:36) Nurse Notes by Mayuri Beyer Initial Notes Received patient awake and responsive verbally. IVF infusing well on right arm. On O2 at 2 liters per nasal cannula. Patient for possible surgery on Wednesday. Patient aware. Initialized on 05/14/17 22:36 - END OF NOTE 05/14/17 17:42 Nurse Notes by Brenden Dow End of shift patient is awake and alert, continue on IV fluids and atb iv. tolerated well. no a/r noted. no c/o pain. able to verbalize needs known. will continue to monitor. bed in lowest position. Continue to offer and encourage fluids intake. patient poor in appetite noted, offer snack as tolerated. calllight within reach. Will endorse to noc shift Initialized on 05/14/17 17:42 - END OF NOTE 05/14/17 14:11 Nurse Notes by Brenden Dow INITIAL NOTE Patient is awake and alert, oriented x4. no c/o pain. ambulated with physical theraphy and tolerated well. min assist with adls and transfer. patient continue on iv atb theraphy as ordered and tolerated well. Dr. Marquis seen patient today and no further order given at this time. Dr. Marquez came and reviewed HIDA scan report, and discussed with patient and spouse regarding surgery, and they said okay with the procedure. Dr. Marquez will plan surgery on wednesday, notified patient. Will continue to monitor patient. Initialized on 05/14/17 14:11 - END OF NOTE 05/14/17 05:23 Nurse Notes by RN 13,[facility] Registry Received pt from offgoing RN at 1900. Pt with even/nonlabored respirations noted and appearing in no distress. Pt without c/o pain verbalized. Pt medication compliant. Using urinayl. Safety has been maintained. Will continue to monitor for safety and be available to pt. Initialized on 05/14/17 05:23 - END OF NOTE 05/13/17 18:50 Nurse Notes by Tamara Mc RN NOTE HIDA SCAN COMPLETED ON SHIFT PATIENT OKAY TO START CLEAR LIQUID DIET . BED IN LOW POSITION . CALL LIGHT WITHIN REACH. STABLE ON SHIFT Initialized on 05/13/17 18:50 - END OF NOTE 05/13/17 08:11 Nurse Notes by Tamara Mc RN NOTE D- PATIENT AWAKE ALERT AND ORIENTED . PATIENT ON 3 LITERS N/C TOLERATED WELL. IVF INFUSING ORDERED . NO S/S OF COMPLICATION NOTED AT PIV SITE. ABD FLAT WITH BOWEL SOUNDS ACTIVE. NO PAIN/DISCOMFORT NOTED AT THIS TIME. A- REORIENTED TO FACILITY AND CALL LIGHT USAGE. R BED IN LOW POSITION CALL LIGHT WITHIN REACH. GI AND SURGEON CONSULT PENDING. Initialized on 05/13/17 08:11 - END OF NOTE 05/13/17 06:07 Nurse Notes by Kendy Cloud FINAL NOTE Pt. in bed sleeping at lowest position. No signs of pain, distress noted. IV site remained patent and intact. Call light left within reach, will endorse care to oncoming nurse. Initialized on 05/13/17 06:07 - END OF NOTE 05/12/17 20:24 Nurse Notes by Kendy Cloud INITIAL NOTE Pt. in bed resting at lowest position. Pt. received breathing treatment. No signs of pain, distress noted. IV site remained patent and intact. Call light left within reach, will continue to monitor. Initialized on 05/12/17 20:24 - END OF NOTE 05/12/17 18:48 Nurse Notes by Tamara Mc Addendum entered by Tamara Mc 05/12/17 19:08: DR MARQUIS RETURN CALL WITH NEW ORDER FOR CONSULTS. CONSULTS NOTIFIED Original Note: Addendum entered by Tamara Mc 05/12/17 18:56: ABD ULTRASOUND RESULTS IN , DR MARQUIS PAGED , AWAITING RETURN CALL WILL ENDORSE TO NEXT SHIFT. Original Note: RN NOTE PATIENT STABLE THROUGHOUT SHIFT . BED IN LOW POSITION . CALL LIGHT WITHIN REACH. PATIENT CONTINUES WITH POOR PO INTAKE Initialized on 05/12/17 18:48 - END OF NOTE 05/12/17 08:27 Nurse Notes by Tamara Mc Addendum entered by Tamara Mc 05/12/17 17:39: seen by Dr Paulson on shift Original Note: Addendum entered by Tamara Mc 05/12/17 09:18: clarified : LEFT UPPER ARM DISCOLORATION Original Note: RN NOTE 0815-D PATIENT AWAKE ALERT [place] RESP EVEN AND UNLABORED , SLIGHT WHEEZES NOTED IN UPPER LUNG TORRES . PATIENT ON 2 LITERS N/C TOLERATED WELL SATURATION 97 PERCENT . SKIN WARM AND DRY . RIGHT UPPER ARM DISCOLORATION NOTED . PER PATIENT HE FELL 2 DAYS AGO AT HOME. ABD SOFT WITH NO DISTENTION. BOWEL SOUNDS ACTIVE IN ALL 4 QUADRANTS . PATIENT WITH POOR APPETITE . ENCOURAGE PO INTAKE THROUGHOUT SHIFT. PATIENT FOR ULTRASOUND OF ABD AND CAROTID TODAY. DR MARQUIS SEEN PATIENT ON SHIFT WITH NEW ORDER FOR CONSULT WITH DR PAULSON FOR SEVERE COPD , EXCHANGED CALLED BY MT. A - REORIENTED PATIENT TO FACILITY AND CALL LIGHT USAGE. R BED IN LOW POSITION CALL LIGHT WITHIN REACH. PT EVALUATION PENDING. Initialized on 05/12/17 08:27 - END OF NOTE 05/12/17 07:00 Nurse Notes by Batool Lowe END OF SHIFT: NO BM DENIES PAIN MORE AWAKE ALERT VSS IV FLUIDS INFUSING WELL KEPT MONITRED BED ALARM COUNTER INTELLIGENCE LIGHT AT REACH. Initialized on 05/12/17 07:00 - END OF NOTE 05/12/17 01:39 Nurse Notes by Batool Lowe NURSE NOTES: ADMITTED THIS PT FROM ER VIA [facility] DENIES PAIN SALINE LOCK PATENT HEMATOMA/BRUISES ON LT UPPER ARM AND LT HIP CLEANED AND CHANGED VSS CT OF HEAD WITH CONTRAST DONE PRELIMINARY RESULT NEGATIVE VAL(CHARGE NURSE) AWARE PT BACK FROM CT IV FLUIDS STARTED AND INFUSING WELL KEPT MONITORED CALL LIGHT AT REACH. Initialized on 05/12/17 01:39 - END OF NOTE 05/11/17 19:57 Nurse Notes by Armando Soto 1950 patient transported to 18B in no distress. report given to Batool. Initialized on 05/11/17 19:57 - END OF NOTE 05/11/17 19:28 Nurse Notes by Armando Soto received patient awake on bed with family at side. patient already admitted to [facility] room 35A waiting for RN to be ready. Initialized on 05/11/17 19:28 - END OF NOTE 05/11/17 19:10 Nurse Notes by Gabriela Leal 1900- Copy of CMP rec'd-to wait per Dr Marin before med. order. Initialized on 05/11/17 19:10 - END OF NOTE 05/11/17 18:40 Nurse Notes by Gabriela Leal 1840-stillwaiting for CMP result- lab called. Initialized on 05/11/17 18:40 - END OF NOTE 05/11/17 18:17 Nurse Notes by Gabriela Leal 1815-Report to Anuel. Initialized on 05/11/17 18:17 - END OF NOTE 05/11/17 18:01 Nurse Notes by Gabriela Leal 1800- called back and spoke w/-adm.orders given. Initialized on 05/11/17 18:01 - END OF NOTE Reason for Hospitalization: cholecystitis Hospital Course (Significant Findings/Progress/Treatments): An 86 year old male presented to the ED with the complaint of Allergies/Adverse Reactions: Allergies Allergy/AdvReac Type Severity Reaction Status Date / Time No Known Allergies Allergy Verified 05/11/17 16:00 Home Medications: Home Medication Medication Instructions Recorded Type Antihypercholesterolemia 1 tab PO HS 05/11/17 History Antihypertensive 1 tab PO DAILY 05/11/17 History Referrals: not on staff,PCP is [Primary Care Provider] -
--- NOTE | 2017-05-24 09:00 | Discharge Summary ---
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 ADMITTING DIAGNOSES: Hypokalemia, disorder of the autonomic nervous system due to syncope, mechanical fall, unsteady gait, malnutrition due to decreased appetite, muscle wasting, asthma, metabolic encephalopathy, secondary aspiration pneumonia, COPD exacerbation. HISTORY OF PRESENT ILLNESS: An 86-year-old male presented to the Emergency Department after a syncopal episode. The patient was admitted to the hospital complaining of abdominal pain. Imaging revealed the patient had cholecystitis. Gallbladder scan was performed and it revealed that no evidence of gallbladder uptake 2 hours and was likely due to a cystic duct obstruction or cholecystitis. General Surgery and GI were consulted and an open cholecystectomy was performed along with lysis of adhesions. The patient tolerated the procedure well without complication. He underwent continued wound care and IV antibiotics for aspiration pneumonia. The patient will require continued physical therapy and will be discharged to a local skilled nursing per his insurance. PHYSICAL EXAMINATION: VITAL SIGNS: 97.1, 89, 117/51 and 19. COMPLICATIONS: None. PROCEDURE: Open cholecystectomy with lysis of adhesion. MEDICATIONS: Reviewed and reconciled. FOLLOWUP: With PCP in 3 days. DISPOSITION: residential stable. JOB# [id number]
--- NOTE | 2017-05-24 09:02 | General Progress Note ---
Subjective - Review of Systems Service Date: 05/24/17 Events since last encounter: The patient is tolerating clears, but still has a decreased appetite. The patient had a couple bowel movements yesterday. We'll advance diet, per general surgery. Continue to monitor oxygen saturation. Patient is currently on 3 L of oxygen. Subjective: Patient is resting comfortably in bed. Appears to be short of breath. Complains of sob and wheezing. Denies fevers or chills. Denies chest pain, abdominal pain , dysuria, falls, or dizziness Objective - Results Result Diagrams: 05/24/17 05:48 05/24/17 05:48 Recent Labs: Laboratory Last Values WBC 9.3 Th/cmm (4.8-10.8) D 05/24/17 05:48 RBC 2.73 Mil/cmm (3.80-5.80) L 05/24/17 05:48 Hgb 8.8 gm/dL (12-16) L 05/24/17 05:48 Hct 26.1 % (41.0-60) L 05/24/17 05:48 MCV 95.5 fl (80-99) 05/24/17 05:48 MCH 32.2 pg (27.0-31.0) H 05/24/17 05:48 MCHC Differential 33.8 pg (28.0-36.0) 05/24/17 05:48 RDW 15.7 % (11.5-20.0) 05/24/17 05:48 Plt Count 231 Th/cmm (150-400) 05/24/17 05:48 MPV 7.8 fl 05/24/17 05:48 Neutrophils % 92.4 % (40.0-80.0) H 05/24/17 05:48 Band Neutrophils % 3 % (0-10) 05/17/17 18:55 Lymphocytes % 3.0 % (20.0-50.0) L 05/24/17 05:48 Monocytes % 4.1 % (2.0-10.0) 05/24/17 05:48 Eosinophils % 0.1 % (0.0-5.0) 05/24/17 05:48 Basophils % 0.4 % (0.0-2.0) 05/24/17 05:48 Neutrophils (Manual) 94 % (40-80) H 05/20/17 06:26 Lymphocytes 5 % (20-50) L 05/20/17 06:26 Monocytes 1 % (2-10) L 05/20/17 06:26 Eosinophils 0 % (0-5) 05/17/17 18:55 Basophils 0 % (0-3) 05/17/17 18:55 Platelet Estimate ADEQUATE (NORMAL) 05/20/17 06:26 PT 10.9 SECONDS (9.5-11.5) 05/17/17 05:45 INR 1.05 (0.5-1.4) 05/17/17 05:45 PTT (Actin FS) 29.6 SECONDS (26.0-38.0) 05/17/17 05:45 Specimen Source Arterial 05/12/17 08:50 Sample Site RB 05/12/17 08:50 pH 7.38 (7.35-7.45) 05/12/17 08:50 pCO2 46.0 mmHg (35.0-45.0) H 05/12/17 08:50 pO2 86.0 mmHg (80.0-100.0) 05/12/17 08:50 HCO3 26.1 mEq/L (20.0-26.0) H 05/12/17 08:50 Base Excess 1.6 mEq/L (-3.0-3.0) 05/12/17 08:50 O2 Saturation 96.0 % (92.0-100.0) 05/12/17 08:50 Idris Test NA 05/12/17 08:50 Vent Rate NA 05/12/17 08:50 Inspired O2 28 05/12/17 08:50 Tidal Volume NA 05/12/17 08:50 PEEP NA 05/12/17 08:50 Pressure (ins/psv/peep) NA 05/12/17 08:50 Critical Value E.MCPHERSON 05/12/17 08:50 Sodium 141 mEq/L (136-145) 05/24/17 05:48 Potassium 3.0 mEq/L (3.5-5.1) L 05/24/17 05:48 Chloride 102 mEq/L (98-107) 05/24/17 05:48 Carbon Dioxide 33.0 mEq/L (21.0-31.0) H 05/24/17 05:48 Anion Gap 9.0 (7.0-16.0) 05/24/17 05:48 BUN 15 mg/dL (7-25) 05/24/17 05:48 Creatinine 0.6 mg/dL (0.7-1.3) L 05/24/17 05:48 Est GFR ( Amer) TNP 05/24/17 05:48 Est GFR (Non-Af Amer) TNP 05/24/17 05:48 BUN/Creatinine Ratio 25.0 05/24/17 05:48 Glucose 135 mg/dL (70-105) H 05/24/17 05:48 POC Glucose 72 MG/DL (70 - 105) 05/17/17 06:31 Hemoglobin A1c % 4.9 % (4.0-6.0) 05/11/17 16:40 Whole Bld Lactic Acid 1.00 mmol/L (0.60-1.99) 05/11/17 16:40 Calcium 7.1 mg/dL (8.6-10.3) L 05/24/17 05:48 Magnesium 1.9 mg/dL (1.9-2.7) 05/11/17 16:40 Total Bilirubin 0.6 mg/dL (0.3-1.0) 05/19/17 06:30 Direct Bilirubin 0.44 mg/dL (0.0-0.2) H 05/13/17 06:05 AST 33 U/L (13-39) 05/19/17 06:30 ALT 19 U/L (7-52) 05/19/17 06:30 Alkaline Phosphatase 61 U/L (34-104) 05/19/17 06:30 Creatine Kinase 34 U/L (30-223) 05/11/17 16:40 Troponin I < 0.01 ng/mL (0.01-0.05) L 05/11/17 16:40 B-Natriuretic Peptide 135.0 pg/mL (5.0-100.0) H 05/21/17 05:35 Total Protein 5.0 gm/dL (6.0-8.3) L 05/19/17 06:30 Albumin 2.1 gm/dL (4.2-5.5) L 05/19/17 06:30 Globulin 2.9 gm/dL 05/19/17 06:30 Albumin/Globulin Ratio 0.7 (1.0-1.8) L 05/19/17 06:30 Triglycerides 112 mg/dL (<150) 05/11/17 16:40 Cholesterol 84 mg/dL (<200) 05/11/17 16:40 LDL Cholesterol Direct 57 mg/dL (75-193) L 05/11/17 16:40 HDL Cholesterol 18 mg/dL (23-92) L 05/11/17 16:40 Amylase 70 U/L (29-103) 05/11/17 16:40 Lipase 109 U/L (11-82) H 05/11/17 16:40 Urine Source CLEAN C 05/11/17 17:15 Urine Color YELLOW 05/11/17 17:15 Urine Clarity CLEAR (CLEAR) 05/11/17 17:15 Urine pH 6.0 (4.6 - 8.0) 05/11/17 17:15 Ur Specific [place] 1.015 (1.005-1.030) 05/11/17 17:15 Urine Protein TRACE mg/dL (NEGATIVE) 05/11/17 17:15 Urine Glucose (UA) NEGATIVE mg/dL (NEGATIVE) 05/11/17 17:15 Urine Ketones >=80 mg/dL (NEGATIVE) H 05/11/17 17:15 Urine Blood TRACE (NEGATIVE) 05/11/17 17:15 Urine Nitrate NEGATIVE (NEGATIVE) 05/11/17 17:15 Urine Bilirubin MODERATE (NEGATIVE) H 05/11/17 17:15 Urine Urobilinogen 4.0 E.U./dL (0.2 - 1.0) H 05/11/17 17:15 Ur Leukocyte Esterase NEGATIVE (NEGATIVE) 05/11/17 17:15 Urine RBC 2-5 /hpf (0-5) H 05/11/17 17:15 Urine WBC NONE SEEN /hpf (0-5) 05/11/17 17:15 Ur Epithelial Cells NONE SEEN /lpf (FEW) 05/11/17 17:15 Urine Bacteria NONE SEEN /hpf (NONE SEEN) 05/11/17 17:15 Stool Occult Blood NEGATIVE (NEGATIVE) 05/23/17 18:20 Vancomycin Trough 8.9 ug/mL (5-10) 05/21/17 11:00 Blood Type A POSITIVE 05/22/17 08:54 Antibody Screen NEGATIVE 05/22/17 08:54 Crossmatch See Detail 05/22/17 08:54 - Physical Exam Vitals and I&O: Vital Signs Temp 96.4 F 05/24/17 07:54 Pulse 75 05/24/17 07:54 Resp 18 05/24/17 08:39 BP 112/53 05/24/17 08:23 Pulse Ox 100 05/24/17 07:54 Intake & Output 05/23/17 05/24/17 05/24/17 18:59 06:59 18:59 Intake Total 550 100 899.5 Balance 550 100 899.5 Weight (lbs) 53.66 kg 52.027 kg Intake: Intake, IV Amount 300 100 899.5 D5-0.9%Ns 1,000 ml @ 30 899.5 mls/hr IV .Q24H [facility] Rx#: [id number] KCL 20mEq/100mL Premix 40 200 meq In 200 ml @ 68 mls/ hr IV DAILY PRN Rx#: [id number] Piperacillin Sodium/ 100 100 Tazobact 2.25 gm In Sodium Chloride 0.9% 50 ml @ 100 mls/hr IV Q6HR [facility] Rx#:[id number] Oral 250 Other: # Voids 4 # Bowel Movements 2 Stool Characteristics Black Weight Source Bedscale Bedscale Active Medications: Current Medications Acetaminophen (Tylenol) 650 mg PO Q6H PRN PRN Reason: HEADACHE/TEMP ABOVE 100F Stop: 07/10/17 18:41 Last Admin: 05/19/17 08:55 Dose: 650 mg Albuterol/Ipratropium (Duoneb Neb) 3 ml HHN Q4HRT [facility] Stop: 07/20/17 02:59 Last Admin: 05/24/17 07:31 Dose: 3 ml Furosemide (Lasix) 20 mg IVP DAILY [facility] Stop: 07/21/17 08:59 Last Admin: 05/24/17 08:23 Dose: 20 mg Piperacillin Sod/Tazobactam (Sod 2.25 gm/ Sodium Chloride) 50 mls @ 100 mls/hr IV Q6HR [facility] Stop: 07/11/17 08:44 Last Infusion: 05/24/17 06:29 Dose: Infused Dextrose/Sodium Chloride (D5-0.9%Ns) 1,000 mls @ 30 mls/hr IV .Q24H [facility] Stop: 07/20/17 00:10 Last Admin: 05/24/17 08:23 Dose: 30 mls/hr Potassium Chloride (Potassium Chloride) 40 meq in 200 mls @ 68 mls/hr IV DAILY PRN PRN Reason: k level less than 3.2 Stop: 07/10/17 18:41 Last Admin: 05/24/17 08:23 Dose: 68 mls/hr Magnesium Oxide (Mag-Oxide) 400 mg PO BID PRN PRN Reason: Mg less than 1.9 Stop: 07/10/17 18:41 Methylprednisolone Sodium Succinate (Solu-Medrol) 40 mg IVP BID [facility] Stop: 07/20/17 10:29 Last Admin: 05/24/17 08:23 Dose: 40 mg Miscellaneous (Zosyn Iv Per Pharmacy) 1 [facility] PRN PRN PRN Reason: PROTOCOL Stop: 07/11/17 07:44 Miscellaneous (Probiotic Screen) 1 [facility] PRN PRN PRN Reason: PROTOCOL Stop: 07/12/17 12:59 Morphine Sulfate (Morphine) 1 mg IVP Q4HR PRN PRN Reason: Severe Pain Stop: 07/10/17 18:41 Last Admin: 05/17/17 23:16 Dose: 1 mg Ondansetron HCl (Zofran) 4 mg IVP Q6H PRN PRN Reason: Nausea / Vomiting Stop: 07/10/17 18:41 Last Admin: 05/19/17 11:51 Dose: 4 mg Potassium Chloride (Klor-Con) 40 meq PO DAILY PRN PRN Reason: k level less than 3.5 Stop: 07/10/17 18:41 Last Admin: 05/21/17 09:52 Dose: 40 meq General: Alert, Cooperative, Mild distress, Other (cachexic ) HEENT: Atraumatic, PERRLA, EOMI Neck: Supple, no JVD, no Thyromegaly Cardiovascular: Regular rate, Normal S1 Lungs: Other (has rales bl) Abdomen: Soft, Tender, Other Neurological: Normal speech Psych/Mental Status: Other (ms str 3/5) - Procedures Procedures: Procedures Procedure Code Date REMOVAL OF GALLBLADDER 31499 05/11/17 RESECTION OF GALLBLADDER, OPEN APPROACH [id number] 05/11/17 Assessment/Plan - Problem List Patient Problems: All Active Problems FREQUENT FALLS WITH POOR APPETITE (Acute) - Assessment Assessment: Sepsis 2/2 gangrenous cholecystitis s/p open cholecystectomy with lysis of adhesions asp pna Hypokalemia D/O of ANS due to syncope Mech fall severe malnutrition ME COPD Exac anemia of chronic illness - Plan Plan: Pt is on IV Zosyn. Added Vanco. Dr. Avalos consulted for ID. Continue breathing tx. Sx and GI consulted for cholecystitis. SP open braden and lysis of adhesions Fall prec. FU on cbc. Patient is having loose stools Continue zosyn The patient is tolerating a full liquid diet, however he has a decreased appetite at this time. PT eval ordered Nutritional Asmnt/Malnutr-PDOC - Dietary Evaluation Malnutrition Findings (Please click <Entered> for more info): Nutritional Asmnt/Malnutrition Start: 05/12/17 17: 42 Text: Status: Complete Freq: Document 05/12/17 17:43 HENG (Rec: 05/12/17 17:59 LCHEN [id number]) Nutritional Asmnt/Malnutrition Patient General Information Nutritional Screening High Risk Consult Diagnosis syncope Pertinent Medical Hx/Surgical Hx asthma, HTN, dyslipidemia, arthritis Subjective Information Consult received for no appetite to eat. Pt seen lying in bed at time of visit, awake and alert. Pt reported appetite has been poor d/t sick and it was little bit better today. Pt denied chewing problem. Food preference provided. Per RN, pt had no PO intake in the past 5 days, spited out food according to pt . Pt only had fruit and juice for breakfast. Pt was now on NPO during lunch time for U/S. Current Diet Order/ Nutrition Support regular Pertinent Medications colace, piperacillin, nacl 0.9 % Pertinent Labs 05/12 Na 139, K 3.1, Cl 102, BUN 17, Cr 0.5, glucose 62 Ca 8.1 05/11 a1c 4.9 Nutritional Hx/Data Height 1.65 m Height (Calculated Centimeters) 165.1 Current Weight (lbs) 48.081 kg Weight (Calculated Kilograms) 48.1 Weight (Calculated Grams) 20119.8 [place] Body Weight 136 Body Mass Index (BMI) 17.6 Weight Status Underweight GI Symptoms GI Symptoms None Last BM none Difficult in: None Skin Integrity/Comment: bruise to left hip and left upper arm Estimated Nutritional Goals BEE in Kcals: Using Current wt Calories/Kcals/Kg 30-35 Kcals Calculated 7226-3524 Protein: Using Current wt Protein g/k.2-1.4 Protein Calculated 58-67 Fluid: ml 1440-1680ml (1ml/kcal) Nutritional Problem 1. Problem Problem inadequate food intake Etiology poor appetite Signs/Symptoms: poor PO intake x 6 days Intervention/Recommendation Comments 1. Continue with current diet as ordered. If PO continue new , consider adding Boost BID to increased nutrition intake. 2. Monitor PO intake, wt, labs and skin integrity 3. F/U as high risk in 2-3 days, 05/14-05/15 Expected Outcomes/Goals Expected Outcomes/Goals 1. PO intake to meet at least 75% of nutritional needs. 2. Wt stability, skin to remain intact, labs to approach WNL.
--- NOTE | 2017-05-24 09:40 | Discharge Summary ---
DATE OF DISCHARGE: ADMITTING DIAGNOSES: 1. Hypokalemia. 2. 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 3. Mechanical fall. 4. Unsteady gait. 5. Moderate malnutrition. 6. Asthma. 7. Metabolic encephalopathy. 8. Sepsis secondary to aspiration pneumonia. 9. Chronic obstructive pulmonary disease with exacerbation. DISCHARGE DIAGNOSES: 1. Sepsis secondary to gangrenous cholecystitis, status post open cholecystectomy with lysis of adhesions. 2. Aspiration pneumonia. 3. Hypokalemia. 4. 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 5. Mechanical fall. 6. Severe malnutrition. 7. Metabolic encephalopathy. 8. Chronic obstructive pulmonary disease exacerbation. 9. Anemia of chronic illness. MEDICATIONS: Reviewed and reconciled. VITAL SIGNS: Temperature 97.8, blood pressure 128/62, respiration 16, and heart rate 81. DISCHARGE DISPOSITION: SNF, stable. FOLLOWUP: With myself within 3 days. COMPLICATIONS: None. PROCEDURES: The patient had an open cholecystectomy. HISTORY OF PRESENT ILLNESS: An 86-year-old male who presented to the Emergency Room with chief complaint of abdominal pain with syncope. The patient was admitted to [facility], imaging revealed that the patient had cholecystitis. GI and General Surgery were consulted. The patient was septic, so he was started on IV antibiotics and IV fluids. General Surgery performed an open cholecystectomy with lysis of adhesions without complication, and the patient tolerated procedure well. His white blood cell count was severely elevated upon admission and trended down to 16.4 prior to discharge. The patient was placed on supplemental oxygen and Lasix due to the shortness of breath as well as hypotension. His pain was well controlled. Tylenol was administered for fevers. The patient will need continued physical therapy and respiratory support. IV antibiotics were continued due to the gangrenous braden as well as the aspiration pneumonia. The patient will be discharged. JOB# [id number]
--- NOTE | 2017-05-24 11:42 | General Progress Note ---
Subjective - Review of Systems Service Date: 05/24/17 Events since last encounter: incision healing increase diet Objective - Results Result Diagrams: 05/24/17 05:48 05/24/17 05:48 Recent Labs: Laboratory Last Values WBC 9.3 Th/cmm (4.8-10.8) D 05/24/17 05:48 RBC 2.73 Mil/cmm (3.80-5.80) L 05/24/17 05:48 Hgb 8.8 gm/dL (12-16) L 05/24/17 05:48 Hct 26.1 % (41.0-60) L 05/24/17 05:48 MCV 95.5 fl (80-99) 05/24/17 05:48 MCH 32.2 pg (27.0-31.0) H 05/24/17 05:48 MCHC Differential 33.8 pg (28.0-36.0) 05/24/17 05:48 RDW 15.7 % (11.5-20.0) 05/24/17 05:48 Plt Count 231 Th/cmm (150-400) 05/24/17 05:48 MPV 7.8 fl 05/24/17 05:48 Neutrophils % 92.4 % (40.0-80.0) H 05/24/17 05:48 Band Neutrophils % 3 % (0-10) 05/17/17 18:55 Lymphocytes % 3.0 % (20.0-50.0) L 05/24/17 05:48 Monocytes % 4.1 % (2.0-10.0) 05/24/17 05:48 Eosinophils % 0.1 % (0.0-5.0) 05/24/17 05:48 Basophils % 0.4 % (0.0-2.0) 05/24/17 05:48 Neutrophils (Manual) 94 % (40-80) H 05/20/17 06:26 Lymphocytes 5 % (20-50) L 05/20/17 06:26 Monocytes 1 % (2-10) L 05/20/17 06:26 Eosinophils 0 % (0-5) 05/17/17 18:55 Basophils 0 % (0-3) 05/17/17 18:55 Platelet Estimate ADEQUATE (NORMAL) 05/20/17 06:26 PT 10.9 SECONDS (9.5-11.5) 05/17/17 05:45 INR 1.05 (0.5-1.4) 05/17/17 05:45 PTT (Actin FS) 29.6 SECONDS (26.0-38.0) 05/17/17 05:45 Specimen Source Arterial 05/12/17 08:50 Sample Site RB 05/12/17 08:50 pH 7.38 (7.35-7.45) 05/12/17 08:50 pCO2 46.0 mmHg (35.0-45.0) H 05/12/17 08:50 pO2 86.0 mmHg (80.0-100.0) 05/12/17 08:50 HCO3 26.1 mEq/L (20.0-26.0) H 05/12/17 08:50 Base Excess 1.6 mEq/L (-3.0-3.0) 05/12/17 08:50 O2 Saturation 96.0 % (92.0-100.0) 05/12/17 08:50 Idris Test NA 05/12/17 08:50 Vent Rate NA 05/12/17 08:50 Inspired O2 28 05/12/17 08:50 Tidal Volume NA 05/12/17 08:50 PEEP NA 05/12/17 08:50 Pressure (ins/psv/peep) NA 05/12/17 08:50 Critical Value E.MCPHERSON 05/12/17 08:50 Sodium 141 mEq/L (136-145) 05/24/17 05:48 Potassium 3.0 mEq/L (3.5-5.1) L 05/24/17 05:48 Chloride 102 mEq/L (98-107) 05/24/17 05:48 Carbon Dioxide 33.0 mEq/L (21.0-31.0) H 05/24/17 05:48 Anion Gap 9.0 (7.0-16.0) 05/24/17 05:48 BUN 15 mg/dL (7-25) 05/24/17 05:48 Creatinine 0.6 mg/dL (0.7-1.3) L 05/24/17 05:48 Est GFR ( Amer) TNP 05/24/17 05:48 Est GFR (Non-Af Amer) TNP 05/24/17 05:48 BUN/Creatinine Ratio 25.0 05/24/17 05:48 Glucose 135 mg/dL (70-105) H 05/24/17 05:48 POC Glucose 72 MG/DL (70 - 105) 05/17/17 06:31 Hemoglobin A1c % 4.9 % (4.0-6.0) 05/11/17 16:40 Whole Bld Lactic Acid 1.00 mmol/L (0.60-1.99) 05/11/17 16:40 Calcium 7.1 mg/dL (8.6-10.3) L 05/24/17 05:48 Magnesium 1.9 mg/dL (1.9-2.7) 05/11/17 16:40 Total Bilirubin 0.6 mg/dL (0.3-1.0) 05/19/17 06:30 Direct Bilirubin 0.44 mg/dL (0.0-0.2) H 05/13/17 06:05 AST 33 U/L (13-39) 05/19/17 06:30 ALT 19 U/L (7-52) 05/19/17 06:30 Alkaline Phosphatase 61 U/L (34-104) 05/19/17 06:30 Creatine Kinase 34 U/L (30-223) 05/11/17 16:40 Troponin I < 0.01 ng/mL (0.01-0.05) L 05/11/17 16:40 B-Natriuretic Peptide 135.0 pg/mL (5.0-100.0) H 05/21/17 05:35 Total Protein 5.0 gm/dL (6.0-8.3) L 05/19/17 06:30 Albumin 2.1 gm/dL (4.2-5.5) L 05/19/17 06:30 Globulin 2.9 gm/dL 05/19/17 06:30 Albumin/Globulin Ratio 0.7 (1.0-1.8) L 05/19/17 06:30 Triglycerides 112 mg/dL (<150) 05/11/17 16:40 Cholesterol 84 mg/dL (<200) 05/11/17 16:40 LDL Cholesterol Direct 57 mg/dL (75-193) L 05/11/17 16:40 HDL Cholesterol 18 mg/dL (23-92) L 05/11/17 16:40 Amylase 70 U/L (29-103) 05/11/17 16:40 Lipase 109 U/L (11-82) H 05/11/17 16:40 Urine Source CLEAN C 05/11/17 17:15 Urine Color YELLOW 05/11/17 17:15 Urine Clarity CLEAR (CLEAR) 05/11/17 17:15 Urine pH 6.0 (4.6 - 8.0) 05/11/17 17:15 Ur Specific [place] 1.015 (1.005-1.030) 05/11/17 17:15 Urine Protein TRACE mg/dL (NEGATIVE) 05/11/17 17:15 Urine Glucose (UA) NEGATIVE mg/dL (NEGATIVE) 05/11/17 17:15 Urine Ketones >=80 mg/dL (NEGATIVE) H 05/11/17 17:15 Urine Blood TRACE (NEGATIVE) 05/11/17 17:15 Urine Nitrate NEGATIVE (NEGATIVE) 05/11/17 17:15 Urine Bilirubin MODERATE (NEGATIVE) H 05/11/17 17:15 Urine Urobilinogen 4.0 E.U./dL (0.2 - 1.0) H 05/11/17 17:15 Ur Leukocyte Esterase NEGATIVE (NEGATIVE) 05/11/17 17:15 Urine RBC 2-5 /hpf (0-5) H 05/11/17 17:15 Urine WBC NONE SEEN /hpf (0-5) 05/11/17 17:15 Ur Epithelial Cells NONE SEEN /lpf (FEW) 05/11/17 17:15 Urine Bacteria NONE SEEN /hpf (NONE SEEN) 05/11/17 17:15 Stool Occult Blood NEGATIVE (NEGATIVE) 05/23/17 18:20 Vancomycin Trough 8.9 ug/mL (5-10) 05/21/17 11:00 Blood Type A POSITIVE 05/22/17 08:54 Antibody Screen NEGATIVE 05/22/17 08:54 Crossmatch See Detail 05/22/17 08:54 - Physical Exam Vitals and I&O: Vital Signs Temp 97.4 F 05/24/17 11:39 Pulse 92 05/24/17 11:39 Resp 18 05/24/17 11:39 BP 112/51 05/24/17 11:39 Pulse Ox 96 05/24/17 11:39 Intake & Output 05/23/17 05/24/17 05/24/17 18:59 06:59 18:59 Intake Total 550 100 899.5 Balance 550 100 899.5 Weight (lbs) 53.66 kg 52.027 kg Intake: Intake, IV Amount 300 100 899.5 D5-0.9%Ns 1,000 ml @ 30 899.5 mls/hr IV .Q24H [facility] Rx#: [id number] KCL 20mEq/100mL Premix 40 200 meq In 200 ml @ 68 mls/ hr IV DAILY PRN Rx#: [id number] Piperacillin Sodium/ 100 100 Tazobact 2.25 gm In Sodium Chloride 0.9% 50 ml @ 100 mls/hr IV Q6HR [facility] Rx#:[id number] Oral 250 Other: # Voids 4 # Bowel Movements 2 Stool Characteristics Black Black Green Green Weight Source Bedscale Bedscale Active Medications: Current Medications Acetaminophen (Tylenol) 650 mg PO Q6H PRN PRN Reason: HEADACHE/TEMP ABOVE 100F Stop: 07/10/17 18:41 Last Admin: 05/19/17 08:55 Dose: 650 mg Albuterol/Ipratropium (Duoneb Neb) 3 ml HHN Q4HRT [facility] Stop: 07/20/17 02:59 Last Admin: 05/24/17 10:47 Dose: 3 ml Furosemide (Lasix) 40 mg IVP DAILY [facility] Stop: 07/23/17 09:01 Dextrose/Sodium Chloride (D5-0.9%Ns) 1,000 mls @ 30 mls/hr IV .Q24H [facility] Stop: 07/20/17 00:10 Last Admin: 05/24/17 08:23 Dose: 30 mls/hr Potassium Chloride (Potassium Chloride) 40 meq in 200 mls @ 68 mls/hr IV DAILY PRN PRN Reason: k level less than 3.2 Stop: 07/10/17 18:41 Last Admin: 05/24/17 08:23 Dose: 68 mls/hr Piperacillin Sod/Tazobactam (Sod 2.25 gm/ Dextrose) 50 mls @ 100 mls/hr IV Q6HR [facility] Stop: 07/23/17 17:59 Magnesium Oxide (Mag-Oxide) 400 mg PO BID PRN PRN Reason: Mg less than 1.9 Stop: 07/10/17 18:41 Methylprednisolone Sodium Succinate (Solu-Medrol) 40 mg IVP BID [facility] Stop: 07/20/17 10:29 Last Admin: 05/24/17 08:23 Dose: 40 mg Miscellaneous (Zosyn Iv Per Pharmacy) 1 [facility] PRN PRN PRN Reason: PROTOCOL Stop: 07/11/17 07:44 Miscellaneous (Probiotic Screen) 1 [facility] PRN PRN PRN Reason: PROTOCOL Stop: 07/12/17 12:59 Morphine Sulfate (Morphine) 1 mg IVP Q4HR PRN PRN Reason: Severe Pain Stop: 07/10/17 18:41 Last Admin: 05/17/17 23:16 Dose: 1 mg Ondansetron HCl (Zofran) 4 mg IVP Q6H PRN PRN Reason: Nausea / Vomiting Stop: 07/10/17 18:41 Last Admin: 05/19/17 11:51 Dose: 4 mg Potassium Chloride (Klor-Con) 40 meq PO DAILY PRN PRN Reason: k level less than 3.5 Stop: 07/10/17 18:41 Last Admin: 05/21/17 09:52 Dose: 40 meq Potassium Chloride (Klor-Con) 40 meq PO ONCE ONE Stop: 05/24/17 14:01 General: Alert, Cooperative, Mild distress, Other (cachexic ) HEENT: Atraumatic, PERRLA, EOMI Neck: Supple, no JVD, no Thyromegaly Cardiovascular: Regular rate, Normal S1 Lungs: Other (has rales bl) Abdomen: Soft, Tender, Other Neurological: Normal speech Psych/Mental Status: Other (ms str 3/5) - Procedures Procedures: Procedures Procedure Code Date REMOVAL OF GALLBLADDER 13744 05/11/17 RESECTION OF GALLBLADDER, OPEN APPROACH [id number] 05/11/17 Assessment/Plan - Problem List Patient Problems: All Active Problems FREQUENT FALLS WITH POOR APPETITE (Acute) Nutritional Asmnt/Malnutr-PDOC - Dietary Evaluation Malnutrition Findings (Please click <Entered> for more info): Nutritional Asmnt/Malnutrition Start: 05/12/17 17: 42 Text: Status: Complete Freq: Document 05/12/17 17:43 LCHENG (Rec: 05/12/17 17:59 [email or web address]) Nutritional Asmnt/Malnutrition Patient General Information Nutritional Screening High Risk Consult Diagnosis syncope Pertinent Medical Hx/Surgical Hx asthma, HTN, dyslipidemia, arthritis Subjective Information Consult received for no appetite to eat. Pt seen lying in bed at time of visit, awake and alert. Pt reported appetite has been poor d/t sick and it was little bit better today. Pt denied chewing problem. Food preference provided. Per RN, pt had no PO intake in the past 5 days, spited out food according to pt . Pt only had fruit and juice for breakfast. Pt was now on NPO during lunch time for U/S. Current Diet Order/ Nutrition Support regular Pertinent Medications colace, piperacillin, nacl 0.9 % Pertinent Labs 05/12 Na 139, K 3.1, Cl 102, BUN 17, Cr 0.5, glucose 62 Ca 8.1 05/11 a1c 4.9 Nutritional Hx/Data Height 1.65 m Height (Calculated Centimeters) 165.1 Current Weight (lbs) 48.081 kg Weight (Calculated Kilograms) 48.1 Weight (Calculated Grams) 55748.8 [place] Body Weight 136 Body Mass Index (BMI) 17.6 Weight Status Underweight GI Symptoms GI Symptoms None Last BM none Difficult in: None Skin Integrity/Comment: bruise to left hip and left upper arm Estimated Nutritional Goals BEE in Kcals: Using Current wt Calories/Kcals/Kg 30-35 Kcals Calculated 9135-6104 Protein: Using Current wt Protein g/k.2-1.4 Protein Calculated 58-67 Fluid: ml 1440-1680ml (1ml/kcal) Nutritional Problem 1. Problem Problem inadequate food intake Etiology poor appetite Signs/Symptoms: poor PO intake x 6 days Intervention/Recommendation Comments 1. Continue with current diet as ordered. If PO continue new , consider adding Boost BID to increased nutrition intake. 2. Monitor PO intake, wt, labs and skin integrity 3. F/U as high risk in 2-3 days, 05/14-05/15 Expected Outcomes/Goals Expected Outcomes/Goals 1. PO intake to meet at least 75% of nutritional needs. 2. Wt stability, skin to remain intact, labs to approach WNL.
[2017-05-24] MEDS ORDERED: Potassium Chloride 20 mEq ER Tab PO ONE (14:00)
--- NOTE | 2017-05-24 23:30 | Infectious Disease Prog Note ---
Infectious Disease Subjective - Review of Systems Service Date: 05/24/17 Subjective: patient has no new change, no fever.no sob. Infectious Disease Objective - Results Result Diagrams: 05/24/17 05:48 05/24/17 05:48 Recent Labs: Laboratory Last Values WBC 9.3 Th/cmm (4.8-10.8) D 05/24/17 05:48 RBC 2.73 Mil/cmm (3.80-5.80) L 05/24/17 05:48 Hgb 8.8 gm/dL (12-16) L 05/24/17 05:48 Hct 26.1 % (41.0-60) L 05/24/17 05:48 MCV 95.5 fl (80-99) 05/24/17 05:48 MCH 32.2 pg (27.0-31.0) H 05/24/17 05:48 MCHC Differential 33.8 pg (28.0-36.0) 05/24/17 05:48 RDW 15.7 % (11.5-20.0) 05/24/17 05:48 Plt Count 231 Th/cmm (150-400) 05/24/17 05:48 MPV 7.8 fl 05/24/17 05:48 Neutrophils % 92.4 % (40.0-80.0) H 05/24/17 05:48 Band Neutrophils % 3 % (0-10) 05/17/17 18:55 Lymphocytes % 3.0 % (20.0-50.0) L 05/24/17 05:48 Monocytes % 4.1 % (2.0-10.0) 05/24/17 05:48 Eosinophils % 0.1 % (0.0-5.0) 05/24/17 05:48 Basophils % 0.4 % (0.0-2.0) 05/24/17 05:48 Neutrophils (Manual) 94 % (40-80) H 05/20/17 06:26 Lymphocytes 5 % (20-50) L 05/20/17 06:26 Monocytes 1 % (2-10) L 05/20/17 06:26 Eosinophils 0 % (0-5) 05/17/17 18:55 Basophils 0 % (0-3) 05/17/17 18:55 Platelet Estimate ADEQUATE (NORMAL) 05/20/17 06:26 PT 10.9 SECONDS (9.5-11.5) 05/17/17 05:45 INR 1.05 (0.5-1.4) 05/17/17 05:45 PTT (Actin FS) 29.6 SECONDS (26.0-38.0) 05/17/17 05:45 Specimen Source Arterial 05/12/17 08:50 Sample Site RB 05/12/17 08:50 pH 7.38 (7.35-7.45) 05/12/17 08:50 pCO2 46.0 mmHg (35.0-45.0) H 05/12/17 08:50 pO2 86.0 mmHg (80.0-100.0) 05/12/17 08:50 HCO3 26.1 mEq/L (20.0-26.0) H 05/12/17 08:50 Base Excess 1.6 mEq/L (-3.0-3.0) 05/12/17 08:50 O2 Saturation 96.0 % (92.0-100.0) 05/12/17 08:50 Idris Test NA 05/12/17 08:50 Vent Rate NA 05/12/17 08:50 Inspired O2 28 05/12/17 08:50 Tidal Volume NA 05/12/17 08:50 PEEP NA 05/12/17 08:50 Pressure (ins/psv/peep) NA 05/12/17 08:50 Critical Value E.MCPHERSON 05/12/17 08:50 Sodium 141 mEq/L (136-145) 05/24/17 05:48 Potassium 3.0 mEq/L (3.5-5.1) L 05/24/17 05:48 Chloride 102 mEq/L (98-107) 05/24/17 05:48 Carbon Dioxide 33.0 mEq/L (21.0-31.0) H 05/24/17 05:48 Anion Gap 9.0 (7.0-16.0) 05/24/17 05:48 BUN 15 mg/dL (7-25) 05/24/17 05:48 Creatinine 0.6 mg/dL (0.7-1.3) L 05/24/17 05:48 Est GFR ( Amer) TNP 05/24/17 05:48 Est GFR (Non-Af Amer) TNP 05/24/17 05:48 BUN/Creatinine Ratio 25.0 05/24/17 05:48 Glucose 135 mg/dL (70-105) H 05/24/17 05:48 POC Glucose 72 MG/DL (70 - 105) 05/17/17 06:31 Hemoglobin A1c % 4.9 % (4.0-6.0) 05/11/17 16:40 Whole Bld Lactic Acid 1.00 mmol/L (0.60-1.99) 05/11/17 16:40 Calcium 7.1 mg/dL (8.6-10.3) L 05/24/17 05:48 Magnesium 1.9 mg/dL (1.9-2.7) 05/11/17 16:40 Total Bilirubin 0.6 mg/dL (0.3-1.0) 05/19/17 06:30 Direct Bilirubin 0.44 mg/dL (0.0-0.2) H 05/13/17 06:05 AST 33 U/L (13-39) 05/19/17 06:30 ALT 19 U/L (7-52) 05/19/17 06:30 Alkaline Phosphatase 61 U/L (34-104) 05/19/17 06:30 Creatine Kinase 34 U/L (30-223) 05/11/17 16:40 Troponin I < 0.01 ng/mL (0.01-0.05) L 05/11/17 16:40 B-Natriuretic Peptide 135.0 pg/mL (5.0-100.0) H 05/21/17 05:35 Total Protein 5.0 gm/dL (6.0-8.3) L 05/19/17 06:30 Albumin 2.1 gm/dL (4.2-5.5) L 05/19/17 06:30 Globulin 2.9 gm/dL 05/19/17 06:30 Albumin/Globulin Ratio 0.7 (1.0-1.8) L 05/19/17 06:30 Triglycerides 112 mg/dL (<150) 05/11/17 16:40 Cholesterol 84 mg/dL (<200) 05/11/17 16:40 LDL Cholesterol Direct 57 mg/dL (75-193) L 05/11/17 16:40 HDL Cholesterol 18 mg/dL (23-92) L 05/11/17 16:40 Amylase 70 U/L (29-103) 05/11/17 16:40 Lipase 109 U/L (11-82) H 05/11/17 16:40 Urine Source CLEAN C 05/11/17 17:15 Urine Color YELLOW 05/11/17 17:15 Urine Clarity CLEAR (CLEAR) 05/11/17 17:15 Urine pH 6.0 (4.6 - 8.0) 05/11/17 17:15 Ur Specific [place] 1.015 (1.005-1.030) 05/11/17 17:15 Urine Protein TRACE mg/dL (NEGATIVE) 05/11/17 17:15 Urine Glucose (UA) NEGATIVE mg/dL (NEGATIVE) 05/11/17 17:15 Urine Ketones >=80 mg/dL (NEGATIVE) H 05/11/17 17:15 Urine Blood TRACE (NEGATIVE) 05/11/17 17:15 Urine Nitrate NEGATIVE (NEGATIVE) 05/11/17 17:15 Urine Bilirubin MODERATE (NEGATIVE) H 05/11/17 17:15 Urine Urobilinogen 4.0 E.U./dL (0.2 - 1.0) H 05/11/17 17:15 Ur Leukocyte Esterase NEGATIVE (NEGATIVE) 05/11/17 17:15 Urine RBC 2-5 /hpf (0-5) H 05/11/17 17:15 Urine WBC NONE SEEN /hpf (0-5) 05/11/17 17:15 Ur Epithelial Cells NONE SEEN /lpf (FEW) 05/11/17 17:15 Urine Bacteria NONE SEEN /hpf (NONE SEEN) 05/11/17 17:15 Stool Occult Blood NEGATIVE (NEGATIVE) 05/24/17 10:00 Vancomycin Trough 8.9 ug/mL (5-10) 05/21/17 11:00 Blood Type A POSITIVE 05/22/17 08:54 Antibody Screen NEGATIVE 05/22/17 08:54 Crossmatch See Detail 05/22/17 08:54 - Physical Exam Vitals and I&O: Vital Signs Temp 96.7 F 05/24/17 20:00 Pulse 76 05/24/17 22:07 Resp 18 05/24/17 22:07 BP 107/59 05/24/17 20:00 Pulse Ox 97 05/24/17 22:07 Intake & Output 05/24/17 05/24/17 05/25/17 06:59 18:59 06:59 Intake Total 100 1684.0 Balance 100 1684.0 Weight (lbs) 52.027 kg 52.072 kg Intake: Intake, IV Amount 100 1434.0 D5-0.9%Ns 1,000 ml @ 30 1184.0 mls/hr IV .Q24H [facility] Rx#: [id number] KCL 20mEq/100mL Premix 40 200 meq In 200 ml @ 68 mls/ hr IV DAILY PRN Rx#: [id number] Piperacillin Sodium/ 50 Tazobact 2.25 gm In Dextrose 5% 50 ml @ 100 mls/hr IV Q6HR [facility] Rx#: [id number] Piperacillin Sodium/ 100 Tazobact 2.25 gm In Sodium Chloride 0.9% 50 ml @ 100 mls/hr IV Q6HR [facility] Rx#:[id number] Oral 250 Other: # Voids 4 # Bowel Movements 1 Stool Characteristics Black Black Green Green Weight Source Bedscale Bedscale Active Medications: Current Medications Acetaminophen (Tylenol) 650 mg PO Q6H PRN PRN Reason: HEADACHE/TEMP ABOVE 100F Stop: 07/10/17 18:41 Last Admin: 05/19/17 08:55 Dose: 650 mg Albuterol/Ipratropium (Duoneb Neb) 3 ml HHN Q4HRT [facility] Stop: 07/20/17 02:59 Last Admin: 05/24/17 22:07 Dose: 3 ml Furosemide (Lasix) 40 mg IVP DAILY [facility] Stop: 07/23/17 09:01 Dextrose/Sodium Chloride (D5-0.9%Ns) 1,000 mls @ 30 mls/hr IV .Q24H [facility] Stop: 07/20/17 00:10 Last Infusion: 05/24/17 17:52 Dose: 30 mls/hr Potassium Chloride (Potassium Chloride) 40 meq in 200 mls @ 68 mls/hr IV DAILY PRN PRN Reason: k level less than 3.2 Stop: 07/10/17 18:41 Last Infusion: 05/24/17 17:52 Dose: Infused Piperacillin Sod/Tazobactam (Sod 2.25 gm/ Dextrose) 50 mls @ 100 mls/hr IV Q6HR [facility] Stop: 07/23/17 17:59 Last Infusion: 05/24/17 17:52 Dose: Infused Magnesium Oxide (Mag-Oxide) 400 mg PO BID PRN PRN Reason: Mg less than 1.9 Stop: 07/10/17 18:41 Methylprednisolone Sodium Succinate (Solu-Medrol) 40 mg IVP BID [facility] Stop: 07/20/17 10:29 Last Admin: 05/24/17 16:43 Dose: 40 mg Miscellaneous (Zosyn Iv Per Pharmacy) 1 [facility] PRN PRN PRN Reason: PROTOCOL Stop: 07/11/17 07:44 Miscellaneous (Probiotic Screen) 1 [facility] PRN PRN PRN Reason: PROTOCOL Stop: 07/12/17 12:59 Morphine Sulfate (Morphine) 1 mg IVP Q4HR PRN PRN Reason: Severe Pain Stop: 07/10/17 18:41 Last Admin: 05/17/17 23:16 Dose: 1 mg Ondansetron HCl (Zofran) 4 mg IVP Q6H PRN PRN Reason: Nausea / Vomiting Stop: 07/10/17 18:41 Last Admin: 05/19/17 11:51 Dose: 4 mg Potassium Chloride (Klor-Con) 40 meq PO DAILY PRN PRN Reason: k level less than 3.5 Stop: 07/10/17 18:41 Last Admin: 05/21/17 09:52 Dose: 40 meq General: no acute distress, well developed, well nourished HEENT: atraumatic, normocephalic, PERRLA Neck: supple, no thyromegaly Cardiovascular: S1S2, regular Lungs: clear to percussion, crackles Abdomen: soft, tender, no distended Extremities: no cyanosis, no clubbing, no edema Neurological: awake, alert, oriented Skin: intact - Procedures Procedures: Procedures Procedure Code Date REMOVAL OF GALLBLADDER 90007 05/11/17 RESECTION OF GALLBLADDER, OPEN APPROACH [id number] 05/11/17 Infectious Disease Assmt/Plan - Problem List Patient Problems: All Active Problems FREQUENT FALLS WITH POOR APPETITE (Acute) - Assessment Assessment: 1. peritonitis 2. sp cholecytitis, 3. Leukocytosis, likely reactive, sepsis, 3. Gangrenous Cholecystitis 5. E coli infection. 6. Pneumonia. RLL. - Plan Plan: Continue zosyn. monitor closely. Nutritional Asmnt/Malnutr-PDOC - Dietary Evaluation Malnutrition Findings (Please click <Entered> for more info): Nutritional Asmnt/Malnutrition Start: 05/12/17 17: 42 Text: Status: Complete Freq: Document 05/12/17 17:43 LCMAIRAG (Rec: 05/12/17 17:59 LCMAIRAG [id number]) Nutritional Asmnt/Malnutrition Patient General Information Nutritional Screening High Risk Consult Diagnosis syncope Pertinent Medical Hx/Surgical Hx asthma, HTN, dyslipidemia, arthritis Subjective Information Consult received for no appetite to eat. Pt seen lying in bed at time of visit, awake and alert. Pt reported appetite has been poor d/t sick and it was little bit better today. Pt denied chewing problem. Food preference provided. Per RN, pt had no PO intake in the past 5 days, spited out food according to pt . Pt only had fruit and juice for breakfast. Pt was now on NPO during lunch time for U/S. Current Diet Order/ Nutrition Support regular Pertinent Medications colace, piperacillin, nacl 0.9 % Pertinent Labs 05/12 Na 139, K 3.1, Cl 102, BUN 17, Cr 0.5, glucose 62 Ca 8.1 05/11 a1c 4.9 Nutritional Hx/Data Height 1.65 m Height (Calculated Centimeters) 165.1 Current Weight (lbs) 48.081 kg Weight (Calculated Kilograms) 48.1 Weight (Calculated Grams) 48040.8 [place] Body Weight 136 Body Mass Index (BMI) 17.6 Weight Status Underweight GI Symptoms GI Symptoms None Last BM none Difficult in: None Skin Integrity/Comment: bruise to left hip and left upper arm Estimated Nutritional Goals BEE in Kcals: Using Current wt Calories/Kcals/Kg 30-35 Kcals Calculated 7526-5288 Protein: Using Current wt Protein g/k.2-1.4 Protein Calculated 58-67 Fluid: ml 1440-1680ml (1ml/kcal) Nutritional Problem 1. Problem Problem inadequate food intake Etiology poor appetite Signs/Symptoms: poor PO intake x 6 days Intervention/Recommendation Comments 1. Continue with current diet as ordered. If PO continue new , consider adding Boost BID to increased nutrition intake. 2. Monitor PO intake, wt, labs and skin integrity 3. F/U as high risk in 2-3 days, 05/14-3/31 Expected Outcomes/Goals Expected Outcomes/Goals 1. PO intake to meet at least 75% of nutritional needs. 2. Wt stability, skin to remain intact, labs to approach WNL.
[2017-05-24] MEDS ORDERED: Piperacillin Sodium/Tazobact 2.25 gm Vial IV ONE (23:46)
[2017-05-25] MEDS: Albuterol/Ipratropium Neb 3 ML AERS HHN SCH ×3 (02:00→11:30)
[2017-05-25 05:03] LABS: HEMATOCRIT 27.6 % (41.0-60); HEMOGLOBIN 9.2 gm/dL (12-16); MANUAL DIFF REQUIRED? YES; MEAN CELL VOLUME 96.7 fl (80-99); MEAN CORPUSCULAR HGB CONC 33.2 pg (28.0-36.0); MEAN PLATELET VOLUME 8.2 fl; PLATELET COUNT 195 Th/cmm (150-400); RED BLOOD COUNT 2.86 Mil/cmm (3.80-5.80); RED CELL DISTRIBUTION WIDTH 15.6 % (11.5-20.0); WHITE BLOOD COUNT 10.7 Th/cmm (4.8-10.8)
[2017-05-25 05:16] LABS: BUN - UREA NITROGEN 15 mg/dL (7-25); CALCIUM SERUM 7.2 mg/dL (8.6-10.3); CARBON DIOXIDE 34.8 mEq/L (21.0-31.0); CHLORIDE 100 mEq/L (98-107); CREATININE - SERUM 0.6 mg/dL (0.7-1.3); GLUCOSE 133 mg/dL (70-105); POTASSIUM SERUM 3.8 mEq/L (3.5-5.1); SODIUM SERUM 139 mEq/L (136-145)
[2017-05-25] MEDS ORDERED: Piperacillin Sodium/Tazobact 2.25 gm Vial IV ONE (05:18)
[2017-05-25 06:02] LABS: BAND NEUTROPHILE 2 % (0-10); EOSINOPHIL 1 % (0-5); LYMPHOCYTE 7 % (20-50); MONOCYTE 1 % (2-10); NEUTROPHILS 89 % (40-80); TOTAL CELLS COUNTED 100
--- NOTE | 2017-05-25 07:02 | General Progress Note ---
Subjective - Review of Systems Service Date: 05/25/17 Subjective: ADDENDUM TO DC SUMMARY: Pt seen and eval. In bed. Has some abd pain at times. No n,v,d or fevers. No chills. No cough. No dysuria. No falls or sz. No headaches. Being seen by GI and Sx. Post op for gangrenous cholecycstitis-open braden. On Zosyn now. WBC down to normal now. Objective - Results Result Diagrams: 05/25/17 04:20 05/25/17 04:20 Recent Labs: Laboratory Last Values WBC 10.7 Th/cmm (4.8-10.8) 05/25/17 04:20 RBC 2.86 Mil/cmm (3.80-5.80) L 05/25/17 04:20 Hgb 9.2 gm/dL (12-16) L 05/25/17 04:20 Hct 27.6 % (41.0-60) L 05/25/17 04:20 MCV 96.7 fl (80-99) 05/25/17 04:20 MCH 32.0 pg (27.0-31.0) H 05/25/17 04:20 MCHC Differential 33.2 pg (28.0-36.0) 05/25/17 04:20 RDW 15.6 % (11.5-20.0) 05/25/17 04:20 Plt Count 195 Th/cmm (150-400) 05/25/17 04:20 MPV 8.2 fl 05/25/17 04:20 Neutrophils % 92.4 % (40.0-80.0) H 05/24/17 05:48 Band Neutrophils % 2 % (0-10) 05/25/17 04:20 Lymphocytes % 3.0 % (20.0-50.0) L 05/24/17 05:48 Monocytes % 4.1 % (2.0-10.0) 05/24/17 05:48 Eosinophils % 0.1 % (0.0-5.0) 05/24/17 05:48 Basophils % 0.4 % (0.0-2.0) 05/24/17 05:48 Neutrophils (Manual) 89 % (40-80) H 05/25/17 04:20 Lymphocytes 7 % (20-50) L 05/25/17 04:20 Monocytes 1 % (2-10) L 05/25/17 04:20 Eosinophils 1 % (0-5) 05/25/17 04:20 Basophils 0 % (0-3) 05/17/17 18:55 Platelet Estimate ADEQUATE (NORMAL) 05/20/17 06:26 PT 10.9 SECONDS (9.5-11.5) 05/17/17 05:45 INR 1.05 (0.5-1.4) 05/17/17 05:45 PTT (Actin FS) 29.6 SECONDS (26.0-38.0) 05/17/17 05:45 Specimen Source Arterial 05/12/17 08:50 Sample Site RB 05/12/17 08:50 pH 7.38 (7.35-7.45) 05/12/17 08:50 pCO2 46.0 mmHg (35.0-45.0) H 05/12/17 08:50 pO2 86.0 mmHg (80.0-100.0) 05/12/17 08:50 HCO3 26.1 mEq/L (20.0-26.0) H 05/12/17 08:50 Base Excess 1.6 mEq/L (-3.0-3.0) 05/12/17 08:50 O2 Saturation 96.0 % (92.0-100.0) 05/12/17 08:50 Idris Test NA 05/12/17 08:50 Vent Rate NA 05/12/17 08:50 Inspired O2 28 05/12/17 08:50 Tidal Volume NA 05/12/17 08:50 PEEP NA 05/12/17 08:50 Pressure (ins/psv/peep) NA 05/12/17 08:50 Critical Value E.MCPHERSON 05/12/17 08:50 Sodium 139 mEq/L (136-145) 05/25/17 04:20 Potassium 3.8 mEq/L (3.5-5.1) 05/25/17 04:20 Chloride 100 mEq/L (98-107) 05/25/17 04:20 Carbon Dioxide 34.8 mEq/L (21.0-31.0) H 05/25/17 04:20 Anion Gap 8.0 (7.0-16.0) 05/25/17 04:20 BUN 15 mg/dL (7-25) 05/25/17 04:20 Creatinine 0.6 mg/dL (0.7-1.3) L 05/25/17 04:20 Est GFR ( Amer) TNP 05/25/17 04:20 Est GFR (Non-Af Amer) TNP 05/25/17 04:20 BUN/Creatinine Ratio 25.0 05/25/17 04:20 Glucose 133 mg/dL (70-105) H 05/25/17 04:20 POC Glucose 72 MG/DL (70 - 105) 05/17/17 06:31 Hemoglobin A1c % 4.9 % (4.0-6.0) 05/11/17 16:40 Whole Bld Lactic Acid 1.00 mmol/L (0.60-1.99) 05/11/17 16:40 Calcium 7.2 mg/dL (8.6-10.3) L 05/25/17 04:20 Magnesium 1.9 mg/dL (1.9-2.7) 05/11/17 16:40 Total Bilirubin 0.6 mg/dL (0.3-1.0) 05/19/17 06:30 Direct Bilirubin 0.44 mg/dL (0.0-0.2) H 05/13/17 06:05 AST 33 U/L (13-39) 05/19/17 06:30 ALT 19 U/L (7-52) 05/19/17 06:30 Alkaline Phosphatase 61 U/L (34-104) 05/19/17 06:30 Creatine Kinase 34 U/L (30-223) 05/11/17 16:40 Troponin I < 0.01 ng/mL (0.01-0.05) L 05/11/17 16:40 B-Natriuretic Peptide 135.0 pg/mL (5.0-100.0) H 05/21/17 05:35 Total Protein 5.0 gm/dL (6.0-8.3) L 05/19/17 06:30 Albumin 2.1 gm/dL (4.2-5.5) L 05/19/17 06:30 Globulin 2.9 gm/dL 05/19/17 06:30 Albumin/Globulin Ratio 0.7 (1.0-1.8) L 05/19/17 06:30 Triglycerides 112 mg/dL (<150) 05/11/17 16:40 Cholesterol 84 mg/dL (<200) 05/11/17 16:40 LDL Cholesterol Direct 57 mg/dL (75-193) L 05/11/17 16:40 HDL Cholesterol 18 mg/dL (23-92) L 05/11/17 16:40 Amylase 70 U/L (29-103) 05/11/17 16:40 Lipase 109 U/L (11-82) H 05/11/17 16:40 Urine Source CLEAN C 05/11/17 17:15 Urine Color YELLOW 05/11/17 17:15 Urine Clarity CLEAR (CLEAR) 05/11/17 17:15 Urine pH 6.0 (4.6 - 8.0) 05/11/17 17:15 Ur Specific [place] 1.015 (1.005-1.030) 05/11/17 17:15 Urine Protein TRACE mg/dL (NEGATIVE) 05/11/17 17:15 Urine Glucose (UA) NEGATIVE mg/dL (NEGATIVE) 05/11/17 17:15 Urine Ketones >=80 mg/dL (NEGATIVE) H 05/11/17 17:15 Urine Blood TRACE (NEGATIVE) 05/11/17 17:15 Urine Nitrate NEGATIVE (NEGATIVE) 05/11/17 17:15 Urine Bilirubin MODERATE (NEGATIVE) H 05/11/17 17:15 Urine Urobilinogen 4.0 E.U./dL (0.2 - 1.0) H 05/11/17 17:15 Ur Leukocyte Esterase NEGATIVE (NEGATIVE) 05/11/17 17:15 Urine RBC 2-5 /hpf (0-5) H 05/11/17 17:15 Urine WBC NONE SEEN /hpf (0-5) 05/11/17 17:15 Ur Epithelial Cells NONE SEEN /lpf (FEW) 05/11/17 17:15 Urine Bacteria NONE SEEN /hpf (NONE SEEN) 05/11/17 17:15 Stool Occult Blood NEGATIVE (NEGATIVE) 05/24/17 10:00 Vancomycin Trough 8.9 ug/mL (5-10) 05/21/17 11:00 Blood Type A POSITIVE 05/22/17 08:54 Antibody Screen NEGATIVE 05/22/17 08:54 Crossmatch See Detail 05/22/17 08:54 - Physical Exam Vitals and I&O: Vital Signs Temp 98.4 F 05/25/17 04:00 Pulse 79 05/25/17 04:00 Resp 18 05/25/17 04:00 BP 134/62 05/25/17 04:00 Pulse Ox 98 05/25/17 04:00 Intake & Output 05/24/17 05/25/17 05/25/17 18:59 06:59 18:59 Intake Total 1684.0 50 Balance 1684.0 50 Weight (lbs) 52.072 kg 53.297 kg Intake: Intake, IV Amount 1434.0 50 D5-0.9%Ns 1,000 ml @ 30 1184.0 mls/hr IV .Q24H [facility] Rx#: [id number] KCL 20mEq/100mL Premix 40 200 meq In 200 ml @ 68 mls/ hr IV DAILY PRN Rx#: [id number] Piperacillin Sodium/ 50 50 Tazobact 2.25 gm In Dextrose 5% 50 ml @ 100 mls/hr IV Q6HR [facility] Rx#: [id number] Oral 250 Other: # Voids 4 1 # Bowel Movements 1 0 Stool Characteristics Black Black Green Green Weight Source Bedscale Bedscale Active Medications: Current Medications Acetaminophen (Tylenol) 650 mg PO Q6H PRN PRN Reason: HEADACHE/TEMP ABOVE 100F Stop: 07/10/17 18:41 Last Admin: 05/19/17 08:55 Dose: 650 mg Albuterol/Ipratropium (Duoneb Neb) 3 ml HHN Q4HRT [facility] Stop: 07/20/17 02:59 Last Admin: 05/25/17 02:00 Dose: 3 ml Furosemide (Lasix) 40 mg IVP DAILY [facility] Stop: 07/23/17 09:01 Dextrose/Sodium Chloride (D5-0.9%Ns) 1,000 mls @ 30 mls/hr IV .Q24H [facility] Stop: 07/20/17 00:10 Last Infusion: 05/24/17 17:52 Dose: 30 mls/hr Potassium Chloride (Potassium Chloride) 40 meq in 200 mls @ 68 mls/hr IV DAILY PRN PRN Reason: k level less than 3.2 Stop: 07/10/17 18:41 Last Infusion: 05/24/17 17:52 Dose: Infused Piperacillin Sod/Tazobactam (Sod 2.25 gm/ Dextrose) 50 mls @ 100 mls/hr IV Q6HR [facility] Stop: 07/23/17 17:59 Last Admin: 05/25/17 05:52 Dose: 100 mls/hr Magnesium Oxide (Mag-Oxide) 400 mg PO BID PRN PRN Reason: Mg less than 1.9 Stop: 07/10/17 18:41 Methylprednisolone Sodium Succinate (Solu-Medrol) 40 mg IVP BID [facility] Stop: 07/20/17 10:29 Last Admin: 05/24/17 16:43 Dose: 40 mg Miscellaneous (Zosyn Iv Per Pharmacy) 1 [facility] PRN PRN PRN Reason: PROTOCOL Stop: 07/11/17 07:44 Miscellaneous (Probiotic Screen) 1 [facility] PRN PRN PRN Reason: PROTOCOL Stop: 07/12/17 12:59 Ondansetron HCl (Zofran) 4 mg IVP Q6H PRN PRN Reason: Nausea / Vomiting Stop: 07/10/17 18:41 Last Admin: 05/19/17 11:51 Dose: 4 mg Potassium Chloride (Klor-Con) 40 meq PO DAILY PRN PRN Reason: k level less than 3.5 Stop: 07/10/17 18:41 Last Admin: 05/21/17 09:52 Dose: 40 meq General: Alert, Cooperative, Mild distress, Other (cachexic ) HEENT: Atraumatic, PERRLA, EOMI Neck: Supple, no JVD, no Thyromegaly Cardiovascular: Regular rate, Normal S1 Lungs: Other (has rales bl) Abdomen: Soft, Tender, Other Neurological: Normal speech Psych/Mental Status: Other (ms str 3/5) - Procedures Procedures: Procedures Procedure Code Date REMOVAL OF GALLBLADDER 38474 05/11/17 RESECTION OF GALLBLADDER, OPEN APPROACH [id number] 05/11/17 Assessment/Plan - Problem List Patient Problems: All Active Problems FREQUENT FALLS WITH POOR APPETITE (Acute) - Assessment Assessment: Asp PNA Acute Cholecystitis-gangrenous Hypokalemia D/O of ANS due to syncope Mech fall Mod malnut Asthma ME Sepsis due to Asp Pna and gangrenous cholecystitis COPD Exac - Plan Plan: addendum to dc summary: Pt is on IV Zosyn. Dr. Avalos consulted for ID. Continue breathing tx. Sx and GI consulted for cholecystitis. Pt is post op for open cholecystectomy. Fall prec. FU on cbc. Cardio consulted for sx clearance. Loose stools resolved. Pt is on IV Zosyn. Stable for DC to snf. Nutritional Asmnt/Malnutr-PDOC - Dietary Evaluation Malnutrition Findings (Please click <Entered> for more info): Nutritional Asmnt/Malnutrition Start: 05/12/17 17: 42 Text: Status: Complete Freq: Document 05/12/17 17:43 HEN (Rec: 05/12/17 17:59 LCHENG [id number]) Nutritional Asmnt/Malnutrition Patient General Information Nutritional Screening High Risk Consult Diagnosis syncope Pertinent Medical Hx/Surgical Hx asthma, HTN, dyslipidemia, arthritis Subjective Information Consult received for no appetite to eat. Pt seen lying in bed at time of visit, awake and alert. Pt reported appetite has been poor d/t sick and it was little bit better today. Pt denied chewing problem. Food preference provided. Per RN, pt had no PO intake in the past 5 days, spited out food according to pt . Pt only had fruit and juice for breakfast. Pt was now on NPO during lunch time for U/S. Current Diet Order/ Nutrition Support regular Pertinent Medications colace, piperacillin, nacl 0.9 % Pertinent Labs 05/12 Na 139, K 3.1, Cl 102, BUN 17, Cr 0.5, glucose 62 Ca 8.1 05/11 a1c 4.9 Nutritional Hx/Data Height 1.65 m Height (Calculated Centimeters) 165.1 Current Weight (lbs) 48.081 kg Weight (Calculated Kilograms) 48.1 Weight (Calculated Grams) 12662.8 [place] Body Weight 136 Body Mass Index (BMI) 17.6 Weight Status Underweight GI Symptoms GI Symptoms None Last BM none Difficult in: None Skin Integrity/Comment: bruise to left hip and left upper arm Estimated Nutritional Goals BEE in Kcals: Using Current wt Calories/Kcals/Kg 30-35 Kcals Calculated 4183-1122 Protein: Using Current wt Protein g/k.2-1.4 Protein Calculated 58-67 Fluid: ml 1440-1680ml (1ml/kcal) Nutritional Problem 1. Problem Problem inadequate food intake Etiology poor appetite Signs/Symptoms: poor PO intake x 6 days Intervention/Recommendation Comments 1. Continue with current diet as ordered. If PO continue new , consider adding Boost BID to increased nutrition intake. 2. Monitor PO intake, wt, labs and skin integrity 3. F/U as high risk in 2-3 days, 05/14-05/15 Expected Outcomes/Goals Expected Outcomes/Goals 1. PO intake to meet at least 75% of nutritional needs. 2. Wt stability, skin to remain intact, labs to approach WNL.
[2017-05-25] MEDS: methylPREDNISolone SS 40 mg Vial IVP SCH (08:38)
== END 2017-05-25 13:30 | DRG 853 ==
LOC: ER 15:54 → MSI 18:00 → TELE 05-24 15:58 → MSI 05-24 19:13
PROVIDERS: ADMIT General Practice; ATTEND General Practice
PROC: 3E0234Z Introduction of Serum, Toxoid and Vaccine into Muscle, Percutaneous Approach (ICD-10-PCS; 2017-05-12)
PROC: 0FT40ZZ Resection of Gallbladder, Open Approach (ICD-10-PCS; principal; 2017-05-17)
PROC: 0DN80ZZ Release Small Intestine, Open Approach (ICD-10-PCS; 2017-05-17)
PROC: 30233N1 Transfusion of Nonautologous Red Blood Cells into Peripheral Vein, Percutaneous Approach (ICD-10-PCS; 2017-05-22)
DX: A41.9 Sepsis, unspecified organism (principal); J69.0 Pneumonitis due to inhalation of food and vomit; G93.41 Metabolic encephalopathy; K85.90 Acute pancreatitis without necrosis or infection, unspecified; K65.9 Peritonitis, unspecified; E43 Unspecified severe protein-calorie malnutrition; J44.1 Chronic obstructive pulmonary disease with (acute) exacerbation; K80.00 Calculus of gallbladder with acute cholecystitis without obstruction; Z68.1 Body mass index [BMI] 19.9 or less, adult; E87.6 Hypokalemia; R26.81 Unsteadiness on feet; K66.0 Peritoneal adhesions (postprocedural) (postinfection); B96.20 Unspecified Escherichia coli [E. coli] as the cause of diseases classified elsewhere; I10 Essential (primary) hypertension; R29.6 Repeated falls; G90.8 Other disorders of autonomic nervous system; W18.39XA Other fall on same level, initial encounter; D63.8 Anemia in other chronic diseases classified elsewhere; M62.50 Muscle wasting and atrophy, not elsewhere classified, unspecified site; F17.210 Nicotine dependence, cigarettes, uncomplicated; E78.5 Hyperlipidemia, unspecified; M19.90 Unspecified osteoarthritis, unspecified site; Z23 Encounter for immunization; Y93.89 Activity, other specified; Y92.098 Other place in other non-institutional residence as the place of occurrence of the external cause; Z90.49 Acquired absence of other specified parts of digestive tract; Z85.038 Personal history of other malignant neoplasm of large intestine
CPT/HCPCS: 36415-UA; 70460-TC; 71045-TC; 76700-TC; 78226-TC; 80048-TC; 80053-TC; 80061-TC; 80076-TC; 80202-TC; 81001-TC; 82150-TC; 82270-TC; 82550-TC; 82803-TC; 82948-90; 83036-90; 83605; 83690-TC; 83735-TC; 83880-TC; 84484-TC; 85007-TC; 85025-TC; 85027-TC; 85610-TC; 85730-TC; 86850-TC; 86900-TC; 86901-TC; 86922-TC; 87070-90; 87075-90; 87205-90; 93005; 93880-TC; 94760; 96372; 96374; 97530; A9537; C9113; J1644; J1940; J1956; J2001; J2405; J2543; J2704; J2710; J2920; J3010; J3370; J3480; J7030; J7042; P9016; Q9967; V2790; X3904; X5716; X6258; Z7610